=== PATIENT | male | born 1965 | race Two or more races ===

== ENCOUNTER 2024-06-08 16:31 | Inpatient (IN) | payer MEDICAID, MEDICARE, OTHER ==
[~2024-06-08] VITALS: Ht 154.9 cm; Wt 106.4 kg
--- NOTE | 2024-06-08 16:47 | ECG ---
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
--- NOTE | 2024-06-08 17:05 | ED.PDOC ---
HPI Comments Initial Vital Signs: Temp : 98.9F BP: 128/69 HR: 99 RR: 20 SpO2: 92% on RA Past Medical History: CHF, DM, HTN Past Surgical History: Denies Social History: Denies smoking, ETOH, or drug use. Allergies: NKDA HPI: Poor Historian. 59-year-old male with multiple medical problems presents to the emergency department for three day history of midsternal chest pain nonradiating constant with the associated shortness of breath. Patient went to urgent Care was sent here for further evaluation. Patient uses oxygen at home however he has not been using it the last few days because he recently moved. REVIEW OF SYSTEMS: CONSTITUTIONAL: Denies acute: fever, diaphoresis, chills, generalized weakness. HEAD: Denies acute: headache, photophobia Eyes: Denies acute: Double vision, vision loss, eye pain, eye discharge. EARS: Denies acute: tinnitus, hearing loss, ear discharge, ear pain, THROAT: Denies acute: sore throat, swelling, difficulty swallowing , pain with swallowin g, change in voice. NECK: Denies acute: neck pain, neck swelling, stiff neck. HEART: Denies acute : palpitations, LUNGS: Denies acute: wheezing, cough, hemoptysis ABDOMEN: Denies acute: abdominal pain, Nausea, Vomiting, diarrhea, melena , hematemesis, hematochezia SKIN: Denies acute: rash, redness, lesions, itchiness. EXTREMITIES: Denies acute: calf pain, numbness, tingling, weakness, denies pain in extremity. Denies acute: Low back pain. Neuro: Denies acute: focal neurological deficit, motor or sensory focal neurological deficit, tremors, seizure like activity, confusion, dizziness, change in mental status, loss of bowel or bladder function, cauda equina like symptoms. : Denies acute: dysuria, hematuria, flank pain, increase in urinary frequency. PSYCH: Denies acute: hallucination, suicidal ideation, homicidal ideation. PHYSICAL EXAM: General: no acute distress, awake and alert. Head: normocephalic, atraumatic. Neck: supple, trachea is midline, no swelling. Throat: Normal phonation. Eyes:, no erythema, no purulent discharge, no proptosis, no icterus. Heart: regular rate, regular rhythm, no significant murmur appreciated. Lungs: no apparent respiratory distress, Able to speak in full sentences. No wheezing, no rhonchi, no crackles. No stridors Clear to auscultation bilaterally. Abdomen: non tender to palpation, non distended, soft, no guarding, no rebound, + bowel sounds. Obese Neuro: Awake, Alert, oriented to name, self, situation, follows commands GCS=15. Speech is normal. Skin: no petechia, no purpura, no cyanosis, non-pale, not jaundice. Lower extremities: --trace bilateral - Pitting edema no deformity, no focal swelling, no calf TTP. Makes eye contact. moves all four extremities. Face: no apparent facial droop. Ambulating in the ED independently. ED COURSE: Chief Complaint: Chest Pain Time Seen by MD: 17:00 Reviewed Notes: Nurses Notes, Medications, Allergies Allergies: Coded Allergies: NO KNOWN ALLERGIES (Unverified , 06/08/24) Information Source: Patient Mode of Arrival: Ambulatory Was a procedure done? Was a procedure done?: No CP Differential Dx Differential Diagnosis: Other (DDx include ACS, unstable angina, anxiety, PE, pneumothroax, neoplasm, cardiac ischemia, COPD, asthma, CHF, pleural effusion, tobacco abuse, pneumonia, hypoxia, hypercapnia, anemia., infection/sepsis., pulmonary edema. Asthma, Cardiac tamponade, infection.), N/A Differential Diagnosis: Other (Ddx include but not limitied to gastritis, mu sculoskeletal pain, radiculopathy, atypical chest pain, dissection, aneurysm, ACS, unstable angina, hiatal hernia, GERD, anxiety, costochondritis, PE, pneumothroax, neoplasm, cardiac ischemia, drug abuse, anemia.) X-Ray, Labs, Meds, [address] [address] Ph: [phone] DIAGNOSTIC IMAGING Diagnostic Imaging Report : [id number] Signed PATIENT: DAKOTAH SOLISOACCT: [id number] UNIT: [id number] : 1965 LOC: ER ROOM / BED: / AGE / SEX: 59 / M ADM STATUS: REG ER SERVICE 1642 ORDERING PHYSICIAN: ANNETTE FUNES DO PROCEDURE(s): CXRP - CHEST PORTABLE REASON: CHEST PAIN ORDER NUMBER(s): [id number], ACCESSION NUMBER(s): [id number] CHEST RADIOGRAPH Indication: CHEST PAIN Technique: Single frontal view of the chest was obtained COMPARISON: None FINDINGS: Lines and Tubes: None Lungs: Clear Pleura: No effusion. No pneumothorax. Cardiomediastinal contours: Unremarkable Bones: Unremarkable IMPRESSION: 1. No acute disease. ATED BY: LANCE MUSE MD DICTATED DATE/TIME: 06/08/241722 SIGNED BY: LANCE MUSE MD SIGNED DATE/TIME: 06/08/241722 CC: Vital Signs Date Time Temp Pulse Resp B/P (MAP) Pulse Ox O2 Delivery O2 Flow Rate FiO2 06/08/24 20:30 99.5 73 18 117/65 (82) 90 99.5 06/08/24 18:24 121/61 06/08/24 18:13 99.0 95 18 121/61 (81) 94 99.0 06/08/24 18:13 95 06/08/24 17:25 99 06/08/24 16:40 102 06/08/24 16:31 98.4 99 20 128/69 (88) 92 98.4 Lab Test 06/08/24 21:25 06/08/24 19:27 06/08/24 19:22 06/08/24 16:58 Range/Units Troponin I High Sensitivity 18 16 16 </=54 ng/L Lactic Acid Level 1.5 2.7 *H 0.4-2.0 mmol/L White Blood Count 6.1 4.4-10.8 10^3/uL Red Blood Count 5.05 4.5-5.90 10^6/uL Hemoglobin 17.5 13.5-17.5 g/dL Hematocrit 50.7 41.0-53.0 % Mean Corpuscular Volume 100.5 H 80.0-100.0 fL Mean Corpuscular Hemoglobin 34.7 H 28.0-32.0 pg Mean Corpuscular Hemoglobin Concent 34.5 32.0-36.0 g/dL Red Cell Distribution Width 13.9 11.8-14.3 % Platelet Count 122 L 140-450 10^3/uL Mean Platelet Volume 9.2 6.9-10.8 fL Neutrophils (%) (Auto) 63.3 37.0-80.0 % Lymphocytes (%) (Auto) 21.6 10.0-50.0 % Monocytes (%) (Auto) 10.6 0.0-12.0 % Eosinophils (%) (Auto) 3.5 0.0-7.0 % Basophils (%) (Auto) 1.0 0.0-2.0 % Neutrophils # (Auto) 3.9 1.6-8.6 10 ^3/uL Lymphocytes # (Auto) 1.3 0.4-5.4 10 ^3/uL Monocytes # (Auto) 0.6 0-1.3 10 ^3/uL Eosinophils # (Auto) 0.2 0-0.8 10 ^3/uL Basophils # (Auto) 0.1 0-0.2 10 ^3/uL Nucleated Red Blood Cells 0.1 % D-Dimer, Quantitative 1.44 H 0.0-0.49 mg/L FEU Sodium Level 140 136-145 mmol/L Potassium Level 4.0 3.5-5.1 mmol/L Chloride Level 102 98-107 mmol/L Carbon Dioxide Level 32 H 20-31 mmol/L Anion Gap 6 5-15 Blood Urea Nitrogen 21 9-23 mg/dL Creatinine 1.48 H 0.700-1.30 mg/dL Glomerular Filtration Rate Calc 54 >90 mL/min BUN/Creatinine Ratio 14.2 10.0-20.0 Serum Glucose 331 H 74-106 mg/dL Calcium Level 10.0 8.7-10.4 mg/dL Magnesium Level 1.7 1.6-2.6 mg/dL Total Bilirubin 1.3 H 0.2-1.0 mg/dL Aspartate Amino Transferase (AST) 43 H 13-40 U/L Alanine Aminotransferase (ALT) 38 7-40 U/L Alkaline Phosphatase 154 H 46-116 U/L B-Type Natriuretic Peptide 52.07 0-100 pg/mL Total Protein 6.1 5.7-8.2 g/dL Albumin 3.1 L 3.2-4.8 g/dL Current Medications Medications (Trade) Dose Ordered Sig/Deondre Route Start Time Stop Time Status Last Admin Aspirin (Ecotrin Enteric Coated Tablet) 325 mg ONCE ONCE PO 06/08/24 16:45 06/08/24 16:46 DC 06/08/24 18:23 Nitroglycerin (Ntrostat Sublingual) 0.4 mg ONCE ONCE SL 06/08/24 16:45 06/08/24 16:46 DC 06/08/24 18:24 Time of 1ST Reevaluation: 18:00 Reevaluation 1ST: Unchanged Patient Education/Counseling: Diagnosis, Treatment Family Education/Counseling: No Family Present Comments Patient presented with the above HPI.----chest pain/dyspnea--workup was initiated. patient was found with the above mentioned diagnosis. the following medications were ordered: please refer to order lists of meds and tests obtained by myself Dr. Funes. Patient ED course and VS have been stabilized. Patient has been reassessed in the ED and remained in a stable condition. Pertinent incidental findings were discussed with the patient and/or family. Patient/family voices understanding and is agreeable with plan. Patient has been observed in the ED adequate length of time to insure improvement/stability. Escalation of care considered: Consideration of escalation to observation or admission Patient was ADMITTED to the medicine team for further evaluation and treatment of their presentation. I ordered a CT angiogram of the chest however someone else canceled it. All the reports of any imaging studies that were ordered by myself were reviewed by myself. Departure 1 Departure Time of Disposition: 17:11 Impression: Primary Impression: Chest pain Qualified Codes: R07.9 - Chest pain, unspecified Additional Impressions: Dyspnea Qualified Codes: R06.00 - Dyspnea, unspecified Hyperglycemia Disposition: ADMITTED INPATIENT Admit to: Tele Condition: Guarded Discharged With: Self Critical Care Note Critical Care Time?: Yes (35 min-critical care time only) I personally scribed for ANNETTE FUNES DO ([email or web address]) on 06/08/24 at 17:05. Electronically submitted by Tong Colbert ([email or web address]). I personally scribed for ANNETTE FUNES DO ([email or web address]) on 06/08/24 at 17:14. Electronically submitted by Tong Colbert ([email or web address]). ANNETTE FUNES DO Jun 08, 2024 17:05
--- NOTE | 2024-06-08 17:26 | DVH ---
CHEST RADIOGRAPH Indication: CHEST PAIN Technique: Single frontal view of the chest was obtained COMPARISON: None FINDINGS: Lines and Tubes: None Lungs: Clear Pleura: No effusion. No pneumothorax. Cardiomediastinal contours: Unremarkable Bones: Unremarkable IMPRESSION: 1. No acute disease.
--- NOTE | 2024-06-08 17:27 | ECG ---
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
[2024-06-08 17:43] LABS: Basophils # (auto) 0.1 10 ^3/uL (0-0.2); Eosinophils # (auto) 0.2 10 ^3/uL (0-0.8); Eosinophils % (auto) 3.5 % (0.0-7.0); Hematocrit 50.7 % (41.0-53.0); Hemoglobin 17.5 g/dL (13.5-17.5); Lymphocytes # (auto) 1.3 10 ^3/uL (0.4-5.4); Lymphocytes % (auto) 21.6 % (10.0-50.0); Mean Corpuscular Hemoglobin 34.7 pg (28.0-32.0); Mean Corpuscular Hgb Conc. 34.5 g/dL (32.0-36.0); Mean Corpuscular Volume 100.5 fL (80.0-100.0); Monocytes # (auto) 0.6 10 ^3/uL (0-1.3); Monocytes % (auto) 10.6 % (0.0-12.0); Neutrophils # (auto) 3.9 10 ^3/uL (1.6-8.6); Neutrophils % (auto) 63.3 % (37.0-80.0); Nucleated Red Blood Cells % 0.1 %; Platelet Count (auto) 122 10^3/uL (140-450); Red Blood Cells 5.05 10^6/uL (4.5-5.90); Red Cell Distribution Width 13.9 % (11.8-14.3); White Blood Cell 6.1 10^3/uL (4.4-10.8)
[2024-06-08 17:52] LABS: Alanine Aminotransferase 38 U/L (7-40); Anion Gap 6 (5-15); BUN/Creatinine Ratio 14.2 (10.0-20.0); Blood Urea Nitrogen 21 mg/dL (9-23); Chloride 102 mmol/L (98-107); Magnesium 1.7 mg/dL (1.6-2.6); Sodium 140 mmol/L (136-145); Total Protein 6.1 g/dL (5.7-8.2)
[2024-06-08 17:54] LABS: Albumin 3.1 g/dL (3.2-4.8); Alkaline Phosphatase 154 U/L (46-116); Aspartate Aminotransferase 43 U/L (13-40); Bilirubin, Total 1.3 mg/dL (0.2-1.0); Carbon Dioxide 32 mmol/L (20-31); Glucose 331 mg/dL (74-106)
[2024-06-08 17:58] LABS: Lactic Acid w/Reflex 2.7 mmol/L (0.4-2.0)
[2024-06-08] MEDS: ASPirin-EC 325mg tab PO ONE (18:23)
[2024-06-08] MEDS: NITROGLYCERIN 0.4 MG SL TAB SL ONE (18:24)
[2024-06-08 20:30] VITALS: BP 117/65; PULSE 73; RESP 18; TEMP 99.5; O2SAT 90
[2024-06-08] MEDS ORDERED: DOCUSATE SOD 100 MG CAP PO PRN (22:15)
[2024-06-08] MEDS ORDERED: ACETAMINOPHEN 325 MG TAB PO PRN (22:15)
[2024-06-08] MEDS ORDERED: INSULIN LANTUS (GLARGINE) 1 /0.01ml (100units/ml) SC ONE (22:15)
[2024-06-08] MEDS ORDERED: ATORVASTATIN 20 MG TAB PO ONE (22:15)
[2024-06-08] MEDS ORDERED: ONDANSETRON HCL 4 MG/2 ML VIAL IV ONE (22:15)
[2024-06-08] MEDS ORDERED: ONDANSETRON HCL 4 MG/2 ML VIAL IV PRN ×2 (22:15)
[2024-06-08] MEDS ORDERED: NITROGLYCERIN 0.4 MG SL TAB SL PRN (22:15)
[2024-06-08] MEDS ORDERED: LISINOPRIL 5 MG TAB PO ONE (22:15)
[2024-06-08] MEDS ORDERED: DEXTROSE (50%) 50ML SYRG IV PRN (22:15)
[2024-06-08] MEDS ORDERED: HYDROcodone-ACET 5/325MG TAB PO PRN (22:15)
[2024-06-08] MEDS ORDERED: MAGNESIUM SULFATE 1GM/100ML 100 ML IV SCH (22:15)
[2024-06-08] MEDS ORDERED: FUROSEMIDE 20 MG/2 ML VIAL IV ONE (22:15)
[2024-06-08] MEDS ORDERED: ASPirin 81 mg TAB PO ONE (22:15)
[2024-06-08] MEDS ORDERED: METOPROLOL TARTRATE 25 MG TAB PO ONE (22:15)
--- NOTE | 2024-06-08 22:28 | DVHHPRES ---
History of Present Illness Resident Creating Document: WILIAM STANTON RESDIENT History of Present Illness 59-year-old male with history of CHF, diabetes and hypertension presents to the emergency department for three day history of midsternal chest pain nonradiating constant with the associated shortness of breath. Patient went to urgent Care was sent here for further evaluation. Patient uses oxygen at home however he has not been using it the last few days because he recently moved. He also reports productive cough and nausea. Denies fever, abdominal pain, or any bladder and bowel habit changes. PMHx: CHF, diabetes and hypertension PSHx: Not contribute Family history: Not Significant Social history: Ex-smoker, denies any other drug use. Home medication: Insulin, metoprolol, lisinopril, atorvastatin, Lasix Allergic history: No known allergies Review of Systems Review of Systems General: patient denies fever, fatigue, weaknes, sweating, any recent changes in appetite and weight HEENT: No headaches, visiual changes, hearing loss, tinnitus, nasal congestion and discharge, and sore throat. Cardiovascular: Reports chest pain Respiratory: Reports shortness of breaths Gastrointestinal: Denies nausea, vomiting, dysphagia, odynophagia, heartburn, ab dominal pain, flatulence, bloating, diarrhea, constipation, change in stool, or blood in stool. Genitourinary: No dysuria, hematuria, discharge, frequency, urgency, nocturia, incontinence, and urinary retention. Endocrine: No heat or cold intolerance, polydipsia, polyuria, and polyphagia. Neurological: No dizziness, extremity weakness and numbness, tremors, gait disturbance, seizures, and memory impairment. Psychiatric: Denies depression, anxiety,or insomnia. Musculoskeletal: Denies neck pain, stiffness and swelling, back pain, muscle weakness, joint pain, stiffness, swelling, or limited range of motion. Skin: No rashes, itching, skin lesion, changes in hair, nail, skin texture and breast. Hematologic/Lymphatic: Denies easy bruising, bleeding tendencies, or lymph node enlargement. Allergies: Coded Allergies: NO KNOWN ALLERGIES (Unverified , 06/08/24) Medications Current Medications Medications Dose Ordered Sig/Deondre Route Start Time Stop Time Status Last Admin Dose Admin Docusate Sodium 100 mg BIDPRN PRN PO 06/08/24 22:15 UNV Acetaminophen 650 mg Q6HP PRN PO 06/08/24 22:15 UNV Acetaminophen/ Hydrocodone Bitart 1 tab Q4HP PRN PO 06/08/24 22:15 UNV Ondansetron HCl 4 mg Q4HP PRN IV 06/08/24 22:15 UNV Furosemide 20 mg BIDD IV 06/09/24 06:00 UNV Lisinopril 5 mg DAILY PO 06/09/24 10:00 UNV Metoprolol Tartrate 25 mg BID PO 06/09/24 10:00 UNV Insulin Glargine 15 units QAM SC 06/09/24 07:00 UNV Exam Vital Signs Vital Signs Date Time Temp Pulse Resp B/P (MAP) Pulse Ox O2 Delivery O2 Flow Rate FiO2 06/08/24 20:30 99.5 73 18 117/65 (82) 90 99.5 Exam General Appearance: Alert, Oriented X3, Cooperative, No acute distress HEENT: Atraumatic, PERRLA, EOMI, Mucous membrane moist/pink Respiratory: Bilateral crackles Cardiovascular: Regular rate, Normal S1, Normal S2, No murmurs, no chest wall tenderness Abdominal: Normal bowel sounds, Soft, No tenderness, No hepatospenomegaly, No masses Extremities: Bilateral pedal edema Skin: No rashes, No breakdown, No significant lesion Neuro: Normal gait, Normal speech, Strength at 5/5 X4 ext, Normal tone, Sensation intact, Cranial nerves 3-12 NL, Reflexes 2+ Psych/Mental Status: Mental status NL, Mood NL Labs/Xrays Labs Test 06/08/24 21:25 06/08/24 19:27 06/08/24 16:58 Range/Units Troponin I High Sensitivity 18 </=54 ng/L Lactic Acid Level 1.5 0.4-2.0 mmol/L White Blood Count 6.1 4.4-10.8 10^3/uL Red Blood Count 5.05 4.5-5.90 10^6/uL Hemoglobin 17.5 13.5-17.5 g/dL Hematocrit 50.7 41.0-53.0 % Mean Corpuscular Volume 100.5 H 80.0-100.0 fL Mean Corpuscular Hemoglobin 34.7 H 28.0-32.0 pg Mean Corpuscular Hemoglobin Concent 34.5 32.0-36.0 g/dL Red Cell Distribution Width 13.9 11.8-14.3 % Platelet Count 122 L 140-450 10^3/uL Mean Platelet Volume 9.2 6.9-10.8 fL Neutrophils (%) (Auto) 63.3 37.0-80.0 % Lymphocytes (%) (Auto) 21.6 10.0-50.0 % Monocytes (%) (Auto) 10.6 0.0-12.0 % Eosinophils (%) (Auto) 3.5 0.0-7.0 % Basophils (%) (Auto) 1.0 0.0-2.0 % Neutrophils # (Auto) 3.9 1.6-8.6 10 ^3/uL Lymphocytes # (Auto) 1.3 0.4-5.4 10 ^3/uL Monocytes # (Auto) 0.6 0-1.3 10 ^3/uL Eosinophils # (Auto) 0.2 0-0.8 10 ^3/uL Basophils # (Auto) 0.1 0-0.2 10 ^3/uL Nucleated Red Blood Cells 0.1 % D-Dimer, Quantitative 1.44 H 0.0-0.49 mg/L FEU Sodium Level 140 136-145 mmol/L Potassium Level 4.0 3.5-5.1 mmol/L Chloride Level 102 98-107 mmol/L Carbon Dioxide Level 32 H 20-31 mmol/L Anion Gap 6 5-15 Blood Urea Nitrogen 21 9-23 mg/dL Creatinine 1.48 H 0.700-1.30 mg/dL Glomerular Filtration Rate Calc 54 >90 mL/min BUN/Creatinine Ratio 14.2 10.0-20.0 Serum Glucose 331 H 74-106 mg/dL Calcium Level 10.0 8.7-10.4 mg/dL Magnesium Level 1.7 1.6-2.6 mg/dL Total Bilirubin 1.3 H 0.2-1.0 mg/dL Aspartate Amino Transferase (AST) 43 H 13-40 U/L Alanine Aminotransferase (ALT) 38 7-40 U/L Alkaline Phosphatase 154 H 46-116 U/L B-Type Natriuretic Peptide 52.07 0-100 pg/mL Total Protein 6.1 5.7-8.2 g/dL Albumin 3.1 L 3.2-4.8 g/dL Assessment/Plan Assessment/Plan Assessment: Acute on chronic heart failure, systolic Acute on chronic hypoxic respiratory failure, likely due to heart failure Pneumonia, likely due to Gram-positive Gram-negative bacteria/viral Moderate malnutrition Possible JASBIR, creatinine is raised, no baseline available Uncontrolled diabetes type 2 with hyperglycemia Transaminitis Raised D-dimer Hypertension Plan: Check Sputum culture, MRSA nares and COVID 19 empiric antibiotic azithromycin and ceftriaxone IV diuretic Continue home medicine including metoprolol, lisinopril, atorvastatin and Lasix Echocardiogram, lipid profile, Hb A1c Insulin Lantus 15 units, insulin regular according to aggressive SS oxygen through nasal cannula DIET: Cardiac DVT PROPHYLAXIS: Lovenox GI PROPHYLAXIS: Protonix CODE STATUS: Goal of care discussed for more than 18 minutes, full code DISPOSITION: Telemetry Patient's status and plan discussed with patient Case discussed with Dr. Kraft Plan discussed with: Patient, Other (RN) My Orders Orders - WILIAM STANTON RESDIENT Procedure Category Date Status Time Admit ADMIT 06/08/24 Transmitted 22:12 Code Status CODE 06/08/24 Transmitted 22:12 Vital Signs ROSARIO 06/08/24 In Process 22:12 Review Orders With ROSARIO 06/08/24 In Process Adm. 22:12 Docusate Sodium PHA 06/08/24 Logged Capsule (Colace 22:15 Acetaminophen Tablet PHA 06/08/24 Logged (Tylenol Tablet) 22:15 Notify Of Changes [facility] 06/08/24 In Process From Base 22:12 Advance Directive ROSARIO 06/08/24 In Process 22:12 Echo 2d Mode Cardiac US 06/08/24 Logged DOP 22:12 Urinalysis LAB 06/08/24 Transmitted 22:12 Lipid Panel LAB 06/08/24 Transmitted 22:12 Patient Condition ORDERS 06/08/24 Transmitted 22:12 Allergies ROSARIO 06/08/24 In Process 22:12 Hydrocodone-Acet PHA 06/08/24 Logged 5/325mg Tab ([place] 22:15 Ondansetron Hcl PHA 06/08/24 Logged (Zofran) 22:15 Drug Screen LAB 06/08/24 Transmitted 22:12 Hemoglobin A1c LAB 06/08/24 Transmitted 22:12 Lovenox 40mg PHA 06/09/24 Transmitted 10:00 Nitroglycerin PHA 06/08/24 Transmitted Sublingual (Ntrostat 22:15 Oxygen By Nasal RT 06/08/24 Transmitted Cannula 22:12 Stat Ekg For Chest ROSARIO 06/08/24 In Process Pain 22:12 Notify Md Of Changes ROSARIO 06/08/24 In Process From Base 22:12 Thyroid Stimulating LAB 06/08/24 Transmitted Hormone 22:12 Bilat Lower Dvt US 06/08/24 Logged 22:[address] 06/08/24 Logged Contrast 22:12 Comprehensive LAB 06/09/24 Verified Metabolic Panel 04:00 Complete Blood Count LAB 06/09/24 Verified 04:00 Furosemide Injection PHA 06/08/24 Transmitted (Lasix Injection) 22:15 Furosemide Injection PHA 06/09/24 Logged (Lasix Injection) 06:00 Lisinopril Tablet PHA 06/09/24 Transmitted (Zestril Tablet) 10:00 Lisinopril Tablet PHA 06/08/24 Transmitted (Zestril Tablet) 22:15 Metoprolol Tartrate PHA 06/08/24 Transmitted Tablet (Lopressor Ta 22:15 Metoprolol Tartrate PHA 06/09/24 Transmitted Tablet (Lopressor Ta 10:00 Insulin Lantus PHA 06/09/24 Transmitted (Glargine) (Lantus) 07:00 Insulin Lantus PHA 06/08/24 Transmitted (Glargine) (Lantus) 22:15 Aspirin Tablet PHA 06/08/24 Transmitted 22:15 Aspirin Tablet PHA 06/09/24 Transmitted 10:00 Atorvastatin (Lipitor) PHA 06/08/24 Transmitted 22:15 Atorvastatin (Lipitor) PHA 06/09/24 Transmitted 22:00 Ondansetron Hcl PHA 06/08/24 Transmitted (Zofran) 22:15 Ondansetron Hcl PHA 06/08/24 Transmitted (Zofran) 22:15 Glucose Blood PHA 06/09/24 Transmitted (Accu-Chek Comfort 00:00 Agressive Insulin Ss PHA 06/09/24 Transmitted 00:00 Dextrose 50% Syringe PHA 06/08/24 Transmitted 22:15 Magnesium Med PHA 06/08/24 Transmitted 22:15 Date of Service: Jun 08, 2024 Billing Provider: ALFRED KRAFT MD Common Visit Codes: [id number] INP/OBS CARE (HIGH) WILIAM STANTON RESDIENT Jun 08, 2024 22:28 ALFRED KRAFT MD Jun 11, 2024 10:47
[2024-06-08] MEDS ORDERED: AZITHROMYCIN 500MG/ 250ML 250 ML IV ONE ×2 (23:00→23:15)
[2024-06-08] MEDS ORDERED: cefTRIAXone 1GM/50ML D5W 50 ML IV ONE ×2 (23:00→23:15)
[2024-06-08 23:18] LABS: LDL Cholesterol 56 mg/dL (< 100)
[2024-06-08 23:19] LABS: HDL Cholesterol 52 mg/dL (40-59); Triglycerides 211 mg/dL (< 150)
[2024-06-08 23:20] LABS: Cholesterol 140 mg/dL (< 200)
[2024-06-09] MEDS ORDERED: ACCU-CHEK COMFORT CURVE STRIP VI SCH
[2024-06-09] MEDS ORDERED: InsuLIN REG 1unit/0.01ml Soln (100units/ml) SC SCH
--- NOTE | 2024-06-09 04:47 | DVHDSRES ---
Discharge Summary Date of Admission Resident Creating Document: WILIAM STANTON RESDIENT Jun 08, 2024 at 22:12 Date of Discharge: Jun 09, 2024 Admitting Diagnosis Acute on chronic systolic heart failure Labs/Diagnostic Data: Laboratory Results Test 06/08/24 21:25 06/08/24 19:27 06/08/24 16:58 Troponin I High Sensitivity 18 ng/L (</=54) Lactic Acid Level 1.5 mmol/L (0.4-2.0) White Blood Count 6.1 10^3/uL (4.4-10.8) Red Blood Count 5.05 10^6/uL (4.5-5.90) Hemoglobin 17.5 g/dL (13.5-17.5) Hematocrit 50.7 % (41.0-53.0) Mean Corpuscular Volume 100.5 fL (80.0-100.0) Mean Corpuscular Hemoglobin 34.7 pg (28.0-32.0) Mean Corpuscular Hemoglobin Concent 34.5 g/dL (32.0-36.0) Red Cell Distribution Width 13.9 % (11.8-14.3) Platelet Count 122 10^3/uL (140-450) Mean Platelet Volume 9.2 fL (6.9-10.8) Neutrophils (%) (Auto) 63.3 % (37.0-80.0) Lymphocytes (%) (Auto) 21.6 % (10.0-50.0) Monocytes (%) (Auto) 10.6 % (0.0-12.0) Eosinophils (%) (Auto) 3.5 % (0.0-7.0) Basophils (%) (Auto) 1.0 % (0.0-2.0) Neutrophils # (Auto) 3.9 10 ^3/uL (1.6-8.6) Lymphocytes # (Auto) 1.3 10 ^3/uL (0.4-5.4) Monocytes # (Auto) 0.6 10 ^3/uL (0-1.3) Eosinophils # (Auto) 0.2 10 ^3/uL (0-0.8) Basophils # (Auto) 0.1 10 ^3/uL (0-0.2) Nucleated Red Blood Cells 0.1 % D-Dimer, Quantitative 1.44 mg/L FEU (0.0-0.49) Sodium Level 140 mmol/L (136-145) Potassium Level 4.0 mmol/L (3.5-5.1) Chloride Level 102 mmol/L (98-107) Carbon Dioxide Level 32 mmol/L (20-31) Anion Gap 6 (5-15) Blood Urea Nitrogen 21 mg/dL (9-23) Creatinine 1.48 mg/dL (0.700-1.30) Glomerular Filtration Rate Calc 54 mL/min (>90) BUN/Creatinine Ratio 14.2 (10.0-20.0) Serum Glucose 331 mg/dL (74-106) Hemoglobin A1c 9.0 % A1C (<5.7) Calcium Level 10.0 mg/dL (8.7-10.4) Magnesium Level 1.7 mg/dL (1.6-2.6) Total Bilirubin 1.3 mg/dL (0.2-1.0) Aspartate Amino Transferase (AST) 43 U/L (13-40) Alanine Aminotransferase (ALT) 38 U/L (7-40) Alkaline Phosphatase 154 U/L (46-116) B-Type Natriuretic Peptide 52.07 pg/mL (0-100) Total Protein 6.1 g/dL (5.7-8.2) Albumin 3.1 g/dL (3.2-4.8) Triglycerides Level 211 mg/dL (< 150) Cholesterol Level 140 mg/dL (< 200) LDL Cholesterol 56 mg/dL (< 100) HDL Cholesterol 52 mg/dL (40-59) Thyroid Stimulating Hormone (TSH) 0.95 uIU/mL (0.55-4.78) Other Laboratory Tests 06/08/24 16:58 Brief Hx & Hospital Course: 59-year-old male with history of CHF, diabetes and hypertension presents to the emergency department for three day history of midsternal chest pain nonradiating constant with the associated shortness of breath. Patient went to urgent Care was sent here for further evaluation. Patient uses oxygen at home however he has not been using it the last few days because he recently moved. He also reports productive cough and nausea. Denies fever, abdominal pain, or any bladder and bowel habit changes. PMHx: CHF, diabetes and hypertension PSHx: Not contribute Family history: Not Significant Social history: Ex-smoker, denies any other drug use. Home medication: Insulin, metoprolol, lisinopril, atorvastatin, Lasix Allergic history: No known allergies On 06/07/2024, the patient seen and examined at the bedside. Patient was complaining of chest pain and shortness of breaths. Patient was admitted for the possible acute on chronic systolic heart failure and hypoxic respiratory failure secondary to pneumonia. Patient was started on empiric antibiotic of azithromycin and ceftriaxone, IV diuretics and continued home medicine including metoprolol, lisinopril and atorvastatin. Sputum culture, and echocardiogram was ordered. On 06/09/2024, the patient left AMA. Operations or Procedures [place] [address] Ph: [phone] DIAGNOSTIC IMAGING Diagnostic Imaging Report : [id number] Signed PATIENT: DAKOTAH SOLISOACCT: [id number] UNIT: [id number] : 1965 LOC: ER ROOM / BED: / AGE / SEX: 59 / M ADM STATUS: REG ER SERVICE 1642 ORDERING PHYSICIAN: ANNETTE FUNES DO PROCEDURE(s): CXRP - CHEST PORTABLE REASON: CHEST PAIN ORDER NUMBER(s): [id number], ACCESSION NUMBER(s): [id number] CHEST RADIOGRAPH Indication: CHEST PAIN Technique: Single frontal view of the chest was obtained COMPARISON: None FINDINGS: Lines and Tubes: None Lungs: Clear Pleura: No effusion. No pneumothorax. Cardiomediastinal contours: Unremarkable Bones: Unremarkable IMPRESSION: 1. No acute disease. ATED BY: LANCE MUSE MD DICTATED DATE/TIME: 06/08/241722 SIGNED BY: LANCE MUSE MD SIGNED DATE/TIME: 06/08/241722 CC: Condition at Discharge: Undetermined Final Diagnosis/Problems List Acute on chronic heart failure, systolic Acute on chronic hypoxic respiratory failure, likely due to heart failure Pneumonia, likely due to Gram-positive Gram-negative bacteria/viral Moderate malnutrition Possible JASBIR, creatinine is raised, no baseline available Uncontrolled diabetes type 2 with hyperglycemia Transaminitis Raised D-dimer Hypertension Dyslipidemia Discharge Disposition: AMA Discharge Statement: "Patient was advised to return to the ER or call 911 if any headaches, dizziness, shortness of breath, chest pain, abdominal pain, bleeding, fevers, or worsening of medical condition. Patient was counseled about treatment plan, medications, possible side effects, patientverbalized understanding. All questions were answered to the best of my ability. This discharge took greater then 30 minutes in planning, reviewing documentation, counseling the patient, and discussing with other team members." ASSESSMENT ASSESSMENT Assessment Date of Service: Jun 09, 2024 Billing Provider: ALFRED ROWE MD Common Visit Codes: 36525-BFV/OBS DISCH DAY <30MIN WILIAM STANTON RESDIENT Jun 09, 2024 04:47 ALFRED ROWE MD Jun 11, 2024 10:52
[2024-06-09] MEDS ORDERED: FUROSEMIDE 20 MG/2 ML VIAL IV SCH (06:00)
[2024-06-09] MEDS ORDERED: INSULIN LANTUS (GLARGINE) 1 /0.01ml (100units/ml) SC SCH (07:00)
[2024-06-09] MEDS ORDERED: cefTRIAXone 1GM/50ML D5W 50 ML IV SCH ×2 (09:00)
[2024-06-09] MEDS ORDERED: ASPirin 81 mg TAB PO SCH (10:00)
[2024-06-09] MEDS ORDERED: METOPROLOL TARTRATE 25 MG TAB PO SCH (10:00)
[2024-06-09] MEDS ORDERED: AZITHROMYCIN 500MG/ 250ML 250 ML IV SCH ×2 (10:00)
[2024-06-09] MEDS ORDERED: LISINOPRIL 5 MG TAB PO SCH (10:00)
[2024-06-09] MEDS ORDERED: ENOXAPARIN SOD 40 MG/0.4 ML SYRINGE SC SCH (10:00)
[2024-06-09] MEDS ORDERED: ATORVASTATIN 20 MG TAB PO SCH (22:00)
--- NOTE | 2024-06-11 13:14 | ECG ---
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
== END 2024-06-08 23:00 | disposition left against medical advice (07) | DRG 137 ==
LOC: ER 16:31 → OVERFLOW 22:12 → ER 22:20 → OVERFLOW 22:23
DX: J15.69 Pneumonia due to other Gram-negative bacteria (principal); J96.01 Acute respiratory failure with hypoxia; I50.23 Acute on chronic systolic (congestive) heart failure; E44.0 Moderate protein-calorie malnutrition; N17.9 Acute kidney failure, unspecified; I11.0 Hypertensive heart disease with heart failure; J12.9 Viral pneumonia, unspecified; J15.9 Unspecified bacterial pneumonia; Z68.41 Body mass index [BMI] 40.0-44.9, adult; R74.01 Elevation of levels of liver transaminase levels; E11.65 Type 2 diabetes mellitus with hyperglycemia; E78.5 Hyperlipidemia, unspecified; Z53.29 Procedure and treatment not carried out because of patient's decision for other reasons
CPT/HCPCS: 36415; 71045; 80053; 80061; 83036; 83605; 83735; 83880; 84443; 84484; 85025; 85379; 93005; 99291; G0378

== ENCOUNTER 2024-06-27 20:26 | Emergency (ER) | payer MEDICAID ==
[~2024-06-27] VITALS: Ht 154.9 cm; Wt 106.0 kg
--- NOTE | 2024-06-27 20:58 | ED.PDOC ---
HPI Comments HPI: 59 year old male presents to the ED with chief complaint of chest pain and SOB. Patient reports that he started to experience chest pain with associated SOB earlier today. Patient relays that he is O2 dependent at home and it was not helping with his SOB. Patient states he is compliant with all his medication and took ASA prior to arrival. Patient notes he was unable to bring his O2 with him as it is in a large machine at home. Patient noted to be 89% O2 saturation on 6L NC. Patient notes he believes he is experiencing CHF exacerbation. Patient denies any N/V, numbness, weakness, headache, dizziness, or leg edema. Initial Vitals: Temp: 99.8F BP: 133/52 HR: 90 RR: 24 O2 Sat: 89% on 6L of O2 via NC Medical History: COPD, CHF, HTN, DM Surgical History: Denies Social History: Denies smoking, ETOH, or drug use. Medications: Xarelto, metoprolol, lisinopril, Lasix, Trulicity Allergies: NKDA HPI: Poor Historian. Chest pain shortness of breath for one day. Patient was found hypoxic on arrival without his baseline supplemental oxygen that he came to the hospital without. Patient states compliance with all his medications including Xarelto REVIEW OF SYSTEMS: CONSTITUTIONAL: Denies acute: fever, diaphoresis, chills, generalized weakness. HEAD: Denies acute: headache, photophobia Eyes: Denies acute: Double vision, vision loss, eye pain, eye discharge. EARS: Denies acute: tinnitus, hearing loss, ear discharge, ear pain, THROAT: Denies acute: sore throat, swelling, difficulty swallowing , pain with swallowing, change in voice. NECK: Denies acute: neck pain, neck swelling, stiff neck. HEART: Denies acute : palpitations, LUNGS: Denies acute: wheezing, cough, hemoptysis ABDOMEN: Denies acute: abdominal pain, Nausea, Vomiting, diarrhea, melena , hematemesis, hematochezia SKIN: Denies acute: rash, redness, lesions, itchiness. EXTREMITIES: Denies acute: calf pain, numbness, tingling, weakness, denies pain in extremity. Denies acute: Low back pain. Neuro: Denies acute: focal neurological deficit, motor or sensory focal neurological deficit, tremors, seizure like activity, confusion, dizziness, change in mental status, loss of bowel or bladder function, cauda equina like symptoms. : Denies acute: dysuria, hematuria, flank pain, increase in urinary frequency. PSYCH: Denies acute: hallucination, suicidal ideation, homicidal ideation. PHYSICAL EXAM: General: --axnf-fi-[id number]------acute distress, awake and alert. Head: normocephalic, atraumatic. Neck: supple, trachea is midline, no swelling. Throat: Normal phonation. Eyes:, no erythema, no purulent discharge, no proptosis, no icterus. Heart: regular rate, regular rhythm, no significant murmur appreciated. Lungs: Vzos-ik-siigihan apparent respiratory distress, Able to speak in full sentences. No wheezing, no rhonchi, no crackles. No stridors Clear to auscultation bilaterally. Abdomen: non tender to palpation, non distended, soft, no guarding, no rebound, + bowel sounds. Morbidly obese. Neuro: Awake, Alert, oriented to name, self, situation, follows commands GCS=15. Speech is normal. Skin: no petechia, no purpura, no cyanosis, non-pale, not jaundice. Lower extremities: --1/4 bilateral - Pitting edema no deformity, no focal swelling, no calf TTP. Makes eye contact. moves all four extremities. Face: no apparent facial droop. Ambulating in the ED independently. ED COURSE: Chief Complaint: Chest Pain Time Seen by MD: 20:54 Reviewed Notes: Nurses Notes, Medications, Allergies Allergies: Coded Allergies: NO KNOWN ALLERGIES (Unverified , 06/08/24) Information Source: Patient Mode of Arrival: Ambulatory Was a procedure done? Was a procedure done?: No CP Differential Dx Differential Diagnosis: N/A Differential Diagnosis: Other (DDx include ACS, unstable angina, anxiety, PE, pneumothroax, neoplasm, cardiac ischemia, COPD, asthma, CHF, pleural effusion, tobacco abuse, pneumonia, hypoxia, hypercapnia, anemia., infection/sepsis., pulmonary edema. Asthma, Cardiac tamponade, infection.) X-Ray, Labs, Meds, VS Vital Signs Date Time Temp Pulse Resp B/P (MAP) Pulse Ox O2 Delivery O2 Flow Rate FiO2 06/28/24 01:29 98.6 80 20 108/78 (88) 90 98.6 06/28/24 01:27 108/78 06/28/24 00:31 81 06/27/24 22:22 82 06/27/24 21:33 20 94 Nasal Cannula* 4 36 06/27/24 21:25 90 24 89 Nasal Cannula* 6 44 06/27/24 21:11 133/52 06/27/24 21:10 133/52 06/27/24 20:40 99.8 90 24 133/52 (79) 89 99.8 Lab Test 06/28/24 01:01 06/27/24 23:58 06/27/24 21:49 06/27/24 20:53 Range/Units POC Glucose 542 *H 70-106 mg/dl Troponin I High Sensitivity 18 19 18 </=54 ng/L White Blood Count 5.1 4.4-10.8 10^3/uL Red Blood Count 4.63 4.5-5.90 10^6/uL Hemoglobin 16.0 13.5-17.5 g/dL Hematocrit 47.6 41.0-53.0 % Mean Corpuscular Volume 102.8 H 80.0-100.0 fL Mean Corpuscular Hemoglobin 34.5 H 28.0-32.0 pg Mean Corpuscular Hemoglobin Concent 33.5 32.0-36.0 g/dL Red Cell Distribution Width 14.1 11.8-14.3 % Platelet Count 111 L 140-450 10^3/uL Mean Platelet Volume 9.1 6.9-10.8 fL Neutrophils (%) (Auto) 67.1 37.0-80.0 % Lymphocytes (%) (Auto) 19.2 10.0-50.0 % Monocytes (%) (Auto) 9.5 0.0-12.0 % Eosinophils (%) (Auto) 3.2 0.0-7.0 % Basophils (%) (Auto) 1.0 0.0-2.0 % Neutrophils # (Auto) 3.4 1.6-8.6 10 ^3/uL Lymphocytes # (Auto) 1.0 0.4-5.4 10 ^3/uL Monocytes # (Auto) 0.5 0-1.3 10 ^3/uL Eosinophils # (Auto) 0.2 0-0.8 10 ^3/uL Basophils # (Auto) 0.1 0-0.2 10 ^3/uL Nucleated Red Blood Cells 0.1 % Sodium Level 136 136-145 mmol/L Potassium Level 4.3 3.5-5.1 mmol/L Chloride Level 100 98-107 mmol/L Carbon Dioxide Level 29 20-31 mmol/L Anion Gap 7 5-15 Blood Urea Nitrogen 25 H 9-23 mg/dL Creatinine 1.15 0.700-1.30 mg/dL Glomerular Filtration Rate Calc 73 >90 mL/min BUN/Creatinine Ratio 21.7 H 10.0-20.0 Serum Glucose 615 *H 74-106 mg/dL Calcium Level 9.2 8.7-10.4 mg/dL Total Bilirubin 0.8 0.2-1.0 mg/dL Aspartate Amino Transferase (AST) 40 13-40 U/L Alanine Aminotransferase (ALT) 36 7-40 U/L Alkaline Phosphatase 315 H 46-116 U/L B-Type Natriuretic Peptide 171.27 0-100 pg/mL Total Protein 6.3 5.7-8.2 g/dL Albumin 3.0 L 3.2-4.8 g/dL [place] [address] Ph: [phone] DIAGNOSTIC IMAGING Diagnostic Imaging Report : [id number] Signed PATIENT: DAKOTAH SOLIS MACCT: [id number] UNIT: [id number] : 1965 LOC: ER ROOM / BED: / AGE / SEX: 59 / M ADM STATUS: REG ER SERVICE 41 ORDERING PHYSICIAN: ANNETTE FUNES DO PROCEDURE(s): CXRP - CHEST PORTABLE REASON: cp/sob ORDER NUMBER(s): [id number], ACCESSION NUMBER(s): [id number] EXAM: XY CHEST PORTABLE TECHNIQUE: Single frontal chest radiograph CLINICAL HISTORY: cp/sob COMPARISON: XY CHEST PORTABLE on DOS: 06/08/24 Findings/Impression: Frontal chest radiograph demonstrates no acute osseous or superficial soft tissue abnormalities. The trachea is midline. The cardiac silhouette and mediastinum are within normal limits. No pneumothorax, pleural effusions, or consolidations. ATED BY: BONITA NAVA DO DICTATED DATE/TIME: 06/27/242152 SIGNED BY: BONITA NAVA DO SIGNED DATE/TIME: 06/27/242152 CC: Time of 1ST Reevaluation: 21:54 Reevaluation 1ST: Unchanged Patient Education/Counseling: Diagnosis, Treatment Family Education/Counseling: No Family Present Comments Patient presented with the above HPI.--respiratory distress and cardiac----workup was initiated. patient was found with the above mentioned diagnosis. the following medications were ordered: please refer to order lists of meds and tests obtained by myself Dr. Funes. Patient ED course and VS have been stabilized. Patient has been reassessed in the ED and remained in a stable condition. Pertinent incidental findings were discussed with the patient and/or family. Patient/family voices understanding and is agreeable with plan. Patient has been observed in the ED adequate length of time to insure improvement/stability. Escalation of care considered: Consideration of escalation to observation or admission Patient was ADMITTED to the medicine team for further evaluation and treatment of their presentation. I was later made aware that the patient left against medical advice. All the reports of any imaging studies that were ordered by myself were reviewed by myself. Departure 1 Departure Time of Disposition: 21:38 Impression: Primary Impression: Chest pain Additional Impressions: CHF exacerbation Hypoxemia Hyperglycemia due to diabetes mellitus Disposition: ADMITTED INPATIENT Admit to: [facility] Condition: Guarded Discharged With: Self Critical Care Note Critical Care Time?: Yes (45 min-critical care time only) Heart Score Heart Score: Heart Score Response (Comments) Value History Highly Suspicious 2 EKG Normal 0 Age <45 0 Risk Factors >3 or Hx ASHD 2 Troponin Normal limit 0 Total 4 I personally scribed for ANNETTE FUNES DO ([email or web address]) on 06/27/24 at 20:58. Electronically submitted by Tong Colbert ([email or web address]). I personally scribed for ANNETTE FUNES DO ([email or web address]) on 06/28/24 at 15:52. Electronically submitted by Wilman Nunes ([email or web address]). ANNETTE FUNES DO Jun 27, 2024 20:58
[2024-06-27] MEDS: FUROSEMIDE 100 MG/10ML VIAL IV ONE (21:10)
[2024-06-27] MEDS: methylPREDNISolone SOD SUCC 125 MG/2 ML VL IV ONE (21:10)
[2024-06-27] MEDS: NITROGLYCERIN 0.4 MG SL TAB SL ONE (21:11)
[2024-06-27 21:25] VITALS: PULSE 90; RESP 24; O2SAT 89
[2024-06-27] MEDS: IPRATROPIUM BROM 0.5 MG/2.5ML INH SOL NEB ONE (21:33)
[2024-06-27] MEDS: ALBUTEROL SULF 2.5 MG/0.5ML(0.5%) NEB SOLN NEB ONE (21:33)
[2024-06-27 21:34] LABS: Eosinophils # (auto) 0.2 10 ^3/uL (0-0.8); Monocytes # (auto) 0.5 10 ^3/uL (0-1.3); Nucleated Red Blood Cells % 0.1 %; White Blood Cell 5.1 10^3/uL (4.4-10.8)
[2024-06-27 21:37] LABS: Basophils # (auto) 0.1 10 ^3/uL (0-0.2); Eosinophils % (auto) 3.2 % (0.0-7.0); Hematocrit 47.6 % (41.0-53.0); Lymphocytes % (auto) 19.2 % (10.0-50.0); Mean Corpuscular Hemoglobin 34.5 pg (28.0-32.0); Mean Corpuscular Hgb Conc. 33.5 g/dL (32.0-36.0); Mean Corpuscular Volume 102.8 fL (80.0-100.0); Monocytes % (auto) 9.5 % (0.0-12.0); Neutrophils # (auto) 3.4 10 ^3/uL (1.6-8.6); Neutrophils % (auto) 67.1 % (37.0-80.0); Platelet Count (auto) 111 10^3/uL (140-450); Red Blood Cells 4.63 10^6/uL (4.5-5.90); Red Cell Distribution Width 14.1 % (11.8-14.3)
[2024-06-27 21:47] LABS: Alanine Aminotransferase 36 U/L (7-40); Anion Gap 7 (5-15); BUN/Creatinine Ratio 21.7 (10.0-20.0); Bilirubin, Total 0.8 mg/dL (0.2-1.0); Calcium 9.2 mg/dL (8.7-10.4); Carbon Dioxide 29 mmol/L (20-31); Chloride 100 mmol/L (98-107); Potassium 4.3 mmol/L (3.5-5.1); Sodium 136 mmol/L (136-145); Total Protein 6.3 g/dL (5.7-8.2)
--- NOTE | 2024-06-27 21:55 | DVH ---
EXAM: XY CHEST PORTABLE TECHNIQUE: Single frontal chest radiograph CLINICAL HISTORY: cp/sob COMPARISON: XY CHEST PORTABLE on DOS: 06/08/24 Findings/Impression: Frontal chest radiograph demonstrates no acute osseous or superficial soft tissue abnormalities. The trachea is midline. The cardiac silhouette and mediastinum are within normal limits. No pneumothorax, pleural effusions, or consolidations.
[2024-06-27 21:57] LABS: Alkaline Phosphatase 315 U/L (46-116); Aspartate Aminotransferase 40 U/L (13-40); Blood Urea Nitrogen 25 mg/dL (9-23)
[2024-06-27 21:58] LABS: Glucose 615 mg/dL (74-106)
[2024-06-28] MEDS: InsuLIN REG 1unit/0.01ml Soln (100units/ml) IV ONE (01:02)
[2024-06-28 01:29] VITALS: BP 108/78; PULSE 80; RESP 20; TEMP 98.6; O2SAT 90
--- NOTE | 2024-06-28 06:38 | ECG ---
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
--- NOTE | 2024-06-28 06:42 | ECG ---
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
--- NOTE | 2024-06-28 11:57 | ECG ---
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
== END 2024-06-28 06:43 | disposition left against medical advice (07) ==
LOC: ER 20:26
DX: R07.89 Other chest pain (principal); I11.0 Hypertensive heart disease with heart failure; I50.9 Heart failure, unspecified; E11.65 Type 2 diabetes mellitus with hyperglycemia; R06.02 Shortness of breath
CPT/HCPCS: 36415; 71045; 80053; 82947; 83880; 84484; 85025; 93005; 94640; 96374; 96375; 99285; J1815; J1940; J2919; 82962

== ENCOUNTER 2024-08-05 12:06 | Inpatient (IN) | payer MEDICARE, MEDICAID ==
[~2024-08-05] VITALS: Ht 154.9 cm; Wt 121.9 kg
--- NOTE | 2024-08-05 12:26 | ED.PDOC ---
HPI Comments sob and cp for 4 months Chief Complaint: Shortness of Breath Comments pt has chf, admittedly is dietary noncompliant. he drinks cola, eats fast foods, and has salt in his foods. for 4 months, he has had daily chest pain, and orthopnea. he is on O2 3L 24 hours, but is not using it now. he was admittd on 05.22.24, but AMA'd due to the long wait time for a bed Time Seen by MD: 12:16 Allergies: Coded Allergies: NO KNOWN ALLERGIES (Unverified , 06/08/24) Past Medical History PAST MEDICAL HISTORY: CHF, COPD, DM, HTN Past Medical History (Other): chronic respiratory failure Surgical History: Denies all surgeries Family History Family History: Reviewed,noncontributory to illness, No family hx of Cancer, No family hx of DM, No family hx of Heart bhavik, No family hx of HTN, No family hx ofKidney bhavik, No family hx of Liver bhavik, No family hx of Lung bhavik, No family hx of Stroke Social History Smoker: Quit Greater Than 1 Year Alcohol: Denies ETOH Use Drugs: Denies Drug Use Constitutional: denies: chills, diaphoresis, fatigue, fever, malaise, sweats, weakness, others EENTM: denies: blurred vision, double vision, ear bleeding, ear discharge, ear drainage, ear pain, ear ringing, eye pain, eye redness, hearing loss, mouth pain, mouth swelling, nasal discharge, nose bleeding, nose congestion, nose pa in, photophobia, tearing, throat pain, throat swelling, voice changes, others Respiratory: reports: orthopnea, SOB at rest; denies: cough, hemoptysis, shortness of breath, SOB with excertion, stridor, wheezing, others Cardiovascular: reports: chest pain, edema; denies: dizzy spells, diaphoresis, Dyspnea on exertion, irregular heart beat, left arm pain, lightheadedness, palpitations, PND, syncope, others Gastrointestinal: denies: abdomen distended, abdominal pain, blood streaked bowels, constipated, diarrhea, dysphagia, difficulty swallowing, hematemesis, melena, nausea, poor appetite, poor fluid intake, rectal bleeding, rectal pain, vomiting, others Genitourinary: denies: burning, dysuria, flank pain, frequency, hematuria, incontinence, penile discharge, penile sore, pain, testicle pain, testicle swelling, urgency, others Neurological: denies: dizziness, fainting, headache, left sided numbness, left sided weakness, numbness, paresthesia, pre-existing deficit, right sided numbness, right sided weakness, seizure, speech problems, tingling, tremors, weakness, others Musculoskeletal: denies: back pain, gout, joint pain, joint swelling, muscle pain, muscle stiffness, neck pain, others Integumetry: denies: bruises, change in color, change in hair/nails, dryness, laceration, lesions, lumps, rash, wounds, others Allergic/Immunocompromised: denies: Difficulty Healing, Frequent Infections, H aakash, Itching, others Hematologic/Lymphatic: denies: anemia, blood clots, easy bleeding, easy bruising, swollen glands, others Endocrine: denies: excessive hunger, excessive sweating, excessive thirst, excessive urination, flushing, intolerance to cold, intolerance to heat, unexplained weight gain, unexplained weight loss, others Psychiatric: denies: anxiety, bipolar disorder, depression, hopeless, panic disorder, schizophrenia, sleepless, suicidal, others All Other Systems: Reviewed and Negative Physical Exam General Appearance: No Apparent Distress, Normal HEENT: Normal ENT Inspection, Pharynx Normal, TMs Normal Neck: Full Range of Motion, Non-Tender, Normal, Normal Inspection Respiratory: Chest Non-Tender, Lungs Clear, No Accessory Muscle Use, No Respiratory Distress, Normal Breath Sounds Cardiovascular: No JVD, No Murmur, No Gallop, Normal Peripheral Pulses, Regular Rate/Rhythm Breast Exam: Deferred Gastrointestinal: No Organomegaly, Non Tender, No Pulsatile Mass, Normal Bowel Sounds, Soft Genitalia: Deferred Pelvic: Deferred Rectal: Deferred Extremities: No calf tenderness, Normal capillary refill, Normal inspection, Normal range of motion, Non-tender, Swelling (billateral symmetric 3+ edema up upper tib) Musculoskeletal : Apperance: Normal Neurologic: Alert, special education educational assistant II-XII nml as Tested, No Motor Deficits, Normal Affect, Normal Mood, No Sensory Deficits Cerebellar Function: Normal Reflexes: Normal Skin: Dry, Normal Color, Warm Lymphatic: No Adenopathy EKG EKG : Pulse Rate (adult): 85 [place]: Normal Cardiac Rhythm: NSR Block: None Hypertrophy: None ST: Nonsp Was a procedure done? Was a procedure done?: No CP Differential Dx Differential Diagnosis: A-fib, Angina, Anxiety / Panic Attack, Heart Failure, Hypoxia Differential Diagnosis: CHF, Medical NonCompliance Differential Diagnosis: Angina, Myocardial Infarction, Pericarditis, Pneumonia, Pneumothorax, Pulmonary Embolus X-Ray, Labs, Meds, VS Vital Signs Date Time Temp Pulse Resp B/P (MAP) Pulse Ox O2 Delivery O2 Flow Rate FiO2 08/05/24 14:33 Simple Mask* 10 99 08/05/24 14:30 75 21 101/58 (72) 95 08/05/24 13:24 119/58 08/05/24 13:03 Nasal Cannula* 6 44 08/05/24 13:02 85 08/05/24 12:39 85 08/05/24 12:37 99.6 85 22 105/60 (75) 90 99.6 08/05/24 12:30 101/58 08/05/24 12:26 85 08/05/24 12:23 Nasal Cannula 6.0 08/05/24 12:23 99.6 86 22 106/57 (73) 90 99.6 Lab Test 08/05/24 13:44 08/05/24 12:33 Range/Units Troponin I High Sensitivity 27 29 </=54 ng/L White Blood Count 5.6 4.4-10.8 10^3/uL Red Blood Count 4.65 4.5-5.90 10^6/uL Hemoglobin 16.0 13.5-17.5 g/dL Hematocrit 47.1 41.0-53.0 % Mean Corpuscular Volume 101.2 H 80.0-100.0 fL Mean Corpuscular Hemoglobin 34.3 H 28.0-32.0 pg Mean Corpuscular Hemoglobin Concent 33.9 32.0-36.0 g/dL Red Cell Distribution Width 15.1 H 11.8-14.3 % Platelet Count 101 L 140-450 10^3/uL Mean Platelet Volume 9.2 6.9-10.8 fL Neutrophils (%) (Auto) 68.5 37.0-80.0 % Lymphocytes (%) (Auto) 15.4 10.0-50.0 % Monocytes (%) (Auto) 11.6 0.0-12.0 % Eosinophils (%) (Auto) 4.3 0.0-7.0 % Basophils (%) (Auto) 0.2 0.0-2.0 % Neutrophils # (Auto) 3.9 1.6-8.6 10 ^3/uL Lymphocytes # (Auto) 0.9 0.4-5.4 10 ^3/uL Monocytes # (Auto) 0.7 0-1.3 10 ^3/uL Eosinophils # (Auto) 0.2 0-0.8 10 ^3/uL Basophils # (Auto) 0 0-0.2 10 ^3/uL Nucleated Red Blood Cells 0.1 % Sodium Level 138 136-145 mmol/L Potassium Level 4.4 3.5-5.1 mmol/L Chloride Level 102 98-107 mmol/L Carbon Dioxide Level 30 20-31 mmol/L Anion Gap 6 5-15 Blood Urea Nitrogen 18 9-23 mg/dL Creatinine 1.22 0.700-1.30 mg/dL Glomerular Filtration Rate Calc 68 >90 mL/min BUN/Creatinine Ratio 14.8 10.0-20.0 Serum Glucose 433 *H 74-106 mg/dL Calcium Level 8.3 L 8.7-10.4 mg/dL B-Type Natriuretic Peptide 88.12 0-100 pg/mL Current Medications Medications (Trade) Dose Ordered Sig/Deondre Route Start Time Stop Time Status Last Admin Aspirin 325 mg ONCE ONCE PO 08/05/24 12:30 08/05/24 12:52 DC 08/05/24 13:24 Furosemide (Lasix Injection) 40 mg ONCE ONCE IV 08/05/24 12:30 08/05/24 12:52 DC 08/05/24 13:24 Insulin Human Regular (InsuLIN R) 8 units ONCE ONCE IV 08/05/24 13:30 08/05/24 13:31 DC 08/05/24 13:31 Time of 1ST Reevaluation: 15:15 Reevaluation 1ST: Improved Patient Education/Counseling: Diagnosis, Treatment, Prognosis, Need For Follow Up Family Education/Counseling: No Family Present Additional Information PT HAS EVIDENCE OF PULM ART HTN. HE IS ALSO RETAINBING FLUIDS FROM SALT OVERLOAD, SECONDARY TO DIETARY NONCOMPLIANCE. PT ALSO HAS EVIDENCE OF PNEUMONIA. HE IS HYPOXIC, BUT IS NOT COMPLIANT WITH USING HIS O2. HE WILL BE ADMITTED FOR PNEUMONIA, NONCOMPLIANC Departure 1 Departure Time of Disposition: 15:16 Impression: Primary Impression: Pneumonia Qualified Codes: J18.9 - Pneumonia, unspecified organism Additional Impressions: Noncompliance Chronic respiratory failure Qualified Codes: J96.11 - Chronic respiratory failure with hypoxia Disposition: ADMITTED INPATIENT Admit to: Tele Condition: Stable Discharged With: Self Critical Care Note Critical Care Time?: Yes (55 min-critical care time only) Critical care comment: due to concerns for patient's condition deteriorating, the care required my highest level of attention and readiness to intervene. i assessed the patient's condition, ordered the proper tests and treatments, reassessed for response and reviewed the results. i communicated with medical personnel and formulated a plan of care. total critical care time does not include any procedures Stability Stability form required: No Heart Score Heart Score: Heart Score Response (Comments) Value History Moderate Suspicious 1 EKG Repolarization Disturb 1 Age 45-64 1 Risk Factors >3 or Hx ASHD 2 Troponin Normal limit 0 Total 5 ANA ROSA HARTLEY MD August 05, 2024 12:26
[2024-08-05] MEDS: NTG 0.1MG/HR TOPICAL PATCH TD ONE (12:30)
[2024-08-05 12:47] LABS: Basophils # (auto) 0 10 ^3/uL (0-0.2); Eosinophils # (auto) 0.2 10 ^3/uL (0-0.8); Neutrophils # (auto) 3.9 10 ^3/uL (1.6-8.6); Red Cell Distribution Width 15.1 % (11.8-14.3); White Blood Cell 5.6 10^3/uL (4.4-10.8)
[2024-08-05 12:49] LABS: Basophils % (auto) 0.2 % (0.0-2.0); Eosinophils % (auto) 4.3 % (0.0-7.0); Hematocrit 47.1 % (41.0-53.0); Lymphocytes # (auto) 0.9 10 ^3/uL (0.4-5.4); Lymphocytes % (auto) 15.4 % (10.0-50.0); Mean Corpuscular Hemoglobin 34.3 pg (28.0-32.0); Mean Corpuscular Hgb Conc. 33.9 g/dL (32.0-36.0); Mean Corpuscular Volume 101.2 fL (80.0-100.0); Monocytes # (auto) 0.7 10 ^3/uL (0-1.3); Monocytes % (auto) 11.6 % (0.0-12.0); Neutrophils % (auto) 68.5 % (37.0-80.0); Nucleated Red Blood Cells % 0.1 %; Platelet Count (auto) 101 10^3/uL (140-450); Red Blood Cells 4.65 10^6/uL (4.5-5.90)
[2024-08-05 13:00] LABS: Chloride 102 mmol/L (98-107); Potassium 4.4 mmol/L (3.5-5.1); Sodium 138 mmol/L (136-145)
[2024-08-05 13:01] LABS: Anion Gap 6 (5-15); Carbon Dioxide 30 mmol/L (20-31)
[2024-08-05 13:07] LABS: Blood Urea Nitrogen 18 mg/dL (9-23); Calcium 8.3 mg/dL (8.7-10.4)
[2024-08-05 13:08] LABS: Glucose 433 mg/dL (74-106)
[2024-08-05 13:14] LABS: BUN/Creatinine Ratio 14.8 (10.0-20.0)
[2024-08-05] MEDS: FUROSEMIDE 40 MG/4 ML VIAL IV ONE (13:24)
[2024-08-05] MEDS: ASPirin 325 MG TAB PO ONE (13:24)
[2024-08-05] MEDS: InsuLIN REG 1unit/0.01ml Soln (100units/ml) IV ONE (13:31)
--- NOTE | 2024-08-05 13:50 | DVH ---
CHEST RADIOGRAPH Indication: sob Technique: Single frontal view of the chest was obtained Comparison: XY CHEST PORTABLE on DOS: 06/27/24, XY CHEST PORTABLE on DOS: 06/08/24 FINDINGS: Lines and Tubes: None Lungs: Mild prominence of the pulmonary trunk Minimal bilateral lower lung zone opacities. No pneumothorax. Cardiomediastinal contours: Unremarkable Bones: No acute osseous abnormality. IMPRESSION: Bilateral lower lung zone opacities which may represent pneumonia/ atelectasis. Mild prominence of the pulmonary trunk. Correlate for pulmonary arterial hypertension.
[2024-08-05] MEDS: cefTRIAXone 1GM/50ML D5W 50 ML IV ONE (15:42)
[2024-08-05] MEDS ORDERED: MET25T PO (17:29)
[2024-08-05] MEDS ORDERED: RIV20T PO (17:29)
[2024-08-05] MEDS ORDERED: ONDANSETRON HCL 4 MG/2 ML VIAL IV PRN (17:30)
[2024-08-05] MEDS ORDERED: NITROGLYCERIN 0.4 MG SL TAB SL PRN (17:30)
[2024-08-05] MEDS ORDERED: MORPHINE SULFATE INJ 2 MG/ml SYRG IV PRN (17:30)
--- NOTE | 2024-08-05 17:37 | DVHHP2 ---
History of Present Illness Reason for Visit: Shortness of breath History of Present Illness The patient is a 59-year-old male presenting to the emergency room with right and left-sided chest pain that worsens with cough as well as shortness of breath. Patient states that his symptoms has been intermittent for the past two weeks, worsening which prompted him to come to the emergency room. Upon arrival to the emergency room he was found to be hypoxic, currently on a simple mask at 6 L/min with a saturation 96%. Patient also reports having white-colored phlegm, but denies having any fevers, chills, body aches. Significant history of the patient includes diabetes, previous DVT to his right lower extremity, hypertension, congestive heart failure. Cardiovascular: CHF, HTN Heme/Onc: Other (Deep vein thrombosis) Endocrine: Diabetes Past Surgical History: None Family History: None Smoke: No ALCOHOL: none Drugs: None Lives: with Family Review of Systems Constitutional: Yes: Weakness Eyes: No: Pain, Vision change, Conjunctivae inflammation, Eyelid inflammation, Other, Redness ENT: No: Ear pain, Ear discharge, Nose pain, Nose discharge, Nose congestion, Mouth pain, Mouth swelling, Throat pain, Throat swelling, Other Respiratory: Cough, Shortness of breath, Pleuritic Pain, Sputum Cardiovascular: No: Chest Pain, Palpitations, Orthopnea, Paroxysmal Noc. Dyspnea, Edema, Lt Headedness, Other Gastrointestinal: No: Nausea, Vomiting, Abdominal Pain, Diarrhea, Constipation, Melena, Hematochezia, Other Genitourinary: No Dysuria, No Frequency, No Incontinence, No Hematuria, No R etention, No Other Musculoskeletal: No: other, neck pain, shoulder pain, arm pain, back pain, hand pain, leg pain, foot pain Skin: No: Rash, Lesions, Jaundice, Bruising, Other Neurological: No: Weakness, Numbness, Incoordination, Change in speech, Confusion, Seizures, Other Allergies: Coded Allergies: NO KNOWN ALLERGIES (Unverified , 06/08/24) Exam Vital Signs Vital Signs Date Time Temp Pulse Resp B/P (MAP) Pulse Ox O2 Delivery O2 Flow Rate FiO2 08/05/24 16:00 70 08/05/24 14:33 Simple Mask* 10 99 08/05/24 14:30 21 101/58 (72) 95 08/05/24 12:37 99.6 99.6 General Appearance: Alert, Oriented X3, Cooperative, moderate distress, Other (Morbid obesity) HEENT: Atraumatic, PERRLA Respiratory: Other (Decreased breath sounds bilaterally) Cardiovascular: Normal S1, Normal S2 Abdominal: Normal bowel sounds, Soft, No tenderness, No hepatospenomegaly Neuro: Sensation intact, Cranial nerves 3-12 NL Psych/Mental Status: Mental status NL, Mood NL Labs/Xrays Labs Test 08/05/24 15:24 08/05/24 12:33 Range/Units Troponin I High Sensitivity 29 </=54 ng/L White Blood Count 5.6 4.4-10.8 10^3/uL Red Blood Count 4.65 4.5-5.90 10^6/uL Hemoglobin 16.0 13.5-17.5 g/dL Hematocrit 47.1 41.0-53.0 % Mean Corpuscular Volume 101.2 H 80.0-100.0 fL Mean Corpuscular Hemoglobin 34.3 H 28.0-32.0 pg Mean Corpuscular Hemoglobin Concent 33.9 32.0-36.0 g/dL Red Cell Distribution Width 15.1 H 11.8-14.3 % Platelet Count 101 L 140-450 10^3/uL Mean Platelet Volume 9.2 6.9-10.8 fL Neutrophils (%) (Auto) 68.5 37.0-80.0 % Lymphocytes (%) (Auto) 15.4 10.0-50.0 % Monocytes (%) (Auto) 11.6 0.0-12.0 % Eosinophils (%) (Auto) 4.3 0.0-7.0 % Basophils (%) (Auto) 0.2 0.0-2.0 % Neutrophils # (Auto) 3.9 1.6-8.6 10 ^3/uL Lymphocytes # (Auto) 0.9 0.4-5.4 10 ^3/uL Monocytes # (Auto) 0.7 0-1.3 10 ^3/uL Eosinophils # (Auto) 0.2 0-0.8 10 ^3/uL Basophils # (Auto) 0 0-0.2 10 ^3/uL Nucleated Red Blood Cells 0.1 % Sodium Level 138 136-145 mmol/L Potassium Level 4.4 3.5-5.1 mmol/L Chloride Level 102 98-107 mmol/L Carbon Dioxide Level 30 20-31 mmol/L Anion Gap 6 5-15 Blood Urea Nitrogen 18 9-23 mg/dL Creatinine 1.22 0.700-1.30 mg/dL Glomerular Filtration Rate Calc 68 >90 mL/min BUN/Creatinine Ratio 14.8 10.0-20.0 Serum Glucose 433 *H 74-106 mg/dL Calcium Level 8.3 L 8.7-10.4 mg/dL B-Type Natriuretic Peptide 88.12 0-100 pg/mL Assessment/Plan Assessment/Plan Impression: -acute hypoxic respiratory failure -community-acquired pneumonia, probable Gram-positive/Gram-negative etiology -diabetes mellitus -probable acute on chronic diastolic heart failure -morbid obesity -probable obstructive sleep apnea -rule out ACS Plan: -admit to telemetry unit -O2 supplementation keep saturation greater than 92% -bronchodilators -antibiotic therapy: Rocephin, azithromycin -regular insulin sliding scale -echocardiogram -repeat labs, chest x-ray, ABG Total time spent with patient discussing and formulating plan of care: 35 minutes. This medical document was created using an electronic medical record system with [employer] dictation system. Although this document has been carefully reviewed, there may still be some phonetic and typographical errors. These areas are purely typographical due to imperfections of the software programs, and do not reflect any compromise in the patient's medical care. Plan discussed with: Patient, Other (RN) My Orders Orders - PURVI DAVIES CHIPPER OPERATOR Procedure Category Date Status Time Admit ADMIT 08/05/24 Transmitted 17:25 Nitroglycerin PHA 08/05/24 Transmitted Sublingual (Ntrostat 17:30 Morphine Sulfate PHA 08/05/24 Transmitted Injection 17:30 Stat Ekg For Chest ROSARIO 08/05/24 Transmitted Pain 17:25 Notify Md Of Changes ROSARIO 08/05/24 Transmitted From Base 17:25 Cops For ROSARIO 08/05/24 Transmitted 24 Hours 17:25 Emergency Dysrhythmia ROSARIO 08/05/24 Transmitted Protocol 17:25 Rhythm Strips Once ROSARIO 08/05/24 Transmitted Every Shift 17:25 Oxygen By Nasal RT 08/05/24 Transmitted Cannula 17:25 Echo 2d Mode Cardiac US 08/05/24 Transmitted DOP 17:25 Azithromycin 500mg/ PHA 08/06/24 Transmitted 250ml (Zithromax 50 10:00 Complete Blood Count LAB 08/06/24 Verified 05:00 Basic Metabolic Panel LAB 08/06/24 Verified 05:00 Chest Portable XY 08/06/24 Transmitted 05:00 Respiratory Culture PAYAL 08/05/24 Transmitted W/ Gs 17:25 Morphine Sulfate PHA 08/05/24 Transmitted Injection 17:30 Acetaminophen Tab Or PHA 08/05/24 Transmitted Cap (Tylenol Tablet 17:30 Hydrocodone-Acet PHA 08/05/24 Transmitted 5/325mg Tab ([place] 17:30 Ondansetron Hcl PHA 08/05/24 Transmitted (Zofran) 17:30 Albuterol Medneb PHA 08/05/24 Transmitted (Ventolin Medneb) 18:00 Ipratropium Medneb PHA 08/05/24 Transmitted (Atrovent Medneb) 18:00 Sequential ROSARIO 08/05/24 Transmitted Compression Device 17:25 Furosemide Injection PHA 08/06/24 Transmitted (Lasix Injection) 10:00 Hemoglobin A1c LAB 08/05/24 Transmitted 17:25 Consistent DIET 08/05/24 [facility]mitted [facility]Diabetes Dinner Date of Service: August 05, 2024 Billing Provider: PURVI DAVIES NP Common Visit Codes: [id number] INP/OBS CARE (HIGH) PURVI DAVIES NP August 05, 2024 17:37
[2024-08-05 18:07] VITALS: PULSE 118; PULSE 81; RESP 19; O2SAT 98
[2024-08-05] MEDS: ALBUTEROL SULF 2.5 MG/0.5ML(0.5%) NEB SOLN ONE (18:07)
[2024-08-05] MEDS: IPRATROPIUM BROM 0.5 MG/2.5ML INH SOL ONE (18:07)
[2024-08-05 18:14] VITALS: PULSE 72; RESP 19; O2SAT 98
[2024-08-05 19:50] VITALS: BP 126/76; O2SAT 98
[2024-08-05 21:00] VITALS: PULSE 75; RESP 25; O2SAT 97
[2024-08-05 21:48] VITALS: BP 120/64; PULSE 77; RESP 18; RESP 20; TEMP 98.1; O2SAT 92
[2024-08-05 21:57] VITALS: BP 120/64; PULSE 77; RESP 22; TEMP 98.6; O2SAT 92
[2024-08-05] MEDS ORDERED: LISI-275 PO (22:14)
[2024-08-05] MEDS ORDERED: POTA-228 PO (22:14)
[2024-08-05] MEDS ORDERED: TORS20TA19 PO (22:14)
[2024-08-05] MEDS ORDERED: ERTU15TA PO (22:14)
[2024-08-05] MEDS ORDERED: DEXTROSE (50%) 50ML SYRG IV PRN ×2 (22:15→22:30)
[2024-08-05] MEDS: METOPROLOL TARTRATE 25 MG TAB PO SCH (22:39)
[2024-08-05] MEDS: MORPHINE SULFATE INJ 2 MG/ml SYRG IV PRN (22:40)
[2024-08-05] MEDS: InsuLIN REG 1unit/0.01ml Soln (100units/ml) SC SCH (22:45)
[2024-08-06] VITALS (11 sets, daily range): BP systolic 103–118; BP diastolic 58–72; PULSE 68–86; RESP 17–21; TEMP 97.6–98.4; O2SAT 91–100
[2024-08-06] MEDS: ACETAMINOPHEN 500 MG TAB or CAP PO PRN (00:37)
[2024-08-06] MEDS: InsuLIN REG 1unit/0.01ml Soln (100units/ml) SC SCH ×2 (05:56→22:15)
[2024-08-06] MEDS: ACCU-CHEK COMFORT CURVE STRIP VI SCH (06:00)
[2024-08-06] MEDS: IPRATROPIUM BROM 0.5 MG/2.5ML INH SOL NEB SCH (06:00)
[2024-08-06] MEDS: ALBUTEROL SULF 2.5 MG/0.5ML(0.5%) NEB SOLN NEB SCH (06:00)
--- NOTE | 2024-08-06 06:39 | DVH ---
CHEST RADIOGRAPH Indication: pna Technique: Single frontal view of the chest was obtained COMPARISON: XY CHEST PORTABLE on DOS: 08/05/24, XY CHEST PORTABLE on DOS: 06/27/24, XY CHEST PORTABLE on DOS: 06/08/24 FINDINGS: Lines and Tubes: None Lungs: Multifocal airspace disease Pleura: No effusion. No pneumothorax. Cardiomediastinal contours: Cardiomegaly Bones: Unremarkable IMPRESSION: Increased multifocal airspace disease or pulmonary vascular congestion
[2024-08-06 07:36] LABS: Basophils # (auto) 0 10 ^3/uL (0-0.2); Eosinophils # (auto) 0.3 10 ^3/uL (0-0.8); Mean Corpuscular Hgb Conc. 34.1 g/dL (32.0-36.0); Nucleated Red Blood Cells % 0.2 %; White Blood Cell 5.2 10^3/uL (4.4-10.8)
[2024-08-06 07:37] LABS: Basophils % (auto) 0.9 % (0.0-2.0); Eosinophils % (auto) 6.5 % (0.0-7.0); Hematocrit 49.2 % (41.0-53.0); Hemoglobin 16.8 g/dL (13.5-17.5); Lymphocytes # (auto) 1.1 10 ^3/uL (0.4-5.4); Lymphocytes % (auto) 21.2 % (10.0-50.0); Mean Corpuscular Hemoglobin 34.4 pg (28.0-32.0); Mean Corpuscular Volume 100.9 fL (80.0-100.0); Monocytes # (auto) 0.6 10 ^3/uL (0-1.3); Monocytes % (auto) 12.3 % (0.0-12.0); Neutrophils # (auto) 3.1 10 ^3/uL (1.6-8.6); Neutrophils % (auto) 59.1 % (37.0-80.0); Platelet Count (auto) 100 10^3/uL (140-450); Red Blood Cells 4.88 10^6/uL (4.5-5.90)
[2024-08-06] MEDS: AZITHROMYCIN 500MG/ 250ML 250 ML IV SCH (09:53)
[2024-08-06] MEDS: FUROSEMIDE 20 MG/2 ML VIAL IV SCH (09:53)
[2024-08-06] MEDS: RIVAROXABAN 20 MG TAB PO SCH (09:55)
[2024-08-06 11:02] LABS: Chloride 102 mmol/L (98-107); Potassium 4.5 mmol/L (3.5-5.1); Sodium 140 mmol/L (136-145)
[2024-08-06 11:03] LABS: Anion Gap 4 (5-15); Calcium 9.3 mg/dL (8.7-10.4); Carbon Dioxide 34 mmol/L (20-31)
[2024-08-06 11:08] LABS: BUN/Creatinine Ratio 20.2 (10.0-20.0); Blood Urea Nitrogen 20 mg/dL (9-23)
[2024-08-06 11:10] LABS: Glucose 231 mg/dL (74-106)
--- NOTE | 2024-08-06 12:10 | DVHPN2 ---
Subjective Patient continues to report having shortness of breath Reviewed: Care Plan, H&P, Labs, Medications, Previous Orders Changes from previous H/P or p: No Changes General: Per HPI Eyes: No Pain, No Vision change, No Conjunctivae inflammation, No Eyelid inflammation, No Other, No Redness ENT: No Ear pain, No Ear discharge, No Nose pain, No Nose discharge, No Nose congestion, No Mouth pain, No Mouth swelling, No Throat pain, No Throat swelling, No Other Cardiovascular: No Chest Pain, No Palpitations, No Orthopnea, No Paroxysmal Noc. Dyspnea, No Edema, No Lt Headedness, No Other Respiratory: Cough, Shortness of breath, Pleuritic Pain, Sputum Gastrointestinal: No Nausea, No Vomiting, No Abdominal Pain, No Diarrhea, No Constipation, No Melena, No Hematochezia, No Other Genitourinary: No Dysuria, No Frequency, No Incontinence, No Hematuria, No Retention, No Other Musculoskeletal: No other, No neck pain, No shoulder pain, No arm pain, No back pain, No hand pain, No leg pain, No foot pain Skin: No Rash, No Lesions, No Jaundice, No Bruising, No Other Objective Vitals Vital Signs Date Time Temp Pulse Resp B/P (MAP) Pulse Ox O2 Delivery O2 Flow Rate FiO2 08/06/24 09:54 77 118/58 08/06/24 09:00 98.0 21 93 98.0 08/06/24 08:00 Nasal Cannula* 4 36 Intake/Output Intake and Output 08/06/24 07:00 Intake Total 890 ml Balance 890 ml Intake Oral 840 ml IV Total 50 ml # Voids 2 General Appearance: Alert, Oriented X3, Cooperative, mild distress, Other (Morbid obesity) HEENT: Atraumatic Lungs: Clear to auscultation, Normal air movement, Other (Decreased breath sounds at bases) Cardiovascular: Normal S1, Normal S2 Abdomen: Normal bowel sounds, Soft, No tenderness, No hepatospenomegaly Musculoskeletal: Normal sensory function, Normal motor function Skin: Dry, Intact Psych/Mental Status: Mental status NL, Mood NL Medications Current Medications Medications Dose Ordered Sig/Deondre Route Start Time Stop Time Status Last Admin Dose Admin Nitroglycerin 0.4 mg Q5MINP PRN SL 08/05/24 17:30 Morphine Sulfate 2 mg Q30M PRN IV 08/05/24 17:30 Azithromycin 250 ml @ 125 mls/hr DAILY IV 08/06/24 10:00 08/06/24 09:53 125 MLS/HR Morphine Sulfate 1 mg Q4HPRN PRN IV 08/05/24 17:30 08/05/24 22:40 1 MG Acetaminophen 500 mg Q8HP PRN PO 08/05/24 17:30 08/06/24 00:37 500 MG Acetaminophen/ Hydrocodone Bitart 1 tab Q6HPRN PRN PO 08/05/24 17:30 Ondansetron HCl 4 mg Q4HP PRN IV 08/05/24 17:30 Albuterol 2.5 mg Q6HWA NEB 08/05/24 18:00 Ipratropium [place] 0.5 mg Q6HWA NEB 08/05/24 18:00 Furosemide 20 mg DAILY IV 08/06/24 10:00 08/06/24 09:53 20 MG Metoprolol Tartrate 25 mg BID PO 08/05/24 22:00 08/06/24 09:54 25 MG Rivaroxaban 20 mg DAILY PO 08/06/24 10:00 08/06/24 09:55 20 MG Diagnostic Test (Pha) 1 strip ACHS 08/06/24 07:00 08/06/24 11:44 1 STRIP Insulin Human Regular HS SC 08/06/24 22:00 Insulin Human Regular AC SC 08/06/24 07:00 08/06/24 11:43 3 UNITS Dextrose 50 ml UD PRN IV 08/05/24 22:15 Insulin Human Regular AC SC 08/05/24 22:00 08/05/24 22:45 12 UNITS Dextrose 50 ml UD PRN IV 08/05/24 22:30 Laboratory Results Laboratory Tests 08/06/24 07:02 08/06/24 10:37 Chemistry Test 08/05/24 12:33 08/06/24 10:37 Calcium Level 8.3 mg/dL (8.7-10.4) L 9.3 mg/dL (8.7-10.4) Cardiac Markers Test 08/05/24 12:33 B-Type Natriuretic Peptide 88.12 pg/mL (0-100) HgA1c, TSH Test 08/05/24 12:33 Hemoglobin A1c 10.2 % A1C (<5.7) H Labs and/or images reviewed: Labs reviewed by me, Image(s) reviewed by me Assessment/Plan Assessment/Plan Impression: -acute hypoxic respiratory failure -community-acquired pneumonia, probable Gram-positive/Gram-negative etiology -diabetes mellitus -probable acute on chronic diastolic heart failure -morbid obesity -probable obstructive sleep apnea -rule out ACS Plan: Events: Patient assessed sitting in a chair. Patient is still is on O2 supplementation at 3-4 L/min. Reports feeling swollen. Subjective dyspnea. Chest x-ray interpreted as multifocal pneumonia, worsening by Radiology. -CT scan of the chest with IV contrast to rule out PE, differentiate underlying lung pathology -O2 supplementation keep saturation greater than 92% -bronchodilators -antibiotic therapy: Rocephin, azithromycin -regular insulin sliding scale -echocardiogram -repeat labs in a.m. Total time spent with patient discussing and formulating plan of care: 35 minutes. This medical document was created using an electronic medical record system with [employer] dictation system. Although this document has been carefully reviewed, there may still be some phonetic and typographical errors. These areas are purely typographical due to imperfections of the software programs, and do not reflect any compromise in the patient's medical care. Plan discussed with: Patient, Other (RN) My Orders Orders - PURVI DAVIES PATIENT FLOW COORDINATOR Procedure Category Date Status Time Admit ADMIT 08/05/24 Transmitted 17:25 Nitroglycerin PHA 08/05/24 In Process Sublingual (Ntrostat 17:30 Morphine Sulfate PHA 08/05/24 In Process Injection 17:30 Stat Ekg For Chest ROSARIO 08/05/24 In Process Pain 17:25 Notify Of Changes ROSARIO 08/05/24 In Process From Base 17:25 Filler Blender For ROSARIO 08/05/24 In Process 24 Hours 17:25 Emergency Dysrhythmia ROSARIO 08/05/24 In Process Protocol 17:25 Rhythm Strips Once ROSARIO 08/05/24 In Process Every Shift 17:25 Oxygen By Nasal RT 08/05/24 Transmitted Cannula 17:25 Azithromycin 500mg/ PHA 08/06/24 In Process 250ml (Zithromax 50 10:00 Chest Portable XY 08/06/24 Resulted 05:00 Respiratory Culture PAYAL 08/05/24 Logged W/ Gs 17:25 Morphine Sulfate PHA 08/05/24 In Process Injection 17:30 Acetaminophen Tab Or PHA 08/05/24 In Process Cap (Tylenol Tablet 17:30 Hydrocodone-Acet PHA 08/05/24 In Process 5/325mg Tab ([place] 17:30 Ondansetron Hcl PHA 08/05/24 In Process (Zofran) 17:30 Albuterol Medneb PHA 08/05/24 In Process (Ventolin Medneb) 18:00 Ipratropium Medneb PHA 08/05/24 In Process (Atrovent Medneb) 18:00 Sequential ROSARIO 08/05/24 In Process Compression Device 17:25 Furosemide Injection PHA 08/06/24 In Process (Lasix Injection) 10:00 Consistent DIET 08/05/24 Transmitted Carb([facility])Diabetes Dinner Metoprolol Tartrate PHA 08/05/24 In Process Tablet (Lopressor Ta 22:00 Rivaroxaban Tablet PHA 08/06/24 In Process (Xarelto Tablet) 10:00 Echo 2d Mode Cardiac US 08/06/24 Logged DOP 17:[address] 08/06/24 Logged 12:02 Basic Metabolic Panel LAB 08/07/24 Verified 04:00 Complete Blood Count LAB 08/07/24 Verified 04:00 Date of Service: August 06, 2024 Billing Provider: PURVI DAVIES NP Common Visit Codes: [id number] INP/OBS CARE(HIGH) PURVI DAVIES NP August 06, 2024 12:10
[2024-08-06] MEDS: IOHEXOL 350 MG/ML 100ML IJ ONE (12:51)
--- NOTE | 2024-08-06 14:29 | DVH ---
CTA Chest with intravenous contrast INDICATION: Multifocal pna, rule out PE COMPARISON: None TECHNIQUE: Multidetector spiral CTA of the chest was performed of the chest with intravenous contrast . PULMONARY ANGIOGRAPHY PROTOCOL was utilized using a bolus-tracking technique centered on the main p ulmonary artery. Axial, coronal and sagittal multiplanar and MIP reformats were performed. CONTRAST: Type of contrast: Omni 350 Contrast injected: 100 ml Radiation dose : Chest: CTDI volume is 27.88 mGy. Dose-length product is 978.91 mGy*cm The dose indicators for CT are the volume computed Tomography (CT) dose Index (CTDIvol) and the dose Length product (DLP), and are measured in units of mGy and mGy-cm, respectively. These indicators are not patient dose, but values generated from the CT scanner acquisition factors. The report includes radiation exposure data for exposures received during this examination. Findings: Pulmonary artery: No pulmonary embolism Lower neck: Normal thyroid. Lungs: Patchy consolidation in the lung bases left greater than right. Heart/Vascular Structures: Normal heart size. Small pericardial effusion. Lymph Nodes: No adenopathy Pleura: No pleural effusion or significant pneumothorax. Musculoskeletal: No acute osseous abnormality. Soft tissues: Normal. Upper abdomen: Coarse calcifications in the right lobe of the liver. Multiple varices in the left upp er quadrant. IMPRESSION: 1. No pulmonary embolism. 2. Patchy bibasilar pneumonia. Varices in the left upper quadrant. Consider further evaluation with dedicated imaging of the abdomen and pelvis. HS:Y
--- NOTE | 2024-08-06 19:03 | ECG ---
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
[2024-08-07] VITALS (12 sets, daily range): BP systolic 108–128; BP diastolic 59–75; PULSE 64–85; RESP 15–18; TEMP 97.5–98.8; O2SAT 91–100
[2024-08-07] MEDS: HYDROcodone-ACET 5/325MG TAB PO PRN (04:26)
[2024-08-07 07:28] LABS: Basophils # (auto) 0 10 ^3/uL (0-0.2); Basophils % (auto) 0.8 % (0.0-2.0); Eosinophils # (auto) 0.3 10 ^3/uL (0-0.8); Eosinophils % (auto) 6.7 % (0.0-7.0); Hematocrit 48.2 % (41.0-53.0); Hemoglobin 16.5 g/dL (13.5-17.5); Lymphocytes % (auto) 20.5 % (10.0-50.0); Mean Corpuscular Hemoglobin 34.5 pg (28.0-32.0); Mean Corpuscular Hgb Conc. 34.1 g/dL (32.0-36.0); Mean Corpuscular Volume 101.1 fL (80.0-100.0); Monocytes # (auto) 0.7 10 ^3/uL (0-1.3); Monocytes % (auto) 13.2 % (0.0-12.0); Neutrophils % (auto) 58.8 % (37.0-80.0); Nucleated Red Blood Cells % 0.2 %; Platelet Count (auto) 99 10^3/uL (140-450); Red Blood Cells 4.77 10^6/uL (4.5-5.90); Red Cell Distribution Width 15.2 % (11.8-14.3)
[2024-08-07 07:32] LABS: Chloride 101 mmol/L (98-107); Potassium 4.2 mmol/L (3.5-5.1); Sodium 140 mmol/L (136-145)
[2024-08-07 07:33] LABS: Calcium 9.1 mg/dL (8.7-10.4)
[2024-08-07 07:38] LABS: BUN/Creatinine Ratio 20.2 (10.0-20.0); Blood Urea Nitrogen 19 mg/dL (9-23)
[2024-08-07 07:39] LABS: Anion Gap 3 (5-15); Carbon Dioxide 36 mmol/L (20-31); Glucose 146 mg/dL (74-106)
--- NOTE | 2024-08-07 12:51 | DVHSR ---
APPROVED REPORT EXAM: Two-dimensional and M-mode echocardiogram with Doppler and color Doppler. Blood Pressure: 109/63 mmHg INDICATION Chest Pain Rule out ACS RISK FACTORS Obesity: Height: 5'1", Weight: 251 DIMENSIONS LVDd4.8 (3.8-5.7cm)LA (2D)4.4 (1.9-4.0cm)Aortic Root3.2 (2.0-3.7cm) LVDs3.3 (2.5-4.0cm)LA (MM) (1.9-4.0cm)Aortic Cusp Exc2.1 (1.5-2.0cm) EF (%) 60.0 (55-70%)Rt. Atrium5.0 (1.9-4.0cm)Asc. Aorta cm IVSd1.2 (0.7-1.1cm)RV (D)4.7 (1.8-2.4cm) PWd1.4 (0.7-1.1cm) Mitral Valve MitralMitral Stenosis E wave0.99m/sMV Mean GR.mmHg A wave1.14m/sMV Peak GR.mmHg E/A ratio0.92D MVAcm2 DECEL [id number] 1/2 Timems Aortic Valve Aortic ValveAortic Stenosis V11.38m/Shivam Mean GR.8mmHg V21.87m/Shivam Peak GR.14mmHg LVOT Diameter2.1 (1.8-2.4cm)Doppler AVA2.55cm2 Pulmonic Valve V21.32m/s Tricuspid Valve TR Velocity4.58m/s [id number] Conclusion lvef 55% mild LVH RV moderate enlarged severe pulm htn, pasp > 90 mmhg clinical correlate dilated IVC
--- NOTE | 2024-08-07 14:25 | DVHPN2 ---
Subjective Patient continues to report having shortness of breath Reviewed: Care Plan, H&P, Labs, Medications, Previous Orders Changes from previous H/P or p: No Changes General: Per HPI Eyes: No Pain, No Vision change, No Conjunctivae inflammation, No Eyelid inflammation, No Other, No Redness ENT: No Ear pain, No Ear discharge, No Nose pain, No Nose discharge, No Nose congestion, No Mouth pain, No Mouth swelling, No Throat pain, No Throat swelling, No Other Cardiovascular: No Chest Pain, No Palpitations, No Orthopnea, No Paroxysmal Noc. Dyspnea, No Edema, No Lt Headedness, No Other Respiratory: Cough, Shortness of breath, Pleuritic Pain, Sputum Gastrointestinal: No Nausea, No Vomiting, No Abdominal Pain, No Diarrhea, No Constipation, No Melena, No Hematochezia, No Other Genitourinary: No Dysuria, No Frequency, No Incontinence, No Hematuria, No Retention, No Other Musculoskeletal: No other, No neck pain, No shoulder pain, No arm pain, No back pain, No hand pain, No leg pain, No foot pain Skin: No Rash, No Lesions, No Jaundice, No Bruising, No Other Objective Vitals Vital Signs Date Time Temp Pulse Resp B/P (MAP) Pulse Ox O2 Delivery O2 Flow Rate FiO2 08/07/24 12:26 77 108/61 08/07/24 09:00 98.2 16 95 98.2 08/07/24 08:00 Nasal Cannula* 4 36 Intake/Output Intake and Output 08/07/24 06:59 Intake Total 1830 ml Output Total 300 ml Balance 1530 ml Intake Oral 1830 ml Output Urine Total 300 ml # Voids 17 General Appearance: Alert, Oriented X3, Cooperative, mild distress, Other (Morbid obesity) HEENT: Atraumatic Lungs: Clear to auscultation, Normal air movement, Other (Decreased breath sounds at bases) Cardiovascular: Normal S1, Normal S2 Abdomen: Normal bowel sounds, Soft, No tenderness, No hepatospenomegaly Musculoskeletal: Normal sensory function, Normal motor function Skin: Dry, Intact Psych/Mental Status: Mental status NL, Mood NL Medications Current Medications Medications Dose Ordered Sig/Deondre Route Start Time Stop Time Status Last Admin Dose Admin Nitroglycerin 0.4 mg Q5MINP PRN SL 08/05/24 17:30 Morphine Sulfate 2 mg Q30M PRN IV 08/05/24 17:30 Azithromycin 250 ml @ 125 mls/hr DAILY IV 08/06/24 10:00 08/07/24 11:25 125 MLS/HR Morphine Sulfate 1 mg Q4HPRN PRN IV 08/05/24 17:30 08/05/24 22:40 1 MG Acetaminophen 500 mg Q8HP PRN PO 08/05/24 17:30 08/07/24 11:35 500 MG Acetaminophen/ Hydrocodone Bitart 1 tab Q6HPRN PRN PO 08/05/24 17:30 08/07/24 04:26 1 TAB Ondansetron HCl 4 mg Q4HP PRN IV 08/05/24 17:30 Albuterol 2.5 mg Q6HWA NEB 08/05/24 18:00 08/07/24 11:51 2.5 MG Ipratropium [place] 0.5 mg Q6HWA NEB 08/05/24 18:00 08/07/24 11:51 0.5 MG Furosemide 20 mg DAILY IV 08/06/24 10:00 08/07/24 11:26 20 MG Metoprolol Tartrate 25 mg BID PO 08/05/24 22:00 08/07/24 11:26 25 MG Rivaroxaban 20 mg DAILY PO 08/06/24 10:00 08/07/24 11:26 20 MG Diagnostic Test (Pha) 1 strip ACHS 08/06/24 07:00 08/07/24 11:35 1 STRIP Insulin Human Regular HS SC 08/06/24 22:00 08/06/24 22:15 6 UNITS Insulin Human Regular AC SC 08/06/24 07:00 08/07/24 06:13 2 UNITS Dextrose 50 ml UD PRN IV 08/05/24 22:15 Insulin Human Regular AC SC 08/05/24 22:00 08/07/24 11:37 9 UNITS Dextrose 50 ml UD PRN IV 08/05/24 22:30 Laboratory Results Laboratory Tests 08/07/24 06:30 Chemistry Test 08/07/24 06:30 Calcium Level 9.1 mg/dL (8.7-10.4) Labs and/or images reviewed: Labs reviewed by me, Image(s) reviewed by me Assessment/Plan Assessment/Plan Impression: -acute hypoxic respiratory failure -community-acquired pneumonia, probable Gram-positive/Gram-negative etiology -diabetes mellitus -probable acute on chronic diastolic heart failure -morbid obesity -probable obstructive sleep apnea -rule out ACS Plan: Events: CT scan of the chest with IV contrast rules out pulmonary embolism. Patient is noted to have bibasilar infiltrates. Echocardiogram performed, with noted elevated pulmonary artery systolic pressure of 90 mmHg. Patient denies having previous diagnosis of pulmonary hypertension. -pulmonary consultation -start Revatio 20 mg p.o. t.i.d. -O2 supplementation keep saturation greater than 92% -bronchodilators -antibiotic therapy: Rocephin, azithromycin -regular insulin sliding scale -echocardiogram -repeat labs in a.m. Total time spent with patient discussing and formulating plan of care: 35 minutes. This medical document was created using an electronic medical record system with [employer] dictation system. Although this document has been carefully reviewed, there may still be some phonetic and typographical errors. These areas are purely typographical due to imperfections of the software programs, and do not reflect any compromise in the patient's medical care. Plan discussed with: Patient, Other (RN) Date of Service: August 07, 2024 Billing Provider: PURVI DAVIES NP Common Visit Codes: [id number] INP/OBS CARE(HIGH) PURVI DAVIES NP August 07, 2024 14:25
--- NOTE | 2024-08-07 20:48 | DVHINCON2 ---
Date of service: August 07, 2024 Referring Physician Collins Romo NP History of Present Illness Home Meds Reported Medications Potassium Chloride (Potassium Chloride ER) 10 Meq Tab, 1 TAB PO DAILY 08/05/24 Torsemide Injection (Torsemide) 20 Mg Tab, 1 TAB PO BID 08/05/24 Lisinopril (Lisinopril) 5 Mg Tab, 1 TAB PO DAILY 08/05/24 Ertugliflozin l-Pyroglutamic A (Steglatro) 15 Mg Tab, 1 TAB PO DAILY 08/05/24 Metoprolol Tartrate (Lopressor) 25 Mg Tb, 2 PO BID 08/05/24 Rivaroxaban (Xarelto Tablet) 20 Mg Tb, 1 TAB PO DAILY 08/05/24 Past Medical History Patient Family History: Patient reports no known family medical history. H&P Exam Vital Signs Vital Signs Date Time Temp Pulse Resp B/P (MAP) Pulse Ox O2 Delivery O2 Flow Rate FiO2 08/07/24 19:19 73 16 100 08/07/24 19:11 Nasal Cannula 4.0 08/07/24 19:11 N/A 08/07/24 17:00 97.5 114/60 (78) 97.5 Labs/Xrays Labs Test 08/07/24 16:46 08/07/24 06:30 08/05/24 15:24 08/05/24 12:33 Range/Units POC Glucose 231 H 70-106 mg/dl White Blood Count 5.0 4.4-10.8 10^3/uL Red Blood Count 4.77 4.5-5.90 10^6/uL Hemoglobin 16.5 13.5-17.5 g/dL Hematocrit 48.2 41.0-53.0 % Mean Corpuscular Volume 101.1 H 80.0-100.0 fL Mean Corpuscular Hemoglobin 34.5 H 28.0-32.0 pg Mean Corpuscular Hemoglobin Concent 34.1 32.0-36.0 g/dL Red Cell Distribution Width 15.2 H 11.8-14.3 % Platelet Count 99 L 140-450 10^3/uL Mean Platelet Volume 8.7 6.9-10.8 fL Neutrophils (%) (Auto) 58.8 37.0-80.0 % Lymphocytes (%) (Auto) 20.5 10.0-50.0 % Monocytes (%) (Auto) 13.2 H 0.0-12.0 % Eosinophils (%) (Auto) 6.7 0.0-7.0 % Basophils (%) (Auto) 0.8 0.0-2.0 % Neutrophils # (Auto) 3.0 1.6-8.6 10 ^3/uL Lymphocytes # (Auto) 1.0 0.4-5.4 10 ^3/uL Monocytes # (Auto) 0.7 0-1.3 10 ^3/uL Eosinophils # (Auto) 0.3 0-0.8 10 ^3/uL Basophils # (Auto) 0 0-0.2 10 ^3/uL Nucleated Red Blood Cells 0.2 % Sodium Level 140 136-145 mmol/L Potassium Level 4.2 3.5-5.1 mmol/L Chloride Level 101 98-107 mmol/L Carbon Dioxide Level 36 H 20-31 mmol/L Anion Gap 3 L 5-15 Blood Urea Nitrogen 19 9-23 mg/dL Creatinine 0.94 0.700-1.30 mg/dL Glomerular Filtration Rate Calc 93 >90 mL/min BUN/Creatinine Ratio 20.2 H 10.0-20.0 Serum Glucose 146 H 74-106 mg/dL Calcium Level 9.1 8.7-10.4 mg/dL Troponin I High Sensitivity 29 </=54 ng/L Hemoglobin A1c 10.2 H <5.7 % A1C B-Type Natriuretic Peptide 88.12 0-100 pg/mL MARY PHELAN MD August 07, 2024 20:48
[2024-08-07] MEDS: SILDENAFIL CITRATE 20 MG TAB PO SCH (21:43)
[2024-08-08] VITALS (16 sets, daily range): BP systolic 107–135; BP diastolic 54–76; PULSE 69–94; RESP 14–22; TEMP 97.2–98.1; O2SAT 90–96
[2024-08-08 11:39] LABS: Amphetamine Screen, Urine Neg (NEGATIVE); Barbiturate Scree,Urine Neg (NEGATIVE); Benzodiazephine Screen, Urine Neg (NEGATIVE); Cannabinoid Screen, Urine Neg (NEGATIVE); Cocaine Screen, Urine Neg (NEGATIVE); Opiate Scree,Urine Neg (NEGATIVE); Phencyclidine Screen, Urine Neg (NEGATIVE)
--- NOTE | 2024-08-08 15:14 | DVHPN2 ---
Subjective Patient reports improvement with his dyspnea. Reviewed: Care Plan, H&P, Labs, Medications, Previous Orders Changes from previous H/P or p: Changes General: Per HPI Eyes: No Pain, No Vision change, No Conjunctivae inflammation, No Eyelid inflammation, No Other, No Redness ENT: No Ear pain, No Ear discharge, No Nose pain, No Nose discharge, No Nose congestion, No Mouth pain, No Mouth swelling, No Throat pain, No Throat swelling, No Other Cardiovascular: No Chest Pain, No Palpitations, No Orthopnea, No Paroxysmal Noc. Dyspnea, No Edema, No Lt Headedness, No Other Respiratory: Cough, Shortness of breath, Pleuritic Pain, Sputum Gastrointestinal: No Nausea, No Vomiting, No Abdominal Pain, No Diarrhea, No Constipation, No Melena, No Hematochezia, No Other Genitourinary: No Dysuria, No Frequency, No Incontinence, No Hematuria, No Retention, No Other Musculoskeletal: No other, No neck pain, No shoulder pain, No arm pain, No back pain, No hand pain, No leg pain, No foot pain Skin: No Rash, No Lesions, No Jaundice, No Bruising, No Other Objective Vitals Vital Signs Date Time Temp Pulse Resp B/P (MAP) Pulse Ox O2 Delivery O2 Flow Rate FiO2 08/08/24 13:00 98.0 72 20 109/54 (72) 90 98.0 08/08/24 08:00 Nasal Cannula* 4 36 Intake/Output Intake and Output 08/08/24 07:00 Intake Total 2920 ml Output Total 950 ml Balance 1970 ml Intake Oral 2920 ml Output Urine Total 950 ml # Voids 5 General Appearance: Alert, Oriented X3, Cooperative, mild distress, Other (Morbid obesity) HEENT: Atraumatic Lungs: Clear to auscultation, Normal air movement, Other (Decreased breath sounds at bases) Cardiovascular: Normal S1, Normal S2 Abdomen: Normal bowel sounds, Soft, No tenderness, No hepatospenomegaly Musculoskeletal: Normal sensory function, Normal motor function Skin: Dry, Intact Psych/Mental Status: Mental status NL, Mood NL Medications Current Medications Medications Dose Ordered Sig/Deondre Route Start Time Stop Time Status Last Admin Dose Admin Nitroglycerin 0.4 mg Q5MINP PRN SL 08/05/24 17:30 Hold Morphine Sulfate 2 mg Q30M PRN IV 08/05/24 17:30 Azithromycin 250 ml @ 125 mls/hr DAILY IV 08/06/24 10:00 08/08/24 09:09 125 MLS/HR Morphine Sulfate 1 mg Q4HPRN PRN IV 08/05/24 17:30 08/05/24 22:40 1 MG Acetaminophen 500 mg Q8HP PRN PO 08/05/24 17:30 08/07/24 11:35 500 MG Acetaminophen/ Hydrocodone Bitart 1 tab Q6HPRN PRN PO 08/05/24 17:30 08/07/24 21:44 1 TAB Ondansetron HCl 4 mg Q4HP PRN IV 08/05/24 17:30 Albuterol 2.5 mg Q6HWA NEB 08/05/24 18:00 08/08/24 12:45 2.5 MG Ipratropium [place] 0.5 mg Q6HWA NEB 08/05/24 18:00 08/08/24 12:45 0.5 MG Furosemide 20 mg DAILY IV 08/06/24 10:00 08/08/24 09:10 20 MG Metoprolol Tartrate 25 mg BID PO 08/05/24 22:00 08/08/24 09:09 25 MG Rivaroxaban 20 mg DAILY PO 08/06/24 10:00 08/08/24 09:10 20 MG Diagnostic Test (Pha) 1 strip ACHS 08/06/24 07:00 08/08/24 11:17 1 STRIP Insulin Human Regular HS SC 08/06/24 22:00 08/07/24 21:49 8 UNITS Insulin Human Regular AC SC 08/06/24 07:00 08/08/24 11:17 9 UNITS Dextrose 50 ml UD PRN IV 08/05/24 22:15 Insulin Human Regular AC SC 08/05/24 22:00 08/07/24 18:14 6 UNITS Dextrose 50 ml UD PRN IV 08/05/24 22:30 Sildenafil Citrate 20 mg TID@08,14,20 PO 08/07/24 20:00 08/08/24 14:29 20 MG Ceftriaxone Sodium 50 ml @ 100 mls/hr DAILY@1700 IV 08/08/24 17:00 Docusate Sodium 100 mg BID PO 08/08/24 22:00 UNV Insulin Glargine 15 units HS SC 08/08/24 22:00 UNV Laboratory Results Laboratory Tests 08/07/24 06:30 Labs and/or images reviewed: Labs reviewed by me, Image(s) reviewed by me Assessment/Plan Assessment/Plan Impression: -acute hypoxic respiratory failure -community-acquired pneumonia, probable Gram-positive/Gram-negative etiology -diabetes mellitus -probable acute on chronic diastolic heart failure -morbid obesity -probable obstructive sleep apnea -rule out ACS Plan: Events: Patient has subjectively reports that his breathing has somewhat improved. Patient continues to be constipated. Bowel regimen started. Awaiting pulmonology recommendations for newly diagnosed pulmonary hypertension. Patient tolerating Revatio -pulmonary consultation -Revatio 20 mg p.o. t.i.d. -O2 supplementation keep saturation greater than 92% -bronchodilators -antibiotic therapy: Rocephin, azithromycin -regular insulin sliding scale -add Lantus given patient's blood sugars have been uncontrolled. -repeat labs in a.m. Total time spent with patient discussing and formulating plan of care: 35 minutes. This medical document was created using an electronic medical record system with [employer] dictation system. Although this document has been carefully reviewed, there may still be some phonetic and typographical errors. These areas are purely typographical due to imperfections of the software programs, and do not reflect any compromise in the patient's medical care. Plan discussed with: Patient, Other (RN) My Orders Orders - PURVI DAVIES NP Procedure Category Date Status Time Ceftriaxone 1gm/50ml PHA 08/08/24 In Process D5w (Rocephin) 17:00 Lactulose Oral PHA 08/08/24 Logged 14:45 Docusate Sodium PHA 08/08/24 Logged Capsule (Colace 22:00 Insulin Lantus PHA 08/08/24 Logged (Glargine) (Lantus) 22:00 Date of Service: August 08, 2024 Billing Provider: PURVI DAVIES NP Common Visit Codes: [id number] INP/OBS CARE(HIGH) PURVI DAVIES NP August 08, 2024 15:14
[2024-08-08] MEDS: LACTULOSE 20Gm/30ML SOLN PO ONE (17:02)
[2024-08-08] MEDS: cefTRIAXone 1GM/50ML D5W 50 ML IV SCH (17:03)
[2024-08-08] MEDS: INSULIN LANTUS (GLARGINE) 1 /0.01ml (100units/ml) SC SCH (21:44)
[2024-08-08] MEDS: DOCUSATE SOD 100 MG CAP PO SCH (21:48)
[2024-08-09] VITALS (10 sets, daily range): BP systolic 123–149; BP diastolic 63–94; PULSE 69–77; RESP 16–18; TEMP 97.8–98.7; O2SAT 91–97
--- NOTE | 2024-08-09 07:56 | ECG ---
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
[2024-08-09] MEDS ORDERED: SILD20TA PO (14:23)
--- NOTE | 2024-08-09 14:31 | DVHDS2 ---
Discharge Summary Date of Admission August 05, 2024 at 17:25 Date of Discharge: August 09, 2024 Admitting Diagnosis Acute on chronic hypoxic respiratory failure Labs/Diagnostic Data: Laboratory Results Test 08/09/24 11:12 08/08/24 11:00 08/07/24 06:30 08/05/24 15:24 POC Glucose 253 mg/dl (70-106) Urine Opiates Screen Neg (NEGATIVE) Urine Fentanyl Screen Neg (NEGATIVE) Urine Barbiturates Screen Neg (NEGATIVE) Urine Phencyclidine Screen Neg (NEGATIVE) Urine Amphetamines Screen Neg (NEGATIVE) Urine Benzodiazepines Screen Neg (NEGATIVE) Urine Cocaine Screen Neg (NEGATIVE) Urine Cannabinoids Screen Neg (NEGATIVE) White Blood Count 5.0 10^3/uL (4.4-10.8) Red Blood Count 4.77 10^6/uL (4.5-5.90) Hemoglobin 16.5 g/dL (13.5-17.5) Hematocrit 48.2 % (41.0-53.0) Mean Corpuscular Volume 101.1 fL (80.0-100.0) Mean Corpuscular Hemoglobin 34.5 pg (28.0-32.0) Mean Corpuscular Hemoglobin Concent 34.1 g/dL (32.0-36.0) Red Cell Distribution Width 15.2 % (11.8-14.3) Platelet Count 99 10^3/uL (140-450) Mean Platelet Volume 8.7 fL (6.9-10.8) Neutrophils (%) (Auto) 58.8 % (37.0-80.0) Lymphocytes (%) (Auto) 20.5 % (10.0-50.0) Monocytes (%) (Auto) 13.2 % (0.0-12.0) Eosinophils (%) (Auto) 6.7 % (0.0-7.0) Basophils (%) (Auto) 0.8 % (0.0-2.0) Neutrophils # (Auto) 3.0 10 ^3/uL (1.6-8.6) Lymphocytes # (Auto) 1.0 10 ^3/uL (0.4-5.4) Monocytes # (Auto) 0.7 10 ^3/uL (0-1.3) Eosinophils # (Auto) 0.3 10 ^3/uL (0-0.8) Basophils # (Auto) 0 10 ^3/uL (0-0.2) Nucleated Red Blood Cells 0.2 % Sodium Level 140 mmol/L (136-145) Potassium Level 4.2 mmol/L (3.5-5.1) Chloride Level 101 mmol/L (98-107) Carbon Dioxide Level 36 mmol/L (20-31) Anion Gap 3 (5-15) Blood Urea Nitrogen 19 mg/dL (9-23) Creatinine 0.94 mg/dL (0.700-1.30) Glomerular Filtration Rate Calc 93 mL/min (>90) BUN/Creatinine Ratio 20.2 (10.0-20.0) Serum Glucose 146 mg/dL (74-106) Calcium Level 9.1 mg/dL (8.7-10.4) Troponin I High Sensitivity 29 ng/L (</=54) Test 08/05/24 12:33 Hemoglobin A1c 10.2 % A1C (<5.7) B-Type Natriuretic Peptide 88.12 pg/mL (0-100) Other Laboratory Tests 08/07/24 06:30 Brief Hx & Hospital Course: History of Present Illness The patient is a 59-year-old male presenting to the emergency room with right and left-sided chest pain that worsens with cough as well as shortness of breath. Patient states that his symptoms has been intermittent for the past two weeks, worsening which prompted him to come to the emergency room. Upon arrival to the emergency room he was found to be hypoxic, currently on a simple mask at 6 L/min with a saturation 96%. Patient also reports having white-colored phlegm, but denies having any fevers, chills, body aches. Significant history of the patient includes diabetes, previous DVT to his right lower extremity, hypertension, congestive heart failure. Course of hospitalization: Further discussion was made with the patient, regarding his medical history which includes chronic home O2 use for plan undisclosed respiratory diagnosis. Patient was given CT scan which showed left lung base opacity, as well as ruling out pulmonary embolism. Patient also had echocardiogram given patient has persistent about him being fluid overloaded. Patient was found to have normal ejection fraction with significantly elevated PA systolic pressure in the 90s. Pulmonary consultation was obtained. Patient was placed on Revatio 20 mg p.o. t .i.d.. Patient was also placed on bronchodilators and antibiotics. Patient states that his respiratory status has improved. Patient will be discharged home, continued on antibiotic therapy as well as Revatio as previously ordered. He is instructed to follow up with his PCP, for which he states he has an appointment tomorrow. He is instructed to obtain referral for outpatient pulmonology or Cardiology for his pulmonary hypertension. Patient was agreeable with discharge plan. All questions answered. Physical examination General: Alert and Oriented x3. No acute distress. Well-nourished. Eyes: EOMI. Anicteric. HENT: Moist mucous membranes. Lungs: Clear to auscultation bilaterally. No accessory muscle use. Cardiovascular: Regular rate and rhythm. No murmur. No JVD. Abdomen: Soft, non-tender and non-distended. No palpable masses. Extremities: No edema. Non-tender. Skin: No rashes or lesions. Warm. Neurologic: No focal neurological deficits. CN II-XII grossly intact, but not individually tested. Psychiatric: Cooperative. Appropriate mood and affect. Total time spent with patient discussing and formulating plan of care: 35 minutes. This medical document was created using an electronic medical record system with [employer] dictation system. Although this document has been carefully reviewed, there may still be some phonetic and typographical errors. These areas are purely typographical due to imperfections of the software programs, and do not reflect any compromise in the patient's medical care. Consults/Reason for consult Pulmonology: Pulmonary hypertension Condition at Discharge: Guarded Final Diagnosis/Problems List Acute on chronic hypoxic respiratory failure secondary to pneumonia and pulmonary hypertension Secondary diagnosis: -acute hypoxic respiratory failure -community-acquired pneumonia, probable Gram-positive/Gram-negative etiology -diabetes mellitus -probable acute on chronic diastolic heart failure -morbid obesity -probable obstructive sleep apnea -rule out ACS Discharge Disposition: Home Discharge Instruct/Medications Follow Up/Referral: PCP with scheduled appointment tomorrow Obtain referral to pulmonology Medications: Revatio 20 mg p.o. t.i.d. Cefdinir 300 mg p.o. b.i.d. x5 days 36 Discharge Statement: "Patient was advised to return to the ER or call 911 if any headaches, dizziness, shortness of breath, chest pain, abdominal pain, bleeding, fevers, or worsening of medical condition. Patient was counseled about treatment plan, medications, possible side effects, patientverbalized understanding. All questions were answered to the best of my ability. This discharge took greater then 30 minutes in planning, reviewing documentation, counseling the patient, and discussing with other team members." ASSESSMENT ASSESSMENT Assessment Date of Service: August 09, 2024 Billing Provider: PURVI DAVIES NP Common Visit Codes: [id number] DISCH DAY >30min PURVI DAVIES NP August 09, 2024 14:31
[2024-08-09] MEDS ORDERED: CEFD300C2 PO (14:32)
== END 2024-08-09 17:15 | disposition home or self-care (01) | DRG 177 ==
LOC: ER 12:09 → OVERFLOW 17:25 → TELE-WESTW 21:48
PROVIDERS: ADMIT Nurse Practitioner Acute Care; ATTEND Nurse Practitioner Acute Care
DX: J15.69 Pneumonia due to other Gram-negative bacteria (principal); I50.33 Acute on chronic diastolic (congestive) heart failure; J96.21 Acute and chronic respiratory failure with hypoxia; Z68.42 Body mass index [BMI] 45.0-49.9, adult; J15.9 Unspecified bacterial pneumonia; I27.20 Pulmonary hypertension, unspecified; I11.0 Hypertensive heart disease with heart failure; E11.9 Type 2 diabetes mellitus without complications; E66.01 Morbid (severe) obesity due to excess calories; G47.33 Obstructive sleep apnea (adult) (pediatric); Z99.81 Dependence on supplemental oxygen; Z91.119 Patient's noncompliance with dietary regimen due to unspecified reason; Z87.891 Personal history of nicotine dependence; Z86.718 Personal history of other venous thrombosis and embolism; Z79.899 Other long term (current) drug therapy
CPT/HCPCS: 36415; 71045; 71275; 80048; 80307; 82962; 83036; 83880; 84484; 85025; 93005; 93306; 94640; 96365; 96375; 99291; G0378; J1815

== ENCOUNTER 2024-09-14 09:35 | Inpatient (IN) | payer MEDICARE, MEDICAID ==
[~2024-09-14] VITALS: Ht 152.4 cm; Wt 116.6 kg
[~2024-09-14 09:35] MED LIST: CEFD300C2 PO; ERTU15TA PO; LISI-275 PO; MET25T PO; POTA-228 PO; RIV20T PO; SILD20TA PO; TORS20TA19 PO
[2024-09-14 10:15] LABS: Mean Corpuscular Volume 99.4 fL (80.0-100.0)
[2024-09-14 10:17] VITALS: PULSE 74; RESP 26; O2SAT 93
[2024-09-14 10:17] LABS: Hematocrit 51.2 % (41.0-53.0); Hemoglobin 17.6 g/dL (13.5-17.5); Mean Corpuscular Hemoglobin 34.1 pg (28.0-32.0); Nucleated Red Blood Cells % 0.2 %
[2024-09-14 10:20] LABS: Chloride 105 mmol/L (98-107); Potassium 4.1 mmol/L (3.5-5.1); Sodium 142 mmol/L (136-145)
[2024-09-14 10:21] LABS: Anion Gap 6 (5-15); Calcium 9.8 mg/dL (8.7-10.4); Carbon Dioxide 31 mmol/L (20-31)
[2024-09-14 10:26] LABS: BUN/Creatinine Ratio 14.2 (10.0-20.0); Blood Urea Nitrogen 15 mg/dL (9-23)
[2024-09-14 10:27] LABS: Glucose 341 mg/dL (74-106)
--- NOTE | 2024-09-14 10:44 | DVH ---
EXAM: XY CHEST PORTABLE Indication: sob Technique: Single frontal view of the chest was obtained Comparison: XY CHEST PORTABLE on DOS: 08/06/24, XY CHEST PORTABLE on DOS: 08/05/24, XY CHEST PORTABLE o n DOS: 06/27/24, XY CHEST PORTABLE on DOS: 06/08/24 FINDINGS: Lines and Tubes: None Lungs: Mild pulmonary vascular congestion. Pleura: No effusion. No pneumothorax. Cardiomediastinal contours: Mild cardiomegaly. Bones: No acute osseous abnormality. IMPRESSION: Mild cardiomegaly with mild pulmonary vascular congestion.
[2024-09-14] MEDS: FUROSEMIDE 40 MG/4 ML VIAL IV ONE (11:45)
[2024-09-14] MEDS: ALBUTEROL SULF 2.5 MG/0.5ML(0.5%) NEB SOLN NEB ONE (11:50)
[2024-09-14] MEDS: IPRATROPIUM BROM 0.5 MG/2.5ML INH SOL NEB ONE (11:50)
[2024-09-14 12:48] LABS: Urine Protein, UAD 1+ (Negative)
--- NOTE | 2024-09-14 14:37 | ED.PDOC ---
SOB-HPI HPI Comments HPI: Poor Historian. Past Medical History: Past Surgical History: 59y M who presents to the ED for chief complaint of shortness of breath. - pt states he has been having shortness of breath for the past 1x days - pt arrived to the ED, in noted respiratory distress with noted difficulty speaking - pt vitals checked with noted 02 sat of 84% on room air and pt was placed on 4 L via nc - pt states he is also having associated chest pain, rating the pain 9/10, - pt states he has extensive medical history but states he is complaint with his medications - pt states he is on 02 at home - pt on blood thinner Xarelto at this time - pt was discharged in July 2024 with the following discharge summary: The patient is a 59-year-old male presenting to the emergency room with right and left-sided chest pain that worsens with cough as well as shortness of breath. Patient states that his symptoms has been intermittent for the past two weeks, worsening which prompted him to come to the emergency room. Upon arrival to the emergency room he was found to be hypoxic, currently on a simple mask at 6 L/min with a saturation 96%. Patient also reports having white-colored phlegm, but denies having any fevers, chills, body aches. Significant history of the patient includes diabetes, previous DVT to his right lower extremity, hypertension, congestive heart failure. Course of hospitalization: Further discussion was made with the patient, regarding his medical history which includes chronic home O2 use for plan undisclosed respiratory diagnosis. Patient was given CT scan which showed left lung base opacity, as well as ruling out pulmonary embolism. Patient also had echocardiogram given patient has persistent about him being fluid overloaded. Patient was found to have normal ejection fraction with significantly elevated PA systolic pressure in the 90s. Pulmonary consultation was obtained. Patient was placed on Revatio 20 mg p.o. t.i.d.. Patient was also placed on bronchodilators and antibiotics. Patient states that his respiratory status has improved. Patient will be discharged home, continued on antibiotic therapy as well as Revatio as previously ordered. He is instructed to follow up with his PCP, for which he states he has an appointment tomorrow. He is instructed to obtain referral for outpatient pulmonology or Cardiology for his pulmonary hypertension. Patient was agreeable with discharge plan. All questions answered. past medical history: CHF, COPD, DM, HLD, liver cancer Past surgical history: denies allergies: denies medications: unknown social history: denies tobacco use, heavy ETOH use, denies drug use REVIEW OF SYSTEMS: CONSTITUTIONAL: Denies acute: fever, diaphoresis, chills, HEAD: Denies acute: headache, photophobia Eyes: Denies acute: Double vision, vision loss, eye pain, eye discharge. EARS: Denies acute: tinnitus, hearing loss, ear discharge, ear pain, THROAT: Denies acute: sore throat, swelling, difficulty swallowing , pain with swallowing, change in voice. NECK: Denies acute: neck pain, neck swelling, stiff neck. HEART: Denies acute : chest pain, palpitations, LUNGS: Denies acute: wheezing, cough, hemoptysis ABDOMEN: Denies acute: abdominal pain, Nausea, Vomiting, diarrhea, melena , hematemesis, hematochezia SKIN: Denies acute: rash, redness, lesions, itchiness. EXTREMITIES: Denies acute: calf pain, numbness, tingling, weakness, denies pain in extremity. Denies acute: Low back pain. Neuro: Denies acute: focal neurological deficit, motor or sensory focal neurological deficit, tremors, seizure like activity, confusion, dizziness, change in mental status, loss of bowel or bladder function, cauda equina like symptoms. : Denies acute: dysuria, hematuria, flank pain, increase in urinary frequency. PSYCH: Denies acute: hallucination, suicidal ideation, homicidal ideation. PHYSICAL EXAM: General: ----mild----acute distress, awake and alert. Head: normocephalic, atraumatic. Neck: supple, trachea is midline, no swelling. Throat: Normal phonation. Eyes:, no erythema, no purulent discharge, no proptosis, no icterus. Heart: regular rate, regular rhythm, no significant murmur appreciated. Lungs: [id number] apparent respiratory distress, Able to speak in full sentences. No wheezing, no rhonchi, no crackles. No stridors Clear to auscultation bilaterally. Abdomen: non tender to palpation, non distended, soft, no guarding, no rebound, + bowel sounds. Morbidly obese Neuro: Awake, Alert, oriented to name, self, situation, follows commands GCS=15. Speech is normal. Skin: no petechia, no purpura, no cyanosis, non-pale, not jaundice. Lower extremities: --no - Pitting edema no deformity, no focal swelling, no calf TTP. Makes eye contact. moves all four extremities. Face: no apparent facial droop. ED COURSE: DISCLAIMER: This medical document was created using an electronic medical record system with voice recognition software and computerized dictation system. Although this document has been carefully reviewed, there might still be some phonetic and typographical errors. Occasional wrong-word or "sound-alike" substitutions may have occurred due to the inherent limitations of voice recognition software. These areas are purely typographical due to imperfections of the software pr ograms and do not reflect any compromise in the patient's medical care. Please read the chart carefully and recognize, using context, where these substitutions have occurred. Chief Complaint: Shortness of Breath Time Seen by MD: 14:27 Reviewed notes: Medications, Allergies Information Source: Patient Mode of Arrival: Ambulatory Past Medical History PAST MEDICAL HISTORY: CHF, COPD, DM, HTN Surgical History: Denies all surgeries Family History Family History: Reviewed,noncontributory to illness, No family hx of Cancer, No family hx of DM, No family hx of Heart bhavik, No family hx of HTN, No family hx ofKidney bhavik, No family hx of Liver bhavik, No family hx of Lung bhavik, No family hx of Stroke Social History Smoker: Quit Greater Than 1 Year Alcohol: Denies ETOH Use Drugs: Denies Drug Use Was a procedure done? Was a procedure done?: No X-Ray, Labs, Meds, VS Vital Signs Date Time Temp Pulse Resp B/P (MAP) Pulse Ox O2 Delivery O2 Flow Rate FiO2 09/14/24 14:00 98.1 83 16 105/66 (79) 93 98.1 09/14/24 12:00 79 20 113/71 (85) 93 09/14/24 11:45 113/71 09/14/24 10:17 74 26 93 Nasal Cannula* 4 36 09/14/24 10:16 98.3 82 24 92/56 (68) 93 98.3 09/14/24 09:52 76 09/14/24 09:42 98.6 77 22 87/58 (43) 90 98.6 Lab Test 09/14/24 13:07 09/14/24 12:26 09/14/24 11:11 09/14/24 10:24 Range/Units Troponin I High Sensitivity 24 22 </=54 ng/L Urine Color Light-yellow Yellow Urine Clarity Clear Clear Urine pH 6.0 5.0-9.0 Urine Specific [place] 1.025 1.001-1.035 Urine Protein 1+ H Negative Urine Ketones Negative Negative Urine Blood Negative Negative /uL Urine Nitrite Negative Negative Urine Bilirubin Negative Negative Urine Urobilinogen Normal Negative mg/dL Urine Leukocyte Esterase Negative Negative /uL Urine RBC 1 0 - 3 /hpf Urine Microscopic WBC < 1 0-3 /HPF Urine Squamous Epithelial Cells None seen <5 /hpf Urine Bacteria None seen None Seen /hpf Urine Glucose 4+ H Normal mg/dL POC Glucose 280 H 70-106 mg/dl Test 09/14/24 09:59 Range/Units White Blood Count 5.8 4.4-10.8 10^3/uL Red Blood Count 5.16 4.5-5.90 10^6/uL Hemoglobin 17.6 H 13.5-17.5 g/dL Hematocrit 51.2 41.0-53.0 % Mean Corpuscular Volume 99.4 80.0-100.0 fL Mean Corpuscular Hemoglobin 34.1 H 28.0-32.0 pg Mean Corpuscular Hemoglobin Concent 34.3 32.0-36.0 g/dL Red Cell Distribution Width 14.8 H 11.8-14.3 % Platelet Count 134 L 140-450 10^3/uL Mean Platelet Volume 9.0 6.9-10.8 fL Neutrophils (%) (Auto) 69.6 37.0-80.0 % Lymphocytes (%) (Auto) 15.9 10.0-50.0 % Monocytes (%) (Auto) 10.5 0.0-12.0 % Eosinophils (%) (Auto) 3.8 0.0-7.0 % Basophils (%) (Auto) 0.2 0.0-2.0 % Neutrophils # (Auto) 4.1 1.6-8.6 10 ^3/uL Lymphocytes # (Auto) 0.9 0.4-5.4 10 ^3/uL Monocytes # (Auto) 0.6 0-1.3 10 ^3/uL Eosinophils # (Auto) 0.2 0-0.8 10 ^3/uL Basophils # (Auto) 0 0-0.2 10 ^3/uL Nucleated Red Blood Cells 0.2 % Sodium Level 142 136-145 mmol/L Potassium Level 4.1 3.5-5.1 mmol/L Chloride Level 105 98-107 mmol/L Carbon Dioxide Level 31 20-31 mmol/L Anion Gap 6 5-15 Blood Urea Nitrogen 15 9-23 mg/dL Creatinine 1.06 0.700-1.30 mg/dL Glomerular Filtration Rate Calc 81 >90 mL/min BUN/Creatinine Ratio 14.2 10.0-20.0 Serum Glucose 341 H 74-106 mg/dL Hemoglobin A1c Pending Calcium Level 9.8 8.7-10.4 mg/dL Troponin I High Sensitivity 21 </=54 ng/L B-Type Natriuretic Peptide 971.34 0-100 pg/mL Thyroid Stimulating Hormone (TSH) Pending Free Thyroxine (T4) Calculated Pending Current Medications Medications (Trade) Dose Ordered Sig/Deondre Route Start Time Stop Time Status Last Admin Furosemide (Lasix Injection) 40 mg ONCE ONCE IV 09/14/24 11:30 09/14/24 11:31 DC 09/14/24 11:45 Albuterol (Ventolin Medneb) 5 mg ONCE ONCE NEB 09/14/24 11:30 09/14/24 11:31 DC 09/14/24 11:50 Ipratropium [place] (Atrovent Medneb) 0.5 mg ONCE ONCE NEB 09/14/24 11:30 09/14/24 11:31 DC 09/14/24 11:50 [place] [id number] Ph: [phone] DIAGNOSTIC IMAGING Diagnostic Imaging Report : [id number] Signed PATIENT: DAKOTAH SOLIS MACCT: [id number] UNIT: [id number] : 1965 LOC: ER ROOM / BED: / AGE / SEX: 59 / M ADM STATUS: REG ER SERVICE 0230 ORDERING PHYSICIAN: JEANCARLOS VALENCIA MD PROCEDURE(s): CXRP - CHEST PORTABLE REASON: sob ORDER NUMBER(s): [id number], ACCESSION NUMBER(s): [id number] EXAM: XY CHEST PORTABLE Indication: sob Technique: Single frontal view of the chest was obtained Comparison: XY CHEST PORTABLE on DOS: 08/06/24, XY CHEST PORTABLE on DOS: 08/05/24, XY CHEST PORTABLE on DOS: 06/27/24, XY CHEST PORTABLE on DOS: 06/08/24 FINDINGS: Lines and Tubes: None Lungs: Mild pulmonary vascular congestion. Pleura: No effusion. No pneumothorax. Cardiomediastinal contours: Mild cardiomegaly. Bones: No acute osseous abnormality. IMPRESSION: Mild cardiomegaly with mild pulmonary vascular congestion. ATED BY: CARLOS A MARTINEZ MD DICTATED DATE/TIME: 09/14/24 104 SIGNED BY: CARLOS A MARTINEZ MD SIGNED DATE/TIME: 09/14/24 104 CC: Patient Education/Counseling: Diagnosis, Treatment Family Education/Counseling: No Family Present Departure 1 Departure Time of Disposition: 14:40 Impression: Primary Impression: CHF exacerbation Disposition: ADMITTED INPATIENT Admit to: Tele Condition: Guarded Discharged With: Self Critical Care Note Critical Care Time?: No Heart Score Heart Score: Heart Score Response (Comments) Value History Moderate Suspicious 1 Age 45-64 1 Risk Factors >3 or Hx ASHD 2 Total 4 I personally scribed for ANNETTE FUNES DO ([email or web address]) on 09/14/24 at 14:37. Electronically submitted by Wilman Nunes ([facility] [employer] I personally scribed for ANNETTE FUNES DO ([email or web address]) on 09/14/24 at 15:45. Electronically submitted by Wilman Nunes ([employer]). I personally scribed for ANNETTE FUNES DO ([email or web address]) on 09/14/24 at 16:04. Electronically submitted by Wilman Nunes ([employer]). ANNETTE FUNES DO Sep 14, 2024 14:37
[2024-09-14] MEDS ORDERED: ONDANSETRON HCL 4 MG/2 ML VIAL IV PRN (15:45)
[2024-09-14] MEDS ORDERED: DEXTROSE (50%) 50ML SYRG IV PRN ×2 (15:45→19:15)
[2024-09-14] MEDS ORDERED: MORPHINE SULFATE INJ 2 MG/ml SYRG IV PRN (15:45)
[2024-09-14] MEDS ORDERED: METOPROLOL TARTRATE 1MG/1ML-5ML VIAL IV SCH (15:45)
[2024-09-14] MEDS ORDERED: NITROGLYCERIN 0.4 MG SL TAB SL PRN ×2 (15:45)
[2024-09-14] MEDS ORDERED: MORPHINE SULFATE 4 MG/ML SYR/VIAL IV PRN (15:45)
--- NOTE | 2024-09-14 15:54 | DVHHP2 ---
History of Present Illness Reason for Visit: Chest pain with SOB History of Present Illness Daniel Drew is a 59-year-old male with past medical history of hyperlipidemia, diabetes, COPD, CHF, bilateral DVT on Xarelto, and liver cancer diagnosed in 21 years of age per patient's report who presents to the ED with chest pain and shortness of breath x2 days. Patient reports that his chest pain is 8/10 twisting like and intermittent in nature. Patient reports that there are no triggering or alleviating factors. He also reports that he is on 3-4 L of oxygen via nasal cannula at home. Patient reports that he lives with family at home. He also reports that he quit drinking a long time ago. He states that he was also diagnosed with liver cancer at 21 years of age. Patient denies any recent trauma or injury, recent sick contacts, recent travels, recent ingestion of spoiled food, fever, chills, lightheadedness, weakness, dizziness, abdominal pain, nausea, vomiting, diarrhea, or urinary symptoms. Patient also reports that he has a blood clot in his heart. Cardiovascular: CHF, hyperipidemia Pulmonary: COPD Endocrine: Diabetes Past Medical History Bilateral DVTs Past Surgical History: None Family History: None Smoke: No ALCOHOL: none (Quit) Drugs: None Lives: with Family Domestic Violence: Neg Review of Systems Respiratory: Shortness of breath Cardiovascular: Chest Pain Allergies: Coded Allergies: NO KNOWN ALLERGIES (Unverified , 06/08/24) Medications Current Medications Medications Dose Ordered Sig/Deondre Route Start Time Stop Time Status Last Admin Dose Admin Metoprolol Tartrate 5 mg Q5M IV 09/14/24 15:45 UNV Lisinopril 5 mg DAILY PO 09/15/24 10:00 UNV Metoprolol Tartrate 25 mg BID PO 09/14/24 15:45 UNV Rivaroxaban 20 mg DAILY PO 09/15/24 10:00 UNV Torsemide 20 mg BID PO 09/14/24 22:00 UNV Aspirin 81 mg DAILY PO 09/15/24 10:00 UNV Atorvastatin Calcium 40 mg HS PO 09/14/24 22:00 UNV Morphine Sulfate 2 mg Q30MP PRN IV 09/14/24 15:45 UNV Nitroglycerin 0.4 mg Q5MINP PRN SL 09/14/24 15:45 UNV Ondansetron HCl 4 mg Q4HP PRN IV 09/14/24 15:45 UNV Nitroglycerin 0.4 mg Q5MINP PRN SL 09/14/24 15:45 UNV Exam Vital Signs Vital Signs Date Time Temp Pulse Resp B/P (MAP) Pulse Ox O2 Delivery O2 Flow Rate FiO2 09/14/24 14:00 98.1 83 16 105/66 (79) 93 98.1 09/14/24 10:17 Nasal Cannula* 4 36 General Appearance: Alert, Oriented X3, Cooperative, mild distress HEENT: Atraumatic, PERRLA, EOMI, Mucous membr. moist/pink Respiratory: Normal air movement Cardiovascular: Normal S1, Normal S2 Abdominal: Soft Extremities: Normal pulses Skin: No significant lesion Neuro: Normal speech, Normal tone, Sensation intact Psych/Mental Status: Mental status NL, Mood NL Labs/Xrays Labs Test 09/14/24 13:07 09/14/24 12:26 09/14/24 10:24 09/14/24 09:59 Range/Units Troponin I High Sensitivity 24 </=54 ng/L Urine Color Light-yellow Yellow Urine Clarity Clear Clear Urine pH 6.0 5.0-9.0 Urine Specific [place] 1.025 1.001-1.035 Urine Protein 1+ H Negative Urine Ketones Negative Negative Urine Blood Negative Negative /uL Urine Nitrite Negative Negative Urine Bilirubin Negative Negative Urine Urobilinogen Normal Negative mg/dL Urine Leukocyte Esterase Negative Negative /uL Urine RBC 1 0 - 3 /hpf Urine Microscopic WBC < 1 0-3 /HPF Urine Squamous Epithelial Cells None seen <5 /hpf Urine Bacteria None seen None Seen /hpf Urine Glucose 4+ H Normal mg/dL POC Glucose 280 H 70-106 mg/dl White Blood Count 5.8 4.4-10.8 10^3/uL Red Blood Count 5.16 4.5-5.90 10^6/uL Hemoglobin 17.6 H 13.5-17.5 g/dL Hematocrit 51.2 41.0-53.0 % Mean Corpuscular Volume 99.4 80.0-100.0 fL Mean Corpuscular Hemoglobin 34.1 H 28.0-32.0 pg Mean Corpuscular Hemoglobin Concent 34.3 32.0-36.0 g/dL Red Cell Distribution Width 14.8 H 11.8-14.3 % Platelet Count 134 L 140-450 10^3/uL Mean Platelet Volume 9.0 6.9-10.8 fL Neutrophils (%) (Auto) 69.6 37.0-80.0 % Lymphocytes (%) (Auto) 15.9 10.0-50.0 % Monocytes (%) (Auto) 10.5 0.0-12.0 % Eosinophils (%) (Auto) 3.8 0.0-7.0 % Basophils (%) (Auto) 0.2 0.0-2.0 % Neutrophils # (Auto) 4.1 1.6-8.6 10 ^3/uL Lymphocytes # (Auto) 0.9 0.4-5.4 10 ^3/uL Monocytes # (Auto) 0.6 0-1.3 10 ^3/uL Eosinophils # (Auto) 0.2 0-0.8 10 ^3/uL Basophils # (Auto) 0 0-0.2 10 ^3/uL Nucleated Red Blood Cells 0.2 % Sodium Level 142 136-145 mmol/L Potassium Level 4.1 3.5-5.1 mmol/L Chloride Level 105 98-107 mmol/L Carbon Dioxide Level 31 20-31 mmol/L Anion Gap 6 5-15 Blood Urea Nitrogen 15 9-23 mg/dL Creatinine 1.06 0.700-1.30 mg/dL Glomerular Filtration Rate Calc 81 >90 mL/min BUN/Creatinine Ratio 14.2 10.0-20.0 Serum Glucose 341 H 74-106 mg/dL Calcium Level 9.8 8.7-10.4 mg/dL B-Type Natriuretic Peptide 971.34 0-100 pg/mL EXAM: XY CHEST PORTABLE Indication: sob Technique: Single frontal view of the chest was obtained Comparison: XY CHEST PORTABLE on DOS: 08/06/24, XY CHEST PORTABLE on DOS: 08/05/24, XY CHEST PORTABLE on DOS: 06/27/24, XY CHEST PORTABLE on DOS: 06/08/24 FINDINGS: Lines and Tubes: None Lungs: Mild pulmonary vascular congestion. Pleura: No effusion. No pneumothorax. Cardiomediastinal contours: Mild cardiomegaly. Bones: No acute osseous abnormality. IMPRESSION: Mild cardiomegaly with mild pulmonary vascular congestion. Assessment/Plan Assessment/Plan Assessment Acute on chronic CHF versus COPD exacerbation Acute hypoxic respiratory failure Morbid obesity Thrombocytopenia Diabetes type 2 History of hyperlipidemia History of liver cancer Plan Admit to tele UA Duo nebs Diuretics Troponin noted negative x3 Chest x-ray noted BNP EKG noted shows a flutter with rate of 76 Hemoglobin A1c ISS and Accu-Cheks Beta blockers Bilateral lower extremity venous ultrasound ordered Mag level Mag replacement Echo ordered TSH Lipid panel Free T4 Strict I&Os Daily weight Diet Home medications reconciled DVT prophylaxis-Xarelto PUD prophylaxis-H2 blockers Discussed plan of care with patient and nurse Supplemental oxygen Cardiology consult Counseled patient on lifestyle modifications, diet, and exercise Counseled patient on continuance of cessation of alcohol use Plan discussed with: Patient My Orders Orders - GILMA BLACKWELL 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 DIRECTOR Procedure Category Date Status Time Metoprolol Inj PHA 09/14/24 Logged (Lopressor) 15:45 Lisinopril Tablet PHA 09/15/24 Logged (Zestril Tablet) 10:00 Metoprolol Tartrate PHA 09/14/24 Logged Tablet (Lopressor Ta 15:45 Rivaroxaban Tablet PHA 09/15/24 Logged (Xarelto Tablet) 10:00 Torsemide Tab PHA 09/14/24 Logged (Demadex Tab) 22:00 Admit ADMIT 09/14/24 Transmitted 15:41 Code Status CODE 09/14/24 Transmitted 15:41 Vital Signs ROSARIO 09/14/24 In Process 15:41 Color Mixer ROSARIO 09/14/24 In Process 15:41 Cardiac DIET 09/14/24 Transmitted Diet-2gna,Lofat,Lochol Dinner Aspirin Tablet PHA 09/15/24 Transmitted 10:00 Lipitor 40mg Hs PHA 09/14/24 Transmitted Hi-Intensity 22:00 Morphine Sulfate PHA 09/14/24 Transmitted Injection 15:45 Complete Blood Count LAB 09/15/24 Verified 04:00 Basic Metabolic Panel LAB 09/15/24 Verified 04:00 Magnesium LAB 09/15/24 Verified 04:00 Lipid Panel LAB 09/15/24 Verified 04:00 Echo 2d Mode Cardiac US 09/14/24 Transmitted DOP 15:41 Nitroglycerin PHA 09/14/24 Transmitted Sublingual (Ntrostat 15:45 Ondansetron Hcl PHA 09/14/24 Transmitted (Zofran) 15:45 Electrocardigram EKG 09/15/24 Transmitted 04:00 Troponin-I Hs LAB 09/14/24 Transmitted 15:41 Cardiac ROSARIO 09/14/24 In Process Rehabilitation - Outpa Nitroglycerin PHA 09/14/24 Transmitted Sublingual (Ntrostat 15:45 Morphine Sulfate PHA 09/14/24 Transmitted Injection 15:45 Stat Ekg For Chest ROSARIO 09/14/24 In Process Pain 15:41 Notify Of Changes ROSARIO 09/14/24 In Process From Base 15:41 Credit And Collection Manager For ROSARIO 09/14/24 In Process 24 Hours 15:41 Emergency Dysrhythmia ROSARIO 09/14/24 In Process Protocol 15:41 Rhythm Strips Once [facility] [place] 09/14/24 In Process Every Shift 15:41 Oxygen By Nasal RT 09/14/24 Transmitted Cannula 15:41 Thyroid Stimulating LAB 09/14/24 Transmitted Hormone 15:41 Free T4 (Free LAB 09/14/24 Transmitted Thyroxine) 15:41 Hemoglobin A1c LAB 09/14/24 Transmitted 15:41 Glucose Blood PHA 09/14/24 Transmitted (Accu-Chek Comfort 17:00 Mild Sliding Scale PHA 09/14/24 Transmitted 17:00 Dextrose 50% Syringe PHA 09/14/24 Transmitted 15:45 Magnesium Med PHA 09/14/24 Transmitted 15:45 * Cardiology Consult CONS 09/14/24 Verified 15:45 Date of Service: Sep 14, 2024 Billing Provider: GILMA BLACKWELL Common Visit Codes: [id number] INP/OBS CARE (HIGH) GILMA BLACKWELL Sep 14, 2024 15:54
[2024-09-14] MEDS: MAGNESIUM SULFATE 1GM/100ML 100 ML IV ONE (16:49)
[2024-09-14] MEDS: METOPROLOL TARTRATE 25 MG TAB PO SCH (16:58)
[2024-09-14] MEDS: ACCU-CHEK COMFORT CURVE STRIP VI SCH ×2 (17:00→20:27)
--- NOTE | 2024-09-14 17:00 | DVHCONRES ---
Date Seen: Sep 14, 2024 Resident Creating Document: RAMEZ WRIGHT RESIDENT History of Present Illness 59-year-old male with past medical history of CHF, type 2 diabetes on insulin, hypertension, pulmonary hypertension, dyslipidemia, sleep apnea, who comes in due to generalized body aches and weakness along with difficulty breathing. According to the patient, yesterday on 09/13/2024 he started experiencing a generalized pain extending across his chest along with abdominal pain and distention with the associated dizziness. Patient notes he had similar symptoms in July when he was hospitalized at the [facility] for acute on chronic hypoxic respiratory failure. Patient is on home oxygen 3-4 L. At baseline patient uses a cane to ambulate. On review of systems patient is complaining of fatigue, diarrhea, palpitation, shortness of breaths/dyspnea Functional Class III. Echocardiogram from previous hospitalization shows ejection fraction 55%, mild LVH, RVSP 90 mmHg. Serial troponins were 21, 22, 24. Past Medical History CHF, type 2 diabetes on insulin, hypertension, pulmonary hypertension, dyslipidemia, sleep apnea Past Surgical History S/p liver biopsy, cholecystectomy, appendectomy Family History: Patient reports no known family medical history. Social History Smoking: Smoked 1 pack per day for 3 years, quit at the age of 24 Alcohol: Denies Drugs: Denies Allergies: Coded Allergies: NO KNOWN ALLERGIES (Unverified , 06/08/24) Home Meds Active Scripts Cefdinir (Cefdinir) 300 Mg Cap, 1 CAP PO BID for 5 Days, #10 CAP Prov:PURVI DAVIES [employer]IP[employer] MECH[employer]IC 08/09/24 Sildenafil Citrate (Revatio) 20 Mg Tab, 20 MG PO TID for 30 Days, #90 TAB Prov:PURVI DAVIES [employer] 08/09/24 Reported Medications Potassium Chloride (Potassium Chloride ER) 10 Meq Tab, 1 TAB PO DAILY 08/05/24 Torsemide Injection (Torsemide) 20 Mg Tab, 1 TAB PO BID 08/05/24 Lisinopril (Lisinopril) 5 Mg Tab, 1 TAB PO DAILY 08/05/24 Ertugliflozin l-Pyroglutamic A (Steglatro) 15 Mg Tab, 1 TAB PO DAILY 08/05/24 Metoprolol Tartrate (Lopressor) 25 Mg Tb, 2 PO BID 08/05/24 Rivaroxaban (Xarelto Tablet) 20 Mg Tb, 1 TAB PO DAILY 08/05/24 Current Medications Current Medications Medications (Trade) Dose Ordered Sig/Deondre Route PRN Reason Start Time Stop Time Status Last Admin Metoprolol Tartrate (Lopressor) 5 mg Q5M IV 09/14/24 15:45 09/14/24 15:55 DC Lisinopril (Zestril Tablet) 5 mg DAILY PO 09/15/24 10:00 Metoprolol Tartrate (Lopressor Tablet) 25 mg BID PO 09/14/24 15:45 09/14/24 16:58 Rivaroxaban (Xarelto Tablet) 20 mg DAILY PO 09/15/24 10:00 Torsemide (Demadex Tab) 20 mg BID PO 09/14/24 22:00 09/14/24 15:47 DC Aspirin 81 mg DAILY PO 09/15/24 10:00 Atorvastatin Calcium (Lipitor) 40 mg HS PO 09/14/24 22:00 Morphine Sulfate 2 mg Q30MP PRN IV FOR CHEST PAIN 09/14/24 15:45 UNV Nitroglycerin (Ntrostat Sublingual) 0.4 mg Q5MINP PRN SL FOR CHEST PAIN 09/14/24 15:45 UNV Ondansetron HCl (Zofran) 4 mg Q4HP PRN IV NAUSEA / VOMITING 09/14/24 15:45 Nitroglycerin (Ntrostat Sublingual) 0.4 mg Q5MINP PRN SL FOR CHEST PAIN 09/14/24 15:45 Morphine Sulfate 2 mg Q30M PRN IV FOR CHEST PAIN 09/14/24 15:45 Diagnostic Test (Pha) (Accu-Chek Comfort Curve T) 1 strip ACHS 09/14/24 17:00 Insulin Human Regular (InsuLIN R) ACHS SC 09/14/24 17:00 Dextrose 50 ml UD PRN IV Blood Sugar LESS THAN 60 09/14/24 15:45 Furosemide (Lasix Injection) 40 mg DAILY IV 09/15/24 10:00 Review of Systems Patient seen and examined at bedside. Patient is alert and oriented to time, place person and responding to all questions. General: Fatigue Eyes: No Pain, No Vision change, No Conjunctivae inflammation, No Eyelid inflammation, No Other, No Redness ENT: No Ear pain, No Ear discharge, No Nose pain, No Nose discharge, No Nose congestion, No Mouth pain, No Mouth swelling, No Throat pain, No Throat sw elling, No Other Cardiovascular: No Chest Pain, Palpitations, No Orthopnea, No Paroxysmal No Dyspnea, No Edema, No Lt Headedness, No Other Respiratory: No Cough, No Dry, Shortness of breath, No SOB with exertion, No Wheezing, No Hemoptysis, No Pleuritic Pain, No Sputum, No Other Gastrointestinal: No Nausea, No Vomiting, Abdominal Pain, Diarrhea, No Constipation, No Melena, No Hematochezia, No Other Genitourinary: No Dysuria, No Frequency, No Incontinence, No Hematuria, No Retention, No Other Musculoskeletal: No other, No neck pain, No shoulder pain, No arm pain, No back pain, No hand pain, No leg pain, No foot pain Skin: No Rash, No Lesions, No Jaundice, No Bruising, No Other Vital Signs Vital Signs Date Time Temp Pulse Resp B/P (MAP) Pulse Ox O2 Delivery O2 Flow Rate FiO2 09/14/24 16:58 102 113/78 09/14/24 16:00 24 93 09/14/24 14:00 98.1 98.1 09/14/24 10:17 Nasal Cannula* 4 36 Physical Exam General Appearance: Cooperative. Well developed. Well nourished. Moderate distress, cyanotic looking Head Exam: Normal inspection Neck Exam: Normal inspection. Non-tender. Normal alignment Pulmonary/Respiratory: Chest non-tender. Decreased bilateral breath sounds, expiratory wheezes scattered and extensive Cardiovascular/Chest: Regular rate and rhythm. No murmurs. No JVD. Peripheral Pulses: 2+ Radial (R). 2+ Radial (L). 2+ Pedal (R). 2+ Pedal (L) Abdominal Exam: Normal bowel sounds. Soft. normal abdomen, no visible veins, Nontender. No hepatospenomegaly. No masses Lower extremities: 1+ lower extremity edema Neuro/Mental Status: A&O x4. Coherent. Thoughts/Psych: Normal thought pattern. Appropriate mood and affect. Good judgement and insight Skin Exam: Normal inspection. Normal color. Warm. Dry Labs/Diagnostic Data Labs Test 09/14/24 13:07 09/14/24 12:26 09/14/24 10:24 09/14/24 09:59 Range/Units Troponin I High Sensitivity 24 </=54 ng/L Urine Color Light-yellow Yellow Urine Clarity Clear Clear Urine pH 6.0 5.0-9.0 Urine Specific [place] 1.025 1.001-1.035 Urine Protein 1+ H Negative Urine Ketones Negative Negative Urine Blood Negative Negative /uL Urine Nitrite Negative Negative Urine Bilirubin Negative Negative Urine Urobilinogen Normal Negative mg/dL Urine Leukocyte Esterase Negative Negative /uL Urine RBC 1 0 - 3 /hpf Urine Microscopic WBC < 1 0-3 /HPF Urine Squamous Epithelial Cells None seen <5 /hpf Urine Bacteria None seen None Seen /hpf Urine Glucose 4+ H Normal mg/dL POC Glucose 280 H 70-106 mg/dl White Blood Count 5.8 4.4-10.8 10^3/uL Red Blood Count 5.16 4.5-5.90 10^6/uL Hemoglobin 17.6 H 13.5-17.5 g/dL Hematocrit 51.2 41.0-53.0 % Mean Corpuscular Volume 99.4 80.0-100.0 fL Mean Corpuscular Hemoglobin 34.1 H 28.0-32.0 pg Mean Corpuscular Hemoglobin Concent 34.3 32.0-36.0 g/dL Red Cell Distribution Width 14.8 H 11.8-14.3 % Platelet Count 134 L 140-450 10^3/uL Mean Platelet Volume 9.0 6.9-10.8 fL Neutrophils (%) (Auto) 69.6 37.0-80.0 % Lymphocytes (%) (Auto) 15.9 10.0-50.0 % Monocytes (%) (Auto) 10.5 0.0-12.0 % Eosinophils (%) (Auto) 3.8 0.0-7.0 % Basophils (%) (Auto) 0.2 0.0-2.0 % Neutrophils # (Auto) 4.1 1.6-8.6 10 ^3/uL Lymphocytes # (Auto) 0.9 0.4-5.4 10 ^3/uL Monocytes # (Auto) 0.6 0-1.3 10 ^3/uL Eosinophils # (Auto) 0.2 0-0.8 10 ^3/uL Basophils # (Auto) 0 0-0.2 10 ^3/uL Nucleated Red Blood Cells 0.2 % Sodium Level 142 136-145 mmol/L Potassium Level 4.1 3.5-5.1 mmol/L Chloride Level 105 98-107 mmol/L Carbon Dioxide Level 31 20-31 mmol/L Anion Gap 6 5-15 Blood Urea Nitrogen 15 9-23 mg/dL Creatinine 1.06 0.700-1.30 mg/dL Glomerular Filtration Rate Calc 81 >90 mL/min BUN/Creatinine Ratio 14.2 10.0-20.0 Serum Glucose 341 H 74-106 mg/dL Hemoglobin A1c 11.4 H <5.7 % A1C Calcium Level 9.8 8.7-10.4 mg/dL B-Type Natriuretic Peptide 971.34 0-100 pg/mL Thyroid Stimulating Hormone (TSH) 1.39 0.55-4.78 uIU/mL Free Thyroxine (T4) Calculated 0.89 0.89-1.76 ng/dL Assessment Acute on chronic congestive diastolic heart failure, EF 55%. NYHA III New onset atrial flutter Severe pulmonary hypertension RVSP 90 mmHg Type 2 diabetes, uncontrolled and insulin dependent Sleep apnea nonadherent to CPAP Plan: Continue anticoagulation GAMALIEL with cardioversion tomorrow on 09/15/2024 Continue aspirin and statin IV Lasix daily Breathing treatments as needed (levalbuterol) Started Jardiance, resume GDMT for HFpEF as tolerated Rest of the plan as per course of hospitalization Thank you so much for the opportunity to consult on your patient. Cardiology team will follow the patient. In case of any questions or concerns please feel free to reach out. Plan discussed with Dr. Mccarthy Plan discussed with: Patient, Other (RN) Visit Coding Cardiology RES Date of Service: Sep 14, 2024 Billing Provider: JEREMIAH MCCARTHY MD Cardiology Common Codes: [id number] INP/OBS CARE (High) RAMEZ WRIGHT RESIDENT Sep 14, 2024 17:00
--- NOTE | 2024-09-14 17:14 | DVH ---
Technique: Real-time ultrasound imaging, with color Doppler and compression of the bilateral common femoral vein, femoral vein, greater saphenous vein, and popliteal vein. Indication: pain Comparison: None Findings: There is normal compressibility and flow augmentation in all of the imaged deep veins. There are no f illing defects. Impression: No evidence of DVT in the bilateral lower extremities
[2024-09-14] MEDS: InsuLIN REG 1unit/0.01ml Soln (100units/ml) SC SCH ×2 (17:30→20:29)
[2024-09-14] MEDS ORDERED: InsuLIN REG 1unit/0.01ml Soln (100units/ml) SC SCH (19:15)
[2024-09-14] MEDS ORDERED: ACCU-CHEK COMFORT CURVE STRIP VI SCH (19:15)
--- NOTE | 2024-09-14 21:47 | DVHINCON2 ---
Date Seen: Sep 14, 2024 Referring Physician Pa Reason for Consultation New onset Aflutter History of Present Illness This is a 59-year-old male with past medical history of CHF, type 2 diabetes on insulin, hypertension, pulmonary hypertension, dyslipidemia, sleep apnea who presented to the ED with complaints of generalized body aches and weakness along with difficulty breathing. According to the patient, yesterday on 09/13/2024 he started experiencing a generalized pain extending across his chest along with abdominal pain and distention with the associated dizziness. Patient notes he had similar symptoms in July when he was hospitalized here at [facility] for acute on chronic hypoxic respiratory failure. Patient is on home oxygen 3-4 L. At baseline patient uses a cane to ambulate. The patient endorses fatigue, diarrhea, palpitation, shortness of breaths/dyspnea Functional Class III. Echocardiogram from previous hospitalization shows ejection fraction 55%, mild LVH, RVSP 90 mmHg. Serial troponins were 21, 22, 24. Chest x-ray shows mild cardiomegaly with mild pulmonary vascular congestion. BLE Venous Doppler shows no evidence of DVT in the bilateral lower extremities. Patient was admitted to the hospital. I am asked to consult on this patient. Past Medical History CHF, type 2 diabetes on insulin, hypertension, pulmonary hypertension, dyslipidemia, sleep apnea Past Surgical History S/p liver biopsy, cholecystectomy, appendectomy Family History: Patient reports no known family medical history. Allergies: Coded Allergies: NO KNOWN ALLERGIES (Unverified , 06/08/24) Home Meds Active Scripts Cefdinir (Cefdinir) 300 Mg Cap, 1 CAP PO BID for 5 Days, #10 CAP Prov:PURVI DAVIES INTERLOCKING MACHINE OPERATOR 08/09/24 Sildenafil Citrate (Revatio) 20 Mg Tab, 20 MG PO TID for 30 Days, #90 TAB Prov:PURVI DAVIES [employer]LOCKING MACHINE OPERATOR 08/09/24 Reported Medications Potassium Chloride (Potassium Chloride ER) 10 Meq Tab, 1 TAB PO DAILY 08/05/24 Torsemide Injection (Torsemide) 20 Mg Tab, 1 TAB PO BID 08/05/24 Lisinopril (Lisinopril) 5 Mg Tab, 1 TAB PO DAILY 08/05/24 Ertugliflozin l-Pyroglutamic A (Steglatro) 15 Mg Tab, 1 TAB PO DAILY 08/05/24 Metoprolol Tartrate (Lopressor) 25 Mg Tb, 2 PO BID 08/05/24 Rivaroxaban (Xarelto Tablet) 20 Mg Tb, 1 TAB PO DAILY 08/05/24 Current Medications Current Medications Medications (Trade) Dose Ordered Sig/Deondre Route PRN Reason Start Time Stop Time Status Last Admin Metoprolol Tartrate (Lopressor) 5 mg Q5M IV 09/14/24 15:45 09/14/24 15:55 DC Lisinopril (Zestril Tablet) 5 mg DAILY PO 09/15/24 10:00 Metoprolol Tartrate (Lopressor Tablet) 25 mg BID PO 09/14/24 15:45 09/14/24 16:58 Rivaroxaban (Xarelto Tablet) 20 mg DAILY PO 09/15/24 10:00 Torsemide (Demadex Tab) 20 mg BID PO 09/14/24 22:00 09/14/24 15:47 DC Aspirin 81 mg DAILY PO 09/15/24 10:00 Atorvastatin Calcium (Lipitor) 40 mg HS PO 09/14/24 22:00 Morphine Sulfate 2 mg Q30MP PRN IV FOR CHEST PAIN 09/14/24 15:45 UNV Nitroglycerin (Ntrostat Sublingual) 0.4 mg Q5MINP PRN SL FOR CHEST PAIN 09/14/24 15:45 UNV Ondansetron HCl (Zofran) 4 mg Q4HP PRN IV NAUSEA / VOMITING 09/14/24 15:45 Nitroglycerin (Ntrostat Sublingual) 0.4 mg Q5MINP PRN SL FOR CHEST PAIN 09/14/24 15:45 Morphine Sulfate 2 mg Q30M PRN IV FOR CHEST PAIN 09/14/24 15:45 Diagnostic Test (Pha) (Accu-Chek Comfort Curve T) 1 strip ACHS 09/14/24 17:00 09/14/24 17:00 Insulin Human Regular (InsuLIN R) ACHS SC 09/14/24 17:00 09/14/24 17:30 Dextrose 50 ml UD PRN IV Blood Sugar LESS THAN 60 09/14/24 15:45 Furosemide (Lasix Injection) 40 mg DAILY IV 09/15/24 10:00 Review of Systems Patient seen and examined at bedside. Patient is alert and oriented to time, place person and responding to all questions. General: Fatigue Eyes: No Pain, No Vision change, No Conjunctivae inflammation, No Eyelid inflammation, No Other, No Redness ENT: No Ear pain, No Ear discharge, No Nose pain, No Nose discharge, No Nose congestion, No Mouth pain, No Mouth swelling, No Throat pain, No Throat swelling, No Other Cardiovascular: No Chest Pain, Palpitations, No Orthopnea, No Paroxysmal No Dyspnea, No Edema, No Lt Headedness, No Other Respiratory: No Cough, No Dry, Shortness of breath, No SOB with exertion, No Wheezing, No Hemoptysis, No Pleuritic Pain, No Sputum, No Other Gastrointestinal: No Nausea, No Vomiting, Abdominal Pain, Diarrhea, No Constipation, No Melena, No Hematochezia, No Other Genitourinary: No Dysuria, No Frequency, No Incontinence, No Hematuria, No Retention, No Other Musculoskeletal: No other, No neck pain, No shoulder pain, No arm pain, No back pain, No hand pain, No leg pain, No foot pain Skin: No Rash, No Lesions, No Jaundice, No Bruising, No Other Vital Signs Vital Signs Date Time Temp Pulse Resp B/P (MAP) Pulse Ox O2 Delivery O2 Flow Rate FiO2 09/14/24 18:00 78.0 0 16 105/48 (67) 93 78.0 09/14/24 10:17 Nasal Cannula* 4 36 Physical Exam GENERAL: Alert and oriented x 3. Mild distress. EYES: PERRL, EOMI. Anicteric. HENT: Moist mucous membranes. LUNGS: Decreased bilateral breath sounds with wheezing. CARDIOVASCULAR: Regular rate and rhythm. ABDOMEN: Soft, nontender and nondistended. EXTREMITIES: 1+ BLE edema. NEUROLOGIC: No focal neurological deficits. SKIN: Warm, dry. Labs/Diagnostic Data Labs Test 09/14/24 17:21 09/14/24 17:06 09/14/24 12:26 09/14/24 09:59 Range/Units POC Glucose 191 H 70-106 mg/dl Troponin I High Sensitivity 23 </=54 ng/L B-Type Natriuretic Peptide 790.54 0-100 pg/mL Urine Color Light-yellow Yellow Urine Clarity Clear Clear Urine pH 6.0 5.0-9.0 Urine Specific [place] 1.025 1.001-1.035 Urine Protein 1+ H Negative Urine Ketones Negative Negative Urine Blood Negative Negative /uL Urine Nitrite Negative Negative Urine Bilirubin Negative Negative Urine Urobilinogen Normal Negative mg/dL Urine Leukocyte Esterase Negative Negative /uL Urine RBC 1 0 - 3 /hpf Urine Microscopic WBC < 1 0-3 /HPF Urine Squamous Epithelial Cells None seen <5 /hpf Urine Bacteria None seen None Seen /hpf Urine Glucose 4+ H Normal mg/dL White Blood Count 5.8 4.4-10.8 10^3/uL Red Blood Count 5.16 4.5-5.90 10^6/uL Hemoglobin 17.6 H 13.5-17.5 g/dL Hematocrit 51.2 41.0-53.0 % Mean Corpuscular Volume 99.4 80.0-100.0 fL Mean Corpuscular Hemoglobin 34.1 H 28.0-32.0 pg Mean Corpuscular Hemoglobin Concent 34.3 32.0-36.0 g/dL Red Cell Distribution Width 14.8 H 11.8-14.3 % Platelet Count 134 L 140-450 10^3/uL Mean Platelet Volume 9.0 6.9-10.8 fL Neutrophils (%) (Auto) 69.6 37.0-80.0 % Lymphocytes (%) (Auto) 15.9 10.0-50.0 % Monocytes (%) (Auto) 10.5 0.0-12.0 % Eosinophils (%) (Auto) 3.8 0.0-7.0 % Basophils (%) (Auto) 0.2 0.0-2.0 % Neutrophils # (Auto) 4.1 1.6-8.6 10 ^3/uL Lymphocytes # (Auto) 0.9 0.4-5.4 10 ^3/uL Monocytes # (Auto) 0.6 0-1.3 10 ^3/uL Eosinophils # (Auto) 0.2 0-0.8 10 ^3/uL Basophils # (Auto) 0 0-0.2 10 ^3/uL Nucleated Red Blood Cells 0.2 % Sodium Level 142 136-145 mmol/L Potassium Level 4.1 3.5-5.1 mmol/L Chloride Level 105 98-107 mmol/L Carbon Dioxide Level 31 20-31 mmol/L Anion Gap 6 5-15 Blood Urea Nitrogen 15 9-23 mg/dL Creatinine 1.06 0.700-1.30 mg/dL Glomerular Filtration Rate Calc 81 >90 mL/min BUN/Creatinine Ratio 14.2 10.0-20.0 Serum Glucose 341 H 74-106 mg/dL Hemoglobin A1c 11.4 H <5.7 % A1C Calcium Level 9.8 8.7-10.4 mg/dL Thyroid Stimulating Hormone (TSH) 1.39 0.55-4.78 uIU/mL Free Thyroxine (T4) Calculated 0.89 0.89-1.76 ng/dL Assessment Acute on chronic congestive diastolic heart failure, EF 55%. NYHA III. New onset atrial flutter. Severe pulmonary hypertension RVSP 90 mmHg. Type 2 diabetes, uncontrolled and insulin dependent. Sleep apnea nonadherent to CPAP. Plan/Recommendation I agree with your ongoing assessment and care of plan. Patient has been seen by Lamont Avery Resident on my behalf, we have discussed the plan with the patient. Continue anticoagulation. GAMALIEL with cardioversion tomorrow on 09/15/2024. Continue aspirin and statin. IV Lasix daily. Breathing treatments as needed (levalbuterol). Started Jardiance, resume GDMT for HFpEF as tolerated. Rest of the plan as per course of hospitalization. Additional plan as per the hospital course. Plan discussed with: Patient NYHA Physical activity limitations: NA Date of Service: Sep 14, 2024 Billing Provider: JEREMIAH MCCARTHY MD Cardiology Common Codes: [id number] INP/OBS CARE (High) JEREMIAH MCCARTHY MD Sep 14, 2024 19:18
[2024-09-14] MEDS ORDERED: TORSEMIDE 20 MG TAB PO SCH (22:00)
[2024-09-14 22:29] VITALS: PULSE 70; RESP 17; O2SAT 96
[2024-09-14] MEDS: ATORVASTATIN 20 MG TAB PO SCH (22:50)
[2024-09-14] MEDS: ENOXAPARIN SOD 100 MG/1 ML SYRINGE SC SCH (22:52)
[2024-09-15] VITALS (23 sets, daily range): BP systolic 96–136; BP diastolic 56–120; PULSE 75–117; RESP 11–23; TEMP 97.7–98.6; O2SAT 88–95
[2024-09-15 05:40] LABS: Hematocrit 52.9 % (41.0-53.0); Hemoglobin 18.2 g/dL (13.5-17.5); Mean Corpuscular Hemoglobin 34.5 pg (28.0-32.0); Mean Corpuscular Volume 100.2 fL (80.0-100.0); Nucleated Red Blood Cells % 0.0 %
[2024-09-15 05:58] LABS: Anion Gap 7 (5-15); Chloride 105 mmol/L (98-107); Potassium 3.8 mmol/L (3.5-5.1)
[2024-09-15 05:59] LABS: Calcium 9.7 mg/dL (8.7-10.4)
[2024-09-15 06:03] LABS: Carbon Dioxide 35 mmol/L (20-31); Sodium 147 mmol/L (136-145)
[2024-09-15 06:04] LABS: BUN/Creatinine Ratio 16.2 (10.0-20.0); Blood Urea Nitrogen 16 mg/dL (9-23); Triglycerides 100 mg/dL (< 150)
[2024-09-15 06:05] LABS: Magnesium 2.1 mg/dL (1.6-2.6)
[2024-09-15 06:06] LABS: Cholesterol 134 mg/dL (< 200); HDL Cholesterol 50 mg/dL (40-59)
[2024-09-15 06:09] LABS: Glucose 125 mg/dL (74-106)
[2024-09-15 08:19] LABS: INR 1.07 (0.9-1.15); Prothrombin Time 11.3 sec (9.3-11.8)
[2024-09-15] MEDS: FUROSEMIDE 40 MG/4 ML VIAL IV SCH (10:00)
[2024-09-15] MEDS ORDERED: RIVAROXABAN 20 MG TAB PO SCH (10:00)
[2024-09-15] MEDS: LISINOPRIL 5 MG TAB PO SCH (11:17)
--- NOTE | 2024-09-15 14:07 | DVHPN2 ---
Reviewed: Care Plan, H&P, Labs, Medications, Previous Orders, Radiology Changes from previous H/P or p: No Changes Cardiovascular: Chest Pain Respiratory: Shortness of breath Objective Vitals Vital Signs Date Time Temp Pulse Resp B/P (MAP) Pulse Ox O2 Delivery O2 Flow Rate FiO2 09/15/24 13:00 98 20 110/72 (85) 92 09/15/24 12:00 Nasal Cannula* 5 40 09/15/24 12:00 98.4 98.4 Intake/Output Intake and Output 09/15/24 07:00 Intake Total 450 ml Output Total 980 ml Balance -530 ml Intake Oral 450 ml Output Urine Total 980 ml Medications Current Medications Medications Dose Ordered Sig/Deondre Route Start Time Stop Time Status Last Admin Dose Admin Lisinopril 5 mg DAILY PO 09/15/24 10:00 Metoprolol Tartrate 25 mg BID PO 09/14/24 15:45 09/14/24 22:51 25 MG Aspirin 81 mg DAILY PO 09/15/24 10:00 Atorvastatin Calcium 40 mg HS PO 09/14/24 22:00 09/14/24 22:50 40 MG Morphine Sulfate 2 mg Q30MP PRN IV 09/14/24 15:45 UNV Nitroglycerin 0.4 mg Q5MINP PRN SL 09/14/24 15:45 UNV Ondansetron HCl 4 mg Q4HP PRN IV 09/14/24 15:45 Nitroglycerin 0.4 mg Q5MINP PRN SL 09/14/24 15:45 Morphine Sulfate 2 mg Q30M PRN IV 09/14/24 15:45 Furosemide 40 mg DAILY IV 09/15/24 10:00 Empaglifozin 10 mg DAILY PO 09/15/24 10:00 Dextrose 50 ml UD PRN IV 09/14/24 19:15 Diagnostic Test (Pha) 1 strip IQ4HR 09/14/24 20:00 09/15/24 12:05 1 STRIP Insulin Human Regular IQ4HR SC 09/14/24 20:00 09/15/24 04:42 2 UNITS Enoxaparin Sodium 110 mg Q12HR SC 09/14/24 22:00 09/14/24 22:52 110 MG Laboratory Results Laboratory Tests 09/15/24 04:38 Chemistry Test 09/15/24 04:38 Calcium Level 9.7 mg/dL (8.7-10.4) Magnesium Level 2.1 mg/dL (1.6-2.6) Coagulation Test 09/15/24 04:38 Prothrombin Time 11.3 sec (9.3-11.8) Prothrombin Time INR 1.07 (0.9-1.15) Lipid panel Test 09/15/24 04:38 Cholesterol Level 134 mg/dL (< 200) HDL Cholesterol 50 mg/dL (40-59) Triglycerides Level 100 mg/dL (< 150) Cardiac Markers Test 09/14/24 17:06 B-Type Natriuretic Peptide 790.54 pg/mL (0-100) Urinalysis Test 09/14/24 12:26 Urine Color Light-yellow (Yellow) Urine Clarity Clear (Clear) Urine pH 6.0 (5.0-9.0) Urine Specific [place] 1.025 (1.001-1.035) Urine Protein 1+ (Negative) H Urine Ketones Negative (Negative) Urine Blood Negative /uL (Negative) Urine Nitrite Negative (Negative) Urine Bilirubin Negative (Negative) Urine Urobilinogen Normal mg/dL (Negative) Urine Leukocyte Esterase Negative /uL (Negative) Urine RBC 1 /hpf (0 - 3) Urine Microscopic WBC < 1 /HPF (0-3) Urine Squamous Epithelial Cells None seen /hpf (<5) Urine Bacteria None seen /hpf (None Seen) Urine Glucose 4+ mg/dL (Normal) H Labs and/or images reviewed: Labs reviewed by me, Image(s) reviewed by me Assessment/Plan Assessment/Plan Acute hypoxic respiratory failure Acute on chronic congestive diastolic heart failure, EF 55%. NYHA III. New onset atrial flutter: Dr. Edmonds planning for cardioversion. Severe pulmonary hypertension RVSP 90 mmHg. Type 2 diabetes, uncontrolled and insulin dependent. Sleep apnea nonadherent to CPAP. Morbid obesity Time spent 70 minutes Advanced care planning time 20 minutes Patient is full code Plan discussed with: Patient Date of Service: Sep 15, 2024 Billing Provider: DEANDRE DUFFY MD Common Visit Codes: [id number] CARE 30-74 MIN DEANDRE DUFFY MD Sep 15, 2024 14:07
[2024-09-15] MEDS: EMPAGLIFLOZIN 10 MG TAB PO SCH (17:11)
--- NOTE | 2024-09-15 23:42 | DVHPN2 ---
Progress Note - Dictate Date Seen: Sep 15, 2024 Medical Necessity Reason Pt with a Central, PICC or Fol: No Subjective Patient was seen and evaluated in follow up in the ICU. Patient is on 5 LPM NC. Patient is c/o increased SOB. NA 147, CO2 35. vital signs Vital Sign Date Time Temp Pulse Resp B/P (MAP) Pulse Ox O2 Delivery O2 Flow Rate FiO2 09/15/24 18:45 107 14 130/72 (91) 94 09/15/24 18:28 98.2 98.2 09/15/24 17:49 Nasal Cannula* 5 40 Total Intake and Output 09/14/24 09/14/24 09/15/24 15:00 23:00 07:00 Intake Total 450 ml Output Total 980 ml Balance -530 ml medications Current Medications Medications Dose Ordered Sig/Deondre Route Start Time Stop Time Status Last Admin Dose Admin Lisinopril 5 mg DAILY PO 09/15/24 10:00 Metoprolol Tartrate 25 mg BID PO 09/14/24 15:45 09/14/24 22:51 25 MG Aspirin 81 mg DAILY PO 09/15/24 10:00 Atorvastatin Calcium 40 mg HS PO 09/14/24 22:00 09/14/24 22:50 40 MG Morphine Sulfate 2 mg Q30MP PRN IV 09/14/24 15:45 UNV Nitroglycerin 0.4 mg Q5MINP PRN SL 09/14/24 15:45 UNV Ondansetron HCl 4 mg Q4HP PRN IV 09/14/24 15:45 Nitroglycerin 0.4 mg Q5MINP PRN SL 09/14/24 15:45 Morphine Sulfate 2 mg Q30M PRN IV 09/14/24 15:45 Furosemide 40 mg DAILY IV 09/15/24 10:00 Empaglifozin 10 mg DAILY PO 09/15/24 10:00 Dextrose 50 ml UD PRN IV 09/14/24 19:15 Diagnostic Test (Pha) 1 strip IQ4HR 09/14/24 20:00 09/15/24 12:05 1 STRIP Insulin Human Regular IQ4HR SC 09/14/24 20:00 09/15/24 04:42 2 UNITS Enoxaparin Sodium 110 mg Q12HR SC 09/14/24 22:00 09/14/24 22:52 110 MG objective GENERAL: Alert and oriented x 3. Mild distress. EYES: PERRL, EOMI. Anicteric. HENT: Moist mucous membranes. LUNGS: Decreased bilateral breath sounds with wheezing. CARDIOVASCULAR: Regular rate and rhythm. ABDOMEN: Soft, nontender and nondistended. EXTREMITIES: 1+ BLE edema. NEUROLOGIC: No focal neurological deficits. SKIN: Warm, dry. laboratory and microbiology Laboratory Tests 09/15/24 04:38 Test 09/15/24 04:38 Range/Units Serum Glucose 125 #H 74-106 mg/dL Problem List Acute on chronic congestive diastolic heart failure, EF 55%. NYHA III. New onset atrial flutter. Severe pulmonary hypertension RVSP 90 mmHg. Type 2 diabetes, uncontrolled and insulin dependent. Sleep apnea nonadherent to CPAP. Assessment/Plan Continued all current supportive medical care. Aspirin, Lipitor, Metoprolol. DVT prophylactics. Diuretics with Lasix. Lisinopril. Nitro SL. Morphine for pain management. Additional plan as per the hospital course. Critical care time of 45 minutes provided to include time spent evaluation of patient at bedside, when appropriate patient/family education for diagnosis, treatment plan, review of pertinent medical information and discussion of care with specialty providers and PCP. Plan discussed with: Patient JEREMIAH MCCARTHY MD Sep 15, 2024 20:23
[2024-09-16] VITALS (14 sets, daily range): BP systolic 94–126; BP diastolic 60–72; PULSE 59–102; RESP 14–21; TEMP 97.9–98.5; O2SAT 82–95
--- NOTE | 2024-09-16 10:22 | DVHPN2 ---
Reviewed: Care Plan, H&P, Labs, Medications, Previous Orders, Radiology Changes from previous H/P or p: No Changes Cardiovascular: Chest Pain Respiratory: Shortness of breath Objective Vitals Vital Signs Date Time Temp Pulse Resp B/P (MAP) Pulse Ox O2 Delivery O2 Flow Rate FiO2 09/16/24 10:06 105/65 09/16/24 08:00 59 09/16/24 08:00 98.5 18 82 98.5 09/16/24 07:35 Nasal Cannula* 5 40 Intake/Output Intake and Output 09/16/24 07:00 Intake Total 600 ml Output Total 1450 ml Balance -850 ml Intake Oral 600 ml Output Urine Total 1450 ml # Bowel Movements 1 Medications Current Medications Medications Dose Ordered Sig/Deondre Route Start Time Stop Time Status Last Admin Dose Admin Lisinopril 5 mg DAILY PO 09/15/24 10:00 Metoprolol Tartrate 25 mg BID PO 09/14/24 15:45 09/15/24 22:20 25 MG Aspirin 81 mg DAILY PO 09/15/24 10:00 Atorvastatin Calcium 40 mg HS PO 09/14/24 22:00 09/15/24 22:19 40 MG Morphine Sulfate 2 mg Q30MP PRN IV 09/14/24 15:45 UNV Nitroglycerin 0.4 mg Q5MINP PRN SL 09/14/24 15:45 UNV Ondansetron HCl 4 mg Q4HP PRN IV 09/14/24 15:45 Nitroglycerin 0.4 mg Q5MINP PRN SL 09/14/24 15:45 Morphine Sulfate 2 mg Q30M PRN IV 09/14/24 15:45 Furosemide 40 mg DAILY IV 09/15/24 10:00 09/16/24 10:06 40 MG Empaglifozin 10 mg DAILY PO 09/15/24 10:00 Dextrose 50 ml UD PRN IV 09/14/24 19:15 Diagnostic Test (Pha) 1 strip IQ4HR 09/14/24 20:00 09/16/24 07:49 1 STRIP Insulin Human Regular IQ4HR SC 09/14/24 20:00 09/16/24 00:04 9 UNITS Enoxaparin Sodium 110 mg Q12HR SC 09/14/24 22:00 09/15/24 22:23 110 MG Laboratory Results Laboratory Tests 09/15/24 04:38 Urinalysis Test 09/14/24 12:26 Urine Color Light-yellow (Yellow) Urine Clarity Clear (Clear) Urine pH 6.0 (5.0-9.0) Urine Specific [place] 1.025 (1.001-1.035) Urine Protein 1+ (Negative) H Urine Ketones Negative (Negative) Urine Blood Negative /uL (Negative) Urine Nitrite Negative (Negative) Urine Bilirubin Negative (Negative) Urine Urobilinogen Normal mg/dL (Negative) Urine Leukocyte Esterase Negative /uL (Negative) Urine RBC 1 /hpf (0 - 3) Urine Microscopic WBC < 1 /HPF (0-3) Urine Squamous Epithelial Cells None seen /hpf (<5) Urine Bacteria None seen /hpf (None Seen) Urine Glucose 4+ mg/dL (Normal) H Labs and/or images reviewed: Labs reviewed by me, Image(s) reviewed by me Assessment/Plan Assessment/Plan Acute hypoxic respiratory failure Acute on chronic congestive diastolic heart failure, EF 55%. NYHA III. New onset atrial flutter: Dr. Edmonds planning for cardioversion. Severe pulmonary hypertension RVSP 90 mmHg. Type 2 diabetes, uncontrolled and insulin dependent. Sleep apnea nonadherent to CPAP. Morbid obesity Time spent 70 minutes Advanced care planning time 20 minutes Patient is full code Patient is seen in [facility] Plan discussed with: Patient Date of Service: Sep 16, 2024 Billing Provider: DEANDRE DUFFY MD Common Visit Codes: [id number] CARE 30-74 MIN DEANDRE DUFFY MD Sep 16, 2024 10:22
--- NOTE | 2024-09-16 22:57 | DVHPN2 ---
Progress Note - Dictate Date Seen: Sep 16, 2024 Medical Necessity Reason Pt with a Central, PICC or Fol: No Subjective Patient was seen and evaluated in follow up. Patient was downgraded to telemetry. Patient is on 5 LPM NC. 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 BS in the 350's. Telemetry reviewed. vital signs Vital Sign Date Time Temp Pulse Resp B/P (MAP) Pulse Ox O2 Delivery O2 Flow Rate FiO2 09/16/24 16:32 98.2 70 18 103/63 (76) 91 98.2 09/16/24 14:00 Nasal Cannula* 5 40 Total Intake and Output 09/15/24 09/15/24 09/16/24 15:00 23:00 07:00 Intake Total 600 ml Output Total 450 ml 1000 ml Balance -450 ml -400 ml medications Current Medications Medications Dose Ordered Sig/Deondre Route Start Time Stop Time Status Last Admin Dose Admin Lisinopril 5 mg DAILY PO 09/15/24 10:00 Metoprolol Tartrate 25 mg BID PO 09/14/24 15:45 09/16/24 11:09 25 MG Aspirin 81 mg DAILY PO 09/15/24 10:00 09/16/24 11:09 81 MG Atorvastatin Calcium 40 mg HS PO 09/14/24 22:00 09/15/24 22:19 40 MG Morphine Sulfate 2 mg Q30MP PRN IV 09/14/24 15:45 UNV Nitroglycerin 0.4 mg Q5MINP PRN SL 09/14/24 15:45 UNV Ondansetron HCl 4 mg Q4HP PRN IV 09/14/24 15:45 Nitroglycerin 0.4 mg Q5MINP PRN SL 09/14/24 15:45 Morphine Sulfate 2 mg Q30M PRN IV 09/14/24 15:45 Furosemide 40 mg DAILY IV 09/15/24 10:00 09/16/24 10:06 40 MG Empaglifozin 10 mg DAILY PO 09/15/24 10:00 09/16/24 11:09 10 MG Dextrose 50 ml UD PRN IV 09/14/24 19:15 Diagnostic Test (Pha) 1 strip IQ4HR 09/14/24 20:00 09/16/24 16:14 1 STRIP Insulin Human Regular IQ4HR SC 09/14/24 20:00 09/16/24 16:15 15 UNITS Enoxaparin Sodium 110 mg Q12HR SC 09/14/24 22:00 09/16/24 11:10 110 MG objective GENERAL: Alert and oriented x 3. Mild distress. EYES: PERRL, EOMI. Anicteric. HENT: Moist mucous membranes. LUNGS: Decreased bilateral breath sounds with wheezing. CARDIOVASCULAR: Regular rate and rhythm. ABDOMEN: Soft, nontender and nondistended. EXTREMITIES: 1+ BLE edema. NEUROLOGIC: No focal neurological deficits. SKIN: Warm, dry. laboratory and microbiology Laboratory Tests 09/15/24 04:38 Test 09/15/24 04:38 Range/Units Serum Glucose 125 #H 74-106 mg/dL Problem List Acute on chronic congestive diastolic heart failure, EF 55%. NYHA III. New onset atrial flutter. Severe pulmonary hypertension RVSP 90 mmHg. Type 2 diabetes, uncontrolled and insulin dependent. Sleep apnea nonadherent to CPAP. Assessment/Plan Continued all current supportive medical care. Aspirin, Lipitor, Metoprolol. DVT prophylactics. Diuretics with Lasix. Lisinopril. Nitro SL. Morphine for pain management. Additional plan as per the hospital course. Plan discussed with: Patient JEREMIAH MCCARTHY MD Sep 16, 2024 18:05
[2024-09-17] VITALS (8 sets, daily range): BP systolic 97–140; BP diastolic 45–84; PULSE 64–95; RESP 17–20; TEMP 97.4–98.8; O2SAT 66–97
--- NOTE | 2024-09-17 09:36 | DVHPN2 ---
Reviewed: Care Plan, H&P, Labs, Medications, Previous Orders, Radiology Changes from previous H/P or p: No Changes Cardiovascular: Chest Pain Respiratory: Shortness of breath Objective Vitals Vital Signs Date Time Temp Pulse Resp B/P (MAP) Pulse Ox O2 Delivery O2 Flow Rate FiO2 09/17/24 09:10 97.9 74 18 140/84 (102) 97 97.9 09/16/24 20:00 Nasal Cannula* 5 40 Intake/Output Intake and Output 09/17/24 07:00 Intake Total 1050 ml Output Total 900 ml Balance 150 ml Intake Oral 1050 ml Output Urine Total 900 ml # Bowel Movements 3 Medications Current Medications Medications Dose Ordered Sig/Deondre Route Start Time Stop Time Status Last Admin Dose Admin Lisinopril 5 mg DAILY PO 09/15/24 10:00 09/17/24 08:55 5 MG Metoprolol Tartrate 25 mg BID PO 09/14/24 15:45 09/17/24 08:55 25 MG Aspirin 81 mg DAILY PO 09/15/24 10:00 09/17/24 08:55 81 MG Atorvastatin Calcium 40 mg HS PO 09/14/24 22:00 09/16/24 21:28 40 MG Morphine Sulfate 2 mg Q30MP PRN IV 09/14/24 15:45 UNV Nitroglycerin 0.4 mg Q5MINP PRN SL 09/14/24 15:45 UNV Ondansetron HCl 4 mg Q4HP PRN IV 09/14/24 15:45 Nitroglycerin 0.4 mg Q5MINP PRN SL 09/14/24 15:45 Morphine Sulfate 2 mg Q30M PRN IV 09/14/24 15:45 Furosemide 40 mg DAILY IV 09/15/24 10:00 09/17/24 08:55 40 MG Empaglifozin 10 mg DAILY PO 09/15/24 10:00 09/17/24 08:55 10 MG Dextrose 50 ml UD PRN IV 09/14/24 19:15 Diagnostic Test (Pha) 1 strip IQ4HR 09/14/24 20:00 09/17/24 08:00 1 STRIP Insulin Human Regular IQ4HR SC 09/14/24 20:00 09/16/24 21:27 19 UNITS Enoxaparin Sodium 110 mg Q12HR SC 09/14/24 22:00 09/17/24 08:54 110 MG Laboratory Results Laboratory Tests 09/15/24 04:38 Urinalysis Test 09/14/24 12:26 Urine Color Light-yellow (Yellow) Urine Clarity Clear (Clear) Urine pH 6.0 (5.0-9.0) Urine Specific [place] 1.025 (1.001-1.035) Urine Protein 1+ (Negative) H Urine Ketones Negative (Negative) Urine Blood Negative /uL (Negative) Urine Nitrite Negative (Negative) Urine Bilirubin Negative (Negative) Urine Urobilinogen Normal mg/dL (Negative) Urine Leukocyte Esterase Negative /uL (Negative) Urine RBC 1 /hpf (0 - 3) Urine Microscopic WBC < 1 /HPF (0-3) Urine Squamous Epithelial Cells None seen /hpf (<5) Urine Bacteria None seen /hpf (None Seen) Urine Glucose 4+ mg/dL (Normal) H Labs and/or images reviewed: Labs reviewed by me, Image(s) reviewed by me Assessment/Plan Assessment/Plan Acute hypoxic respiratory failure Acute on chronic congestive diastolic heart failure, EF 55%. NYHA III. New onset atrial flutter: Converted to normal sinus rhythm on its own Severe pulmonary hypertension RVSP 90 mmHg. Type 2 diabetes, uncontrolled and insulin dependent. Sleep apnea nonadherent to CPAP. Morbid obesity Time spent 50 minutes Advanced care planning time 20 minutes Patient is full code Patient is seen in med surg Awaiting further plan by Dr. Edmonds Plan discussed with: Patient My Orders Orders - DEANDRE DUFFY MD Procedure Category Date Status Time Transfer Orders XFER 09/16/24 Transmitted 13:15 Date of Service: Sep 17, 2024 Billing Provider: DEANDRE DUFFY MD Common Visit Codes: [id number] INP/OBS CARE(HIGH) DEANDRE DUFFY MD Sep 17, 2024 09:36
--- NOTE | 2024-09-17 14:40 | ECG ---
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
--- NOTE | 2024-09-17 22:09 | DVHPN2 ---
Progress Note - Dictate Date Seen: Sep 17, 2024 Medical Necessity Reason Pt with a Central, PICC or Fol: No Subjective Patient was seen and evaluated in follow up. Patient is on 4 LPM NC. Patient is c/o SOB. Patient denies any chest pain. Telemetry reviewed. vital signs Vital Sign Date Time Temp Pulse Resp B/P (MAP) Pulse Ox O2 Delivery O2 Flow Rate FiO2 09/17/24 20:00 64 09/17/24 20:00 Nasal Cannula* 4 36 09/17/24 16:42 97.7 19 109/66 (80) 96 97.7 Total Intake and Output 09/16/24 09/16/24 09/17/24 15:00 23:00 07:00 Intake Total 750 ml 300 ml Output Total 400 ml 500 ml Balance 350 ml -200 ml medications Current Medications Medications Dose Ordered Sig/Deondre Route Start Time Stop Time Status Last Admin Dose Admin Lisinopril 5 mg DAILY PO 09/15/24 10:00 09/17/24 08:55 5 MG Metoprolol Tartrate 25 mg BID PO 09/14/24 15:45 09/17/24 08:55 25 MG Aspirin 81 mg DAILY PO 09/15/24 10:00 09/17/24 08:55 81 MG Atorvastatin Calcium 40 mg HS PO 09/14/24 22:00 09/16/24 21:28 40 MG Morphine Sulfate 2 mg Q30MP PRN IV 09/14/24 15:45 UNV Nitroglycerin 0.4 mg Q5MINP PRN SL 09/14/24 15:45 UNV Ondansetron HCl 4 mg Q4HP PRN IV 09/14/24 15:45 Nitroglycerin 0.4 mg Q5MINP PRN SL 09/14/24 15:45 Morphine Sulfate 2 mg Q30M PRN IV 09/14/24 15:45 Furosemide 40 mg DAILY IV 09/15/24 10:00 09/17/24 08:55 40 MG Empaglifozin 10 mg DAILY PO 09/15/24 10:00 09/17/24 08:55 10 MG Dextrose 50 ml UD PRN IV 09/14/24 19:15 Diagnostic Test (Pha) 1 strip IQ4HR 09/14/24 20:00 09/17/24 16:07 1 STRIP Insulin Human Regular IQ4HR SC 09/14/24 20:00 09/17/24 16:08 15 UNITS Enoxaparin Sodium 110 mg Q12HR SC 09/17/24 22:00 objective GENERAL: Alert and oriented x 3. Mild distress. EYES: PERRL, EOMI. Anicteric. HENT: Moist mucous membranes. LUNGS: Decreased bilateral breath sounds with wheezing. CARDIOVASCULAR: Regular rate and rhythm. ABDOMEN: Soft, nontender and nondistended. EXTREMITIES: 1+ BLE edema. NEUROLOGIC: No focal neurological deficits. SKIN: Warm, dry. laboratory and microbiology Laboratory Tests 09/15/24 04:38 Test 09/15/24 04:38 Range/Units Serum Glucose 125 #H 74-106 mg/dL Problem List Acute on chronic congestive diastolic heart failure, EF 55%. NYHA III. New onset atrial flutter. Severe pulmonary hypertension RVSP 90 mmHg. Type 2 diabetes, uncontrolled and insulin dependent. Sleep apnea nonadherent to CPAP. Assessment/Plan Continued all current supportive medical care. Aspirin, Lipitor, Metoprolol. DVT prophylactics. Diuretics with Lasix. Lisinopril. Nitro SL. Morphine for pain management. Additional plan as per the hospital course. Dietary Evaluation Review Recommendations by RD: Dietary education by RD Comments: 1) Add cardiac restriction to 60g CCHO diet 2) Encourage optimal PO intake 3) Refer to outpatient RD/CDCES for diabetes education and weight management 4) Follow-up with cardiology and pulmonology 5) Continue to monitor I&O, labs, and skin integrity Expected Outcomes/Goals: 1) appetite and labs to improve 2) f/u in 3-5 days Plan discussed with: Patient JEREMIAH MCCARTHY MD Sep 17, 2024 22:09
[2024-09-17] MEDS: ENOXAPARIN SOD 120 MG/0.8 ML SYRINGE SC SCH (22:58)
[2024-09-18 01:00] VITALS: BP 108/69; PULSE 55; RESP 17; TEMP 97.4; O2SAT 96
[2024-09-18 05:00] VITALS: BP 107/67; PULSE 65; RESP 17; TEMP 96.3; O2SAT 96
[2024-09-18 08:00] VITALS: PULSE 67; PULSE 68; RESP 18
[2024-09-18 09:00] VITALS: BP 115/66; PULSE 67; RESP 18; TEMP 97.7; O2SAT 96
--- NOTE | 2024-09-18 09:13 | DVHPN2 ---
Reviewed: Care Plan, H&P, Labs, Medications, Previous Orders, Radiology Changes from previous H/P or p: No Changes Cardiovascular: Chest Pain Respiratory: Shortness of breath Objective Vitals Vital Signs Date Time Temp Pulse Resp B/P (MAP) Pulse Ox O2 Delivery O2 Flow Rate FiO2 09/18/24 05:00 96.3 65 17 107/67 (80) 96 96.3 09/17/24 20:00 Nasal Cannula* 4 36 Intake/Output Intake and Output 09/18/24 07:00 Intake Total 1100 ml Output Total 660 ml Balance 440 ml Intake Oral 1100 ml Output Urine Total 660 ml # Voids 2 Medications Current Medications Medications Dose Ordered Sig/Deondre Route Start Time Stop Time Status Last Admin Dose Admin Lisinopril 5 mg DAILY PO 09/15/24 10:00 09/17/24 08:55 5 MG Metoprolol Tartrate 25 mg BID PO 09/14/24 15:45 09/17/24 22:57 25 MG Aspirin 81 mg DAILY PO 09/15/24 10:00 09/17/24 08:55 81 MG Atorvastatin Calcium 40 mg HS PO 09/14/24 22:00 09/17/24 22:58 40 MG Morphine Sulfate 2 mg Q30MP PRN IV 09/14/24 15:45 UNV Nitroglycerin 0.4 mg Q5MINP PRN SL 09/14/24 15:45 UNV Ondansetron HCl 4 mg Q4HP PRN IV 09/14/24 15:45 Nitroglycerin 0.4 mg Q5MINP PRN SL 09/14/24 15:45 Morphine Sulfate 2 mg Q30M PRN IV 09/14/24 15:45 Furosemide 40 mg DAILY IV 09/15/24 10:00 09/17/24 08:55 40 MG Empaglifozin 10 mg DAILY PO 09/15/24 10:00 09/17/24 08:55 10 MG Dextrose 50 ml UD PRN IV 09/14/24 19:15 Diagnostic Test (Pha) 1 strip IQ4HR 09/14/24 20:00 09/18/24 08:43 1 STRIP Insulin Human Regular IQ4HR SC 09/14/24 20:00 09/18/24 08:45 2 UNITS Enoxaparin Sodium 110 mg Q12HR SC 09/17/24 22:00 09/17/24 22:58 110 MG Laboratory Results Laboratory Tests 09/15/24 04:38 Urinalysis Test 09/14/24 12:26 Urine Color Light-yellow (Yellow) Urine Clarity Clear (Clear) Urine pH 6.0 (5.0-9.0) Urine Specific [place] 1.025 (1.001-1.035) Urine Protein 1+ (Negative) H Urine Ketones Negative (Negative) Urine Blood Negative /uL (Negative) Urine Nitrite Negative (Negative) Urine Bilirubin Negative (Negative) Urine Urobilinogen Normal mg/dL (Negative) Urine Leukocyte Esterase Negative /uL (Negative) Urine RBC 1 /hpf (0 - 3) Urine Microscopic WBC < 1 /HPF (0-3) Urine Squamous Epithelial Cells None seen /hpf (<5) Urine Bacteria None seen /hpf (None Seen) Urine Glucose 4+ mg/dL (Normal) H Labs and/or images reviewed: Labs reviewed by me, Image(s) reviewed by me Assessment/Plan Assessment/Plan Acute hypoxic respiratory failure Use of home oxygen 5 L per mt Acute on chronic congestive diastolic heart failure, EF 55%. NYHA III. New onset atrial flutter: Converted to normal sinus rhythm on its own, Dr. Edmonds advised no need for any GAMALIEL or cardioversion Severe pulmonary hypertension RVSP 90 mmHg. Type 2 diabetes, uncontrolled and insulin dependent. Sleep apnea nonadherent to CPAP. Morbid obesity Home medications reviewed they include metoprolol Xarelto Revatio and torsomide Plan discussed with: Patient Date of Service: Sep 18, 2024 Billing Provider: DEANDRE DUFFY MD Common Visit Codes: [id number] INP/OBS CARE(HIGH) DEANDRE DUFFY MD Sep 18, 2024 09:13
--- NOTE | 2024-09-18 09:18 | DVHDS2 ---
Discharge Summary Date of Admission Sep 14, 2024 at 15:41 Date of Discharge: Sep 18, 2024 Admitting Diagnosis Generalized weakness and shortness of breath Wounds: None Labs/Diagnostic Data: Laboratory Results Test 09/18/24 05:07 09/15/24 04:38 09/14/24 17:06 09/14/24 12:26 POC Glucose 105 mg/dl (70-106) White Blood Count 6.6 10^3/uL (4.4-10.8) Red Blood Count 5.28 10^6/uL (4.5-5.90) Hemoglobin 18.2 g/dL (13.5-17.5) Hematocrit 52.9 % (41.0-53.0) Mean Corpuscular Volume 100.2 fL (80.0-100.0) Mean Corpuscular Hemoglobin 34.5 pg (28.0-32.0) Mean Corpuscular Hemoglobin Concent 34.4 g/dL (32.0-36.0) Red Cell Distribution Width 14.9 % (11.8-14.3) Platelet Count 135 10^3/uL (140-450) Mean Platelet Volume 9.4 fL (6.9-10.8) Neutrophils (%) (Auto) 64.7 % (37.0-80.0) Lymphocytes (%) (Auto) 17.7 % (10.0-50.0) Monocytes (%) (Auto) 11.8 % (0.0-12.0) Eosinophils (%) (Auto) 4.9 % (0.0-7.0) Basophils (%) (Auto) 0.9 % (0.0-2.0) Neutrophils # (Auto) 4.2 10 ^3/uL (1.6-8.6) Lymphocytes # (Auto) 1.2 10 ^3/uL (0.4-5.4) Monocytes # (Auto) 0.8 10 ^3/uL (0-1.3) Eosinophils # (Auto) 0.3 10 ^3/uL (0-0.8) Basophils # (Auto) 0.1 10 ^3/uL (0-0.2) Nucleated Red Blood Cells 0.0 % Prothrombin Time 11.3 sec (9.3-11.8) Prothrombin Time INR 1.07 (0.9-1.15) Sodium Level 147 mmol/L (136-145) Potassium Level 3.8 mmol/L (3.5-5.1) Chloride Level 105 mmol/L (98-107) Carbon Dioxide Level 35 mmol/L (20-31) Anion Gap 7 (5-15) Blood Urea Nitrogen 16 mg/dL (9-23) Creatinine 0.99 mg/dL (0.700-1.30) Glomerular Filtration Rate Calc 88 mL/min (>90) BUN/Creatinine Ratio 16.2 (10.0-20.0) Serum Glucose 125 mg/dL (74-106) Calcium Level 9.7 mg/dL (8.7-10.4) Magnesium Level 2.1 mg/dL (1.6-2.6) Triglycerides Level 100 mg/dL (< 150) Cholesterol Level 134 mg/dL (< 200) LDL Cholesterol 66 mg/dL (< 100) HDL Cholesterol 50 mg/dL (40-59) Troponin I High Sensitivity 23 ng/L (</=54) B-Type Natriuretic Peptide 790.54 pg/mL (0-100) Urine Color Light-yellow (Yellow) Urine Clarity Clear (Clear) Urine pH 6.0 (5.0-9.0) Urine Specific [place] 1.025 (1.001-1.035) Urine Protein 1+ (Negative) Urine Ketones Negative (Negative) Urine Blood Negative /uL (Negative) Urine Nitrite Negative (Negative) Urine Bilirubin Negative (Negative) Urine Urobilinogen Normal mg/dL (Negative) Urine Leukocyte Esterase Negative /uL (Negative) Urine RBC 1 /hpf (0 - 3) Urine Microscopic WBC < 1 /HPF (0-3) Urine Squamous Epithelial Cells None seen /hpf (<5) Urine Bacteria None seen /hpf (None Seen) Urine Glucose 4+ mg/dL (Normal) Test 09/14/24 09:59 Hemoglobin A1c 11.4 % A1C (<5.7) Thyroid Stimulating Hormone (TSH) 1.39 uIU/mL (0.55-4.78) Free Thyroxine (T4) Calculated 0.89 ng/dL (0.89-1.76) Other Laboratory Tests 09/15/24 04:38 Brief Hx & Hospital Course: 59-year-old male with multiple medical problems including type 2 diabetes sleep apnea noncompliant with the CPAP pulmonary hypertension congestive heart failure use of home oxygen 5 L/min came in for shortness of breaths. Found to be on atrial flutter. Cardiology Dr. Edmonds plan for jg and cardioversion. The patient was not [place] for a day during which time he converted to normal sinus rhythm. Dr. Edmonds advised no need for cardioversion. Home medications reviewed and continued in the hospital . at the time of discharge his vital signs are stable afebrile on 5 L of oxygen which is his usual requirement at home. Discharged home. His home medications include metoprolol Xarelto Revatio and torsemide. He will resume all his medications follow up with the Dr. Edmonds Consults/Reason for consult Cardiology Dr. Edmonds Operations or Procedures None Condition at Discharge: Fair Final Diagnosis/Problems List Acute hypoxic respiratory failure Use of home oxygen 5 L per mt Acute on chronic congestive diastolic heart failure, EF 55%. NYHA III. New onset atrial flutter: Converted to normal sinus rhythm on its own, Dr. Edmonds advised no need for any JG or cardioversion Severe pulmonary hypertension RVSP 90 mmHg. Type 2 diabetes, uncontrolled and insulin dependent. Sleep apnea nonadherent to CPAP. Morbid obesity Home medications reviewed they include metoprolol Xarelto Revatio and torsomide Discharge Disposition: Home Discharge Instruct/Medications Diet: Cardiac 2g Na,low cholest Activity: Light activity Follow Up/Referral: Follow up with the primary Dr and Cardiology Dr. Edmonds Resume all previous home medications Medications: None Reviewed all previous home meds Scheduled Cefdinir (Cefdinir), 1 CAP PO BID Ertugliflozin l-Pyroglutamic A (Steglatro), 1 TAB PO DAILY, (Reported) Lisinopril (Lisinopril), 1 TAB PO DAILY, (Reported) Metoprolol Tartrate (Lopressor), 2 PO BID, (Reported) Potassium Chloride (Potassium Chloride ER), 1 TAB PO DAILY, (Reported) Rivaroxaban (Xarelto Tablet), 1 TAB PO DAILY, (Reported) Sildenafil Citrate (Revatio), 20 MG PO TID Torsemide Injection (Torsemide), 1 TAB PO BID, (Reported) 35 (Time taken for discharge summary 35 minutes) Discharge Statement: "Patient was advised to return to the ER or call 911 if any headaches, dizziness, shortness of breath, chest pain, abdominal pain, bleeding, fevers, or worsening of medical condition. Patient was counseled about treatment plan, medications, possible side effects, patientverbalized understanding. All questions were answered to the best of my ability. This discharge took greater then 30 minutes in planning, reviewing documentation, counseling the patient, and discussing with other team members." ASSESSMENT ASSESSMENT Hospital Course Stable Assessment Acute hypoxic respiratory failure Use of home oxygen 5 L per mt Acute on chronic congestive diastolic heart failure, EF 55%. NYHA III. New onset atrial flutter: Converted to normal sinus rhythm on its own, Dr. Edmonds advised no need for any JG or cardioversion Severe pulmonary hypertension RVSP 90 mmHg. Type 2 diabetes, uncontrolled and insulin dependent. Sleep apnea nonadherent to CPAP. Morbid obesity Home medications reviewed they include metoprolol Xarelto Revatio and torsomide Date of Service: Sep 18, 2024 Billing Provider: DEANDRE DUFFY MD Common Visit Codes: [id number] DISCH DAY >30min DEANDRE DUFFY MD Sep 18, 2024 09:18
[2024-09-18 11:30] VITALS: BP 122/75; PULSE 63; RESP 18; TEMP 97.7; O2SAT 96
--- NOTE | 2024-09-18 23:57 | DVHPN2 ---
Progress Note - Dictate Date Seen: Sep 18, 2024 Medical Necessity Reason Pt with a Central, PICC or Fol: No Subjective Patient was seen and evaluated in follow up. Patient has no new complaints at this time. Patient denies any cardiac symptoms. Patient is cardiac stable for discharge. Telemetry reviewed. vital signs Vital Sign Date Time Temp Pulse Resp B/P (MAP) Pulse Ox O2 Delivery O2 Flow Rate FiO2 09/18/24 11:30 97.7 63 18 96 09/18/24 11:28 122/75 09/18/24 08:00 Nasal Cannula* 5 40 Total Intake and Output 09/17/24 09/17/24 09/18/24 15:00 23:00 07:00 Intake Total 500 ml 600 ml Output Total 660 ml Balance -160 ml 600 ml medications Current Medications Medications Dose Ordered Sig/Deondre Route Start Time Stop Time Status Last Admin Dose Admin Morphine Sulfate 2 mg Q30MP PRN IV 09/14/24 15:45 UNV Nitroglycerin 0.4 mg Q5MINP PRN SL 09/14/24 15:45 UNV objective GENERAL: Alert and oriented x 3. Mild distress. EYES: PERRL, EOMI. Anicteric. HENT: Moist mucous membranes. LUNGS: Decreased bilateral breath sounds with wheezing. CARDIOVASCULAR: Regular rate and rhythm. ABDOMEN: Soft, nontender and nondistended. EXTREMITIES: 1+ BLE edema. NEUROLOGIC: No focal neurological deficits. SKIN: Warm, dry. laboratory and microbiology Laboratory Tests 09/15/24 04:38 Test 09/15/24 04:38 Range/Units Serum Glucose 125 #H 74-106 mg/dL Problem List Acute on chronic congestive diastolic heart failure, EF 55%. NYHA III. New onset atrial flutter. Severe pulmonary hypertension RVSP 90 mmHg. Type 2 diabetes, uncontrolled and insulin dependent. Sleep apnea nonadherent to CPAP. Assessment/Plan Continued all current supportive medical care. Aspirin, Lipitor, Metoprolol. DVT prophylactics. Diuretics with Lasix. Lisinopril. Nitro SL. Morphine for pain management. Additional plan as per the hospital course. Dietary Evaluation Review Recommendations by RD: Dietary education by RD Comments: 1) Add cardiac restriction to 60g CCHO diet 2) Encourage optimal PO intake 3) Refer to outpatient RD/CDCES for diabetes education and weight management 4) Follow-up with cardiology and pulmonology 5) Continue to monitor I&O, labs, and skin integrity Expected Outcomes/Goals: 1) appetite and labs to improve 2) f/u in 3-5 days Plan discussed with: Patient JEREMIAH MCCARTHY MD Sep 18, 2024 23:57
== END 2024-09-18 13:18 | disposition home or self-care (01) | DRG 291 ==
LOC: ER 09:35 → OVERFLOW 15:41 → DOU IN ICU 09-15 18:29 → TELE-CENTR 09-16 15:27
PROVIDERS: ADMIT Family Medicine; ATTEND Family Medicine
DX: I11.0 Hypertensive heart disease with heart failure (principal); I50.33 Acute on chronic diastolic (congestive) heart failure; J96.21 Acute and chronic respiratory failure with hypoxia; I48.92 Unspecified atrial flutter; Z68.42 Body mass index [BMI] 45.0-49.9, adult; I27.20 Pulmonary hypertension, unspecified; G47.30 Sleep apnea, unspecified; E66.01 Morbid (severe) obesity due to excess calories; J44.9 Chronic obstructive pulmonary disease, unspecified; D69.6 Thrombocytopenia, unspecified; E11.9 Type 2 diabetes mellitus without complications; E78.5 Hyperlipidemia, unspecified; Z79.4 Long term (current) use of insulin; Z85.05 Personal history of malignant neoplasm of liver; Z86.718 Personal history of other venous thrombosis and embolism; Z90.49 Acquired absence of other specified parts of digestive tract; Z79.01 Long term (current) use of anticoagulants; Z79.899 Other long term (current) drug therapy; Z99.81 Dependence on supplemental oxygen; Z91.199 Patient's noncompliance with other medical treatment and regimen due to unspecified reason; Z87.891 Personal history of nicotine dependence
CPT/HCPCS: 36415; 71045; 80048; 80061; 81001; 82962; 83036; 83735; 83880; 84439; 84443; 84484; 85025; 85610; 86850; 86900; 86901; 93005; 93970; 94640; 96365; G0378; J1815

== ENCOUNTER 2024-10-18 11:38 | Inpatient (IN) | payer MEDICARE, MEDICAID ==
[2024-10-18] VITALS (7 sets, daily range): BP systolic 106; BP diastolic 68; PULSE 111–126; RESP 21–25; TEMP 98.6; O2SAT 82–93
[~2024-10-18] VITALS: Ht 154.9 cm; Wt 129.7 kg
--- NOTE | 2024-10-18 12:05 | ED.PDOC ---
SOB-HPI HPI Comments This is a 59 year old male presenting to the ED with chief complaint of SOB. Patient reports that he has been experiencing SOB today after running out of his home O2. Patient relays that he has associated chest pain. Patient states he is normally on 3L of O2 at home and has history of COPD and CHF. Patient's O2 saturation in triage on room air was noted to be 75%. Patient denies any dizziness, headache, cough, congestion, ear pain, fever, or chills. Chief Complaint: Shortness of Breath Time Seen by MD: 12:02 Reviewed notes: Nurses Notes, Medications, Allergies Information Source: Patient Mode of Arrival: Ambulatory Severity: Moderate Timing: Hours Duration: Since onset Context: At Rest PE Risk Factors: None History of: COPD, CHF Prehospital treatment: Oxygen Modifying Factors: Nothing Past Medical History PAST MEDICAL HISTORY: CHF, COPD, DM, HTN Surgical History: Denies all surgeries Family History Family History: Reviewed,noncontributory to illness, No family hx of Cancer, No family hx of DM, No family hx of Heart bhavik, No family hx of HTN, No family hx ofKidney bhavik, No family hx of Liver bhavik, No family hx of Lung bhavik, No family hx of Stroke Social History Smoker: Quit Greater Than 1 Year Alcohol: Denies ETOH Use Drugs: Denies Drug Use Lives In: Home Constitutional: denies: chills, diaphoresis, fatigue, fever, malaise, sweats, weakness, others EENTM: denies: blurred vision, double vision, ear bleeding, ear discharge, ear drainage, ear pain, ear ringing, eye pain, eye redness, hearing loss, mouth pain, mouth swelling, nasal discharge, nose bleeding, nose congestion, nose pa in, photophobia, tearing, throat pain, throat swelling, voice changes, others Respiratory: reports: shortness of breath; denies: cough, hemoptysis, orthopnea, SOB at rest, SOB with excertion, stridor, wheezing, others Cardiovascular: reports: chest pain; denies: dizzy spells, diaphoresis, Dyspnea on exertion, edema, irregular heart beat, left arm pain, lightheadedness, palpitations, PND, syncope, others Gastrointestinal: denies: abdomen distended, abdominal pain, blood streaked bowels, constipated, diarrhea, dysphagia, difficulty swallowing, hematemesis, melena, nausea, poor appetite, poor fluid intake, rectal bleeding, rectal pain, vomiting, others Genitourinary: denies: burning, dysuria, flank pain, frequency, hematuria, incontinence, penile discharge, penile sore, pain, testicle pain, testicle swelling, urgency, others Neurological: denies: dizziness, fainting, headache, left sided numbness, left sided weakness, numbness, paresthesia, pre-existing deficit, right sided numbness, right sided weakness, seizure, speech problems, tingling, tremors, weakness, others Musculoskeletal: denies: back pain, gout, joint pain, joint swelling, muscle pain, muscle stiffness, neck pain, others Integumetry: denies: bruises, change in color, change in hair/nails, dryness, laceration, lesions, lumps, rash, wounds, others Allergic/Immunocompromised: denies: Difficulty Healing, Frequent Infections, Hives, Itching, others Hematologic/Lymphatic: denies: anemia, blood clots, easy bleeding, easy bruising, swollen glands, others Endocrine: denies: excessive hunger, excessive sweating, excessive thirst, excessive urination, flushing, intolerance to cold, intolerance to heat, unexplained weight gain, unexplained weight loss, others Psychiatric: denies: anxiety, bipolar disorder, depression, hopeless, panic disorder, schizophrenia, sleepless, suicidal, others All Other Systems: Reviewed and Negative Physical Exam General Appearance: Moderate Distress, Normal HEENT: Normal ENT Inspection, Pharynx Normal, TMs Normal Neck: Full Range of Motion, Non-Tender, Normal, Normal Inspection Respiratory: Chest Non-Tender, Lungs Clear, No Accessory Muscle Use, No Respiratory Distress, Normal Breath Sounds Cardiovascular: No Edema, No JVD, No Murmur, No Gallop, Normal Peripheral Pulses, Regular Rate/Rhythm Breast Exam: Deferred Gastrointestinal: No Organomegaly, Non Tender, No Pulsatile Mass, Normal Bowel Sounds, Soft Genitalia: Deferred Pelvic: Deferred Rectal: Deferred Extremities: No calf tenderness, Normal capillary refill, Normal inspection, Normal range of motion, Non-tender, No pedal edema Musculoskeletal : Apperance: Normal Neurologic: Alert, learning engineer II-XII nml as Tested, No Motor Deficits, Normal Affect, Normal Mood, No Sensory Deficits Cerebellar Function: NOT DONE Reflexes: NOT DONE Skin: Dry, Normal Color, Warm Peripheral Pulses: 3+ Radial (R), 3+ Radial (L) Lymphatic: No Adenopathy Was a procedure done? Was a procedure done?: No Differential Dx Differential Diagnosis: Anxiety, Asthma, Bronchitis, CHF, COPD, Pneumonia, Pulmonary Embolism, Respiratory Distress X-Ray, Labs, Meds, VS Vital Signs Date Time Temp Pulse Resp B/P (MAP) Pulse Ox O2 Delivery O2 Flow Rate FiO2 10/18/24 15:51 98.6 126 22 90 45 98.6 10/18/24 15:36 126 90 Facial BiPAP Mask 45 10/18/24 14:00 98.6 15 161/88 (112) 93 98.6 10/18/24 13:20 126 174/144 Facial BiPAP Mask 35 10/18/24 12:24 22 93 Simple Mask* 6 50 10/18/24 12:12 98.6 112 21 137/79 (98) 88 98.6 10/18/24 12:12 114 21 88 Nasal Cannula* 3 N/A Simple Mask* 10/18/24 12:07 137/79 10/18/24 11:40 98.7 99 18 122/66 88 98.7 Lab Test 10/18/24 14:57 10/18/24 13:26 10/18/24 13:00 10/18/24 12:38 Range/Units Blood Gas Specimen Type Arterial Arterial Blood Gas Sample Site Right radial Right radial Blood Gas Patient Temperature 37.0 37.0 Arterial Blood Date Drawn [id number] Arterial Blood pH 7.310 L 7.334 L 7.350-7.450 Arterial Blood Partial Pressure CO2 71.3 *H 69.8 *H 35.0-48.0 mmHg Arterial Blood Partial Pressure O2 59.4 L 75.0 L 83.0-108.0 mmHg Arterial Blood HCO3 35.1 H 36.3 H 21.0-28.0 mmol/L Arterial Blood Oxygen Saturation 87.6 L 93.7 L 94.0-98.0 % Arterial Blood Base Excess 5.3 H 7.1 H -2.0-3.0 mmol/L Arterial Blood Oxyhemoglobin 85.7 L 91.2 L 94.0-98.0 % Arterial Blood Carboxyhemoglobin 1.6 H 2.1 H 0.5-1.5 % Arterial Blood Methemoglobin 0.6 0.6 0.0-1.5 % Reginaldo Test Yes Yes Blood Gas Total Hemoglobin 18.50 *H 17.30 13.5-17.5 g/dL Blood Gas Modality Mask - bipap Mask - simple FiO2 % 35.0 40.0 Blood Gas EPAP 8 Blood Gas IPAP 12 Blood Gas Critical Value Read Back yes yes Blood Gas Notified Whom dr.p.tummala gutierres Blood Gas Notified Time [id number] Blood Gas Notified By salesperson meats derrick salesperson meats derrick Lactic Acid Level 1.7 0.4-2.0 mmol/L Blood Gas Liter Flow 6.00 White Blood Count 5.4 4.4-10.8 10^3/uL Red Blood Count 4.69 4.5-5.90 10^6/uL Hemoglobin 16.3 13.5-17.5 g/dL Hematocrit 47.6 41.0-53.0 % Mean Corpuscular Volume 101.3 H 80.0-100.0 fL Mean Corpuscular Hemoglobin 34.7 H 28.0-32.0 pg Mean Corpuscular Hemoglobin Concent 34.3 32.0-36.0 g/dL Red Cell Distribution Width 14.5 H 11.8-14.3 % Platelet Count 127 L 140-450 10^3/uL Mean Platelet Volume 9.1 6.9-10.8 fL Neutrophils (%) (Auto) 69.6 37.0-80.0 % Lymphocytes (%) (Auto) 14.1 10.0-50.0 % Monocytes (%) (Auto) 13.7 H 0.0-12.0 % Eosinophils (%) (Auto) 2.3 0.0-7.0 % Basophils (%) (Auto) 0.3 0.0-2.0 % Neutrophils # (Auto) 3.7 1.6-8.6 10 ^3/uL Lymphocytes # (Auto) 0.8 0.4-5.4 10 ^3/uL Monocytes # (Auto) 0.7 0-1.3 10 ^3/uL Eosinophils # (Auto) 0.1 0-0.8 10 ^3/uL Basophils # (Auto) 0 0-0.2 10 ^3/uL Nucleated Red Blood Cells 0.0 % Sodium Level 140 136-145 mmol/L Potassium Level 3.7 3.5-5.1 mmol/L Chloride Level 97 L 98-107 mmol/L Carbon Dioxide Level 37 H 20-31 mmol/L Anion Gap 6 5-15 Blood Urea Nitrogen 15 9-23 mg/dL Creatinine 1.06 0.700-1.30 mg/dL Glomerular Filtration Rate Calc 81 >90 mL/min BUN/Creatinine Ratio 14.2 10.0-20.0 Serum Glucose 449 *H 74-106 mg/dL Calcium Level 9.6 8.7-10.4 mg/dL Troponin I High Sensitivity 38 </=54 ng/L B-Type Natriuretic Peptide 75.95 0-100 pg/mL Test 10/18/24 12:11 Range/Units Urine Color Light-yellow Yellow Urine Clarity Clear Clear Urine pH 5.5 5.0-9.0 Urine Specific [place] 1.016 1.001-1.035 Urine Protein 2+ H Negative Urine Ketones Negative Negative Urine Blood Trace H Negative /uL Urine Nitrite Negative Negative Urine Bilirubin Negative Negative Urine Urobilinogen Normal Negative mg/dL Urine Leukocyte Esterase Negative Negative /uL Urine RBC <1 0 - 3 /hpf Urine Microscopic WBC < 1 0-3 /HPF Urine Squamous Epithelial Cells None seen <5 /hpf Urine Bacteria None seen None Seen /hpf Urine Glucose 4+ H Normal mg/dL Current Medications Medications (Trade) Dose Ordered Sig/Deondre Route Start Time Stop Time Status Last Admin Methylprednisolone Sodium Succinate (Solu Medrol) 125 mg ONCE ONCE IV 10/18/24 12:15 10/18/24 12:16 DC 10/18/24 12:07 Albuterol (Ventolin Medneb) 5 mg ONCE ONCE NEB 10/18/24 12:15 10/18/24 12:16 DC 10/18/24 12:24 Ipratropium [place] (Atrovent Medneb) 0.5 mg ONCE ONCE NEB 10/18/24 12:15 10/18/24 12:16 DC 10/18/24 12:24 Furosemide (Lasix Injection) 20 mg ONCE ONCE IV 10/18/24 12:15 10/18/24 12:16 DC 10/18/24 12:07 Ceftriaxone Sodium 50 ml @ 100 mls/hr ONCE ONCE IV 10/18/24 13:15 10/18/24 14:06 DC 10/18/24 13:20 Azithromycin 250 ml @ 125 mls/hr ONCE ONCE IV 10/18/24 13:15 10/18/24 15:14 DC 10/18/24 13:54 Patient alert. Complaining of shortness a breath. History of COPD CHF. Had to place on oxygen. He is currently on oxygen. Rhythm from initial normal sinus changed to atrial fibrillation flutter. Started amiodarone. Blood gas does show respiratory acidosis with compensation. Placed on BiPAP. WBC within normal limits. Time of 1ST Reevaluation: 13:02 Reevaluation 1ST: Unchanged Patient Education/Counseling: Diagnosis, Treatment Family Education/Counseling: No Family Present SEPSIS Sepsis Screen Date sepsis recognized/suspect: Oct 18, 2024 Time Sepsis recognized/suspect: 1139 Recent Procedure: No On Antibiotic Therapy: No Respiratory Rate >20: No Heart Rate >90: Yes Temp<36 C (96.8 F) or >38.3 C: No SBP <90 or MAP <65 mmHG: No New Acute Mental Status Change: No Is the patient on CPAP, BIPAP,: No Physician Orders Chest Portable (10/18/24 12:01) Electrocardigram (10/18/24 12:14) Abg W/ Co-Ox (10/18/24 12:52) Blood Culture (10/18/24 13:05) BIPAP (10/18/24 13:19) Abg W/ Co-Ox (10/18/24 15:00) BIPAP (10/18/24 15:03) Abg W/ Co-Ox (10/18/24 16:00) Admit (10/18/24 15:26) Allergies (10/18/24 15:26) Code Status (10/18/24 15:26) Ondansetron Hcl (Zofran) (10/18/24 15:30) Docusate Sodium Capsule (Colace Capsule) (10/18/24 15:30) Enoxaparin Sodium (Lovenox) (10/19/24 10:00) Complete Blood Count (10/19/24 04:00) Comprehensive Metabolic Panel (10/19/24 04:00) Npo (Nothing By Mouth) Diet (10/18/24 Dinner) Condition: Stable (10/18/24 15:26) BRP (10/18/24 15:) Morphine Sulfate Injection (10/18/24 15:30) Sequential Compression Device (10/18/24 ) Metal Fabricator (10/18/24:) Daily Weight (10/18/24:) Vs Q1hr And Prn (10/18/24:) Record Ekg (10/18/24:) Oxygen Per Standardized Proced (10/18/24:) Order Labs If Not Done In Past (10/18/24 15:) Emergency Dysrhythmia Protocol (10/18/24:) Nitroglycerin Sublingual (Ntrostat Subli (10/18/24 15:30) Stat Ekg For Chest Pain (10/18/24:) Notify Md Of Changes From Base (10/18/24:) Board Operator For 24 Hours (10/18/24:) Emergency Dysrhythmia Protocol (10/18/24:) Rhythm Strips Once Every Shift (10/18/24:) Oxygen By Nasal Cannula (10/18/24:) Albuterol Medneb (Ventolin Medneb) (10/18/24 15:30) Ipratropium Medneb (Atrovent Medneb) (10/18/24 15:30) Cont Med Neb Intial Tx (10/18/24:) Methylprednisolone Sod Succ (Solu Medrol (10/18/24 22:00) Lisinopril Tablet (Zestril Tablet) (10/19/24 10:00) Metoprolol Tartrate Tablet (Lopressor Ta (10/18/24 22:00) Rivaroxaban Tablet (Xarelto Tablet) (10/19/24 10:00) Sildenafil Citrate (Revatio) (10/18/24 22:00) Furosemide Injection (Lasix Injection) (10/18/24 18:00) Amiodarone 150 Mg Bolus (10/18/24 16:00) Amiodarone Drip 1 Mg/Min X 6hr (10/18/24 16:15) Vital Signs Date Time Temp Pulse Resp B/P (MAP) Pulse Ox O2 Delivery O2 Flow Rate FiO2 10/18/24 15:51 98.6 126 22 90 45 98.6 10/18/24 15:36 126 90 Facial BiPAP Mask 45 10/18/24 14:00 98.6 15 161/88 (112) 93 98.6 10/18/24 13:20 126 174/144 Facial BiPAP Mask 35 10/18/24 12:24 22 93 Simple Mask* 6 50 10/18/24 12:12 98.6 112 21 137/79 (98) 88 98.6 10/18/24 12:12 114 21 88 Nasal Cannula* 3 N/A Simple Mask* 10/18/24 12:07 137/79 10/18/24 11:40 98.7 99 18 122/66 88 98.7 Laboratory Tests Test 10/18/24 12:38 10/18/24 13:26 White Blood Count 5.4 10^3/uL (4.4-10.8) Lactic Acid Level 1.7 mmol/L (0.4-2.0) Medications Medications Dose Ordered Sig/Deondre Route Start Time Stop Time Status Last Admin Dose Admin Albuterol 5 mg ONCE ONCE NEB 10/18/24 12:15 10/18/24 12:16 DC 10/18/24 12:24 Azithromycin 250 ml @ 125 mls/hr ONCE ONCE IV 10/18/24 13:15 10/18/24 15:14 DC 10/18/24 13:54 Ceftriaxone Sodium 50 ml @ 100 mls/hr ONCE ONCE IV 10/18/24 13:15 10/18/24 14:06 DC 10/18/24 13:20 Furosemide 20 mg ONCE ONCE IV 10/18/24 12:15 10/18/24 12:16 DC 10/18/24 12:07 Ipratropium [place] 0.5 mg ONCE ONCE NEB 10/18/24 12:15 10/18/24 12:16 DC 10/18/24 12:24 Methylprednisolone Sodium Succinate 125 mg ONCE ONCE IV 10/18/24 12:15 10/18/24 12:16 DC 10/18/24 12:07 Departure 1 Departure Time of Disposition: 12:26 Impression: Primary Impression: Acute respiratory failure Qualified Codes: J96.01 - Acute respiratory failure with hypoxia Additional Impressions: COPD exacerbation Atrial fibrillation Qualified Codes: I48.0 - Paroxysmal atrial fibrillation Disposition: ADMITTED INPATIENT Admit to: Med Surg Condition: Guarded Critical Care Note Critical Care Time?: No Stability Stability form required: No Heart Score Heart Score: Heart Score Response (Comments) Value History N/A 0 EKG N/A 0 Age N/A 0 Risk Factors N/A 0 Troponin N/A 0 Total 0 I personally scribed for RUEBN DOS SANTOS MD ([email or web address]) on 10/18/24 at 12:05. Electronically submitted by Tong Colbert ([email or web address]). RUBEN DOS SANTOS MD Oct 18, 2024 12:05
[2024-10-18] MEDS: FUROSEMIDE 20 MG/2 ML VIAL IV ONE (12:07)
[2024-10-18] MEDS: methylPREDNISolone SOD SUCC 125 MG/2 ML VL IV ONE (12:07)
[2024-10-18] MEDS: IPRATROPIUM BROM 0.5 MG/2.5ML INH SOL NEB ONE ×2 (12:24→15:30)
[2024-10-18] MEDS: ALBUTEROL SULF 2.5 MG/0.5ML(0.5%) NEB SOLN NEB ONE ×2 (12:24→15:30)
--- NOTE | 2024-10-18 12:28 | DVH ---
CHEST RADIOGRAPH Indication: sob Technique: Single frontal view of the chest was obtained COMPARISON: XY CHEST PORTABLE on DOS: 09/14/24, CT CT ANGIO CHEST CONTRAST on DOS: 08/06/24, XY CHEST P ORTABLE on DOS: 08/06/24, XY CHEST PORTABLE on DOS: 08/05/24, XY CHEST PORTABLE on DOS: 06/27/24 FINDINGS: Lines and Tubes: None Lungs: Increased interstitial prominence Pleura: No effusion. No pneumothorax. Cardiomediastinal contours: Unremarkable Bones: Unremarkable IMPRESSION: Increased interstital prominence. This may represent pulmonary vascular congestion or viral pneumonia . Clinical correlation advised.
[2024-10-18 13:05] LABS: Base Excess 7.1 mmol/L (-2.0-3.0)
[2024-10-18 13:11] LABS: Hemoglobin 16.3 g/dL (13.5-17.5); Nucleated Red Blood Cells % 0.0 %
[2024-10-18 13:14] LABS: Hematocrit 47.6 % (41.0-53.0); Mean Corpuscular Hemoglobin 34.7 pg (28.0-32.0); Mean Corpuscular Volume 101.3 fL (80.0-100.0)
[2024-10-18] MEDS: cefTRIAXone 1GM/50ML D5W 50 ML IV ONE (13:20)
[2024-10-18 13:22] LABS: Potassium 3.7 mmol/L (3.5-5.1); Sodium 140 mmol/L (136-145)
[2024-10-18 13:23] LABS: Anion Gap 6 (5-15); Calcium 9.6 mg/dL (8.7-10.4)
[2024-10-18 13:24] LABS: Carbon Dioxide 37 mmol/L (20-31); Chloride 97 mmol/L (98-107)
[2024-10-18 13:28] LABS: BUN/Creatinine Ratio 14.2 (10.0-20.0); Blood Urea Nitrogen 15 mg/dL (9-23)
[2024-10-18 13:35] LABS: Glucose 449 mg/dL (74-106)
[2024-10-18] MEDS: AZITHROMYCIN 500MG/ 250ML 250 ML IV ONE (13:54)
[2024-10-18 15:09] LABS: Base Excess 5.3 mmol/L (-2.0-3.0)
[2024-10-18] MEDS ORDERED: ONDANSETRON HCL 4 MG/2 ML VIAL IV PRN (15:30)
[2024-10-18] MEDS ORDERED: MORPHINE SULFATE INJ 2 MG/ml SYRG IV PRN (15:30)
[2024-10-18] MEDS ORDERED: methylPREDNISolone SOD SUCC 40 MG/ML VL IM ONE (15:30)
[2024-10-18] MEDS ORDERED: NITROGLYCERIN 0.4 MG SL TAB SL PRN (15:30)
[2024-10-18] MEDS ORDERED: DOCUSATE SOD 100 MG CAP PO PRN (15:30)
[2024-10-18 15:48] LABS: Urine Protein, UAD 2+ (Negative)
--- NOTE | 2024-10-18 16:09 | DVHHP2 ---
History of Present Illness Reason for Visit: sob History of Present Illness 59-year-old male with past medical history significant for acute on chronic diastolic heart failure with EF 55% and NYHA class IIIIV, atrial flutter, severe pulmonary hypertension (RVSP 90 mmHg), type 2 diabetes mellitus, and obstructive sleep apnea presents after being found altered and confused upon arrival to the ED. According to nursing staff, the patient drove himself in but became increasingly disoriented. He reports that his home oxygen supply had run out approximately 1.5 days ago. He normally uses 3 L/min nasal cannula at home and was also awaiting delivery of a CPAP machine for [facility] after his last discharge, which never arrived. He reports worsening shortness of breath over the past few days. On arrival, oxygen saturation was 75% on room air, improving with supplemental oxygen. He was noted to be in mild respiratory distress. ED workup revealed hypercapnia (CO? 35) and hypoxia consistent with acute on chronic respiratory failure. CBC was unremarkable except for hemoglobin 18.2 ; BMP was notable for sodium 147 glucose 357 (improved to 124 after treatment), magnesium 2.7 LFTs and INR were unremarkable; urinalysis showed glucosuria without ketones or infection. Lipid panel was unremarkable. He was admitted to the ([facility]) for further management. Past Medical History See HPI above Past Surgical History See HPI above Family History Reviewed, non-contributory to the management of this case. Past Social History The patient lives at home, denies smoking, alcohol or illicit drugs abuse. Review of Systems Constitutional: No: Fever, Chills, Sweats, Weakness, Malaise, Other Eyes: No: Pain, Vision change, Conjunctivae inflammation, Eyelid inflammation, Other, Redness ENT: No: Ear pain, Ear discharge, Nose pain, Nose discharge, Nose congestion, Mouth pain, Mouth swelling, Throat pain, Throat swelling, Other Respiratory: Shortness of breath, SOB with excertion; No: Cough, Dry, Wheezing, Hemoptysis, Pleuritic Pain, Sputum, Wheezing, Other Cardiovascular: No: Chest Pain, Palpitations, Orthopnea, Paroxysmal Noc. Dyspnea, Edema, Lt Headedness, Other Gastrointestinal: No: Nausea, Vomiting, Abdominal Pain, Diarrhea, Constipation, Melena, Hematochezia, Other Genitourinary: No Dysuria, No Frequency, No Incontinence, No Hematuria, No Retention, No Other Musculoskeletal: No: other, neck pain, shoulder pain, arm pain, back pain, hand pain, leg pain, foot pain Skin: No: Rash, Lesions, Jaundice, Bruising, Other Neurological: No: Weakness, Numbness, Incoordination, Change in speech, Confusion, Seizures, Other Allergies: Coded Allergies: NO KNOWN ALLERGIES (Unverified , 06/08/24) Exam Vital Signs Vital Signs Date Time Temp Pulse Resp B/P (MAP) Pulse Ox O2 Delivery O2 Flow Rate FiO2 10/18/24 15:36 126 90 Facial BiPAP Mask 45 10/18/24 14:00 98.6 15 161/88 (112) 98.6 10/18/24 12:24 6 General Appearance: Alert, Oriented X3, Cooperative, mild distress HEENT: Atraumatic, PERRLA, EOMI, Mucous membr. moist/pink Respiratory: Other (Diminished lung sounds throughout) Cardiovascular: Regular rate, Normal S1, Normal S2, No murmurs Abdominal: Normal bowel sounds, Soft, No tenderness, No hepatospenomegaly, No masses Extremities: No clubbing, No cyanosis, No edema, Normal pulses, No tenderness/swelling Skin: No rashes, No breakdown, No significant lesion Neuro: Normal gait, Normal speech, Strength at 5/5 X4 ext, Normal tone, Sensation intact, Cranial nerves 3-12 NL Psych/Mental Status: Mental status NL, Mood NL Labs/Xrays I reviewed labs, imaging CT scan abdomen pelvis, EKG and all diagnostic studies on this patient from ED records and the medical chart Labs Test 10/18/24 14:57 10/18/24 13:26 10/18/24 13:00 10/18/24 12:38 Range/Units Blood Gas Specimen Type Arterial Blood Gas Sample Site Right radial Blood Gas Patient Temperature 37.0 Arterial Blood Date Drawn [id number] Arterial Blood pH 7.310 L 7.350-7.450 Arterial Blood Partial Pressure CO2 71.3 *H 35.0-48.0 mmHg Arterial Blood Partial Pressure O2 59.4 L 83.0-108.0 mmHg Arterial Blood HCO3 35.1 H 21.0-28.0 mmol/L Arterial Blood Oxygen Saturation 87.6 L 94.0-98.0 % Arterial Blood Base Excess 5.3 H -2.0-3.0 mmol/L Arterial Blood Oxyhemoglobin 85.7 L 94.0-98.0 % Arterial Blood Carboxyhemoglobin 1.6 H 0.5-1.5 % Arterial Blood Methemoglobin 0.6 0.0-1.5 % Reginaldo Test Yes Blood Gas Total Hemoglobin 18.50 *H 13.5-17.5 g/dL Blood Gas Modality Mask - bipap FiO2 % 35.0 Blood Gas EPAP 8 Blood Gas IPAP 12 Blood Gas Critical Value Read Back yes Blood Gas Notified Whom Blood Gas Notified Time [id number] Blood Gas Notified By alicia meza Lactic Acid Level 1.7 0.4-2.0 mmol/L Blood Gas Liter Flow 6.00 White Blood Count 5.4 4.4-10.8 10^3/uL Red Blood Count 4.69 4.5-5.90 10^6/uL Hemoglobin 16.3 13.5-17.5 g/dL Hematocrit 47.6 41.0-53.0 % Mean Corpuscular Volume 101.3 H 80.0-100.0 fL Mean Corpuscular Hemoglobin 34.7 H 28.0-32.0 pg Mean Corpuscular Hemoglobin Concent 34.3 32.0-36.0 g/dL Red Cell Distribution Width 14.5 H 11.8-14.3 % Platelet Count 127 L 140-450 10^3/uL Mean Platelet Volume 9.1 6.9-10.8 fL Neutrophils (%) (Auto) 69.6 37.0-80.0 % Lymphocytes (%) (Auto) 14.1 10.0-50.0 % Monocytes (%) (Auto) 13.7 H 0.0-12.0 % Eosinophils (%) (Auto) 2.3 0.0-7.0 % Basophils (%) (Auto) 0.3 0.0-2.0 % Neutrophils # (Auto) 3.7 1.6-8.6 10 ^3/uL Lymphocytes # (Auto) 0.8 0.4-5.4 10 ^3/uL Monocytes # (Auto) 0.7 0-1.3 10 ^3/uL Eosinophils # (Auto) 0.1 0-0.8 10 ^3/uL Basophils # (Auto) 0 0-0.2 10 ^3/uL Nucleated Red Blood Cells 0.0 % Sodium Level 140 136-145 mmol/L Potassium Level 3.7 3.5-5.1 mmol/L Chloride Level 97 L 98-107 mmol/L Carbon Dioxide Level 37 H 20-31 mmol/L Anion Gap 6 5-15 Blood Urea Nitrogen 15 9-23 mg/dL Creatinine 1.06 0.700-1.30 mg/dL Glomerular Filtration Rate Calc 81 >90 mL/min BUN/Creatinine Ratio 14.2 10.0-20.0 Serum Glucose 449 *H 74-106 mg/dL Calcium Level 9.6 8.7-10.4 mg/dL Troponin I High Sensitivity 38 </=54 ng/L B-Type Natriuretic Peptide 75.95 0-100 pg/mL SEPSIS Sepsis Screen Date sepsis recognized/suspect: Oct 18, 2024 Time Sepsis recognized/suspect: 1211 Recent Procedure: No On Antibiotic Therapy: No Respiratory Rate >20: No Heart Rate >90: Yes Temp<36 C (96.8 F) or >38.3 C: No SBP <90 or MAP <65 mmHG: No New Acute Mental Status Change: No Is the patient on CPAP, BIPAP,: No Physician Orders Chest Portable (10/18/24 12:01) Urinalysis (10/18/24 12:01) Electrocardigram (10/18/24 12:14) Abg W/ Co-Ox (10/18/24 12:52) Blood Culture (10/18/24 13:05) BIPAP (10/18/24 13:19) Abg W/ Co-Ox (10/18/24 15:00) BIPAP (10/18/24 15:03) Abg W/ Co-Ox (10/18/24 16:00) Admit (10/18/24 15:26) Allergies (10/18/24 15:26) Code Status (10/18/24 15:26) Ondansetron Hcl (Zofran) (10/18/24 15:30) Docusate Sodium Capsule (Colace Capsule) (10/18/24 15:30) Enoxaparin Sodium (Lovenox) (10/19/24 10:00) Complete Blood Count (10/19/24 04:00) Comprehensive Metabolic Panel (10/19/24 04:00) Npo (Nothing By Mouth) Diet (10/18/24 Dinner) Condition: Stable (10/18/24:) BRP (10/18/24:) Morphine Sulfate Injection (10/18/24:) Sequential Compression Device (10/18/24 ) Manager Transition (10/18/24:) Daily Weight (10/18/24:) Vs Q1hr And Prn (10/18/24:) Record Ekg (10/18/24:) Oxygen Per Standardized Proced (10/18/24) Order Labs If Not Done In Past (10/18/24:) Emergency Dysrhythmia Protocol (10/18/24:) Nitroglycerin Sublingual (Ntrostat Subli (10/18/24:) Stat Ekg For Chest Pain (10/18/24:) Notify Md Of Changes From Base (10/18/24:) Apprentice Instrument Technician For 24 Hours (10/18/24:) Emergency Dysrhythmia Protocol (10/18/24:) Rhythm Strips Once Every Shift (10/18/24:) Oxygen By Nasal Cannula (10/18/24:) Albuterol Medneb (Ventolin Medneb) (10/18/24 15:30) Albuterol Medneb (Ventolin Medneb) (10/18/24 15:30) Ipratropium Medneb (Atrovent Medneb) (10/18/24 15:30) Ipratropium Medneb (Atrovent Medneb) (10/18/24 15:30) Cont Med Neb Intial Tx (10/18/24 15:26) Methylprednisolone Sod Succ (Solu Medrol (10/18/24 22:00) Methylprednisolone Sod Succ (Solu Medrol (10/18/24 15:30) Lisinopril Tablet (Zestril Tablet) (10/19/24 10:00) Metoprolol Tartrate Tablet (Lopressor Ta (10/18/24 22:00) Rivaroxaban Tablet (Xarelto Tablet) (10/19/24 10:00) Sildenafil Citrate (Revatio) (10/18/24 22:00) Furosemide Injection (Lasix Injection) (10/18/24 18:00) Vital Signs Date Time Temp Pulse Resp B/P (MAP) Pulse Ox O2 Delivery O2 Flow Rate FiO2 10/18/24 15:36 126 90 Facial BiPAP Mask 45 10/18/24 14:00 98.6 15 161/88 (112) 93 98.6 10/18/24 13:20 126 174/144 Facial BiPAP Mask 35 10/18/24 12:24 22 93 Simple Mask* 6 50 10/18/24 12:12 98.6 112 21 137/79 (98) 88 98.6 10/18/24 12:12 114 21 88 Nasal Cannula* 3 N/A Simple Mask* 10/18/24 12:07 137/79 10/18/24 11:40 98.7 99 18 122/66 88 98.7 Laboratory Tests Test 10/18/24 12:38 10/18/24 13:26 White Blood Count 5.4 10^3/uL (4.4-10.8) Lactic Acid Level 1.7 mmol/L (0.4-2.0) Medications Medications Dose Ordered Sig/Deondre Route Start Time Stop Time Status Last Admin Dose Admin Albuterol 5 mg ONCE ONCE NEB 10/18/24 12:15 10/18/24 12:16 DC 10/18/24 12:24 5 MG Azithromycin 250 ml @ 125 mls/hr ONCE ONCE IV 10/18/24 13:15 10/18/24 15:14 DC 10/18/24 13:54 125 MLS/HR Ceftriaxone Sodium 50 ml @ 100 mls/hr ONCE ONCE IV 10/18/24 13:15 10/18/24 14:06 DC 10/18/24 13:20 100 MLS/HR Furosemide 20 mg ONCE ONCE IV 10/18/24 12:15 10/18/24 12:16 DC 10/18/24 12:07 20 MG Ipratropium [place] 0.5 mg ONCE ONCE NEB 10/18/24 12:15 10/18/24 12:16 DC 10/18/24 12:24 0.5 MG Methylprednisolone Sodium Succinate 125 mg ONCE ONCE IV 10/18/24 12:15 10/18/24 12:16 DC 10/18/24 12:07 125 MG Assessment/Plan Assessment/Plan Acute on Chronic Hypercapnic and Hypoxic Respiratory Failure likely d/t o2 ran out cxr shows Increased interstitial prominence. This may represent pulmonary vascular congestion or viral pneumonia. Admit to [facility] for close monitoring goal is to wean back to baseline Supplemental oxygen to maintain SpO? > 92% Initiate BiPAP for hypercapnia failure rises and worsening mental status worsens Monitor ABG and repeat now Avoid excessive oxygen to prevent worsening hypercapnia can consider Pulmonology consult for optimization of chronic oxygen therapy and expedited CPAP delivery ordered albuterol/atrovent prn sob ordered solumedrol atc ordered ceftriaxone and doxy for now ordered cards consult fu results acute on Chronic Diastolic Heart Failure with Preserved EF 55% found on cxr Continue volume status monitoring Daily weights, strict I/O Avoid excessive fluids; diurese if evidence of volume overload ordered lasix bid for now strict i/o's reviewed echo completed 07/2024 ef 55% acute Hypernatremia Likely secondary to dehydration from poor fluid intake and diuresis Gentle correction with hypotonic fluids as needed; monitor Na every 68 hrs cont diuresis acute aflutter/afib with rvr hold metoprolol start amiodarone bolus and drip monitor in [place]roll cards consult fu results chronic problems Severe Pulmonary Hypertension (RVSP 90 mmHg) Atrial Flutter Hyperglycemia in Type 2 Diabetes Mellitus ISS Polycythemia secondary to chronic hypoxia Optimize oxygen therapy to prevent further erythrocytosis Obstructive Sleep Apnea Expedite CPAP machine delivery prior to discharge Chronic diastolic heart failure with preserved EF Severe pulmonary hypertension Obstructive sleep apnea FEN / PPx Fluids: Avoid excess; Electrolytes: Monitor daily; replete as needed Nutrition: npo for now DVT Prophylaxis: xarelto GI Prophylaxis: Pantoprazole 40 mg iV daily for stress ulcer prevention Disposition Admit to [facility] for close respiratory and hemodynamic monitoring, oxygen therapy optimization, and workup/management of underlying cardiopulmonary conditions. Discharge when oxygenation stable on home regimen and CPAP secured. Plan discussed with: Patient, Other (ed records and nursing ) My Orders Orders - IBIS MARTINEZ DNP Procedure Category Date Status Time Admit ADMIT 10/18/24 Verified 15:26 Allergies ROSARIO 10/18/24 Verified 15:26 Code Status CODE 10/18/24 Verified 15:26 Ondansetron Hcl PHA 10/18/24 Verified (Zofran) 15:30 Docusate Sodium PHA 10/18/24 Verified Capsule (Colace 15:30 Enoxaparin Sodium PHA 10/19/24 Verified (Lovenox) 10:00 Complete Blood Count LAB 10/19/24 Verified 04:00 Comprehensive LAB 10/19/24 Verified Metabolic Panel 04:00 Npo (Nothing By DIET 10/18/24 Verified Mouth) Diet Dinner Condition: Stable [facility] 10/18/24 Verified 15:26 BRP [facility] 10/18/24 Verified 15:26 Morphine Sulfate [facility] 10/18/24 Verified Injection 15:30 Sequential [facility] 10/18/24 Verified Compression Device Manager Transition [facility] 10/18/24 Verified 15:26 Daily Weight [facility] 10/18/24 Verified 15:26 Vs Q1hr And Prn [facility] 10/18/24 Verified 15:26 Record Ekg [facility] 10/18/24 Verified 15:26 Oxygen Per [facility] 10/18/24 Verified Standardized Proced 15:26 Order Labs If Not [facility] 10/18/24 Verified Done In Past 15:26 Emergency Dysrhythmia [facility] 10/18/24 Verified Protocol 15:26 Nitroglycerin [facility] 10/18/24 Verified Sublingual (Ntrostat 15:30 Stat Ekg For Chest [facility] 10/18/24 Verified Pain 15:26 Notify Md Of Changes [facility] 10/18/24 Verified From Base 15:26 Apprentice Instrument Technician For [facility] 10/18/24 Verified 24 Hours 15:26 Emergency Dysrhythmia [facility] 10/18/24 Verified Protocol 15:26 Rhythm Strips Once [facility] 10/18/24 Verified Every Shift 15:26 Oxygen By Nasal RT 10/18/24 Verified Cannula 15:26 Albuterol Medneb [facility] 10/18/24 Verified (Ventolin Medneb) 15:30 Albuterol Medneb [facility] 10/18/24 Verified (Ventolin Medneb) 15:30 Ipratropium Medneb [facility] 10/18/24 Verified (Atrovent Medneb) 15:30 Ipratropium Medneb [facility] 10/18/24 Verified (Atrovent Medneb) 15:30 Cont Med Neb Intial Tx RT 10/18/24 Verified 15:26 Methylprednisolone PHA 10/18/24 Verified Sod Succ (Solu Medrol 22:00 Methylprednisolone PHA 10/18/24 Verified Sod Succ (Solu Medrol 15:30 Lisinopril Tablet [facility] 10/19/24 Verified (Zestril Tablet) 10:00 Metoprolol Tartrate [facility] 10/18/24 Verified Tablet (Lopressor Ta 22:00 Rivaroxaban Tablet [facility] 10/19/24 Verified (Xarelto Tablet) 10:00 Sildenafil Citrate [facility] 10/18/24 Verified (Revatio) 22:00 Furosemide Injection [facility] 10/18/24 Verified (Lasix Injection) 18:00 Date of Service: Oct 18, 2024 Billing Provider: IBIS MARTINEZ DNP Common Visit Codes: [id number] INP/OBS CARE (HIGH), [id number] CARE 30- 74 MIN (Total critical care time: Approximately 45 minutes This critical care time included obtaining a history; examining the patient; pulse oximetry; ordering and review of studies; arranging urgent treatment with development of a management plan; evaluation of patient's response to treatment; frequent reasses sment; and, discussions with other providers.) IBIS MARTINEZ DNP Oct 18, 2024 16:09
[2024-10-18 16:26] LABS: Base Excess 4.6 mmol/L (-2.0-3.0)
[2024-10-18] MEDS: AMIODARONE BOLUS KIT 100 ML IV ONE (16:31)
[2024-10-18] MEDS: AMIODARONE 360mg/200mL PREMIX 200 ML IV ONE (17:02)
[2024-10-18] MEDS: PANTOPRAZOLE 40 MG/10 ML VIAL INJ IV ONE (17:05)
[2024-10-18] MEDS: FUROSEMIDE 20 MG/2 ML VIAL IV SCH (18:30)
--- NOTE | 2024-10-18 19:00 | ECG ---
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
[2024-10-18 19:08] LABS: Base Excess 2.2 mmol/L (-2.0-3.0)
[2024-10-18] MEDS: ALBUTEROL SULF 2.5 MG/0.5ML(0.5%) NEB SOLN NEB PRN (20:32)
[2024-10-18] MEDS: IPRATROPIUM BROM 0.5 MG/2.5ML INH SOL NEB PRN (20:33)
[2024-10-18] MEDS ORDERED: METOPROLOL TARTRATE 25 MG TAB PO SCH (22:00)
[2024-10-18] MEDS: methylPREDNISolone SOD SUCC 40 MG/ML VL IV SCH (23:00)
[2024-10-18] MEDS: SILDENAFIL CITRATE 20 MG TAB PO SCH (23:00)
[2024-10-18] MEDS: AMIODARONE 360mg/200mL PREMIX 200 ML IV SCH (23:10)
[2024-10-18 23:20] LABS: Base Excess 4.6 mmol/L (-2.0-3.0)
[2024-10-19] VITALS (38 sets, daily range): BP systolic 92–151; BP diastolic 38–76; PULSE 60–116; RESP 11–28; TEMP 97.2–98.4; O2SAT 87–98
[2024-10-19 05:46] LABS: Hemoglobin 17.4 g/dL (13.5-17.5)
[2024-10-19 05:48] LABS: Hematocrit 51.3 % (41.0-53.0); Mean Corpuscular Hemoglobin 34.7 pg (28.0-32.0); Mean Corpuscular Volume 102.1 fL (80.0-100.0); Nucleated Red Blood Cells % 0.2 %
[2024-10-19 06:01] LABS: Alanine Aminotransferase 25 U/L (7-40); Anion Gap 8 (5-15); BUN/Creatinine Ratio 13.0 (10.0-20.0); Blood Urea Nitrogen 22 mg/dL (9-23); Calcium 9.4 mg/dL (8.7-10.4); Potassium 4.8 mmol/L (3.5-5.1); Sodium 136 mmol/L (136-145)
[2024-10-19 06:03] LABS: Bilirubin, Total 0.8 mg/dL (0.2-1.0)
[2024-10-19 06:15] LABS: Albumin 2.8 g/dL (3.2-4.8); Alkaline Phosphatase 124 U/L (46-116); Carbon Dioxide 32 mmol/L (20-31); Chloride 96 mmol/L (98-107); Total Protein 5.7 g/dL (5.7-8.2)
[2024-10-19 06:17] LABS: Glucose 534 mg/dL (74-106)
[2024-10-19 06:28] LABS: Base Excess 3.9 mmol/L (-2.0-3.0)
--- NOTE | 2024-10-19 09:10 | DVHINCON2 ---
Date Seen: Oct 19, 2024 Referring Physician CLEMENCIA Nguyen Reason for Consultation EKG change History of Present Illness This is a 59-year-old male patient who presents to emergency room with chief complaint of shortness of breath and intermittent palpitations. The patient does report running out of home oxygen for which he is on continuously. He reports running out one day prior to emergency room arrival. Initial twelve lead electrocardiogram done upon admission reveals normal sinus rhythm. Cardiology was consulted because the patient was noted to have a rhythm change on the environmental monitoring specialist. A repeat twelve lead electrocardiogram revealed atrial flutter with 2:1 conduction. The emergency room provider initiated amiodarone bolus followed by amiodarone IV per protocol. At the time of assessment, the patient is back in a normal sinus rhythm on environmental monitoring specialist. Significant past medical history includes congestive heart failure, atrial flutter (on Xarelto), hypertension, dyslipidemia, severe pulmonary hypertension, COPD with continuous home O2 use, obstructive sleep apnea, type 2 diabetes mellitus, previous tobacco use, and morbid obesity. The patient states he has not established a toddler teacher in the outpatient setting. Past Medical History Past medical history reviewed. No other significant than mentioned above. Past Surgical History Appendectomy Cholecystectomy Family History: Patient reports no known family medical history. Family History Family history reviewed. Social History Patient has a three pack-year history, quit smoking over 30 years ago Denies any illicit drug use Denies any alcohol use Allergies: Coded Allergies: NO KNOWN ALLERGIES (Unverified , 06/08/24) Home Meds Active Scripts Cefdinir (Cefdinir) 300 Mg Cap, 1 CAP PO BID for 5 Days, #10 CAP Prov:PURVI DAVIES FLOOR STEWARD/STEWARDESS 08/09/24 Sildenafil Citrate (Revatio) 20 Mg Tab, 20 MG PO TID for 30 Days, #90 TAB Prov:PURVI DAVIES FLOOR STEWARD/STEWARDESS 08/09/24 Reported Medications Potassium Chloride (Potassium Chloride ER) 10 Meq Tab, 1 TAB PO DAILY 08/05/24 Torsemide Injection (Torsemide) 20 Mg Tab, 1 TAB PO BID 08/05/24 Lisinopril (Lisinopril) 5 Mg Tab, 1 TAB PO DAILY 08/05/24 Ertugliflozin l-Pyroglutamic A (Steglatro) 15 Mg Tab, 1 TAB PO DAILY 08/05/24 Metoprolol Tartrate (Lopressor) 25 Mg Tb, 2 PO BID 08/05/24 Rivaroxaban (Xarelto Tablet) 20 Mg Tb, 1 TAB PO DAILY 08/05/24 Home Meds Home medications reviewed. Current Medications Current Medications Medications (Trade) Dose Ordered Sig/Deondre Route PRN Reason Start Time Stop Time Status Last Admin Ondansetron HCl (Zofran) 4 mg Q4HP PRN IV NAUSEA / VOMITING 10/18/24 15:30 Docusate Sodium (Colace Capsule) 100 mg BIDPRN PRN PO FOR CONSTIPATION 10/18/24 15:30 Enoxaparin Sodium (Lovenox) 40 mg DAILY SC 10/19/24 10:00 10/18/24 16:02 DC Morphine Sulfate 2 mg Q4HPRN PRN IV SEVERE PAIN (7-10 PAIN SCALE) 10/18/24 15:30 Nitroglycerin (Ntrostat Sublingual) 0.4 mg Q5MINP PRN SL FOR CHEST PAIN 10/18/24 15:30 Hold Albuterol (Ventolin Medneb) 2.5 mg Q4HPRN PRN NEB SHORTNESS OF BREATH 10/18/24 15:30 10/18/24 20:32 Ipratropium [place] (Atrovent Medneb) 0.5 mg Q4HPRN PRN NEB SHORTNESS OF BREATH 10/18/24 15:30 10/18/24 20:33 Methylprednisolone Sodium Succinate (Solu Medrol) 40 mg Q8HR IV 10/18/24 22:00 10/19/24 06:06 Lisinopril (Zestril Tablet) 5 mg DAILY PO 10/19/24 10:00 Metoprolol Tartrate (Lopressor Tablet) 25 mg BID PO 10/18/24 22:00 10/18/24 16:04 DC Rivaroxaban (Xarelto Tablet) 20 mg DAILY PO 10/19/24 10:00 Sildenafil Citrate (Revatio) 20 mg TID PO 10/18/24 22:00 10/19/24 06:07 Furosemide (Lasix Injection) 20 mg BIDD IV 10/18/24 18:00 10/19/24 06:07 Pantoprazole Sodium (Protonix) 40 mg DAILY IV 10/19/24 10:00 Review of Systems Constitutional: No symptom reported Ears, Nose, & Throat: No symptom reported Eyes: No symptom reported Neurological: No symptoms reported Pulmonary/Respiratory: Shortness of breath Cardiovascular: Palpitations Gastrointestinal: No symptom reported Genitourinary: No symptom reported Musculoskeletal: No symptom reported Skin: No symptom reported Psychiatric: No symptom reported Endocrine: No symptom reported Hematologic/Lymphatic: No symptom reported Vital Signs Vital Signs Date Time Temp Pulse Resp B/P (MAP) Pulse Ox O2 Delivery O2 Flow Rate FiO2 10/19/24 09:00 74 25 113/58 (76) 94 10/19/24 08:00 98.1 98.1 10/19/24 06:36 Nasal Cannula 3.0 10/19/24 06:36 32 Physical Exam General Appearance: Cooperative. Morbidly obese Pulmonary/Respiratory: Diminished bilateral lower lobe bases Cardiovascular/Chest: Regular rate and rhythm. Peripheral Pulses: 2+ Radial (R). 2+ Radial (L). 2+ Pedal (R). 2+ Pedal (L) Abdominal Exam: Normal bowel sounds. Ankle Exam: Negative ankle edema Lower extremities: Negative lower extremity edema Neuro/Mental Status: A/OX4, coherent. Thoughts/Psych: Normal thought pattern. Appropriate mood and affect. Good judgment and insight. Appearance: No acute distress. Skin Exam: Normal inspection. Normal color. Warm and dry. Labs/Diagnostic Data Labs Test 10/19/24 06:20 10/19/24 05:22 10/18/24 19:03 10/18/24 13:26 Range/Units Blood Gas Specimen Type Arterial Blood Gas Sample Site Right radial Blood Gas Patient Temperature 37.0 Arterial Blood Date Drawn [id number] Arterial Blood pH 7.364 7.350-7.450 Arterial Blood Partial Pressure CO2 56.0 H 35.0-48.0 mmHg Arterial Blood Partial Pressure O2 53.4 *L 83.0-108.0 mmHg Arterial Blood HCO3 31.2 H 21.0-28.0 mmol/L Arterial Blood Oxygen Saturation 85.0 L 94.0-98.0 % Arterial Blood Base Excess 3.9 H -2.0-3.0 mmol/L Arterial Blood Oxyhemoglobin 83.5 L 94.0-98.0 % Arterial Blood Carboxyhemoglobin 1.4 0.5-1.5 % Arterial Blood Methemoglobin 0.4 0.0-1.5 % Reginaldo Test Yes Blood Gas Total Hemoglobin 17.60 H 13.5-17.5 g/dL Blood Gas Set Respiration Rate 14.0 Blood Gas Modality Mask - bipap FiO2 % 30.0 Blood Gas EPAP 8 Blood Gas IPAP 18 Blood Gas Critical Value Read Back yes Blood Gas Notified Whom offset press assistant rishabh Blood Gas Notified Time [id number] Blood Gas Notified By veterinary technician derrick White Blood Count 6.1 4.4-10.8 10^3/uL Red Blood Count 5.02 4.5-5.90 10^6/uL Hemoglobin 17.4 13.5-17.5 g/dL Hematocrit 51.3 41.0-53.0 % Mean Corpuscular Volume 102.1 H 80.0-100.0 fL Mean Corpuscular Hemoglobin 34.7 H 28.0-32.0 pg Mean Corpuscular Hemoglobin Concent 34.0 32.0-36.0 g/dL Red Cell Distribution Width 14.6 H 11.8-14.3 % Platelet Count 115 L 140-450 10^3/uL Mean Platelet Volume 9.5 6.9-10.8 fL Neutrophils (%) (Auto) 89.4 H 37.0-80.0 % Lymphocytes (%) (Auto) 6.1 L 10.0-50.0 % Monocytes (%) (Auto) 4.4 0.0-12.0 % Eosinophils (%) (Auto) 0.0 0.0-7.0 % Basophils (%) (Auto) 0.1 0.0-2.0 % Neutrophils # (Auto) 5.4 1.6-8.6 10 ^3/uL Lymphocytes # (Auto) 0.4 0.4-5.4 10 ^3/uL Monocytes # (Auto) 0.3 0-1.3 10 ^3/uL Eosinophils # (Auto) 0 0-0.8 10 ^3/uL Basophils # (Auto) 0 0-0.2 10 ^3/uL Nucleated Red Blood Cells 0.2 % Sodium Level 136 136-145 mmol/L Potassium Level 4.8 3.5-5.1 mmol/L Chloride Level 96 L 98-107 mmol/L Carbon Dioxide Level 32 H 20-31 mmol/L Anion Gap 8 5-15 Blood Urea Nitrogen 22 9-23 mg/dL Creatinine 1.69 H 0.700-1.30 mg/dL Glomerular Filtration Rate Calc 46 >90 mL/min BUN/Creatinine Ratio 13.0 10.0-20.0 Serum Glucose 534 *H 74-106 mg/dL Calcium Level 9.4 8.7-10.4 mg/dL Total Bilirubin 0.8 0.2-1.0 mg/dL Aspartate Amino Transferase (AST) 40 13-40 U/L Alanine Aminotransferase (ALT) 25 7-40 U/L Alkaline Phosphatase 124 H 46-116 U/L Total Protein 5.7 5.7-8.2 g/dL Albumin 2.8 L 3.2-4.8 g/dL Blood Gas Liter Flow 6.00 Lactic Acid Level 1.7 0.4-2.0 mmol/L Test 10/18/24 12:38 10/18/24 12:11 Range/Units Troponin I High Sensitivity 38 </=54 ng/L B-Type Natriuretic Peptide 75.95 0-100 pg/mL Urine Color Light-yellow Yellow Urine Clarity Clear Clear Urine pH 5.5 5.0-9.0 Urine Specific [place] 1.016 1.001-1.035 Urine Protein 2+ H Negative Urine Ketones Negative Negative Urine Blood Trace H Negative /uL Urine Nitrite Negative Negative Urine Bilirubin Negative Negative Urine Urobilinogen Normal Negative mg/dL Urine Leukocyte Esterase Negative Negative /uL Urine RBC <1 0 - 3 /hpf Urine Microscopic WBC < 1 0-3 /HPF Urine Squamous Epithelial Cells None seen <5 /hpf Urine Bacteria None seen None Seen /hpf Urine Glucose 4+ H Normal mg/dL Assessment Atrial flutter (on Xarelto), now normal sinus rhythm Chronic HFpEF, NYHA class III Hypertension Dyslipidemia Severe pulmonary hypertension COPD with continuous home O2 use Obstructive sleep apnea with CPAP noncompliance Type 2 diabetes mellitus Obesity class III (morbidly obese) Plan/Recommendation We will continue with the following plan/recommendations (Dr. Johansen): * A transthoracic echocardiogram from 08/07/2024 reveals EF of 55%, RVSP greater than 90 mmHg * Continue guideline directed medical therapy for CHF as tolerated * [id number] VASc score: 3 points, HAS-BLED score: 1 point * Continue NOAC therapy, Xarelto * Continue beta-bernadette for rate control * Transitioned IV amiodarone to oral amiodarone * Monitor and replete electrolytes as needed, keep potassium greater than four and magnesium greater than two. * Telemetry monitoring * Consider pulmonary consultation for history of severe pulmonary hypertension The patient is back in a normal sinus rhythm. Continue with recommendations as per above. There is no further inpatient cardiac workup indicated at this time. The patient has been scheduled to follow up with Cardiology in the outpatient setting on 11/09/[address] Johansen. Thank you for allowing us to care for this patient. Please call with any questions or concerns. Critical care time spent: 44 minutes This medical document was created using an electronic medical record system with voice recognition software and computerized dictation system. Although this document has been carefully reviewed, there might still be some phonetic and typographical errors. Occasional wrong-word or ``sound-alike substitutions may have occurred due to the inherent limitations of voice recognition software. These areas are purely typographical due to imperfections of the software programs and do not reflect any compromise in the patient's medical care. Please read the chart carefully and recognize, using context, where these substitutions have occurred. Plan discussed with: Patient NYHA Physical activity limitations: Class3(Marked) ordinary (activity causes symtoms) Date of Service: Oct 19, 2024 Billing Provider: MEERA SINGH Cardiology Common Codes: [id number] INP/OBS CARE (High) Cardiology Consultation Codes: [id number] CONSULT <45MIN MEERA SINGH Oct 19, 2024 09:10
[2024-10-19] MEDS ORDERED: ENOXAPARIN SOD 40 MG/0.4 ML SYRINGE SC SCH (10:00)
[2024-10-19] MEDS: LISINOPRIL 5 MG TAB PO SCH (10:00)
[2024-10-19] MEDS: RIVAROXABAN 20 MG TAB PO SCH (11:13)
[2024-10-19] MEDS: AMIODARONE HCL 200 MG TAB PO SCH (11:14)
[2024-10-19] MEDS: PANTOPRAZOLE 40 MG/10 ML VIAL INJ IV SCH (11:14)
[2024-10-19] MEDS ORDERED: DEXTROSE (50%) 50ML SYRG IV PRN (12:30)
--- NOTE | 2024-10-19 17:16 | DVHPN2 ---
Subjective I am assuming the care of the patient from today on beds. Patient currently in normal sinus rhythm after IV amiodarone drip Changes from previous H/P or p: No Changes Eyes: No Pain, No Vision change, No Conjunctivae inflammation, No Eyelid inflammation, No Other, No Redness ENT: No Ear pain, No Ear discharge, No Nose pain, No Nose discharge, No Nose congestion, No Mouth pain, No Mouth swelling, No Throat pain, No Throat swelling, No Other Cardiovascular: No Chest Pain, No Palpitations, No Orthopnea, No Paroxysmal Noc. Dyspnea, No Edema, No Lt Headedness, No Other Respiratory: No Cough, No Dry; Shortness of breath, SOB with excertion; No Wheezing, No Hemoptysis, No Pleuritic Pain, No Sputum, No Other Gastrointestinal: No Nausea, No Vomiting, No Abdominal Pain, No Diarrhea, No Constipation, No Melena, No Hematochezia, No Other Genitourinary: No Dysuria, No Frequency, No Incontinence, No Hematuria, No Retention, No Other Musculoskeletal: No other, No neck pain, No shoulder pain, No arm pain, No back pain, No hand pain, No leg pain, No foot pain Skin: No Rash, No Lesions, No Jaundice, No Bruising, No Other Objective Vitals Vital Signs Date Time Temp Pulse Resp B/P (MAP) Pulse Ox O2 Delivery O2 Flow Rate FiO2 10/19/24 12:30 97.6 66 13 97 97.6 10/19/24 12:00 Nasal Cannula* 3 32 Intake/Output Intake and Output 10/19/24 07:00 Intake Total 683.30 ml Output Total 500 ml Balance 183.30 ml Intake IV Total 683.30 ml Output Urine Total 500 ml Exam HEENT pupils are reactive Neck is supple CVS S1-S2 regular rate and rhythm Respiratory managed by Jos basis GI positive bowel sounds Extremity no edema MANAGER QA no motor deficit Medications Current Medications Medications Dose Ordered Sig/Deondre Route Start Time Stop Time Status Last Admin Dose Admin Ondansetron HCl 4 mg Q4HP PRN IV 10/18/24 15:30 Docusate Sodium 100 mg BIDPRN PRN PO 10/18/24 15:30 Morphine Sulfate 2 mg Q4HPRN PRN IV 10/18/24 15:30 Nitroglycerin 0.4 mg Q5MINP PRN SL 10/18/24 15:30 Hold Albuterol 2.5 mg Q4HPRN PRN NEB 10/18/24 15:30 10/18/24 20:32 2.5 MG Ipratropium [place] 0.5 mg Q4HPRN PRN NEB 10/18/24 15:30 10/18/24 20:33 0.5 MG Methylprednisolone Sodium Succinate 40 mg Q8HR IV 10/18/24 22:00 10/19/24 15:25 40 MG Lisinopril 5 mg DAILY PO 10/19/24 10:00 Rivaroxaban 20 mg DAILY PO 10/19/24 10:00 10/19/24 11:13 20 MG Sildenafil Citrate 20 mg TID PO 10/18/24 22:00 10/19/24 15:25 20 MG Furosemide 20 mg BIDD IV 10/18/24 18:00 10/19/24 06:07 20 MG Pantoprazole Sodium 40 mg DAILY IV 10/19/24 10:00 10/19/24 11:14 40 MG Amiodarone HCl 200 mg Q12HR PO 10/19/24 10:00 10/19/24 11:14 200 MG Metoprolol Succinate 25 mg DAILY PO 10/20/24 10:00 Empaglifozin 10 mg DAILY PO 10/20/24 10:00 Diagnostic Test (Pha) 1 strip ACHS 10/19/24 17:00 Insulin Human Regular ACHS SC 10/19/24 17:00 Dextrose 50 ml UD PRN IV 10/19/24 12:30 Laboratory Results Laboratory Tests 10/19/24 05:22 Chemistry Test 10/19/24 05:22 Albumin 2.8 g/dL (3.2-4.8) L Calcium Level 9.4 mg/dL (8.7-10.4) Magnesium Level 1.7 mg/dL (1.6-2.6) Total Protein 5.7 g/dL (5.7-8.2) LFT Test 10/19/24 05:22 Alanine Aminotransferase (ALT) 25 U/L (7-40) Alkaline Phosphatase 124 U/L (46-116) H Aspartate Amino Transferase (AST) 40 U/L (13-40) Total Bilirubin 0.8 mg/dL (0.2-1.0) HgA1c, TSH Test 10/19/24 05:22 Hemoglobin A1c 12.3 % A1C (<5.7) H Urinalysis Test 10/18/24 12:11 Urine Color Light-yellow (Yellow) Urine Clarity Clear (Clear) Urine pH 5.5 (5.0-9.0) Urine Specific [place] 1.016 (1.001-1.035) Urine Protein 2+ (Negative) H Urine Ketones Negative (Negative) Urine Blood Trace /uL (Negative) H Urine Nitrite Negative (Negative) Urine Bilirubin Negative (Negative) Urine Urobilinogen Normal mg/dL (Negative) Urine Leukocyte Esterase Negative /uL (Negative) Urine RBC <1 /hpf (0 - 3) Urine Microscopic WBC < 1 /HPF (0-3) Urine Squamous Epithelial Cells None seen /hpf (<5) Urine Bacteria None seen /hpf (None Seen) Urine Glucose 4+ mg/dL (Normal) H Blood Gas Results Test 10/18/24 19:03 10/18/24 23:12 10/19/24 06:20 Arterial Blood pH 7.250 (7.350-7.450) 7.336 (7.350-7.450) 7.364 (7.350-7.450) FiO2 % 35.0 30.0 30.0 Microbiology Microbiology Date/Time Source Procedure Growth Status 10/19/24 03:30 Nose MRSA Screen - Final Complete 10/18/24 13:26 Blood Blood Culture - Preliminary NO GROWTH AFTER 24 HOURS OF INCUBATION. Resulted Assessment/Plan Assessment/Plan 59-year-old male with a known history of congestive heart failure, atrial flutter on Xarelto, hypertension, dyslipidemia, severe pulmonary hypertension, COPD, chronic home O2 use, Michael hypoventilation syndrome/sleep apnea, diabetes mellitus type 2, morbid obesity classIII patient presents to the hospital bed shortness 1. Atrial flutter, status post IV amiodarone currently on normal sinus rhythm 2. Chronic congestive heart failure with a diastolic dysfunction currently compensated 3. Hypertension 4. Severe pulmonary hypertension 5. Acute on chronic hypoxic and hypercapnic respiratory failure discontinued noncompliance as patient ran out of oxygen 6. COPD previous history of tobacco use disorder, currently not in exacerbation 7. Obesity hypoventilation syndrome 8. Sleep apnea 9. Morbid obesity classIII -continue beta bernadette, anticoagulation, follow up Cardiology recommendations . Plan discussed with: Patient My Orders Orders - JAMSHID BUI MD Procedure Category Date Status Time Glucose Blood PHA 10/19/24 In Process (Accu-Chek Comfort 17:00 Insulin R (Human) PHA 10/19/24 In Process (Insulin R) 17:00 Dextrose 50% Syringe PHA 10/19/24 In Process 12:30 Consistent DIET 10/19/24 [facility]mitted [facility]Diabetes Lunch Date of Service: Oct 19, 2024 Billing Provider: JAMSHID BUI MD Common Visit Codes: [id number] INP/OBS CARE(MOD) JAMSHID BUI MD Oct 19, 2024 17:16
[2024-10-19] MEDS: ACCU-CHEK COMFORT CURVE STRIP VI SCH (17:45)
[2024-10-19 19:05] LABS: Alanine Aminotransferase 24 U/L (7-40); Anion Gap 7 (5-15); BUN/Creatinine Ratio 14.5 (10.0-20.0); Carbon Dioxide 31 mmol/L (20-31); Potassium 4.7 mmol/L (3.5-5.1)
[2024-10-19 19:06] LABS: Bilirubin, Total 1.0 mg/dL (0.2-1.0)
[2024-10-19 19:13] LABS: Albumin 2.8 g/dL (3.2-4.8); Alkaline Phosphatase 123 U/L (46-116); Blood Urea Nitrogen 33 mg/dL (9-23); Calcium 8.1 mg/dL (8.7-10.4); Chloride 91 mmol/L (98-107); Sodium 129 mmol/L (136-145); Total Protein 5.3 g/dL (5.7-8.2)
[2024-10-19 19:16] LABS: Glucose 754 mg/dL (74-106)
[2024-10-19] MEDS: InsuLIN REG 1unit/0.01ml Soln (100units/ml) SC SCH (19:39)
[2024-10-20] VITALS (27 sets, daily range): BP systolic 92–139; BP diastolic 41–76; PULSE 60–75; RESP 11–23; TEMP 97.3–98.7; O2SAT 84–99
[2024-10-20] MEDS ORDERED: DEXTROSE (50%) 50ML SYRG IV PRN (08:45)
[2024-10-20 09:40] LABS: Hemoglobin 16.6 g/dL (13.5-17.5); Mean Corpuscular Volume 102.6 fL (80.0-100.0); Nucleated Red Blood Cells % 0.0 %
[2024-10-20 09:47] LABS: Hematocrit 48.7 % (41.0-53.0); Mean Corpuscular Hemoglobin 35.0 pg (28.0-32.0)
[2024-10-20 10:00] LABS: Alanine Aminotransferase 29 U/L (7-40); Anion Gap 9 (5-15); BUN/Creatinine Ratio 15.7 (10.0-20.0); Bilirubin, Total 1.0 mg/dL (0.2-1.0); Magnesium 2.0 mg/dL (1.6-2.6); Potassium 4.9 mmol/L (3.5-5.1); Total Protein 6.0 g/dL (5.7-8.2)
[2024-10-20] MEDS: METOPROLOL SUCCINATE XL 50 MG TAB PO SCH (10:00)
[2024-10-20] MEDS: EMPAGLIFLOZIN 10 MG TAB PO SCH (10:02)
[2024-10-20 10:05] LABS: Alkaline Phosphatase 142 U/L (46-116); Blood Urea Nitrogen 40 mg/dL (9-23); Calcium 8.6 mg/dL (8.7-10.4); Carbon Dioxide 31 mmol/L (20-31); Chloride 91 mmol/L (98-107); Sodium 131 mmol/L (136-145)
[2024-10-20 10:06] LABS: Albumin 3.2 g/dL (3.2-4.8)
[2024-10-20 10:10] LABS: Glucose 586 mg/dL (74-106)
[2024-10-20] MEDS: ACCU-CHEK COMFORT CURVE STRIP VI SCH (11:30)
[2024-10-20] MEDS: InsuLIN REG 1unit/0.01ml Soln (100units/ml) SC SCH ×2 (13:56→21:30)
[2024-10-20 16:40] LABS: Chloride 104 mmol/L (98-107); Potassium 4.0 mmol/L (3.5-5.1); Sodium 139 mmol/L (136-145)
[2024-10-20 16:41] LABS: Anion Gap 5 (5-15); Carbon Dioxide 30 mmol/L (20-31)
[2024-10-20 16:46] LABS: BUN/Creatinine Ratio 14.1 (10.0-20.0); Blood Urea Nitrogen 12 mg/dL (9-23)
[2024-10-20 16:47] LABS: Calcium 8.3 mg/dL (8.7-10.4); Glucose 129 mg/dL (74-106)
--- NOTE | 2024-10-20 17:12 | DVHDS2 ---
Discharge Summary Date of Admission Oct 18, 2024 at 15:26 Date of Discharge: Oct 20, 2024 Labs/Diagnostic Data: Laboratory Results Test 10/20/24 16:05 10/20/24 11:37 10/20/24 08:51 10/19/24 06:20 Sodium Level 139 mmol/L (136-145) Potassium Level 4.0 mmol/L (3.5-5.1) Chloride Level 104 mmol/L (98-107) Carbon Dioxide Level 30 mmol/L (20-31) Anion Gap 5 (5-15) Blood Urea Nitrogen 12 mg/dL (9-23) Creatinine 0.85 mg/dL (0.700-1.30) Glomerular Filtration Rate Calc 100 mL/min (>90) BUN/Creatinine Ratio 14.1 (10.0-20.0) Serum Glucose 129 mg/dL (74-106) Calcium Level 8.3 mg/dL (8.7-10.4) POC Glucose > 600 mg/dl (70-106) White Blood Count 9.5 10^3/uL (4.4-10.8) Red Blood Count 4.75 10^6/uL (4.5-5.90) Hemoglobin 16.6 g/dL (13.5-17.5) Hematocrit 48.7 % (41.0-53.0) Mean Corpuscular Volume 102.6 fL (80.0-100.0) Mean Corpuscular Hemoglobin 35.0 pg (28.0-32.0) Mean Corpuscular Hemoglobin Concent 34.1 g/dL (32.0-36.0) Red Cell Distribution Width 14.6 % (11.8-14.3) Platelet Count 122 10^3/uL (140-450) Mean Platelet Volume 9.5 fL (6.9-10.8) Neutrophils (%) (Auto) 94.6 % (37.0-80.0) Lymphocytes (%) (Auto) 1.8 % (10.0-50.0) Monocytes (%) (Auto) 3.5 % (0.0-12.0) Eosinophils (%) (Auto) 0.0 % (0.0-7.0) Basophils (%) (Auto) 0.1 % (0.0-2.0) Neutrophils # (Auto) 9.0 10 ^3/uL (1.6-8.6) Lymphocytes # (Auto) 0.2 10 ^3/uL (0.4-5.4) Monocytes # (Auto) 0.3 10 ^3/uL (0-1.3) Eosinophils # (Auto) 0 10 ^3/uL (0-0.8) Basophils # (Auto) 0 10 ^3/uL (0-0.2) Nucleated Red Blood Cells 0.0 % Magnesium Level 2.0 mg/dL (1.6-2.6) Total Bilirubin 1.0 mg/dL (0.2-1.0) Aspartate Amino Transferase (AST) 45 U/L (13-40) Alanine Aminotransferase (ALT) 29 U/L (7-40) Alkaline Phosphatase 142 U/L (46-116) Total Protein 6.0 g/dL (5.7-8.2) Albumin 3.2 g/dL (3.2-4.8) Blood Gas Specimen Type Arterial Blood Gas Sample Site Right radial Blood Gas Patient Temperature 37.0 Arterial Blood Date Drawn [id number] Arterial Blood pH 7.364 (7.350-7.450) Arterial Blood Partial Pressure CO2 56.0 mmHg (35.0-48.0) Arterial Blood Partial Pressure O2 53.4 mmHg (83.0-108.0) Arterial Blood HCO3 31.2 mmol/L (21.0-28.0) Arterial Blood Oxygen Saturation 85.0 % (94.0-98.0) Arterial Blood Base Excess 3.9 mmol/L (-2.0-3.0) Arterial Blood Oxyhemoglobin 83.5 % (94.0-98.0) Arterial Blood Carboxyhemoglobin 1.4 % (0.5-1.5) Arterial Blood Methemoglobin 0.4 % (0.0-1.5) Reginaldo Test Yes Blood Gas Total Hemoglobin 17.60 g/dL (13.5-17.5) Blood Gas Set Respiration Rate 14.0 Blood Gas Modality Mask - bipap FiO2 % 30.0 Blood Gas EPAP 8 Blood Gas IPAP 18 Blood Gas Critical Value Read Back yes Blood Gas Notified Whom shiva keating Blood Gas Notified Time [id number] Blood Gas Notified By alicia Holland 10/19/24 05:22 10/18/24 19:03 10/18/24 13:26 10/18/24 12:38 Hemoglobin A1c 12.3 % A1C (<5.7) Blood Gas Liter Flow 6.00 Lactic Acid Level 1.7 mmol/L (0.4-2.0) Troponin I High Sensitivity 38 ng/L (</=54) B-Type Natriuretic Peptide 75.95 pg/mL (0-100) Test 10/18/24 12:11 Urine Color Light-yellow (Yellow) Urine Clarity Clear (Clear) Urine pH 5.5 (5.0-9.0) Urine Specific [place] 1.016 (1.001-1.035) Urine Protein 2+ (Negative) Urine Ketones Negative (Negative) Urine Blood Trace /uL (Negative) Urine Nitrite Negative (Negative) Urine Bilirubin Negative (Negative) Urine Urobilinogen Normal mg/dL (Negative) Urine Leukocyte Esterase Negative /uL (Negative) Urine RBC <1 /hpf (0 - 3) Urine Microscopic WBC < 1 /HPF (0-3) Urine Squamous Epithelial Cells None seen /hpf (<5) Urine Bacteria None seen /hpf (None Seen) Urine Glucose 4+ mg/dL (Normal) Other Laboratory Tests 10/20/24 16:05 10/20/24 08:51 Brief Hx & Hospital Course: 59-year-old male with a known history of congestive heart failure, atrial flutter on Xarelto, hypertension, dyslipidemia, severe pulmonary hypertension, COPD, chronic home O2 use, Michael hypoventilation syndrome/sleep apnea, diabetes mellitus type 2, morbid obesity classIII patient presents to the hospital bed shortness of breath found to have antiplatelet started on IV amiodarone. Patient converted to normal sinus rhythm. Patient also has severe pulmonary hypertension and COPD as med. Currently patient is normal Cormier's rhythm cardiology cleared the patient to be discharged. Patient is being discharged in a stable condition. Blood sugars were uncontrolled but currently he is not in DKA. Condition at Discharge: Stable Final Diagnosis/Problems List 59-year-old male with a known history of congestive heart failure, atrial flutter on Xarelto, hypertension, dyslipidemia, severe pulmonary hypertension, COPD, chronic home O2 use, Michael hypoventilation syndrome/sleep apnea, diabetes mellitus type 2, morbid obesity classIII patient presents to the hospital bed shortness 1. Atrial flutter, status post IV amiodarone currently on normal sinus rhythm 2. Chronic congestive heart failure with a diastolic dysfunction currently compensated 3. Hypertension 4. Severe pulmonary hypertension 5. Acute on chronic hypoxic and hypercapnic respiratory failure discontinued noncompliance as patient ran out of oxygen 6. COPD previous history of tobacco use disorder, currently not in exacerbation 7. Obesity hypoventilation syndrome 8. Sleep apnea 9. Morbid obesity classIII -continue beta bernadette, anticoagulation, follow up Cardiology recommendations Discharge Disposition: Home SNF Discharge Will this Physician continue t: No Discharge Instruct/Medications Diet: Cardiac 2g Na,low cholest Activity: No Restrictions, As Tolerated Follow Up/Referral: With the PCP in one week Follow up with the Cardiology in 1-2 weeks. Medications: Resume home medications. Scheduled Cefdinir (Cefdinir), 1 CAP PO BID Ertugliflozin l-Pyroglutamic A (Steglatro), 1 TAB PO DAILY, (Reported) Lisinopril (Lisinopril), 1 TAB PO DAILY, (Reported) Metoprolol Tartrate (Lopressor), 2 PO BID, (Reported) Potassium Chloride (Potassium Chloride ER), 1 TAB PO DAILY, (Reported) Rivaroxaban (Xarelto Tablet), 1 TAB PO DAILY, (Reported) Sildenafil Citrate (Revatio), 20 MG PO TID Torsemide Injection (Torsemide), 1 TAB PO BID, (Reported) Discharge Statement: "Patient was advised to return to the ER or call 911 if any headaches, dizziness, shortness of breath, chest pain, abdominal pain, bleeding, fevers, or worsening of medical condition. Patient was counseled about treatment plan, medications, possible side effects, patientverbalized understanding. All questions were answered to the best of my ability. This discharge took greater then 30 minutes in planning, reviewing documentation, counseling the patient, and discussing with other team members." ASSESSMENT ASSESSMENT Assessment 59-year-old male with a known history of congestive heart failure, atrial flutter on Xarelto, hypertension, dyslipidemia, severe pulmonary hypertension, COPD, chronic home O2 use, Michael hypoventilation syndrome/sleep apnea, diabetes mellitus type 2, morbid obesity classIII patient presents to the hospital bed shortness 1. Atrial flutter, status post IV amiodarone currently on normal sinus rhythm 2. Chronic congestive heart failure with a diastolic dysfunction currently compensated 3. Hypertension 4. Severe pulmonary hypertension 5. Acute on chronic hypoxic and hypercapnic respiratory failure discontinued noncompliance as patient ran out of oxygen 6. COPD previous history of tobacco use disorder, currently not in exacerbation 7. Obesity hypoventilation syndrome 8. Sleep apnea 9. Morbid obesity classIII -continue beta bernadette, anticoagulation, follow up Cardiology recommendations Date of Service: Oct 20, 2024 Billing Provider: JAMSHID BUI MD Common Visit Codes: 40747-TFO/OBS DISCH DAY >30min JAMSHID BUI MD Oct 20, 2024 17:12
[2024-10-20] MEDS ORDERED: AMIO200T13 PO (18:27)
[2024-10-20] MEDS: INSULIN LANTUS (GLARGINE) 1 /0.01ml (100units/ml) SC ONE (22:41)
== END 2024-10-20 22:57 | disposition home or self-care (01) | DRG 189 ==
LOC: ER 11:38 → OVERFLOW 15:26 → EAST 10-19 03:01
PROVIDERS: ADMIT Internal Medicine; ATTEND Internal Medicine
PROC: 5A09357 Assistance with Respiratory Ventilation, Less than 24 Consecutive Hours, Continuous Positive Airway Pressure (ICD-10-PCS; principal; 2024-10-18)
PROC: 5A09357 Assistance with Respiratory Ventilation, Less than 24 Consecutive Hours, Continuous Positive Airway Pressure (ICD-10-PCS; 2024-10-19)
PROC: 5A09357 Assistance with Respiratory Ventilation, Less than 24 Consecutive Hours, Continuous Positive Airway Pressure (ICD-10-PCS; 2024-10-20)
DX: J96.21 Acute and chronic respiratory failure with hypoxia (principal); G93.41 Metabolic encephalopathy; E87.0 Hyperosmolality and hypernatremia; I48.92 Unspecified atrial flutter; J44.1 Chronic obstructive pulmonary disease with (acute) exacerbation; E66.2 Morbid (severe) obesity with alveolar hypoventilation; Z68.42 Body mass index [BMI] 45.0-49.9, adult; I50.32 Chronic diastolic (congestive) heart failure; J96.22 Acute and chronic respiratory failure with hypercapnia; I27.20 Pulmonary hypertension, unspecified; I48.91 Unspecified atrial fibrillation; E11.65 Type 2 diabetes mellitus with hyperglycemia; D75.1 Secondary polycythemia; I11.0 Hypertensive heart disease with heart failure; E78.5 Hyperlipidemia, unspecified; Z87.891 Personal history of nicotine dependence; Z79.01 Long term (current) use of anticoagulants; Z79.4 Long term (current) use of insulin; Z99.81 Dependence on supplemental oxygen; Z91.199 Patient's noncompliance with other medical treatment and regimen due to unspecified reason; Z90.49 Acquired absence of other specified parts of digestive tract; Z79.899 Other long term (current) drug therapy
CPT/HCPCS: 36415; 36600; 71045; 80048; 80053; 81001; 82805; 82947; 82962; 83036; 83605; 83735; 83880; 84484; 85025; 87040; 87081; 93005; 94640; 94660; 96374; 96375; G0378; J1815; J2470

== ENCOUNTER 2024-12-29 15:53 | Inpatient (IN) | payer MEDICARE, MEDICAID ==
[~2024-12-29] VITALS: Ht 154.9 cm; Wt 117.5 kg
[~2024-12-29 15:53] MED LIST changes: +AMIO200T13 PO; -CEFD300C2 PO; +FAMO-12 PO
[2024-12-29 16:36] VITALS: PULSE 76; RESP 26; O2SAT 93
[2024-12-29] MEDS: IPRATROPIUM BROM 0.5 MG/2.5ML INH SOL NEB ONE (16:56)
[2024-12-29] MEDS: ALBUTEROL SULF 2.5 MG/0.5ML(0.5%) NEB SOLN NEB ONE (16:56)
--- NOTE | 2024-12-29 17:17 | ECG ---
[facility] Date: 2024-12-29 Test Time: 16:30:55 Pat Name: DAKOTAH SOLIS Department: [facility] ED Patient ID: [id number] Room: [address] [place] [address] Gender: M Service Aide: CAITLIN : 1965 Requested By: PIYUSH STEPHENS Order Number: [id number] Reading MD: Agusto Johansen Measurements Intervals [place] Rate: 79 P: -16 IN: 146 QRS: 77 QRSD: 99 T: 33 QT: 397 QTc: 456 Interpretive Statements Sinus rhythm RSR' in V1 or V2, right VCD or RVH Electronically Signed On 12-29-2024 20:43:28 PDT by Agusto Johansen Please click the below link to view image of tracing.
[2024-12-29 17:30] LABS: Nucleated Red Blood Cells % 0.1 %
[2024-12-29 17:31] LABS: Urine Protein, UAD 1+ (Negative)
[2024-12-29 17:32] LABS: Hematocrit 37.1 % (41.0-53.0); Hemoglobin 12.3 g/dL (13.5-17.5); Mean Corpuscular Hemoglobin 34.4 pg (28.0-32.0); Mean Corpuscular Volume 104.0 fL (80.0-100.0)
--- NOTE | 2024-12-29 17:41 | DVH ---
EXAM: XY CHEST PORTABLE CLINICAL HISTORY: Cough/shortness of breath TECHNIQUE: Single AP view of the chest WID: COMPARISON: XR CHEST 1 VIEW on DOS: 12/11/24 FINDINGS: Lines and tubes: None Chest: Cardiomegaly and prominence of the central pulmonary vasculature. No definite pneumothorax or definite pleural effusion. Mild bibasilar mixed opacities. The osseous structures are grossly intact. IMPRESSION: 1. Cardiomegaly and pulmonary vascular congestion. 2. Mild bibasilar mixed opacities which may be accentuated due to overlying soft tissue, atelectasis, or pneumonia.
[2024-12-29 17:49] LABS: Chloride 101 mmol/L (98-107); Potassium 4.6 mmol/L (3.5-5.1); Sodium 139 mmol/L (136-145)
[2024-12-29 17:50] LABS: Anion Gap 6 (5-15)
[2024-12-29] MEDS: InsuLIN REG 1unit/0.01ml Soln (100units/ml) IV ONE (17:50)
[2024-12-29 17:51] LABS: Calcium 8.7 mg/dL (8.7-10.4)
[2024-12-29] MEDS: SODIUM CHLORIDE 0.9% 1,000 ML IV ONE (17:52)
[2024-12-29 17:56] LABS: BUN/Creatinine Ratio 16.4 (10.0-20.0); Blood Urea Nitrogen 22 mg/dL (9-23)
[2024-12-29 18:08] LABS: Carbon Dioxide 32 mmol/L (20-31)
[2024-12-29 18:11] LABS: Glucose 664 mg/dL (74-106)
--- NOTE | 2024-12-29 18:26 | ED.PDOC ---
SOB-HPI HPI Comments This patient is a 59-year-old severely morbidly obese male who arrives the ED today via EMS due to complaints of shortness a breath and cough for the past several days. Patient gives a recent relevant history of moving from [place] a proximally two months ago. Patient states that he had tested positive for TB in received an unknown course of antibiotics in [place]. Patient states it subsequent to arriving in [place], he was seen at [place] [facility] and treated again for TB related concerns again. Patient can not confirm nor deny continue TB events nor kidney confirm chest x-ray resolution of TB. EMS states the patient was satting at 88% on room air at arrival. Patient is a 4 L of O2 and satting at 93%. Additionally complaints of elevated blood sugar were noted as the patient is a poorly controlled diabetic. Patient has a mild fever, was tachycardic and tachypneic at arrival. No accessory muscle use has a patient was on O2. 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 treatment: Public Address Servicer Modifying Factors: Nothing Associated Signs and Symptoms: Fever, Cough Quality: Heavy, Tightness If cough with SOB: Non-Productive Past Medical History PAST MEDICAL HISTORY: CHF, COPD, DM, HTN Surgical History: Denies all surgeries Family History Family History: Reviewed,noncontributory to illness, No family hx of Cancer, No family hx of DM, No family hx of Heart bhavik, No family hx of HTN, No family hx ofKidney bhavik, No family hx of Liver bhavik, No family hx of Lung bhavik, No family hx of Stroke Social History Smoker: Quit Greater Than 1 Year Alcohol: Denies ETOH Use Drugs: Denies Drug Use Lives In: Home Constitutional: reports: fever, weakness; denies: chills, diaphoresis, fatigue, malaise, sweats, others EENTM: denies: blurred vision, double vision, ear bleeding, ear discharge, ear drainage, ear pain, ear ringing, eye pain, eye redness, hearing loss, mouth pain , mouth swelling, nasal discharge, nose bleeding, nose congestion, nose pain, photophobia, tearing, throat pain, throat swelling, voice changes, others Respiratory: reports: SOB at rest; denies: cough, hemoptysis, orthopnea, shortness of breath, SOB with excertion, stridor, wheezing, others Cardiovascular: reports: chest pain; denies: dizzy spells, diaphoresis, Dyspnea on exertion, edema, irregular heart beat, left arm pain, lightheadedness, palpitations, PND, syncope, others Gastrointestinal: denies: abdomen distended, abdominal pain, blood streaked bowels, constipated, diarrhea, dysphagia, difficulty swallowing, hematemesis, melena, nausea, poor appetite, poor fluid intake, rectal bleeding, rectal pain, vomiting, others Genitourinary: denies: burning, dysuria, flank pain, frequency, hematuria, incontinence, penile discharge, penile sore, pain, testicle pain, testicle swelling, urgency, others Neurological: denies: dizziness, fainting, headache, left sided numbness, left sided weakness, numbness, paresthesia, pre-existing deficit, right sided numbness, right sided weakness, seizure, speech problems, tingling, tremors, weakness, others Musculoskeletal: denies: back pain, gout, joint pain, joint swelling, muscle pain, muscle stiffness, neck pain, others Integumetry: denies: bruises, change in color, change in hair/nails, dryness, laceration, lesions, lumps, rash, wounds, others Allergic/Immunocompromised: denies: Difficulty Healing, Frequent Infections, Hives, Itching, others Hematologic/Lymphatic: denies: anemia, blood clots, easy bleeding, easy bruising, swollen glands, others Endocrine: denies: excessive hunger, excessive sweating, excessive thirst, excessive urination, flushing, intolerance to cold, intolerance to heat, unexplained weight gain, unexplained weight loss, others Psychiatric: denies: anxiety, bipolar disorder, depression, hopeless, panic disorder, schizophrenia, sleepless, suicidal, others Physical Exam General Appearance: Moderate Distress (Patient appears to be in poor overall health.), Obese HEENT: Normal ENT Inspection, Pharynx Normal, TMs Normal Neck: Full Range of Motion, Non-Tender, Normal, Normal Inspection Respiratory: Other (Patchy rhonchi with multiple areas of patchy wheezing noted globally throughout auscultation bilateral lung durán. Patient displays some work with the breathing. No definitive accessory muscle use.) Cardiovascular: No Edema, No JVD, No Murmur, No Gallop, Normal Peripheral Pulses, Regular Rate/Rhythm Breast Exam: Deferred Gastrointestinal: No Organomegaly, Non Tender, No Pulsatile Mass, Normal Bowel Sounds, Soft Genitalia: Deferred Pelvic: Deferred Rectal: Deferred Extremities: Non-tender Neurologic: Alert Cerebellar Function: NOT DONE Reflexes: NOT DONE Skin: Dry, Normal Color, Warm Lymphatic: No Adenopathy Was a procedure done? Was a procedure done?: No Differential Dx Differential Diagnosis: Anxiety, Asthma, Bronchitis, CHF, COPD, Pneumonia, URI X-Ray, Labs, Meds, VS Vital Signs Date Time Temp Pulse Resp B/P (MAP) Pulse Ox O2 Delivery O2 Flow Rate FiO2 12/29/24 16:58 18 92 Nasal Cannula* 4 36 12/29/24 16:34 79 12/29/24 15:57 100.7 82 24 145/69 91 100.7 Lab Test 12/29/24 17:15 12/29/24 16:22 Range/Units White Blood Count 4.2 L 4.4-10.8 10^3/uL Red Blood Count 3.57 L 4.5-5.90 10^6/uL Hemoglobin 12.3 L 13.5-17.5 g/dL Hematocrit 37.1 L 41.0-53.0 % Mean Corpuscular Volume 104.0 H 80.0-100.0 fL Mean Corpuscular Hemoglobin 34.4 H 28.0-32.0 pg Mean Corpuscular Hemoglobin Concent 33.1 32.0-36.0 g/dL Red Cell Distribution Width 15.6 H 11.8-14.3 % Platelet Count 111 L 140-450 10^3/uL Mean Platelet Volume 9.4 6.9-10.8 fL Neutrophils (%) (Auto) 73.8 37.0-80.0 % Lymphocytes (%) (Auto) 12.3 10.0-50.0 % Monocytes (%) (Auto) 11.4 0.0-12.0 % Eosinophils (%) (Auto) 1.9 0.0-7.0 % Basophils (%) (Auto) 0.6 0.0-2.0 % Neutrophils # (Auto) 3.1 1.6-8.6 10 ^3/uL Lymphocytes # (Auto) 0.5 0.4-5.4 10 ^3/uL Monocytes # (Auto) 0.5 0-1.3 10 ^3/uL Eosinophils # (Auto) 0.1 0-0.8 10 ^3/uL Basophils # (Auto) 0 0-0.2 10 ^3/uL Nucleated Red Blood Cells 0.1 % D-Dimer, Quantitative 0.79 H 0.0-0.49 mg/L FEU Sodium Level 139 136-145 mmol/L Potassium Level 4.6 3.5-5.1 mmol/L Chloride Level 101 98-107 mmol/L Carbon Dioxide Level 32 H 20-31 mmol/L Anion Gap 6 5-15 Blood Urea Nitrogen 22 9-23 mg/dL Creatinine 1.34 H 0.700-1.30 mg/dL Glomerular Filtration Rate Calc 61 >90 mL/min BUN/Creatinine Ratio 16.4 10.0-20.0 Serum Glucose 664 *H 74-106 mg/dL Calcium Level 8.7 8.7-10.4 mg/dL Troponin I High Sensitivity 12 </=54 ng/L B-Type Natriuretic Peptide 247.37 0-100 pg/mL Urine Color Light-yellow Yellow Urine Clarity Clear Clear Urine pH 6.0 5.0-9.0 Urine Specific [place] 1.026 1.001-1.035 Urine Protein 1+ H Negative Urine Ketones Negative Negative Urine Blood Negative Negative /uL Urine Nitrite Negative Negative Urine Bilirubin Negative Negative Urine Urobilinogen Normal Negative mg/dL Urine Leukocyte Esterase Negative Negative /uL Urine RBC 1 0 - 3 /hpf Urine Microscopic WBC < 1 0-3 /HPF Urine Squamous Epithelial Cells None seen <5 /hpf Urine Bacteria None seen None Seen /hpf Urine Glucose 4+ H Normal mg/dL Current Medications Medications (Trade) Dose Ordered Sig/Deondre Route Start Time Stop Time Status Last Admin Albuterol (Ventolin Medneb) 5 mg ONCE ONCE NEB 12/29/24 17:00 12/29/24 17:01 DC 12/29/24 16:56 Ipratropium [place] (Atrovent Medneb) 0.5 mg ONCE ONCE NEB 12/29/24 17:00 12/29/24 17:01 DC 12/29/24 16:56 Dexamethasone Sodium Phosphate (Decadron Injection) 10 mg ONCE ONCE IV 12/29/24 17:00 12/29/24 17:01 DC 12/29/24 17:37 Sodium Chloride 1,000 ml @ 200 mls/hr Q5H ONCE IV 12/29/24 17:00 12/29/24 21:59 12/29/24 17:52 Insulin Human Regular (InsuLIN R) 15 units ONCE ONCE IV 12/29/24 17:45 12/29/24 17:46 DC 12/29/24 17:50 X-Ray, Labs, Meds, VS Comment All studies performed the ED were evaluated by me personally. Serum studies revealed a mild anemia, thrombocytopenia, significant hyperglycemic state as well as elevated BNP indicative of a CHF exacerbation and mildly elevated D- dimer. EKG revealed a sinus rhythm with a rate of 79. RSR in multiple leads as well as a VA interval of 146 and a QT interval of 397. Chest x-ray reveals some consolidation in lower lobes indicative of an ammonia. Patient will be placed for an admission for acute respiratory distress secondary to pneumonia diagnosis. Multiple test pending at time of this note. Time of 1ST Reevaluation: 18:24 Reevaluation 1ST: Improved Consultation: PCP Patient Education/Counseling: Diagnosis, Treatment Family Education/Counseling: Diagnosis, Treatment SEPSIS Sepsis Screen Date sepsis recognized/suspect: Dec 29, 2024 Time Sepsis recognized/suspect: 1557 Recent Procedure: No On Antibiotic Therapy: No Respiratory Rate >20: Yes Heart Rate >90: No Temp<36 C (96.8 F) or >38.3 C: Yes SBP <90 or MAP <65 mmHG: No New Acute Mental Status Change: No Is the patient on CPAP, BIPAP,: No Physician Orders Chest Portable (12/29/24 16:46) Heplock Iv (12/29/24 16:46) Continuous Ekg Monitoring 08,12,16,20,00,04 (12/29/24 16:46) Sodium Chloride 0.9% (12/29/24 17:00) Accucheck (12/29/24 16:46) Azithromycin 500mg/ 250ml (Zithromax 50 (12/29/24 18:15) Vital Signs Date Time Temp Pulse Resp B/P (MAP) Pulse Ox O2 Delivery O2 Flow Rate FiO2 12/29/24 16:58 18 92 Nasal Cannula* 4 36 12/29/24 16:34 79 12/29/24 15:57 100.7 82 24 145/69 91 100.7 Laboratory Tests Test 12/29/24 17:15 White Blood Count 4.2 10^3/uL (4.4-10.8) L Medications Medications Dose Ordered Sig/Deondre Route Start Time Stop Time Status Last Admin Dose Admin Albuterol 5 mg ONCE ONCE NEB 12/29/24 17:00 12/29/24 17:01 DC 12/29/24 16:56 Dexamethasone Sodium Phosphate 10 mg ONCE ONCE IV 12/29/24 17:00 12/29/24 17:01 DC 12/29/24 17:37 Insulin Human Regular 15 units ONCE ONCE IV 12/29/24 17:45 12/29/24 17:46 DC 12/29/24 17:50 Ipratropium [place] 0.5 mg ONCE ONCE NEB 12/29/24 17:00 12/29/24 17:01 DC 12/29/24 16:56 Sodium Chloride 1,000 ml @ 200 mls/hr Q5H ONCE IV 12/29/24 17:00 12/29/24 21:59 12/29/24 17:52 Departure 1 Departure Time of Disposition: 18:25 Impression: Primary Impression: Acute respiratory distress Additional Impressions: Pneumonia Hyperglycemia due to diabetes mellitus Acute exacerbation of CHF (congestive heart failure) Anemia Thrombocytopenia Elevated d-dimer Disposition: ADMITTED INPATIENT Condition: Fair Discharged With: Self Critical Care Note Critical Care Time?: No Stability Stability form required: No Heart Score Heart Score: Heart Score Response (Comments) Value History Slightly Suspicious 0 EKG Normal 0 Age 45-64 1 Risk Factors 1 or 2 risk factors 1 Troponin Normal limit 0 Total 2 PIYUSH STEPHENS PAC Dec 29, 2024 18:26
[2024-12-29 18:38] LABS: Base Excess 2.7 mmol/L (-2.0-3.0)
[2024-12-29] MEDS: ACETAMINOPHEN 500 MG TAB or CAP PO ONE (19:12)
[2024-12-29] MEDS: AZITHROMYCIN 500MG/ 250ML 250 ML IV ONE (19:12)
[2024-12-29] MEDS ORDERED: ONDANSETRON HCL 4 MG/2 ML VIAL IV PRN (20:30)
[2024-12-29] MEDS ORDERED: ACETAMINOPHEN 325 MG TAB PO PRN (20:30)
[2024-12-29] MEDS ORDERED: MORPHINE SULFATE INJ 2 MG/ml SYRG IV PRN ×2 (20:30)
[2024-12-29] MEDS ORDERED: NITROGLYCERIN 0.4 MG SL TAB SL PRN (20:30)
[2024-12-29] MEDS ORDERED: DEXTROSE (50%) 50ML SYRG IV PRN (20:45)
--- NOTE | 2024-12-29 21:04 | DVHHPRES ---
History of Present Illness Resident Creating Document: REID ESTEBAN RESIDENT History of Present Illness 59-year-old severely morbidly obese male who arrives the ED today via EMS due to complaints of shortness a breath and cough for the past several days. Patient gives a recent relevant history of moving from [place] a proximally two months ago. Patient states that he had tested positive for TB in received an unknown course of antibiotics in [place]. Patient states it subsequent to arriving in [place], he was seen at [facility] and treated again for TB related concerns again. Patient can not confirm nor deny continue TB events nor kidney confirm chest x-ray resolution of TB. EMS states the patient was satting at 88% on room air at arrival. Patient is a 4 L of O2 and satting at 93%. Additionally complaints of elevated blood sugar were noted as the patient is a poorly controlled diabetic. Patient has a mild fever, was tachycardic and tachypneic at arrival. The patient has a known history of COPD and heart failure, requiring home oxygen therapy at 4 liters continuously, sometimes reduced to 3 liters. He reports chronic lung problems with fluid buildup and has been advised to limit his water intake to no more than 50 ounces per day due to his heart condition. He has a history of tuberculosis but denies current TB treatment. His diabetes was noted to be poorly controlled with a blood sugar level of over 600 at presentation. Past Medical History - COPD (chronic obstructive pulmonary disease) - Heart failure with leg edema and lung congestion - Diabetes mellitus with history of blood sugar elevation to 600s - History of tuberculosis - Previous episode of syncope in restroom with concern for stroke - Requires home oxygen therapy at 4 liters continuously Past Social History - Substance Use: Former smoker, quit at age 22 after smoking 1-2 cigarettes per day; denies current smoking Review of Systems Review of Systems CONSTITUTIONAL: Denies weight loss, fever and chills. HEENT: Denies changes in vision and hearing. RESPIRATORY: Complains of shortness of breath CV: Denies palpitations and chest pain. GI: Denies abdominal pain, nausea, vomiting and diarrhea. : Denies dysuria and urinary frequency. MSK: Denies myalgia and joint pain. SKIN: Denies rash and pruritus. NEUROLOGICAL: Denies headache Allergies: Coded Allergies: NO KNOWN ALLERGIES (Unverified , 06/08/24) Medications Current Medications Medications Dose Ordered Sig/Deondre Route Start Time Stop Time Status Last Admin Dose Admin Sodium Chloride 10 ml Q8HR IV 12/29/24 22:00 Ondansetron HCl 4 mg Q4HP PRN IV 12/29/24 20:30 Acetaminophen 650 mg Q6HP PRN PO 12/29/24 20:30 Morphine Sulfate 2 mg Q4HPRN PRN IV 12/29/24 20:30 Enoxaparin Sodium 40 mg DAILY SC 12/30/24 09:00 Nitroglycerin 0.4 mg Q5MINP PRN SL 12/29/24 20:30 Morphine Sulfate 2 mg Q30M PRN IV 12/29/24 20:30 Amiodarone HCl 200 mg Q12HR PO 12/29/24 22:00 Lisinopril 5 mg DAILY PO 12/30/24 10:00 Metoprolol Tartrate 25 mg BID PO 12/29/24 22:00 Ceftriaxone Sodium 50 ml @ 100 mls/hr DAILY IV 12/30/24 10:00 Diagnostic Test (Pha) 1 strip ACHS 12/29/24 22:00 Insulin Human Regular AC SC 12/30/24 07:00 Insulin Human Regular HS SC 12/29/24 22:00 Dextrose 50 ml UD PRN IV 12/29/24 20:45 Azithromycin 250 ml @ 125 mls/hr DAILY IV 12/30/24 10:00 Exam Vital Signs Vital Signs Date Time Temp Pulse Resp B/P (MAP) Pulse Ox O2 Delivery O2 Flow Rate FiO2 12/29/24 19:30 98.1 76 16 138/59 (85) 90 98.1 12/29/24 16:58 Nasal Cannula* 4 36 Exam GENERAL: Not in acute distress. HEENT: EOMI, Moist mucous membranes. No scleral icterus. No cervical lymphadenopathy. LUNGS: Decreased breath sound on auscultation CARDIOVASCULAR: Regular rate and rhythm. No murmur. No JVD. ABDOMEN: Soft, nontender and nondistended. No palpable masses. EXTREMITIES: No edema. Nontender. SKIN: No rashes or lesions. Warm. NEUROLOGIC: Alert and oriented X3 Labs/Xrays Labs Test 12/29/24 18:32 12/29/24 17:15 12/29/24 16:22 Range/Units Blood Gas Specimen Type Arterial Blood Gas Sample Site Right radial Blood Gas Patient Temperature 37.0 Arterial Blood Date Drawn [id number] Arterial Blood pH 7.354 7.350-7.450 Arterial Blood Partial Pressure CO2 53.9 H 35.0-48.0 mmHg Arterial Blood Partial Pressure O2 70.2 L 83.0-108.0 mmHg Arterial Blood HCO3 29.4 H 21.0-28.0 mmol/L Arterial Blood Oxygen Saturation 92.0 L 94.0-98.0 % Arterial Blood Base Excess 2.7 -2.0-3.0 mmol/L Arterial Blood Oxyhemoglobin 90.6 L 94.0-98.0 % Arterial Blood Carboxyhemoglobin 1.1 0.5-1.5 % Arterial Blood Methemoglobin 0.4 0.0-1.5 % Reginaldo Test Yes Blood Gas Total Hemoglobin 13.40 L 13.5-17.5 g/dL Blood Gas Liter Flow 4.00 Blood Gas Modality Nasal cannula FiO2 % 36.0 White Blood Count 4.2 L 4.4-10.8 10^3/uL Red Blood Count 3.57 L 4.5-5.90 10^6/uL Hemoglobin 12.3 L 13.5-17.5 g/dL Hematocrit 37.1 L 41.0-53.0 % Mean Corpuscular Volume 104.0 H 80.0-100.0 fL Mean Corpuscular Hemoglobin 34.4 H 28.0-32.0 pg Mean Corpuscular Hemoglobin Concent 33.1 32.0-36.0 g/dL Red Cell Distribution Width 15.6 H 11.8-14.3 % Platelet Count 111 L 140-450 10^3/uL Mean Platelet Volume 9.4 6.9-10.8 fL Neutrophils (%) (Auto) 73.8 37.0-80.0 % Lymphocytes (%) (Auto) 12.3 10.0-50.0 % Monocytes (%) (Auto) 11.4 0.0-12.0 % Eosinophils (%) (Auto) 1.9 0.0-7.0 % Basophils (%) (Auto) 0.6 0.0-2.0 % Neutrophils # (Auto) 3.1 1.6-8.6 10 ^3/uL Lymphocytes # (Auto) 0.5 0.4-5.4 10 ^3/uL Monocytes # (Auto) 0.5 0-1.3 10 ^3/uL Eosinophils # (Auto) 0.1 0-0.8 10 ^3/uL Basophils # (Auto) 0 0-0.2 10 ^3/uL Nucleated Red Blood Cells 0.1 % D-Dimer, Quantitative 0.79 H 0.0-0.49 mg/L FEU Sodium Level 139 136-145 mmol/L Potassium Level 4.6 3.5-5.1 mmol/L Chloride Level 101 98-107 mmol/L Carbon Dioxide Level 32 H 20-31 mmol/L Anion Gap 6 5-15 Blood Urea Nitrogen 22 9-23 mg/dL Creatinine 1.34 H 0.700-1.30 mg/dL Glomerular Filtration Rate Calc 61 >90 mL/min BUN/Creatinine Ratio 16.4 10.0-20.0 Serum Glucose 664 *H 74-106 mg/dL Calcium Level 8.7 8.7-10.4 mg/dL Troponin I High Sensitivity 12 </=54 ng/L B-Type Natriuretic Peptide 247.37 0-100 pg/mL Beta-Hydroxybutyric Acid 0.162 < 0.4 mmol/L Urine Color Light-yellow Yellow Urine Clarity Clear Clear Urine pH 6.0 5.0-9.0 Urine Specific [place] 1.026 1.001-1.035 Urine Protein 1+ H Negative Urine Ketones Negative Negative Urine Blood Negative Negative /uL Urine Nitrite Negative Negative Urine Bilirubin Negative Negative Urine Urobilinogen Normal Negative mg/dL Urine Leukocyte Esterase Negative Negative /uL Urine RBC 1 0 - 3 /hpf Urine Microscopic WBC < 1 0-3 /HPF Urine Squamous Epithelial Cells None seen <5 /hpf Urine Bacteria None seen None Seen /hpf Urine Glucose 4+ H Normal mg/dL SEPSIS Sepsis Screen Date sepsis recognized/suspect: Dec 29, 2024 Time Sepsis recognized/suspect: 1557 Recent Procedure: No On Antibiotic Therapy: No Respiratory Rate >20: Yes Heart Rate >90: No Temp<36 C (96.8 F) or >38.3 C: Yes SBP <90 or MAP <65 mmHG: No New Acute Mental Status Change: No Is the patient on CPAP, BIPAP,: No Physician Orders Chest Portable (12/29/24 16:46) Heplock Iv (12/29/24 16:46) Electrocardigram (12/29/24 16:46) Continuous Ekg Monitoring 08,12,16,20,00,04 (12/29/24 16:46) Sodium Chloride 0.9% (12/29/24 17:00) Accucheck (12/29/24 16:46) Abg W/ Co-Ox (12/29/24 18:21) Admit (12/29/24 20:16) Code Status (12/29/24 20:16) Sodium Chloride Lock (Saline Lock Ns) (12/29/24 22:00) Oxygen Per Hour (12/29/24 20:16) Ondansetron Hcl (Zofran) (12/29/24 20:30) Complete Blood Count (12/30/24 04:00) Comprehensive Metabolic Panel (12/30/24 04:00) Cardiac Diet-2gna,Lofat,Lochol (12/30/24 Breakfast) Acetaminophen Tablet (Tylenol Tablet) (12/29/24 20:30) Morphine Sulfate Injection (12/29/24 20:30) Enoxaparin Sodium (Lovenox) (12/30/24 09:00) Nitroglycerin Sublingual (Ntrostat Subli (12/29/24 20:30) Morphine Sulfate Injection (12/29/24 20:30) Oxygen By Nasal Cannula (12/29/24 20:16) Stat Ekg For Chest Pain (12/29/24 20:16) Notify Of Changes From Base (12/29/24 20:16) Knowledge Architect For 24 Hours (12/29/24 20:16) Emergency Dysrhythmia Protocol (12/29/24 20:16) Rhythm Strips Once Every Shift (12/29/24 20:16) Amiodarone Tablet (Cordarone Tablet) (12/29/24 22:00) Lisinopril Tablet (Zestril Tablet) (12/30/24 10:00) Metoprolol Tartrate Tablet (Lopressor Ta (12/29/24 22:00) Ceftriaxone 1gm/50ml (Rocephin) (12/30/24 10:00) Glucose Blood (Accu-Chek Comfort Curve T (12/29/24 22:00) Insulin R (Human) (Insulin R) (12/30/24 07:00) Insulin R (Human) (Insulin R) (12/29/24 22:00) Dextrose 50% Syringe (12/29/24 20:45) Azithromycin 500mg/ 250ml (Zithromax 50 (12/30/24 10:00) Vital Signs Date Time Temp Pulse Resp B/P (MAP) Pulse Ox O2 Delivery O2 Flow Rate FiO2 12/29/24 19:30 98.1 76 16 138/59 (85) 90 98.1 12/29/24 19:12 100.7 12/29/24 16:58 18 92 Nasal Cannula* 4 36 12/29/24 16:36 100.7 76 26 148/73 (98) 93 100.7 12/29/24 16:36 76 26 93 Nasal Cannula* 4 36 12/29/24 16:34 79 12/29/24 15:57 100.7 82 24 145/69 91 100.7 Laboratory Tests Test 12/29/24 17:15 White Blood Count 4.2 10^3/uL (4.4-10.8) L Medications Medications Dose Ordered Sig/Deondre Route Start Time Stop Time Status Last Admin Dose Admin Acetaminophen 1,000 mg ONCE ONCE PO 12/29/24 18:30 12/29/24 18:31 DC 12/29/24 19:12 1,000 MG Albuterol 5 mg ONCE ONCE NEB 12/29/24 17:00 12/29/24 17:01 DC 12/29/24 16:56 5 MG Azithromycin 250 ml @ 125 mls/hr ONCE ONCE IV 12/29/24 18:15 12/29/24 20:14 DC 12/29/24 19:12 125 MLS/HR Dexamethasone Sodium Phosphate 10 mg ONCE ONCE IV 12/29/24 17:00 12/29/24 17:01 DC 12/29/24 17:37 10 MG Insulin Human Regular 15 units ONCE ONCE IV 12/29/24 17:45 12/29/24 17:46 DC 12/29/24 17:50 15 UNITS Ipratropium [place] 0.5 mg ONCE ONCE NEB 12/29/24 17:00 12/29/24 17:01 DC 12/29/24 16:56 0.5 MG Sodium Chloride 1,000 ml @ 200 mls/hr Q5H ONCE IV 12/29/24 17:00 12/29/24 21:59 12/29/24 17:52 200 MLS/HR Assessment/Plan Assessment/Plan # acute hypoxic respiratory failure due to pneumonia # Gram-positive/Gram-negative bacterial pneumonia # community-acquired pneumonia - Chest x-ray shows : Mild bibasilar mixed opacities which may be accentuated due to overlying soft tissue, atelectasis, or pneumonia - continue IV ceftriaxone and IV azithromycin # Type 2 diabetes with Hyperglycemia - initial blood glucose was 660 - continue sliding scale insulin # COPD exacerbation -antibiotic azithromycin - Continue oxygen therapy - Breathing treatments # AFib - continue Xarelto -continue amiodarone -continue metoprolol # acute congestive heart failure, HFpEF - BNP was 247 - continue GDM T as tolerated - last echo on 07/27/2024 shows: EF 55% mild LVH Goals of care discussed with patient for 31 minutes: FULL CODE STATUS Plan discussed with Dr. Kraft Plan discussed with: Patient My Orders Orders - REID ESTEBAN RESIDENT Procedure Category Date Status Time Admit ADMIT 12/29/24 Transmitted 20:16 Code Status CODE 12/29/24 Transmitted 20:16 Sodium Chloride Lock PHA 12/29/24 In Process (Saline Lock Ns) 22:00 Oxygen Per Hour RT 12/29/24 Transmitted 20:16 Ondansetron Hcl PHA 12/29/24 In Process (Zofran) 20:30 Complete Blood Count LAB 12/30/24 Verified 04:00 Comprehensive LAB 12/30/24 Verified Metabolic Panel 04:00 Cardiac DIET 12/30/24 Transmitted Diet-2gna,Lofat,Lochol Breakfast Acetaminophen Tablet PHA 12/29/24 In Process (Tylenol Tablet) 20:30 Morphine Sulfate PHA 12/29/24 In Process Injection 20:30 Enoxaparin Sodium PHA 12/30/24 In Process (Lovenox) 09:00 Nitroglycerin PHA 12/29/24 In Process Sublingual (Ntrostat 20:30 Morphine Sulfate PHA 12/29/24 In Process Injection 20:30 Oxygen By Nasal RT 12/29/24 Transmitted Cannula 20:16 Stat Ekg For Chest ROSARIO 12/29/24 In Process Pain 20:16 Notify Of Changes [facility] 12/29/24 In Process From Base 20:16 Knowledge Architect For ROSARIO 12/29/24 In Process 24 Hours 20:16 Emergency Dysrhythmia [facility] 12/29/24 In Process Protocol 20:16 Rhythm Strips Once [facility] 12/29/24 In Process Every Shift 20:16 Amiodarone Tablet PHA 12/29/24 In Process (Cordarone Tablet) 22:00 Lisinopril Tablet PHA 12/30/24 In Process (Zestril Tablet) 10:00 Metoprolol Tartrate PHA 12/29/24 In Process Tablet (Lopressor Ta 22:00 Ceftriaxone 1gm/50ml PHA 12/30/24 In Process (Rocephin) 10:00 Glucose Blood PHA 12/29/24 In Process (Accu-Chek Comfort 22:00 Insulin R (Human) PHA 12/30/24 In Process (Insulin R) 07:00 Insulin R (Human) PHA 12/29/24 In Process (Insulin R) 22:00 Dextrose 50% Syringe PHA 12/29/24 In Process 20:45 Azithromycin 500mg/ PHA 12/30/24 In Process 250ml (Zithromax 50 10:00 Date of Service: Dec 29, 2024 Billing Provider: ALFRED KRAFT MD Common Visit Codes: [id number] INP/OBS CARE (HIGH) Secondary Visit Codes: [id number] CARE PLAN 30 MINUTES REID ESTEBAN RESIDENT Dec 29, 2024 21:04
[2024-12-29] MEDS: InsuLIN REG 1unit/0.01ml Soln (100units/ml) SC SCH (22:05)
[2024-12-29] MEDS: AMIODARONE HCL 200 MG TAB PO SCH (22:07)
[2024-12-29] MEDS: ACCU-CHEK COMFORT CURVE STRIP VI SCH (22:07)
[2024-12-29] MEDS: METOPROLOL TARTRATE 25 MG TAB PO SCH (22:07)
[2024-12-29] MEDS: SODIUM CHLOR 0.9% PF (SALINE LOCK) 10ML VIAL/SYR IV SCH (22:15)
[2024-12-29] MEDS ORDERED: ALBUTEROL SULF 2.5 MG/0.5ML(0.5%) NEB SOLN NEB PRN (23:45)
[2024-12-29] MEDS ORDERED: IPRATROPIUM BROM 0.5 MG/2.5ML INH SOL NEB PRN (23:45)
[2024-12-29 23:51] VITALS: BP 138/59; PULSE 67; RESP 20; TEMP 98.1; O2SAT 92
[2024-12-29 23:58] VITALS: BP 129/77; PULSE 62; RESP 20; TEMP 97.1; O2SAT 99
[2024-12-30] VITALS (13 sets, daily range): BP systolic 99–129; BP diastolic 57–92; PULSE 55–81; RESP 16–20; TEMP 96.1–98.4; O2SAT 94–100
[2024-12-30 06:33] LABS: Hemoglobin 12.5 g/dL (13.5-17.5)
[2024-12-30 06:36] LABS: Hematocrit 36.1 % (41.0-53.0); Mean Corpuscular Hemoglobin 34.7 pg (28.0-32.0); Mean Corpuscular Volume 100.1 fL (80.0-100.0); Nucleated Red Blood Cells % 0.2 %
[2024-12-30] MEDS: InsuLIN REG 1unit/0.01ml Soln (100units/ml) SC SCH ×2 (06:48→19:58)
[2024-12-30 06:51] LABS: Anion Gap 10 (5-15); BUN/Creatinine Ratio 26.1 (10.0-20.0); Carbon Dioxide 30 mmol/L (20-31); Chloride 103 mmol/L (98-107); Potassium 4.3 mmol/L (3.5-5.1); Sodium 143 mmol/L (136-145); Total Protein 5.8 g/dL (5.7-8.2)
[2024-12-30 06:52] LABS: Alanine Aminotransferase 47 U/L (7-40); Albumin 3.0 g/dL (3.2-4.8); Alkaline Phosphatase 251 U/L (46-116); Bilirubin, Total 1.2 mg/dL (0.2-1.0); Blood Urea Nitrogen 24 mg/dL (9-23); Calcium 8.6 mg/dL (8.7-10.4); Glucose 223 mg/dL (74-106)
[2024-12-30] MEDS ORDERED: ENOXAPARIN SOD 40 MG/0.4 ML SYRINGE SC SCH (09:00)
[2024-12-30] MEDS: LISINOPRIL 5 MG TAB PO SCH (09:36)
[2024-12-30] MEDS: RIVAROXABAN 20 MG TAB PO SCH (09:36)
[2024-12-30] MEDS: FUROSEMIDE 40 MG/4 ML VIAL IV ONE (12:00)
[2024-12-30] MEDS: AZITHROMYCIN 500MG/ 250ML 250 ML IV SCH (12:16)
[2024-12-30] MEDS: ALBUTEROL SULF 2.5 MG/0.5ML(0.5%) NEB SOLN NEB SCH (12:45)
[2024-12-30] MEDS: IPRATROPIUM BROM 0.5 MG/2.5ML INH SOL NEB SCH (12:45)
--- NOTE | 2024-12-30 15:27 | DVHPNRES ---
Progress Note Date Seen: Dec 30, 2024 Resident Creating Document: [email or web address] RESIDENT Medical Necessity Reason Pt with a Central, PICC or Fol: No Subjective Review of Systems Patient is a 59-year-old with a past medical history of type 2 diabetes mellitus insulin-dependent, congestive heart failure with preserved ejection fraction, COPD on 4 L home oxygen, severe pulmonary hypertension, ? Previous TB, atrial flutter treated was brought to the hospital by EMS after having worsening shortness of breath while he was driving back to his house yesterday. Patient reported that he was using oxygen at his baseline of 4 L/min but in the last few days complaint of increased shortness of breath, cough associated with white thick sputum but denied any fever, chills, recent sick contacts. Patient denies immobilization in the last 2-3 weeks, no history of previous PE or DVT. Patient lives with his sister and after talking to her, she reports with the patient is noncompliant with the diet as medications and has been hospitalized multiple times with the last few months with a similar complaint of shortness of breath and worsening congestion. Patient reportedly was treated for tuberculosis while he was in [place] last year. Past medical history as per [facility] Past surgical history: None reported Social history: Patient lives with the his sister and currently denies smoking, alcohol, drug use Home medications: Metoprolol tartrate 50 b.i.d., lisinopril 5 mg daily, Xarelto 20 mg daily, stegaltro 50 mg daily, torsemide 40 mg daily Review of systems Patient seen and examined at the bedside, currently on 4 L oxygen which is his baseline Reports feeling short of breath when he gets out of bed. Denies headache, blurred vision, any weakness Reports mild cough with a whitish expectoration Objective vital signs Vital Sign Date Time Temp Pulse Resp B/P (MAP) Pulse Ox O2 Delivery O2 Flow Rate FiO2 12/30/24 12:51 56 16 99 12/30/24 12:46 98.3 99/57 (71) 98.3 12/30/24 12:45 Nasal Cannula 4.0 12/30/24 12:45 36 Total Intake and Output 12/29/24 12/29/24 12/30/24 15:00 23:00 07:00 Intake Total 240 ml Output Total 625 ml Balance -625 ml 240 ml medications Current Medications Medications Dose Ordered Sig/Deondre Route Start Time Stop Time Status Last Admin Dose Admin Sodium Chloride 10 ml Q8HR IV 12/29/24 22:00 12/30/24 12:17 10 ML Ondansetron HCl 4 mg Q4HP PRN IV 12/29/24 20:30 Acetaminophen 650 mg Q6HP PRN PO 12/29/24 20:30 Morphine Sulfate 2 mg Q4HPRN PRN IV 12/29/24 20:30 Nitroglycerin 0.4 mg Q5MINP PRN SL 12/29/24 20:30 Morphine Sulfate 2 mg Q30M PRN IV 12/29/24 20:30 Lisinopril 5 mg DAILY PO 12/30/24 10:00 12/30/24 09:36 5 MG Metoprolol Tartrate 25 mg BID PO 12/29/24 22:00 12/30/24 09:35 25 MG Ceftriaxone Sodium 50 ml @ 100 mls/hr DAILY IV 12/30/24 10:00 12/30/24 09:36 100 MLS/HR Diagnostic Test (Pha) 1 strip ACHS 12/29/24 22:00 12/30/24 12:16 1 STRIP Insulin Human Regular AC SC 12/30/24 07:00 12/30/24 12:16 16 UNITS Dextrose 50 ml UD PRN IV 12/29/24 20:45 Azithromycin 250 ml @ 125 mls/hr DAILY IV 12/30/24 10:00 12/30/24 12:16 125 MLS/HR Albuterol 2.5 mg Q6HR NEB 12/30/24 12:00 12/30/24 12:45 2.5 MG Ipratropium [place] 0.5 mg Q6HR NEB 12/30/24 12:00 12/30/24 12:45 0.5 MG Furosemide 40 mg BIDD IV 12/30/24 18:00 Enoxaparin Sodium 120 mg Q12HR SC 12/30/24 22:00 Empaglifozin 10 mg DAILY PO 12/30/24 12:00 Insulin Glargine 30 units HS SC 12/30/24 22:00 Amiodarone HCl 200 mg DAILY PO 12/31/24 10:00 Examination Gen - no pallor, no icterus, no cyanosis, no clubbing, no LAD, 3+ bilateral leg edema . Skin - Patients skin is warm and dry. HEENT - normocephalic, atraumatic, moist mucous membranes. Neck - full ROM, no LAD, JVD seen Pulmonary - B/L equal breath sounds with a minimal basilar rales, no wheezing, no stridor. cardiovascular - regular S1,S2 heard, no added sounds, no murmurs heard. GI - soft, obese abdomen. no hepatospleenomegaly. Bowel sounds normoactive Neurological - Patient is A/O X 3 . Bilateral upper extremity strength 5/5, bilateral lower extremity strength 5/5, no facial droop, normal speech, no tremor, no sensory deficiets. laboratory and microbiology Laboratory Tests 12/30/24 05:44 Test 12/30/24 05:44 Range/Units Serum Glucose 223 #H 74-106 mg/dL Microbiology Date/Time Source Procedure Growth Status 12/30/24 00:40 Nose MRSA Screen - Final Complete Problem List/Assessment/Plan Problem List/Assessment/Plan Acute on chronic hypoxic respiratory failure likely due to pulmonary congestion Bilateral pulmonary edema Severe pulmonary hypertension Possible pneumonia likely due to Gram +/- bacteria - ABG showed mixed respiratory acidosis with metabolic alkalosis - chest x-ray shows bilateral pulmonary congestion - Lasix 40 mg IV b.i.d. - IV antibiotics - duo nebs q.6 hours Acute exacerbation of heart failure with preserved ejection fraction History of atrial flutter Cardiomegaly right ventricular hypertrophy - echo from July 2024 shows lvef 55%, mild LVH, RV moderate enlarged, severe pulm htn, pasp > 90 mmhg, dilated IVC - IV diuresis, on Jardiance and lisinopril - on oxygen via nasal cannula - rate controlled with metoprolol 25 b.i.d., amiodarone 200 daily - therapeutic dose Lovenox Uncontrolled Insulin-dependent type 2 diabetes mellitus with a hyperglycemia - recent HbA1c > 11% - on insulin Lantus and aggressive sliding scale PUD prophylaxis: Protonix DVT prophylaxis: on Lovenox Goals of care discussed with the patient and his sister Maribell for over 26 minutes. Full code Time spent: 41 minutes Plan discussed with Dr. Gandhi Plan discussed with: Patient, Other (Sister, HERNAN Copeland) My Orders My Orders Orders - OVI JUAREZ RESIDENT Procedure Category Date Status Time Albuterol Medneb PHA 12/30/24 In Process (Ventolin Medneb) 12:00 Ipratropium Medneb PHA 12/30/24 In Process (Atrovent Medneb) 12:00 Furosemide Injection PHA 12/30/24 In Process (Lasix Injection) 18:00 Empagliflozin PHA 12/30/24 In Process (Jardiance) 12:00 Insulin Lantus PHA 12/30/24 In Process (Glargine) (Lantus) 22:00 Amiodarone Tablet PHA 12/31/24 In Process (Cordarone Tablet) 10:00 Enoxaparin Sodium PHA 12/30/24 In Process (Lovenox) 22:00 Date of Service: Dec 30, 2024 Billing Provider: ORLANDO GANDHI MD Common Visit Codes: [id number] INP/OBS CARE(HIGH) OVI JUAREZ RESIDENT Dec 30, 2024 15:27 ORLANDO GANDHI MD Dec 31, 2024 22:41
[2024-12-30] MEDS: EMPAGLIFLOZIN 10 MG TAB PO SCH (17:39)
[2024-12-30] MEDS: FUROSEMIDE 40 MG/4 ML VIAL IV SCH (17:40)
[2024-12-30] MEDS ORDERED: DEXTROSE (50%) 50ML SYRG IV PRN (17:45)
[2024-12-30] MEDS: ACCU-CHEK COMFORT CURVE STRIP VI SCH (19:57)
[2024-12-30] MEDS: ENOXAPARIN SOD 120 MG/0.8 ML SYRINGE SC SCH (21:49)
[2024-12-30] MEDS: INSULIN LANTUS (GLARGINE) 1 /0.01ml (100units/ml) SC SCH (21:58)
[2024-12-31] VITALS (14 sets, daily range): BP systolic 116–146; BP diastolic 66–87; PULSE 54–70; RESP 14–22; TEMP 97.2–98.2; O2SAT 91–100
[2024-12-31] MEDS ORDERED: DEXTROSE (50%) 50ML SYRG IV PRN (07:00)
[2024-12-31 07:35] LABS: Hematocrit 36.0 % (41.0-53.0); Hemoglobin 12.6 g/dL (13.5-17.5); Mean Corpuscular Hemoglobin 34.8 pg (28.0-32.0); Mean Corpuscular Volume 99.6 fL (80.0-100.0); Nucleated Red Blood Cells % 0.2 %
[2024-12-31 07:52] LABS: Anion Gap 8 (5-15); BUN/Creatinine Ratio 22.6 (10.0-20.0); Calcium 8.9 mg/dL (8.7-10.4); Chloride 100 mmol/L (98-107); Glucose 78 mg/dL (74-106); Magnesium 1.7 mg/dL (1.6-2.6); Potassium 3.7 mmol/L (3.5-5.1); Sodium 144 mmol/L (136-145); Total Protein 5.8 g/dL (5.7-8.2)
[2024-12-31 07:53] LABS: Bilirubin, Total 1.0 mg/dL (0.2-1.0)
[2024-12-31 07:55] LABS: Alanine Aminotransferase 46 U/L (7-40); Albumin 3.0 g/dL (3.2-4.8); Alkaline Phosphatase 228 U/L (46-116); Blood Urea Nitrogen 24 mg/dL (9-23); Carbon Dioxide 36 mmol/L (20-31)
[2024-12-31] MEDS ORDERED: MORPHINE SULFATE INJ 2 MG/ml SYRG IV PRN (08:45)
[2024-12-31 09:56] LABS: COVID19 ANTIGEN SOFIA FIA NEGATIVE (NEGATIVE)
[2024-12-31] MEDS ORDERED: AMIODARONE HCL 200 MG TAB PO SCH (10:00)
[2024-12-31] MEDS: InsuLIN REG 1unit/0.01ml Soln (100units/ml) SC SCH (12:00)
[2024-12-31] MEDS ORDERED: METO-158 PO (13:10)
[2024-12-31] MEDS: ACCU-CHEK COMFORT CURVE STRIP VI SCH (14:01)
--- NOTE | 2024-12-31 19:02 | DVHPNRES ---
Progress Note Date Seen: Dec 31, 2024 Resident Creating Document: JOSE HAGAN RESIDENT Medical Necessity Reason Pt with a Central, PICC or Fol: No Subjective Review of Systems Patient is a 59-year-old with a past medical history of type 2 diabetes mellitus insulin-dependent, congestive heart failure with preserved ejection fraction, COPD on 4 L home oxygen, severe pulmonary hypertension, ? Previous TB, atrial flutter treated was brought to the hospital by EMS after having worsening shortness of breath while he was driving back to his house yesterday. Patient reported that he was using oxygen at his baseline of 4 L/min but in the last few days complaint of increased shortness of breath, cough associated with white thick sputum but denied any fever, chills, recent sick contacts. Patient denies immobilization in the last 2-3 weeks, no history of previous PE or DVT. Patient lives with his sister and after talking to her, she reports with the patient is noncompliant with the diet as medications and has been hospitalized multiple times with the last few months with a similar complaint of shortness of breath and worsening congestion. Patient reportedly was treated for tuberculosis while he was in [place] last year. Past medical history as per HPI Past surgical history: None reported Social history: Patient lives with the his sister and currently denies smoking, alcohol, drug use Home medications: Metoprolol tartrate 50 b.i.d., lisinopril 5 mg daily, Xarelto 20 mg daily, stegaltro 50 mg daily, torsemide 40 mg daily Review of systems Patient seen and examined at the bedside, currently on 4 L oxygen which is his baseline Reports feeling short of breath when he gets out of bed. Denies headache, blurred vision, any weakness Reports mild cough with a whitish expectoration The patient was seen and examined at bedside. Overnight events were reviewed. The patient reports feeling shortness of breaths, was sitting in a chair. No new complaints reported. Objective vital signs Vital Sign Date Time Temp Pulse Resp B/P (MAP) Pulse Ox O2 Delivery O2 Flow Rate FiO2 12/31/24 18:09 146/87 12/31/24 17:25 97.6 68 22 97 97.6 12/31/24 11:04 Nasal Cannula 3.0 12/31/24 11:04 32 Total Intake and Output 12/30/24 12/30/24 12/31/24 15:00 23:00 07:00 Intake Total 300 ml 1280 ml 400 ml Output Total 50 ml Balance 300 ml 1230 ml 400 ml medications Current Medications Medications Dose Ordered Sig/Deondre Route Start Time Stop Time Status Last Admin Dose Admin Sodium Chloride 10 ml Q8HR IV 12/29/24 22:00 12/31/24 14:01 10 ML Ondansetron HCl 4 mg Q4HP PRN IV 12/29/24 20:30 Acetaminophen 650 mg Q6HP PRN PO 12/29/24 20:30 Nitroglycerin 0.4 mg Q5MINP PRN SL 12/29/24 20:30 Morphine Sulfate 2 mg Q30M PRN IV 12/29/24 20:30 Lisinopril 5 mg DAILY PO 12/30/24 10:00 12/31/24 08:51 5 MG Metoprolol Tartrate 25 mg BID PO 12/29/24 22:00 12/31/24 08:51 25 MG Ceftriaxone Sodium 50 ml @ 100 mls/hr DAILY IV 12/30/24 10:00 12/31/24 08:51 100 MLS/HR Azithromycin 250 ml @ 125 mls/hr DAILY IV 12/30/24 10:00 12/31/24 08:51 125 MLS/HR Albuterol 2.5 mg Q6HR NEB 12/30/24 12:00 12/31/24 11:04 2.5 MG Ipratropium Belle 0.5 mg Q6HR NEB 12/30/24 12:00 12/31/24 11:04 0.5 MG Furosemide 40 mg BIDD IV 12/30/24 18:00 12/31/24 18:09 40 MG Enoxaparin Sodium 120 mg Q12HR SC 12/30/24 22:00 12/31/24 08:50 120 MG Empaglifozin 10 mg DAILY PO 12/30/24 12:00 12/31/24 08:51 10 MG Diagnostic Test (Pha) 1 strip Q6HR 12/31/24 12:00 12/31/24 17:27 1 STRIP Insulin Human Regular Q6HR SC 12/31/24 12:00 12/31/24 17:28 8 UNITS Dextrose 50 ml UD PRN IV 12/31/24 07:00 Insulin Glargine 22 units HS SC 12/31/24 22:00 Morphine Sulfate 2 mg Q6HPRN PRN IV 12/31/24 08:45 Examination Examination Gen - no pallor, no icterus, no cyanosis, no clubbing, no LAD, Skin - multiple skin tags over the neck , Patients skin is warm and dry. HEENT - normocephalic, atraumatic, moist mucous membranes. Neck - full ROM, no LAD, JVD seen Pulmonary - B/L equal breath sounds with a minimal basilar rales, no wheezing, no stridor. cardiovascular - regular S1,S2 heard, no added sounds, no murmurs heard. Extremities: 1+bilateral leg edema . GI - soft, obese abdomen. no hepatospleenomegaly. Bowel sounds normoactive Neurological - Patient is A/O X 3 . Bilateral upper extremity strength 5/5, bilateral lower extremity strength 5/5, no facial droop, normal speech, no tremor, no sensory deficiets. laboratory and microbiology Laboratory Tests 12/31/24 06:38 Test 12/31/24 06:38 Range/Units Serum Glucose 78 # 74-106 mg/dL Microbiology Date/Time Source Procedure Growth Status 12/30/24 00:40 Nose MRSA Screen - Final Complete Labs and/or images reviewed: Labs reviewed by me, Image(s) reviewed by me Problem List/Assessment/Plan Problem List/Assessment/Plan Acute on chronic hypoxic respiratory failure likely due to pulmonary congestion Bilateral pulmonary edema Severe pulmonary hypertension Possible pneumonia likely due to Gram +/- bacteria - ABG showed mixed respiratory acidosis with metabolic alkalosis - chest x-ray shows bilateral pulmonary congestion - Lasix 40 mg IV b.i.d. - IV antibiotics - duo nebs q.6 hours -pulmonology consultation done -CPAP/BiPAP at night. Acute exacerbation of heart failure with preserved ejection fraction History of atrial flutter Cardiomegaly right ventricular hypertrophy - echo from July 2024 shows lvef 55%, mild LVH, RV moderate enlarged, severe pulm htn, pasp > 90 mmhg, dilated IVC - IV diuresis, on Jardiance and lisinopril - on oxygen via nasal cannula - rate controlled with metoprolol 25 b.i.d., amiodarone 200 daily - therapeutic dose Lovenox Uncontrolled Insulin-dependent type 2 diabetes mellitus with a hyperglycemia - recent HbA1c > 11% - on insulin Lantus and aggressive sliding scale PUD prophylaxis: Protonix DVT prophylaxis: on Lovenox Goals of care discussed with the patient Full code Time spent: 30 minutes Plan discussed with Dr. Gandhi Plan discussed with: Patient, Other (RN) My Orders My Orders Orders - JOSE HAGAN Procedure Category Date Status Time *Consult Dr.Gomez ROSAS 12/31/24 Transmitted 12:10 Date of Service: Dec 31, 2024 Billing Provider: ORLANDO GANDHI MD Common Visit Codes: [id number] INP/OBS CARE(HIGH) JOSE HAGAN Dec 31, 2024 19:02 ORLANDO GANDHI MD Jan 01, 2025 09:56
[2024-12-31] MEDS: INSULIN LANTUS (GLARGINE) 1 /0.01ml (100units/ml) SC SCH (21:37)
[2025-01-01] VITALS (13 sets, daily range): BP systolic 102–133; BP diastolic 58–84; PULSE 59–80; RESP 17–20; TEMP 36.4; O2SAT 92–100
[2025-01-01 05:21] LABS: Hemoglobin 13.0 g/dL (13.5-17.5)
[2025-01-01 05:23] LABS: Chloride 99 mmol/L (98-107); Hematocrit 37.4 % (41.0-53.0); Mean Corpuscular Hemoglobin 35.0 pg (28.0-32.0); Mean Corpuscular Volume 100.5 fL (80.0-100.0); Nucleated Red Blood Cells % 0.2 %; Potassium 4.1 mmol/L (3.5-5.1); Sodium 145 mmol/L (136-145)
[2025-01-01 05:24] LABS: Calcium 9.0 mg/dL (8.7-10.4)
[2025-01-01 05:29] LABS: BUN/Creatinine Ratio 19.5 (10.0-20.0); Blood Urea Nitrogen 23 mg/dL (9-23)
[2025-01-01 05:51] LABS: Anion Gap 5.99999 (5-15); Glucose 120 mg/dL (74-106)
[2025-01-01 05:53] LABS: Carbon Dioxide > 40 mmol/L (20-31)
[2025-01-01 07:32] LABS: Base Excess 10.0 mmol/L (-2.0-3.0)
--- NOTE | 2025-01-01 09:54 | DVH ---
EXAM: XY CHEST XRAY 1 VIEW Indication: SOB Technique: Single frontal view of the chest was obtained Comparison: XY CHEST PORTABLE on DOS: 12/29/24, XR CHEST 1 VIEW on DOS: 12/11/24, XY CHEST PORTABLE on DOS: 10/18/24, XY CHEST PORTABLE on DOS: 09/14/24, CT CT ANGIO CHEST CONTRAST on DOS: 08/06/24 FINDINGS: Lines and Tubes: None Lungs: No focal consolidation. Pulmonary vascular congestion. Pleura: No effusion. No pneumothorax. Cardiomediastinal contours: Cardiomegaly. Bones: No acute osseous abnormality. IMPRESSION: Cardiomegaly with pulmonary vascular congestion
[2025-01-01] MEDS ORDERED: CEFP200T15 PO (11:19)
[2025-01-01] MEDS ORDERED: FURO40TA4 PO (11:19)
[2025-01-01] MEDS ORDERED: AZIT-43 PO (11:19)
[2025-01-01] MEDS ORDERED: POTA-36 PO (11:19)
[2025-01-01] MEDS: acetaZOLAMIDE 250 MG TAB PO ONE (11:29)
[2025-01-01] MEDS ORDERED: DEXT1SYP9 PO (11:35)
--- NOTE | 2025-01-01 18:53 | DVHDSRES ---
Discharge Summary Date of Admission Resident Creating Document: JOSE HAGNA Dec 29, 2024 at 20:16 Date of Discharge: Jan 01, 2025 Labs/Diagnostic Data: Laboratory Results Test 01/01/25 11:44 01/01/25 07:20 01/01/25 04:54 12/31/24 08:57 POC Glucose 206 mg/dl (70-106) Blood Gas Specimen Type Arterial Blood Gas Sample Site Right radial Blood Gas Patient Temperature 37.0 Arterial Blood Date Drawn [id number] Arterial Blood pH 7.466 (7.350-7.450) Arterial Blood Partial Pressure CO2 50.3 mmHg (35.0-48.0) Arterial Blood Partial Pressure O2 58.5 mmHg (83.0-108.0) Arterial Blood HCO3 35.5 mmol/L (21.0-28.0) Arterial Blood Oxygen Saturation 89.5 % (94.0-98.0) Arterial Blood Base Excess 10.0 mmol/L (-2.0-3.0) Arterial Blood Oxyhemoglobin 88.1 % (94.0-98.0) Arterial Blood Carboxyhemoglobin 1.3 % (0.5-1.5) Arterial Blood Methemoglobin 0.3 % (0.0-1.5) Reginaldo Test Yes Blood Gas Total Hemoglobin 14.80 g/dL (13.5-17.5) Blood Gas Liter Flow 4.00 Blood Gas Modality Nasal cannula FiO2 % 36.0 White Blood Count 4.4 10^3/uL (4.4-10.8) Red Blood Count 3.73 10^6/uL (4.5-5.90) Hemoglobin 13.0 g/dL (13.5-17.5) Hematocrit 37.4 % (41.0-53.0) Mean Corpuscular Volume 100.5 fL (80.0-100.0) Mean Corpuscular Hemoglobin 35.0 pg (28.0-32.0) Mean Corpuscular Hemoglobin Concent 34.8 g/dL (32.0-36.0) Red Cell Distribution Width 15.5 % (11.8-14.3) Platelet Count 135 10^3/uL (140-450) Mean Platelet Volume 8.4 fL (6.9-10.8) Neutrophils (%) (Auto) 58.6 % (37.0-80.0) Lymphocytes (%) (Auto) 20.5 % (10.0-50.0) Monocytes (%) (Auto) 15.6 % (0.0-12.0) Eosinophils (%) (Auto) 3.1 % (0.0-7.0) Basophils (%) (Auto) 2.2 % (0.0-2.0) Neutrophils # (Auto) 2.6 10 ^3/uL (1.6-8.6) Lymphocytes # (Auto) 0.9 10 ^3/uL (0.4-5.4) Monocytes # (Auto) 0.7 10 ^3/uL (0-1.3) Eosinophils # (Auto) 0.1 10 ^3/uL (0-0.8) Basophils # (Auto) 0.1 10 ^3/uL (0-0.2) Nucleated Red Blood Cells 0.2 % Sodium Level 145 mmol/L (136-145) Potassium Level 4.1 mmol/L (3.5-5.1) Chloride Level 99 mmol/L (98-107) Carbon Dioxide Level > 40 mmol/L (20-31) Anion Gap 5.49784 (5-15) Blood Urea Nitrogen 23 mg/dL (9-23) Creatinine 1.18 mg/dL (0.700-1.30) Glomerular Filtration Rate Calc 71 mL/min (>90) BUN/Creatinine Ratio 19.5 (10.0-20.0) Serum Glucose 120 mg/dL (74-106) Calcium Level 9.0 mg/dL (8.7-10.4) Influenza Type A Antigen Negative (Negative) Influenza Type B Antigen Negative (Negative) SARS-CoV-2 Antigen (Rapid) Negative (NEGATIVE) Test 12/31/24 06:38 12/29/24 17:15 12/29/24 16:22 Magnesium Level 1.7 mg/dL (1.6-2.6) Total Bilirubin 1.0 mg/dL (0.2-1.0) Aspartate Amino Transferase (AST) 55 U/L (13-40) Alanine Aminotransferase (ALT) 46 U/L (7-40) Alkaline Phosphatase 228 U/L (46-116) Total Protein 5.8 g/dL (5.7-8.2) Albumin 3.0 g/dL (3.2-4.8) Vitamin B12 Level 1185 pg/mL (211-911) D-Dimer, Quantitative 0.79 mg/L FEU (0.0-0.49) Troponin I High Sensitivity 12 ng/L (</=54) B-Type Natriuretic Peptide 247.37 pg/mL (0-100) Beta-Hydroxybutyric Acid 0.162 mmol/L (< 0.4) Urine Color Light-yellow (Yellow) Urine Clarity Clear (Clear) Urine pH 6.0 (5.0-9.0) Urine Specific [place] 1.026 (1.001-1.035) Urine Protein 1+ (Negative) Urine Ketones Negative (Negative) Urine Blood Negative /uL (Negative) Urine Nitrite Negative (Negative) Urine Bilirubin Negative (Negative) Urine Urobilinogen Normal mg/dL (Negative) Urine Leukocyte Esterase Negative /uL (Negative) Urine RBC 1 /hpf (0 - 3) Urine Microscopic WBC < 1 /HPF (0-3) Urine Squamous Epithelial Cells None seen /hpf (<5) Urine Bacteria None seen /hpf (None Seen) Urine Glucose 4+ mg/dL (Normal) Other Laboratory Tests 01/01/25 04:54 Brief Hx & Hospital Course: Patient is a 59-year-old with a past medical history of type 2 diabetes mellitus insulin-dependent, congestive heart failure with preserved ejection fraction, COPD on 4 L home oxygen, severe pulmonary hypertension, ? Previous TB, atrial flutter treated was brought to the hospital by EMS after having worsening shortness of breath while he was driving back to his house yesterday. Patient reported that he was using oxygen at his baseline of 4 L/min but in the last few days complaint of increased shortness of breath, cough associated with white thick sputum but denied any fever, chills, recent sick contacts. Patient denies immobilization in the last 2-3 weeks, no history of previous PE or DVT. Patient lives with his sister and after talking to her, she reports with the patient is noncompliant with the diet as medications and has been hospitalized multiple times with the last few months with a similar complaint of shortness of breath and worsening congestion. Patient reportedly was treated for tuberculosis while he was in [place] last year. Past medical history as per HPI Past surgical history: None reported Social history: Patient lives with the his sister and currently denies smoking, alcohol, drug use Home medications: Metoprolol tartrate 50 b.i.d., lisinopril 5 mg daily, Xarelto 20 mg daily, stegaltro 50 mg daily, torsemide 40 mg daily During hospitalization, the patient was found to have bilateral pulmonary edema, severe pulmonary hypertension and possible pneumonia. BG revealed mixed respiratory acidosis with metabolic alkalosis. Chest x-ray showed bilateral pulmonary congestion. Management included IV Lasix, IV antibiotics, nebulized bronchodilators. The patient was managed with nocturnal BiPAP. Echo from July 2024 showed preserved LV ejection fraction 55%, mild LVH, moderate RV enlargement, severe pulmonary hypertension PAS be more than 90 mm Hg, and dilated IVC. Heart failure was managed with IV diuresis Jardiance, lisinopril. Control was achieved with metoprolol and amiodarone. Patient was given therapeutic dose Lovenox for atrial flutter. Pt is lying on bed General Appearance: Alert, Oriented X3, Cooperative, Mild distress HEENT: Atraumatic, Mucous membranes moist/pink Respiratory: Clear to auscultation, Normal air movement, No added sounds Cardiovascular: Regular rate, Normal S1, Normal S2, No murmurs Abdominal/ : Active bowel sounds, Soft, no distention, no tenderness Extremities: No edema, Normal pulses, No tenderness/swelling Skin: No Significant rash, except past surgical scars Neuro: Normal speech, sensorimotor deficits none Psych/Mental Status: Mental status NL, Mood NL Nurse was there as demurrage worker during examination Case discussed with Dr. Cowan Operations or Procedures PATIENT: DAKOTAH SOLIS ACCT: [id number] UNIT: [id number] : 1965 [facility] AGE / SEX: 59 / M ADM STATUS: ADM IN SERVICE 9 ORDERING PHYSICIAN: OVI JUAREZ RESIDENT PROCEDURE(s): CXR1 - CHEST XRAY 1 VIEW REASON: SOB ORDER NUMBER(s): [id number], ACCESSION NUMBER(s): [id number] EXAM: XY CHEST XRAY 1 VIEW Indication: SOB Technique: Single frontal view of the chest was obtained Comparison: XY CHEST PORTABLE on DOS: 12/29/24, XR CHEST 1 VIEW on DOS: 12/11/24, XY CHEST PORTABLE on DOS: 10/18/24, XY CHEST PORTABLE on DOS: 09/14/24, CT CT ANGIO CHEST CONTRAST on DOS: 08/06/24 FINDINGS: Lines and Tubes: None Lungs: No focal consolidation. Pulmonary vascular congestion. Pleura: No effusion. No pneumothorax. Cardiomediastinal contours: Cardiomegaly. Bones: No acute osseous abnormality. IMPRESSION: Cardiomegaly with pulmonary vascular congestion Condition at Discharge: Stable Final Diagnosis/Problems List Acute on chronic hypoxic respiratory failure likely due to pulmonary congestion Bilateral pulmonary edema Severe pulmonary hypertension Possible pneumonia likely due to Gram +/- bacteria Acute exacerbation of heart failure with preserved ejection fraction History of atrial flutter Cardiomegaly right ventricular hypertrophy Uncontrolled Insulin-dependent type 2 diabetes mellitus with a hyperglycemia Discharge Disposition: Home Discharge Instruct/Medications Diet: Consistent carbohydrate Activity: No Restrictions, As Tolerated Follow Up/Referral: follow up with PCP, [place] [facility] in 1 week Scheduled Amiodarone HCl (Amiodarone HCl), 200 MG PO Q12HR Azithromycin (Azithromycin), 250 MG PO DAILY Cefpodoxime Proxetil (Cefpodoxime Proxetil), 1 TAB PO BID Ertugliflozin l-Pyroglutamic A (Steglatro), 1 TAB PO DAILY, (Reported) Famotidine (Famotidine), 1 TAB PO BID, (Reported) Furosemide (Furosemide), 1 TAB PO DAILY Lisinopril (Lisinopril), 1 TAB PO DAILY, (Reported) Metoprolol Tartrate (Metoprolol Tartrate), 1 TAB PO DAILY, (Reported) Potassium Chloride (Potassium Chloride ER), 1 TAB PO BID, (Reported) Potassium Chloride (Potassium Chloride Cr), 1 TAB PO DAILY Rivaroxaban (Xarelto Tablet), 1 TAB PO DAILY, (Reported) Sildenafil Citrate (Revatio), 20 MG PO TID Torsemide Injection (Torsemide), 1 TAB PO DAILY, (Reported) Scheduled PRN Dextromethorphan-Guaifenesin (Robitussin-Dm), 10 ML PO Q4HP PRN Discontinued Medications Metoprolol Tartrate (Lopressor), 2 PO BID, (Reported) Discontinued Reason: Prescription changed Discharge Statement: "Patient was advised to return to the ER or call 911 if any headaches, dizziness, shortness of breath, chest pain, abdominal pain, bleeding, fevers, or worsening of medical condition. Patient was counseled about treatment plan, medications, possible side effects, patientverbalized understanding. All questions were answered to the best of my ability. This discharge took greater then 30 minutes in planning, reviewing documentation, counseling the patient, and discussing with other team members." ASSESSMENT ASSESSMENT Assessment Acute hypoxic resp failure due to HFpEF Pulmonary hypertension Date of Service: Jan 01, 2025 Billing Provider: ORLANDO COWAN MD Common Visit Codes: [id number] DISCH DAY >30min DANYA,JOSE RESIDENT Jan 01, 2025 18:53 ORLANDO COWAN MD Jan 03, 2025 10:26
--- NOTE | 2025-01-01 20:49 | DVHINCON2 ---
Date of service: Jan 01, [address] Benton [facility] Reason for Consultation Acute hypoxic/chronic hypercarbic respiratory failure, COPD exacerbation, pneumonia. History of Present Illness A 59-year-old morbidly obese man with PMHx of COPD, requiring home oxygen at 4 liters continuous (sometimes reduced to 3 liters), heart failure, and poorly controlled diabetes mellitus who presented to the ED via EMS on 12/29/24 due to c/o shortness of breath and cough for the past several days. Patient recently moved from [place] approximately 2 months ago. Reports being tested positive for TB and received an unknown course of antibiotics in [place]. He was subsequently seen at [facility] and treated for TB related concerns again. Patient denies current treatment for TB, though cannot confirm chest x-ray resolution of TB. He reports chronic lung problems with fluid buildup and has been advised to limit his water intake to no more than 50 ounces per day due to his heart condition. Per EMS, he was satting at 88% on room air at arrival. Patient was placed on 4 L of O2 and satting at 93%. Additionally, elevated blood sugar over 600 was noted upon presentation. Patient had a mild fever, was tachycardic and tachypneic at arrival. Patient was admitted for further care. Pulmonary consultation is requested for evaluation and management of acute hypoxic/chronic hypercarbic respiratory failure, COPD exacerbation, and pneumonia. Review of Systems: 14-point review of systems negative unless otherwise noted above. Past Medical History: COPD (chronic obstructive pulmonary disease) - Requires home oxygen therapy at 4 liters continuously Heart failure with leg edema and lung congestion Poorly controlled diabetes mellitus (blood sugar elevation to 600s) History of tuberculosis Previous episode of syncope in restroom with concern for stroke Past Surgical History: None. Medications: Reviewed. Allergies: No known drug allergies. Family History: Positive for heart disease. Social History: Former smoker, quit at age 22 after smoking 1-2 cigarettes per day; denies current smoking No alcohol or illicit drug use. Family History: Cardiovascular disease G8 MOTHER Allergies: Coded Allergies: NO KNOWN ALLERGIES (Unverified , 06/08/24) Home Meds Active Scripts Dextromethorphan-Guaifenesin (Robitussin-Dm) 10 Ml Sr, 10 ML PO Q4HP PRN for 15 Days, #1 SYP Prov:MELISA ROLLE RESIDENT 01/01/25 Potassium Chloride (POTASSIUM CHLORIDE CR) 10 Meq Tb, 1 TAB PO DAILY, #30 TAB 5 Refills Prov:MELISA ROLLE [facility] 01/01/25 Furosemide (Furosemide) 40 Mg Tab, 1 TAB PO DAILY, #30 TAB 5 Refills Prov:MELISA ROLLE [facility] 01/01/25 Azithromycin (Azithromycin) 250 Mg Tab, 250 MG PO DAILY MDD 500 for 5 Days, #6 TAB 0 Refills 2 TABLETS ORALLY ON DAY ONE, THEN 1 TABLET ORALLY DAILY FOR 4 DAYS Prov:MELISA ROLLE [facility] 01/01/25 Cefpodoxime Proxetil (Cefpodoxime Proxetil) 200 Mg Tab, 1 TAB PO BID for 4 Days, #8 TAB Prov:MELISA ROLLE [facility] 01/01/25 Amiodarone HCl (Amiodarone HCl) 200 Mg Tab, 200 MG PO Q12HR, #60 TAB Prov:JAMSHID BUI MD 10/20/24 Sildenafil Citrate (Revatio) 20 Mg Tab, 20 MG PO TID for 30 Days, #90 TAB Prov:PURVI DAVIES NP 08/09/24 Reported Medications Metoprolol Tartrate (Metoprolol Tartrate) 50 Mg Tab, 1 TAB PO DAILY for 90 Days, #180 12/31/24 Famotidine (Famotidine) 20 Mg Tab, 1 TAB PO BID for 90 Days, #120 12/31/24 Torsemide Injection (Torsemide) 20 Mg Tab, 1 TAB PO DAILY for 30 Days, #30 12/31/24 Potassium Chloride (Potassium Chloride ER) 10 Meq Tab, 1 TAB PO BID for 30 Days, #60 12/31/24 Lisinopril (Lisinopril) 5 Mg Tab, 1 TAB PO DAILY 08/05/24 Ertugliflozin l-Pyroglutamic A (Steglatro) 15 Mg Tab, 1 TAB PO DAILY 08/05/24 Rivaroxaban (Xarelto Tablet) 20 Mg Tb, 1 TAB PO DAILY 08/05/24 Discontinued Reported Medications Metoprolol Tartrate (Lopressor) 25 Mg Tb, 2 PO BID 08/05/24 Current Medications Current Medications Medications (Trade) Dose Ordered Sig/Deondre Route PRN Reason Start Time Stop Time Status Last Admin Insulin Glargine (Lantus) 22 units HS SC 12/31/24 22:00 01/01/25 16:12 DC 12/31/24 21:37 Vital Signs Vital Signs Date Time Temp Pulse Resp B/P (MAP) Pulse Ox O2 Delivery O2 Flow Rate FiO2 01/01/25 14: 93 Nasal Cannula* 4 36 01/01/25 13:35 97.5 63 18 109/72 (84) 97.5 Physical Exam Gen.: Patient lying in bed in no apparent distress. On supplemental oxygen. Head: Normocephalic, atraumatic. Eyes: EOMI/PERRLA. Ears: Normal hearing. Normal anatomy. Neck/trachea: Trachea midline, supple. Nose: Normal external anatomy. Mouth: Moist mucous membranes. Chest: Decreased air entry bilaterally. No wheezing or rhonchi. Cardiovascular: Positive S1, positive S2. Regular rate and rhythm. Abdomen: Positive bowel sounds in all 4 quadrants. Soft, non-tender, non- distended. : Deferred. Rectal: Deferred. Skin: Warm, dry. Intact. Extremities: 2+ radial pulses bilaterally. No lower extremity edema. Neuro: Awake, alert, oriented x3. No gross motor or sensory deficits. Cranial nerves II through XII intact. Gait not assessed. Labs/Diagnostic Data Labs Test 01/01/25 11:44 01/01/25 07:20 01/01/25 04:54 12/31/24 08:57 Range/Units POC Glucose 206 H 70-106 mg/dl Blood Gas Specimen Type Arterial Blood Gas Sample Site Right radial Blood Gas Patient Temperature 37.0 Arterial Blood Date Drawn [id number] Arterial Blood pH 7.466 H 7.350-7.450 Arterial Blood Partial Pressure CO2 50.3 H 35.0-48.0 mmHg Arterial Blood Partial Pressure O2 58.5 L 83.0-108.0 mmHg Arterial Blood HCO3 35.5 H 21.0-28.0 mmol/L Arterial Blood Oxygen Saturation 89.5 L 94.0-98.0 % Arterial Blood Base Excess 10.0 H -2.0-3.0 mmol/L Arterial Blood Oxyhemoglobin 88.1 L 94.0-98.0 % Arterial Blood Carboxyhemoglobin 1.3 0.5-1.5 % Arterial Blood Methemoglobin 0.3 0.0-1.5 % Reginaldo Test Yes Blood Gas Total Hemoglobin 14.80 13.5-17.5 g/dL Blood Gas Liter Flow 4.00 Blood Gas Modality Nasal cannula FiO2 % 36.0 White Blood Count 4.4 4.4-10.8 10^3/uL Red Blood Count 3.73 L 4.5-5.90 10^6/uL Hemoglobin 13.0 L 13.5-17.5 g/dL Hematocrit 37.4 L 41.0-53.0 % Mean Corpuscular Volume 100.5 H 80.0-100.0 fL Mean Corpuscular Hemoglobin 35.0 H 28.0-32.0 pg Mean Corpuscular Hemoglobin Concent 34.8 32.0-36.0 g/dL Red Cell Distribution Width 15.5 H 11.8-14.3 % Platelet Count 135 L 140-450 10^3/uL Mean Platelet Volume 8.4 6.9-10.8 fL Neutrophils (%) (Auto) 58.6 37.0-80.0 % Lymphocytes (%) (Auto) 20.5 10.0-50.0 % Monocytes (%) (Auto) 15.6 H 0.0-12.0 % Eosinophils (%) (Auto) 3.1 0.0-7.0 % Basophils (%) (Auto) 2.2 H 0.0-2.0 % Neutrophils # (Auto) 2.6 1.6-8.6 10 ^3/uL Lymphocytes # (Auto) 0.9 0.4-5.4 10 ^3/uL Monocytes # (Auto) 0.7 0-1.3 10 ^3/uL Eosinophils # (Auto) 0.1 0-0.8 10 ^3/uL Basophils # (Auto) 0.1 0-0.2 10 ^3/uL Nucleated Red Blood Cells 0.2 % Sodium Level 145 136-145 mmol/L Potassium Level 4.1 3.5-5.1 mmol/L Chloride Level 99 98-107 mmol/L Carbon Dioxide Level > 40 *H 20-31 mmol/L Anion Gap 5.35941 5-15 Blood Urea Nitrogen 23 9-23 mg/dL Creatinine 1.18 0.700-1.30 mg/dL Glomerular Filtration Rate Calc 71 >90 mL/min BUN/Creatinine Ratio 19.5 10.0-20.0 Serum Glucose 120 H 74-106 mg/dL Calcium Level 9.0 8.7-10.4 mg/dL Influenza Type A Antigen Negative Negative Influenza Type B Antigen Negative Negative SARS-CoV-2 Antigen (Rapid) Negative NEGATIVE Test 12/31/24 06:38 12/29/24 17:15 12/29/24 16:22 Range/Units Magnesium Level 1.7 1.6-2.6 mg/dL Total Bilirubin 1.0 0.2-1.0 mg/dL Aspartate Amino Transferase (AST) 55 H 13-40 U/L Alanine Aminotransferase (ALT) 46 H 7-40 U/L Alkaline Phosphatase 228 H 46-116 U/L Total Protein 5.8 5.7-8.2 g/dL Albumin 3.0 L 3.2-4.8 g/dL Vitamin B12 Level 1185 H 211-911 pg/mL D-Dimer, Quantitative 0.79 H 0.0-0.49 mg/L FEU Troponin I High Sensitivity 12 </=54 ng/L B-Type Natriuretic Peptide 247.37 0-100 pg/mL Beta-Hydroxybutyric Acid 0.162 < 0.4 mmol/L Urine Color Light-yellow Yellow Urine Clarity Clear Clear Urine pH 6.0 5.0-9.0 Urine Specific Many 1.026 1.001-1.035 Urine Protein 1+ H Negative Urine Ketones Negative Negative Urine Blood Negative Negative /uL Urine Nitrite Negative Negative Urine Bilirubin Negative Negative Urine Urobilinogen Normal Negative mg/dL Urine Leukocyte Esterase Negative Negative /uL Urine RBC 1 0 - 3 /hpf Urine Microscopic WBC < 1 0-3 /HPF Urine Squamous Epithelial Cells None seen <5 /hpf Urine Bacteria None seen None Seen /hpf Urine Glucose 4+ H Normal mg/dL Microbiology Date/Time Source Procedure Growth Status 12/31/24 18:31 Sputum Expectorated Sputum Gram Stain - Final Resulted 12/31/24 18:31 Sputum Expectorated Sputum Respiratory Culture - Preliminary Resulted 12/30/24 00:40 Nose MRSA Screen - Final Complete Assessment Impression: Acute hypoxic respiratory failure Chronic hypercarbic respiratory failure, PaCO2 50.3 mmHg Dependence on supplemental oxygen Acute exacerbation of COPD Pulmonary hypertension, RVSP of 90 mmHg Pneumonia, likely GNR vs. GPCs Atrial fibrillation Acute congestive heart failure (HFpEF) Morbid obesity, BMI 48.9 Hx of nicotine dependence Plan: Supplemental oxygen Titrate to keep O2 sats between 88-94%. Chest x-ray reviewed, notable for pulmonary vascular congestion. Echo in 07/2024 showed RVSP of 90 mmHg Cardiology recommendations appreciated. Continue antibiotics Continue bronchodilators. Incentive spirometry Follow up Cardiology recommendations Diurese with Lasix BID. Fluid restriction. Monitor renal function. Monitor electrolytes. Supplement as necessary. Monitor ins and outs. Accu-Cheks, ISS. Recommend diet and lifestyle modifications for weight reduction Obesity complicates all care Recommend outpatient evaluation for obstructive sleep apnea. DVT prophylaxis - Lovenox SC. Prognosis: Poor given patient's multiple co-morbidities. Rest of plan per hospitalist and other consultants. Thank you, Dr. Benton, for allowing me to participate in this patient's care. Further recommendations will depend on the patient's clinical course. Please do not hesitate to contact me if you have any questions or concerns. This medical document was created using an electronic medical record system with [employer] dictation system. Although these documentations are being carefully reviewed, there may still be some phonetic and typographical changes. The errors are purely typographical, due to imperfection on the software program, and do not reflect any compromise in the patient's medical care. Plan discussed with: Patient, Other (RN/MD) Visit Coding Pulmonary Billing Provider: DOLORES KELSEY MD Date of Service if different f: Jan 01, 2025 Common Visit Codes: [id number] INP/OBS CARE (HIGH) DOLORES KELSEY MD Jan 01, 2025 20:48
== END 2025-01-01 15:50 | disposition home or self-care (01) | DRG 177 ==
LOC: EDBD 15:53 → ER 15:54 → OVERFLOW 20:16 → TELE-EAST 23:55
PROVIDERS: ADMIT Internal Medicine; ATTEND Internal Medicine
PROC: 5A09357 Assistance with Respiratory Ventilation, Less than 24 Consecutive Hours, Continuous Positive Airway Pressure (ICD-10-PCS; principal; 2024-12-31)
DX: J15.69 Pneumonia due to other Gram-negative bacteria (principal); I50.33 Acute on chronic diastolic (congestive) heart failure; J96.21 Acute and chronic respiratory failure with hypoxia; J96.22 Acute and chronic respiratory failure with hypercapnia; J44.1 Chronic obstructive pulmonary disease with (acute) exacerbation; J44.0 Chronic obstructive pulmonary disease with (acute) lower respiratory infection; Z68.42 Body mass index [BMI] 45.0-49.9, adult; E87.4 Mixed disorder of acid-base balance; I48.92 Unspecified atrial flutter; J15.9 Unspecified bacterial pneumonia; Z20.822 Contact with and (suspected) exposure to COVID-19; I11.0 Hypertensive heart disease with heart failure; I48.91 Unspecified atrial fibrillation; E11.65 Type 2 diabetes mellitus with hyperglycemia; D69.6 Thrombocytopenia, unspecified; E66.01 Morbid (severe) obesity due to excess calories; I27.20 Pulmonary hypertension, unspecified; D64.9 Anemia, unspecified; Z83.3 Family history of diabetes mellitus; Z82.49 Family history of ischemic heart disease and other diseases of the circulatory system; Z86.11 Personal history of tuberculosis; Z87.891 Personal history of nicotine dependence; Z99.81 Dependence on supplemental oxygen; Z79.899 Other long term (current) drug therapy
CPT/HCPCS: 36415; 36600; 71045; 80048; 80053; 81001; 82010; 82607; 82805; 82962; 83735; 83880; 84484; 85025; 85379; 87070; 87081; 87205; 87426; 87804; 93005; 94640; 94660; G0378; J1100; J1815

== ENCOUNTER 2025-02-22 07:18 | Emergency (ER) | payer MEDICARE, MEDICAID ==
[~2025-02-22] VITALS: Ht 154.9 cm; Wt 110.6 kg
[~2025-02-22 07:18] MED LIST changes: +AZIT-43 PO; +CEFP200T15 PO; +DEXT1SYP9 PO; +FURO40TA4 PO; -MET25T PO; +METO-158 PO; +POTA-36 PO
--- NOTE | 2025-02-22 07:37 | ED.PDOC ---
HPI (NEURO) HPI Comments 60-year-old male presents here with cough since around Thanksgiving time which was proximally 1 week ago. Patient states that the cough has been significant turned yellow but recently became clear again. Does report a fever overnight. But did not measure it. He states when he coughs his entire abdomen hurts. No sick contacts. Patient does use oxygen at home 4 L nasal cannula around the clock and he states it is for his heart. Positive rhinorrhea positive sore throat. Fever since overnight only. Patient states he was feeling dizzy this morning and fell down but did not hit his head. It is elbow only. Not on 90 blood thinners. Patient states normally his blood sugars run in the 200s. However patient states he has not taken his daily medication yet. Chief Complaint: Dizziness Time Seen by MD: 07:37 Mode of Arrival: Ambulatory Past Medical History PAST MEDICAL HISTORY: CHF, COPD, DM, HTN Surgical History: Denies all surgeries Family History Family History: Reviewed,noncontributory to illness, No family hx of Cancer, No family hx of DM, No family hx of Heart bhavik, No family hx of HTN, No family hx ofKidney bhavik, No family hx of Liver bhavik, No family hx of Lung bhavik, No family hx of Stroke Social History Smoker: Quit Greater Than 1 Year Alcohol: Denies ETOH Use Drugs: Denies Drug Use Lives In: Home All Other Systems: Reviewed and Negative Physical Exam Exam Comments hard of hearing General Appearance: Other (pt on oxygen, 24/7, 4 L baseline) HEENT: Normal ENT Inspection, Pharynx Normal, TMs Normal Neck: Full Range of Motion, Non-Tender, Normal, Normal Inspection Respiratory: Chest Non-Tender, Lungs Clear, No Accessory Muscle Use, No Respiratory Distress, Normal Breath Sounds Cardiovascular: No Edema, Normal Peripheral Pulses, Regular Rate/Rhythm Breast Exam: Deferred Gastrointestinal: No Organomegaly, Non Tender, Soft Genitalia: Deferred Pelvic: Deferred Rectal: Deferred Extremities: No calf tenderness, Normal capillary refill, Normal inspection, Normal range of motion, Non-tender, No pedal edema Musculoskeletal : Apperance: Normal Neurologic: Alert, health policy nurse II-XII nml as Tested, No Motor Deficits, Normal Affect, Normal Mood, No Sensory Deficits Cerebellar Function: Normal Reflexes: Normal Skin: Dry, Normal Color, Warm Lymphatic: No Adenopathy EKG EKG : Comments Sinus rhythm rate of [address] changes Was a procedure done? Was a procedure done?: No Differential Diagnosis (SZ) Seizure: N/A CVA: CVA General Weakness: Dehydration, Electrolyte imbalance, Hypotension, TIA, Other (syncope) Headache: Other (pneumonia), N/A X-Ray, Labs, Meds, VS Vital Signs Date Time Temp Pulse Resp B/P (MAP) Pulse Ox O2 Delivery O2 Flow Rate FiO2 02/22/25 07:55 98.5 74 18 125/70 (88) 96 98.5 02/22/25 07:55 74 18 96 Room Air 02/22/25 07:32 74 02/22/25 07:19 97.8 80 18 114/92 97.8 Lab Test 02/22/25 09:02 02/22/25 07:28 Range/Units White Blood Count 5.4 4.4-10.8 10^3/uL Red Blood Count 4.09 L 4.5-5.90 10^6/uL Hemoglobin 13.9 13.5-17.5 g/dL Hematocrit 40.3 L 41.0-53.0 % Mean Corpuscular Volume 98.6 80.0-100.0 fL Mean Corpuscular Hemoglobin 34.1 H 28.0-32.0 pg Mean Corpuscular Hemoglobin Concent 34.6 32.0-36.0 g/dL Red Cell Distribution Width 13.9 11.8-14.3 % Platelet Count 115 L 140-450 10^3/uL Mean Platelet Volume 8.2 6.9-10.8 fL Neutrophils (%) (Auto) 78.3 37.0-80.0 % Lymphocytes (%) (Auto) 9.9 L 10.0-50.0 % Monocytes (%) (Auto) 8.4 0.0-12.0 % Eosinophils (%) (Auto) 2.6 0.0-7.0 % Basophils (%) (Auto) 0.8 0.0-2.0 % Neutrophils # (Auto) 4.3 1.6-8.6 10 ^3/uL Lymphocytes # (Auto) 0.5 0.4-5.4 10 ^3/uL Monocytes # (Auto) 0.5 0-1.3 10 ^3/uL Eosinophils # (Auto) 0.1 0-0.8 10 ^3/uL Basophils # (Auto) 0 0-0.2 10 ^3/uL Nucleated Red Blood Cells 0.0 % Sodium Level 141 136-145 mmol/L Potassium Level 3.7 3.5-5.1 mmol/L Chloride Level 101 98-107 mmol/L Carbon Dioxide Level 34 H 20-31 mmol/L Anion Gap 6 5-15 Blood Urea Nitrogen 19 9-23 mg/dL Creatinine 1.11 0.700-1.30 mg/dL Glomerular Filtration Rate Calc 76 >90 mL/min BUN/Creatinine Ratio 17.1 10.0-20.0 Serum Glucose 335 H 74-106 mg/dL Calcium Level 9.1 8.7-10.4 mg/dL POC Glucose 330 H 70-106 mg/dl Time of 1ST Reevaluation: 08:27 Reevaluation 1ST: Unchanged Patient Education/Counseling: Diagnosis, Treatment Family Education/Counseling: No Family Present Departure 1 Departure Time of Disposition: 11:50 Impression: Primary Impression: Pneumonia Qualified Codes: J18.9 - Pneumonia, unspecified organism Additional Impression: Hyperglycemia due to diabetes mellitus Disposition: HOME / SELF CARE / HOMELESS Condition: Fair Additional Instructions: Follow up with the primary care physician in 2-3 days. Return to the ER if symptoms worsen or persist. e-Prescriptions Benzonatate (Benzonatate) 100 Mg Cap 1 CAP PO TID, #30 CAP Prov: JUANPABLO BOUDREAUX MD 02/22/25 Azithromycin (Zithromax) 250 Mg Tab 250 MG PO DAILY for 5 Days, #6 TAB Take 2 tablets on day 1 followed by 1 tablet on day 2 through 5 Prov: JUANPABLO BOUDREAUX MD 02/22/25 Discharged With: Self Critical Care Note Critical Care Time?: No Stability Stability form required: No Heart Score Heart Score: Heart Score Response (Comments) Value History N/A 0 EKG N/A 0 Age N/A 0 Risk Factors N/A 0 Troponin N/A 0 Total 0 JUANPABLO BOUDREAUX MD Feb 22, 2025 07:37
--- NOTE | 2025-02-22 09:03 | ECG ---
[facility] Test Date: 2025-02-22 Test Time: 07:32:39 Pat Name: DAKOTAH SOLIS Department: Room: Gender: M [employer]: [id number] : [id number] Requested By: JUANPABLO BOUDREAUX Order Number: [id number] Reading MD: Agusto Johansen Measurements Intervals [place] Rate: 74 P: 37 [place]: 151 QRS: 86 QRSD: 103 T: 57 QT: 406 QTc: 451 Interpretive Statements Sinus rhythm Consider right ventricular hypertrophy Electronically Signed On 02-28-2025 18:55:58 PST by Agusto Johansen Please click the below link to view image of tracing.
[2025-02-22 09:22] LABS: Hematocrit 40.3 % (41.0-53.0); Hemoglobin 13.9 g/dL (13.5-17.5); Mean Corpuscular Hemoglobin 34.1 pg (28.0-32.0); Mean Corpuscular Volume 98.6 fL (80.0-100.0); Nucleated Red Blood Cells % 0.0 %
[2025-02-22 09:24] LABS: Chloride 101 mmol/L (98-107); Potassium 3.7 mmol/L (3.5-5.1); Sodium 141 mmol/L (136-145)
[2025-02-22 09:25] LABS: Anion Gap 6 (5-15); Calcium 9.1 mg/dL (8.7-10.4)
[2025-02-22 09:26] LABS: Carbon Dioxide 34 mmol/L (20-31)
[2025-02-22 09:30] LABS: BUN/Creatinine Ratio 17.1 (10.0-20.0); Blood Urea Nitrogen 19 mg/dL (9-23)
[2025-02-22 09:31] LABS: Glucose 335 mg/dL (74-106)
--- NOTE | 2025-02-22 09:48 | DVH ---
CHEST RADIOGRAPH Indication: Rule out pneumonia Technique: Frontal and lateral view of the chest was obtained Comparison: XY CHEST XRAY 1 VIEW on DOS: 01/01/25, XY CHEST PORTABLE on DOS: 12/29/24, XR CHEST 1 VIEW on DOS: 12/11/24, XY CHEST PORTABLE on DOS: 10/18/24, XY CHEST PORTABLE on DOS: 09/14/24 FINDINGS: Lines and Tubes: None Lungs: Increased interstitial prominence. This may represent pulmonary vascular congestion and/or viral pneumonia. Pleura: No effusion.No pneumothorax. Cardiomediastinal contours: Cardiomegaly. Bones: Unremarkable IMPRESSION: Increased interstitial prominence. This may represent pulmonary vascular congestion and/or viral pneumonia.
[2025-02-22 11:35] VITALS: BP 96/56; PULSE 57; RESP 18; TEMP 97.7; O2SAT 95
[2025-02-22] MEDS ORDERED: AZIT-74 PO (11:54)
[2025-02-22] MEDS ORDERED: BENZ100C97 PO (11:58)
== END 2025-02-22 12:15 | disposition home or self-care (01) ==
LOC: ER 07:18
DX: J18.9 Pneumonia, unspecified organism (principal); E11.65 Type 2 diabetes mellitus with hyperglycemia; I11.0 Hypertensive heart disease with heart failure; I50.9 Heart failure, unspecified; J44.9 Chronic obstructive pulmonary disease, unspecified; Z87.891 Personal history of nicotine dependence
CPT/HCPCS: 36415; 71046; 80048; 82947; 82962; 85025; 93005

== ENCOUNTER 2025-03-02 11:26 | Inpatient (IN) | payer MEDICARE, MEDICAID ==
[2025-03-02] VITALS (9 sets, daily range): BP systolic 114–153; BP diastolic 50–75; PULSE 71–84; RESP 16–20; TEMP 97.5–98.8; O2SAT 90–98
[~2025-03-02] VITALS: Ht 165.1 cm; Wt 116.0 kg
[~2025-03-02 11:26] MED LIST changes: +AZIT-74 PO; +BENZ100C97 PO
--- NOTE | 2025-03-02 11:34 | ED.PDOC ---
SOB-HPI HPI Comments HPI: 60-year-old male brought in by ambulance from home for respiratory distress. Patient is supposed to be on supplemental oxygen but he was not wearing it when they picked him up from the home. His pulse ox at room air was in the 70s. They gave him two breathing treatments and place him on supplemental oxygen his sats have improved. Patient is currently on antibiotics for treatment of pneumonia. He states compliance with his medications however his family per EMS states that he does not take care of himself. Patient has been to the hospital here multiple times for similar presentations. Patient is on Xarelto. Patient states compliance with his Lasix. Initial Vitals BP: 135/65 HR:71 RR: 20 O2: 94% RA Temp: 98.8F Past Medical History: DM, sleep apnea, CHF, COPD on 4 liters of oxygen [place], + for TB and treated x 1 year ago in [place]. Past Surgical History: Denies Social History: denies Allergies: NKDA HPI: Poor Historian. REVIEW OF SYSTEMS: CONSTITUTIONAL: Denies acute: fever, diaphoresis, chills, HEAD: Denies acute: headache, photophobia Eyes: Denies acute: Double vision, vision loss, eye pain, eye discharge. EARS: Denies acute: tinnitus, hearing loss, ear discharge, ear pain, THROAT: Denies acute: sore throat, swelling, difficulty swallowing , pain with swallowing, change in voice. NECK: Denies acute: neck pain, neck swelling, stiff neck. HEART: Denies acute : chest pain, palpitations, LUNGS: Denies acute: wheezing, cough, hemoptysis ABDOMEN: Denies acute: abdominal pain, Nausea, Vomiting, diarrhea, melena , hematemesis, hematochezia SKIN: Denies acute: rash, redness, lesions, itchiness. EXTREMITIES: Denies acute: calf pain, numbness, tingling, weakness, denies pain in extremity. Denies acute: Low back pain. Neuro: Denies acute: focal neurological deficit, motor or sensory focal neurological deficit, tremors, seizure like activity, confusion, dizziness, change in mental status, loss of bowel or bladder function, cauda equina like symptoms. : Denies acute: dysuria, hematuria, flank pain, increase in urinary frequency. PSYCH: Denies acute: hallucination, suicidal ideation, homicidal ideation. PHYSICAL EXAM: General: ----moderate----acute distress, awake and alert. Head: normocephalic, atraumatic. No raccoon's eyes, no holley sign. Neck: supple, trachea is midline, no swelling. Throat: Normal phonation. Eyes:, no erythema, no purulent discharge, no proptosis, no icterus. Heart: regular rate, regular rhythm, no significant murmur appreciated. Lungs: Moderate respiratory distress, Mild wheezing, no rhonchi, mild crackles. No stridors Abdomen: non tender to palpation, non distended, soft, no guarding, no rebound, + bowel sounds. Neuro: Awake, Alert, oriented to name, self, situation, follows commands GCS=15. Speech is normal. Skin: no petechia, no purpura, no cyanosis, non-pale, not jaundice. Lower extremities: --2/4 bilateral - Pitting edema no deformity, no focal swelling, no calf TTP. Makes eye contact. moves all four extremities. Face: no apparent facial droop. ED COURSE: DISCLAIMER: This medical document was created using an electronic medical record system with voice recognition software and computerized dictation system. Although this document has been carefully reviewed, there might still be some phonetic and typographical errors. Occasional wrong-word or "sound-alike" substitutions may have occurred due to the inherent limitations of voice recognition software. These areas are purely typographical due to imperfections of the software pro grams and do not reflect any compromise in the patient's medical care. Please read the chart carefully and recognize, using context, where these substitutions have occurred. Chief Complaint: Shortness of Breath Time Seen by MD: 11:34 Reviewed notes: Allergies Information Source: Patient, Emergency Med Personnel EKG EKG : Pulse Rate (adult): 70 Cardiac Rhythm: NSR Was a procedure done? Was a procedure done?: No Differential Dx Differential Diagnosis: Bronchitis, CHF, COPD, Respiratory Distress, URI, Other (DDx include ACS, unstable angina, anxiety, PE, pneumothroax, neoplasm, cardiac ischemia, COPD, asthma, CHF, pleural effusion, tobacco abuse, pneumonia, hypoxia, hypercapnia, anemia., infection/sepsis., pulmonary edema. Asthma, Cardiac tamponade, infection.) X-Ray, Labs, Meds, VS Vital Signs Date Time Temp Pulse Resp B/P (MAP) Pulse Ox O2 Delivery O2 Flow Rate FiO2 03/02/25 15:00 71 24 135/65 (88) 93 03/02/25 13:01 111/66 03/02/25 13:00 71 12 152/74 (100) 97 03/02/25 12:41 18 95 Nasal Cannula* 4 36 03/02/25 12:00 74 03/02/25 11:52 47 16 122/56 (78) 93 03/02/25 11:52 74 16 93 Nasal Cannula* 4 36 03/02/25 11:48 98.8 66 16 143/64 98 98.8 03/02/25 11:44 70 03/02/25 11:34 70 Lab Test 03/02/25 14:34 03/02/25 14:28 03/02/25 13:39 03/02/25 12:35 Range/Units POC Glucose 387 H 70-106 mg/dl Magnesium Level 1.4 L 1.6-2.6 mg/dL Troponin I High Sensitivity 20 21 </=54 ng/L Lactic Acid Level 2.5 *H 0.4-2.0 mmol/L Test 03/02/25 11:45 03/02/25 11:31 Range/Units White Blood Count 4.4 4.4-10.8 10^3/uL Red Blood Count 3.79 L 4.5-5.90 10^6/uL Hemoglobin 12.8 L 13.5-17.5 g/dL Hematocrit 38.5 L 41.0-53.0 % Mean Corpuscular Volume 101.6 H 80.0-100.0 fL Mean Corpuscular Hemoglobin 33.9 H 28.0-32.0 pg Mean Corpuscular Hemoglobin Concent 33.4 32.0-36.0 g/dL Red Cell Distribution Width 15.1 H 11.8-14.3 % Platelet Count 131 L 140-450 10^3/uL Mean Platelet Volume 8.8 6.9-10.8 fL Neutrophils (%) (Auto) 73.2 37.0-80.0 % Lymphocytes (%) (Auto) 11.9 10.0-50.0 % Monocytes (%) (Auto) 11.2 0.0-12.0 % Eosinophils (%) (Auto) 2.7 0.0-7.0 % Basophils (%) (Auto) 1.0 0.0-2.0 % Neutrophils # (Auto) 3.2 1.6-8.6 10 ^3/uL Lymphocytes # (Auto) 0.5 0.4-5.4 10 ^3/uL Monocytes # (Auto) 0.5 0-1.3 10 ^3/uL Eosinophils # (Auto) 0.1 0-0.8 10 ^3/uL Basophils # (Auto) 0 0-0.2 10 ^3/uL Nucleated Red Blood Cells 0.2 % Sodium Level 142 136-145 mmol/L Potassium Level 4.0 3.5-5.1 mmol/L Chloride Level 98 98-107 mmol/L Carbon Dioxide Level 38 H 20-31 mmol/L Anion Gap 6 5-15 Blood Urea Nitrogen 14 9-23 mg/dL Creatinine 1.11 0.700-1.30 mg/dL Glomerular Filtration Rate Calc 76 >90 mL/min BUN/Creatinine Ratio 12.6 10.0-20.0 Serum Glucose 509 *H 74-106 mg/dL Lactic Acid Level 2.2 *H 0.4-2.0 mmol/L Calcium Level 9.2 8.7-10.4 mg/dL Magnesium Level 1.5 L 1.6-2.6 mg/dL Total Bilirubin 0.9 0.2-1.0 mg/dL Aspartate Amino Transferase (AST) 66 H 13-40 U/L Alanine Aminotransferase (ALT) 33 7-40 U/L Alkaline Phosphatase 334 H 46-116 U/L Troponin I High Sensitivity 21 </=54 ng/L B-Type Natriuretic Peptide 309.92 0-100 pg/mL Total Protein 6.3 5.7-8.2 g/dL Albumin 3.0 L 3.2-4.8 g/dL Urine Color Light-yellow Yellow Urine Clarity Clear Clear Urine pH 5.5 5.0-9.0 Urine Specific Irwin 1.012 1.001-1.035 Urine Protein 1+ H Negative Urine Ketones Negative Negative Urine Blood Trace H Negative /uL Urine Nitrite Negative Negative Urine Bilirubin Negative Negative Urine Urobilinogen Normal Negative mg/dL Urine Leukocyte Esterase Negative Negative /uL Urine RBC 1 0 - 3 /hpf Urine Microscopic WBC < 1 0-3 /HPF Urine Squamous Epithelial Cells Few <5 /hpf Urine Bacteria Few H None Seen /hpf Urine Hyaline Casts Few 0 - 2 /lpf Urine Yeast (Budding) Occasional None Seen /hpf Urine Glucose 4+ H Normal mg/dL [facility] [id number] [facility] [address] Ph: [phone] DIAGNOSTIC IMAGING Diagnostic Imaging Report : [id number] Signed PATIENT: DAKOTAH SOLIS ACCT: [id number] UNIT: [id number] : 1965 LOC: ER ROOM / BED: / AGE / SEX: 60 / M ADM STATUS: REG ER SERVICE [id number] ORDERING PHYSICIAN: ANNETTE FUNES DO PROCEDURE(s): CXRP - CHEST PORTABLE REASON: sob ORDER NUMBER(s): [id number], ACCESSION NUMBER(s): [id number] CLINICAL INFORMATION: Shortness of breath. TECHNIQUE: Single AP portable chest radiograph was obtained. COMPARISON: XY CHEST TWO VIEWS ROUTINE on DOS: 02/22/25, XY CHEST XRAY 1 VIEW on DOS: 01/01/25, XY CHEST PORTABLE on DOS: 12/29/24 FINDINGS: Lungs: Bilateral interstitial opacities, most prominent in the perihilar region, increased compared to the prior exam. Cardiac: Unchanged cardiomegaly. Pulmonary vasculature: Prominence of the pulmonary vasculature. Mediastinum/jeffy: Unremarkable. Bones: No acute osseous abnormality identified. Other: No other significant findings. IMPRESSION: Findings described above would be consistent with pulmonary vascular congestion and possible interstitial pulmonary edema in the appropriate clinical setting. Correlate with clinical findings. ATED BY: LANCE SEYMOUR DO DICTATED DATE/TIME: 03/02/251246 SIGNED BY: LANCE SEYMOUR DO SIGNED DATE/TIME: 03/02/251246 CC: Time of 1ST Reevaluation: 11:33 Reevaluation 1ST: Unchanged Patient Education/Counseling: Diagnosis, Treatment Family Education/Counseling: No Family Present Comments MDM: patient presented with the above HPI.---respiratory distress---workup was initiated. patient was found with the above mentioned diagnosis. the following medications were ordered: please refer to order lists of meds and tests obtained by myself Dr. Funes. Patient ED course and VS have been stabilized. Patient has been reassessed in the ED and remained in a stable condition. Pertinent incidental findings were discussed with the patient and/or family. Patient/family voices understanding and is agreeable with plan. Patient has been observed in the ED adequate length of time to insure improvement/stability. Escalation of care considered: Consideration of escalation to observation or admission Patient was ADMITTED to the medicine team for further evaluation and treatment of their presentation. All the reports of any imaging studies that were ordered by myself were reviewed by myself. Departure 1 Departure Time of Disposition: 12:11 Impression: Primary Impression: Acute exacerbation of CHF (congestive heart failure) Additional Impressions: COPD exacerbation Acute respiratory distress Hypomagnesemia Hyperglycemia due to diabetes mellitus Thrombocytopenia Disposition: ADMITTED INPATIENT Admit to: Tele Condition: Guarded Discharged With: Self Critical Care Note Critical Care Time?: Yes (1 hr-critical care time only) Critical care comment: Due to a high probability of clinically significant, life threatening deterioration, the patient required my highest level of preparedness to intervene emergently and I personally spent this critical care time directly and personally managing the patient. This critical care time included obtaining a history; examining the patient; pulse oximetry; ordering and review of studies; arranging urgent treatment with development of a management plan; evaluation of patient's response to treatment; frequent reassessment; and, discussions with other providers. This critical care time was performed to assess and manage the high probability of imminent, life-threatening deterioration that could result in multi-organ failure. It was exclusive of separately billable procedures and treating other patients and teaching time. Please see my other sections and the rest of the note for further information on patient assessment and treatment. Heart Score Heart Score: Heart Score Response (Comments) Value History Moderate Suspicious 1 EKG Normal 0 Age 45-64 1 Risk Factors >3 or Hx ASHD 2 Troponin Normal limit 0 Total 4 I personally scribed for ANNETTE FUNES DO ([email or web address]) on 03/02/25 at 11:34. Electronically submitted by Kate Manzanares ([facility]). I personally scribed for ANNETTE FUNES DO ([email or web address]) on 03/02/25 at 11:44. Electronically submitted by Kate Manzanares ([facility]). I personally scribed for ANNETTE FUNES DO ([facility]) on 03/02/25 at 13:40. Electronically submitted by Kate Manzanares ([facility]). I personally scribed for ANNETTE FUNES DO ([facility]) on 03/02/25 at 18:36. Electronically submitted by Kate Manzanares ([facility]). ANNETTE FUNES DO Mar 02, 2025 11:34
[2025-03-02 12:02] LABS: Hematocrit 38.5 % (41.0-53.0); Hemoglobin 12.8 g/dL (13.5-17.5); Mean Corpuscular Hemoglobin 33.9 pg (28.0-32.0); Mean Corpuscular Volume 101.6 fL (80.0-100.0); Nucleated Red Blood Cells % 0.2 %
[2025-03-02 12:17] LABS: Alanine Aminotransferase 33 U/L (7-40); Anion Gap 6 (5-15); BUN/Creatinine Ratio 12.6 (10.0-20.0); Blood Urea Nitrogen 14 mg/dL (9-23); Calcium 9.2 mg/dL (8.7-10.4); Potassium 4.0 mmol/L (3.5-5.1); Sodium 142 mmol/L (136-145); Total Protein 6.3 g/dL (5.7-8.2)
[2025-03-02 12:18] LABS: Bilirubin, Total 0.9 mg/dL (0.2-1.0)
[2025-03-02 12:19] LABS: Albumin 3.0 g/dL (3.2-4.8); Alkaline Phosphatase 334 U/L (46-116); Carbon Dioxide 38 mmol/L (20-31); Chloride 98 mmol/L (98-107); Magnesium 1.5 mg/dL (1.6-2.6)
[2025-03-02 12:21] LABS: Glucose 509 mg/dL (74-106)
[2025-03-02 12:23] LABS: Lactic Acid w/Reflex 2.2 mmol/L (0.4-2.0)
[2025-03-02] MEDS: IPRATROPIUM BROM 0.5 MG/2.5ML INH SOL NEB ONE (12:38)
[2025-03-02] MEDS: ALBUTEROL SULF 2.5 MG/0.5ML(0.5%) NEB SOLN NEB ONE (12:38)
[2025-03-02] MEDS ORDERED: InsuLIN REG 1unit/0.01ml Soln (100units/ml) IV ONE (12:45)
[2025-03-02 12:47] LABS: Urine Budding Yeast OCCASIONAL /hpf (None Seen); Urine Protein, UAD 1+ (Negative)
--- NOTE | 2025-03-02 12:50 | DVH ---
CLINICAL INFORMATION: Shortness of breath. TECHNIQUE: Single AP portable chest radiograph was obtained. COMPARISON: XY CHEST TWO VIEWS ROUTINE on DOS: 02/22/25, XY CHEST XRAY 1 VIEW on DOS: 01/01/25, XY CHEST PORTABLE on DOS: 12/29/24 FINDINGS: Lungs: Bilateral interstitial opacities, most prominent in the perihilar region, increased compared to the prior exam. Cardiac: Unchanged cardiomegaly. Pulmonary vasculature: Prominence of the pulmonary vasculature. Mediastinum/jeffy: Unremarkable. Bones: No acute osseous abnormality identified. Other: No other significant findings. IMPRESSION: Findings described above would be consistent with pulmonary vascular congestion and possible interstitial pulmonary edema in the appropriate clinical setting. Correlate with clinical findings.
[2025-03-02] MEDS: methylPREDNISolone SOD SUCC 125 MG/2 ML VL IV ONE (12:58)
[2025-03-02] MEDS: FUROSEMIDE 100 MG/10ML VIAL IV ONE (13:01)
[2025-03-02] MEDS: PIPERACILLIN-TAZOB 3.375GM 100 ML IV ONE (14:45)
[2025-03-02] MEDS: MAGNESIUM SULFATE 1GM/100ML 100 ML IV ONE (14:45)
[2025-03-02] MEDS: InsuLIN REG 1unit/0.01ml Soln (100units/ml) SC ONE (14:51)
[2025-03-02] MEDS ORDERED: NITROGLYCERIN 0.4 MG SL TAB SL PRN (15:15)
[2025-03-02] MEDS ORDERED: VANCOMYCIN PER PHARMACY 0 MG IV SCH (15:15)
--- NOTE | 2025-03-02 15:27 | DVHHP2 ---
History of Present Illness Reason for Visit: sob History of Present Illness 66-year-old male with past medical history significant for diabetes mellitus, COPD on 4 L home oxygen, obstructive sleep apnea, and heart failure, with no prior surgical history, presents with acute respiratory distress. The patient was found to be 70% on room air on arrival. He received two breathing treatments, which improved his oxygenation, but he continued to feel that he c ould not breathe. He reports wearing his oxygen as prescribed but notes that his shortness of breath has progressively worsened, particularly last night. The patient reports a history of pneumonia for which he was treated with two different antibiotics, and he states he is currently taking antibiotics. He also reports chest pain that has been present for three days, with worsening symptoms yesterday. He has a cough but denies fever. In the ED, he received magnesium, insulin, albuterol, Atrovent, and Lasix. Review of records shows his last echocardiogram on August 06, 2024 with EF 55%. Laboratory evaluation revealed hemoglobin 12.8 / hematocrit 38.5, platelets 131, glucose 509 without DKA, CO2 23.8, lactic acid 2.2, magnesium 1.5, troponin negative x2, albumin 3.0, alkaline phosphatase 334, AST 66, and BNP 309.92. Chest X-ray demonstrated pulmonary vascular congestion. Urinalysis showed few bacteria. The patient reports being on xarelto. Given hypoxic respiratory failure, heart failure exacerbation, COPD exacerbation, severe hyperglycemia, and electrolyte abnormalities, the patient will be admitted for inpatient management and cardiopulmonary monitoring. Past Medical History See HPI above Past Surgical History See HPI above Family History Reviewed, non-contributory to the management of this case. Past Social History The patient lives at home, denies smoking, alcohol or illicit drugs abuse. Review of Systems Constitutional: No: Fever, Chills, Sweats, Weakness, Malaise, Other Eyes: No: Pain, Vision change, Conjunctivae inflammation, Eyelid inflammation, Other, Redness ENT: No: Ear pain, Ear discharge, Nose pain, Nose discharge, Nose congestion, Mouth pain, Mouth swelling, Throat pain, Throat swelling, Other Respiratory: Cough, Shortness of breath, SOB with excertion; No: Dry, Wheezing, Hemoptysis, Pleuritic Pain, Sputum, Wheezing, Other Cardiovascular: Chest Pain; No: Palpitations, Orthopnea, Paroxysmal Noc. Dyspnea, Edema, Lt Headedness, Other Gastrointestinal: No: Nausea, Vomiting, Abdominal Pain, Diarrhea, Constipation, Melena, Hematochezia, Other Genitourinary: No Dysuria, No Frequency, No Incontinence, No Hematuria, No Retention, No Other Musculoskeletal: No: other, neck pain, shoulder pain, arm pain, back pain, hand pain, leg pain, foot pain Skin: No: Rash, Lesions, Jaundice, Bruising, Other Neurological: No: Weakness, Numbness, Incoordination, Change in speech, Confusion, Seizures, Other Allergies: Coded Allergies: NO KNOWN ALLERGIES (Unverified , 06/08/24) Exam Vital Signs Vital Signs Date Time Temp Pulse Resp B/P (MAP) Pulse Ox O2 Delivery O2 Flow Rate FiO2 03/02/25 15:00 71 24 135/65 (88) 93 03/02/25 12:41 Nasal Cannula* 4 36 03/02/25 11:48 98.8 98.8 General Appearance: Alert, Oriented X3, Cooperative, mild distress HEENT: Atraumatic, PERRLA, EOMI, Mucous membr. moist/pink Respiratory: Other (Diminished lung sounds throughout) Cardiovascular: Regular rate, Normal S1, Normal S2, No murmurs Abdominal: Normal bowel sounds, Soft, No tenderness, No hepatospenomegaly, No masses Extremities: No clubbing, No cyanosis, No edema, Normal pulses, No tenderness/swelling Skin: No rashes, No breakdown, No significant lesion Neuro: Other (Neuro nonfocal) Psych/Mental Status: Mental status NL, Mood NL Labs/Xrays Chest x-ray shows pulmonary vascular congestion I reviewed labs, imaging CT scan abdomen pelvis, EKG and all diagnostic studies on this patient from ED records and the medical chart Labs Test 03/02/25 14:34 03/02/25 14:28 03/02/25 13:39 03/02/25 11:45 Range/Units POC Glucose 387 H 70-106 mg/dl Troponin I High Sensitivity 20 </=54 ng/L Lactic Acid Level 2.5 *H 0.4-2.0 mmol/L White Blood Count 4.4 4.4-10.8 10^3/uL Red Blood Count 3.79 L 4.5-5.90 10^6/uL Hemoglobin 12.8 L 13.5-17.5 g/dL Hematocrit 38.5 L 41.0-53.0 % Mean Corpuscular Volume 101.6 H 80.0-100.0 fL Mean Corpuscular Hemoglobin 33.9 H 28.0-32.0 pg Mean Corpuscular Hemoglobin Concent 33.4 32.0-36.0 g/dL Red Cell Distribution Width 15.1 H 11.8-14.3 % Platelet Count 131 L 140-450 10^3/uL Mean Platelet Volume 8.8 6.9-10.8 fL Neutrophils (%) (Auto) 73.2 37.0-80.0 % Lymphocytes (%) (Auto) 11.9 10.0-50.0 % Monocytes (%) (Auto) 11.2 0.0-12.0 % Eosinophils (%) (Auto) 2.7 0.0-7.0 % Basophils (%) (Auto) 1.0 0.0-2.0 % Neutrophils # (Auto) 3.2 1.6-8.6 10 ^3/uL Lymphocytes # (Auto) 0.5 0.4-5.4 10 ^3/uL Monocytes # (Auto) 0.5 0-1.3 10 ^3/uL Eosinophils # (Auto) 0.1 0-0.8 10 ^3/uL Basophils # (Auto) 0 0-0.2 10 ^3/uL Nucleated Red Blood Cells 0.2 % Sodium Level 142 136-145 mmol/L Potassium Level 4.0 3.5-5.1 mmol/L Chloride Level 98 98-107 mmol/L Carbon Dioxide Level 38 H 20-31 mmol/L Anion Gap 6 5-15 Blood Urea Nitrogen 14 9-23 mg/dL Creatinine 1.11 0.700-1.30 mg/dL Glomerular Filtration Rate Calc 76 >90 mL/min BUN/Creatinine Ratio 12.6 10.0-20.0 Serum Glucose 509 *H 74-106 mg/dL Calcium Level 9.2 8.7-10.4 mg/dL Magnesium Level 1.5 L 1.6-2.6 mg/dL Total Bilirubin 0.9 0.2-1.0 mg/dL Aspartate Amino Transferase (AST) 66 H 13-40 U/L Alanine Aminotransferase (ALT) 33 7-40 U/L Alkaline Phosphatase 334 H 46-116 U/L B-Type Natriuretic Peptide 309.92 0-100 pg/mL Total Protein 6.3 5.7-8.2 g/dL Albumin 3.0 L 3.2-4.8 g/dL Test 03/02/25 11:31 Range/Units Urine Color Light-yellow Yellow Urine Clarity Clear Clear Urine pH 5.5 5.0-9.0 Urine Specific [place] 1.012 1.001-1.035 Urine Protein 1+ H Negative Urine Ketones Negative Negative Urine Blood Trace H Negative /uL Urine Nitrite Negative Negative Urine Bilirubin Negative Negative Urine Urobilinogen Normal Negative mg/dL Urine Leukocyte Esterase Negative Negative /uL Urine RBC 1 0 - 3 /hpf Urine Microscopic WBC < 1 0-3 /HPF Urine Squamous Epithelial Cells Few <5 /hpf Urine Bacteria Few H None Seen /hpf Urine Hyaline Casts Few 0 - 2 /lpf Urine Yeast (Budding) Occasional None Seen /hpf Urine Glucose 4+ H Normal mg/dL SEPSIS Sepsis Screen Date sepsis recognized/suspect: Mar 02, 2025 Time Sepsis recognized/suspect: 1153 Recent Procedure: No On Antibiotic Therapy: No Respiratory Rate >20: No Heart Rate >90: No Temp<36 C (96.8 F) or >38.3 C: No SBP <90 or MAP <65 mmHG: No New Acute Mental Status Change: No Is the patient on CPAP, BIPAP,: No Physician Orders Street Cleaner (03/02/25 ) Chest Portable (03/02/25 11:46) Electrocardigram (03/02/25 11:31) Cardiac Diet-2gna,Lofat,Lochol (03/02/25 Dinner) Amiodarone Tablet (Cordarone Tablet) (03/02/25 22:00) Guaifenesin-Dextromet Liquid (Robitussin (03/02/25 15:15) Lisinopril Tablet (Zestril Tablet) (03/03/25 10:00) Metoprolol Tartrate Tablet (Lopressor Ta (03/03/25 10:00) Rivaroxaban Tablet (Xarelto Tablet) (03/03/25 10:00) Sildenafil Citrate (Revatio) (03/02/25 22:00) Pantoprazole (Protonix) (03/02/25 15:15) Pantoprazole (Protonix) (03/03/25 10:00) Furosemide Injection (Lasix Injection) (03/02/25 18:00) Beta-Hydroxybutyrate (03/02/25 15:15) Vancomycin (03/02/25 15:15) Zosyn Extended Infusion (03/02/25 18:00) Lactic Acid W/ Reflex Order (03/02/25 15:15) Abdomen Limited (03/02/25 15:15) Admit (03/02/25 15:15) Advance Directive (03/02/25 15:15) Vital Signs .PER UNIT PROTOCOL (03/02/25 15:15) Maintain Fluid Restrictions QSHIFT (03/02/25 15:15) Obtain Daily Weight 22 (03/02/25 15:15) Comprehensive Metabolic Panel (03/03/25 04:00) Complete Blood Count (03/03/25 04:00) Echo 2d Mode Cardiac Dop (03/02/25 15:15) Copy Of Previous Echo Report T (03/02/25 15:15) Oxygen By Nasal Cannula (03/02/25 15:15) Early Ambulation (03/02/25 15:15) Sequential Compression Device (03/02/25 15:15) Troponin-I Hs (03/02/25 15:15) Cardiac Rehabilitation - Outpa (03/02/25 ) Subjective Activity Tolerance BID (03/02/25 15:15) Strict I & O QSHIFT (03/02/25 15:15) Teach: Heart Failure (03/02/25 15:15) Magnesium (03/02/25 15:15) * Cardiology Consult (03/02/25 15:15) Cardiac Rehabilitation: (03/02/25 15:15) Nitroglycerin Sublingual (Ntrostat Subli (03/02/25 15:15) Stat Ekg For Chest Pain (03/02/25 15:15) Notify Md Of Changes From Base (03/02/25 15:15) Geothermal Installer For 24 Hours (03/02/25 15:15) Emergency Dysrhythmia Protocol (03/02/25 15:15) Rhythm Strips Once Every Shift (03/02/25 15:15) Oxygen By Nasal Cannula (03/02/25 15:15) Troponin-I Hs (03/02/25 16:15) Troponin-I Hs (03/02/25 18:15) Abg W/ Co-Ox (03/02/25 15:15) Bipap/Cpap For Sleep Apnea (03/02/25 15:15) Albuterol Medneb (Ventolin Medneb) (03/02/25 18:00) Ipratropium Medneb (Atrovent Medneb) (03/02/25 18:00) Methylprednisolone Sod Succ (Solu Medrol (03/02/25 22:00) Vital Signs Date Time Temp Pulse Resp B/P (MAP) Pulse Ox O2 Delivery O2 Flow Rate FiO2 03/02/25 15:00 71 24 135/65 (88) 93 03/02/25 13:01 111/66 03/02/25 13:00 71 12 152/74 (100) 97 03/02/25 12:41 18 95 Nasal Cannula* 4 36 03/02/25 12:00 74 03/02/25 11:48 98.8 66 16 143/64 98 98.8 03/02/25 11:44 70 03/02/25 11:34 70 Laboratory Tests Test 03/02/25 11:45 03/02/25 13:39 Lactic Acid Level 2.2 mmol/L (0.4-2.0) *H 2.5 mmol/L (0.4-2.0) *H White Blood Count 4.4 10^3/uL (4.4-10.8) Medications Medications Dose Ordered Sig/Deondre Route Start Time Stop Time Status Last Admin Dose Admin Albuterol 2.5 mg ONCE ONCE NEB 03/02/25 11:45 03/02/25 11:46 DC 03/02/25 12:38 2.5 MG Furosemide 60 mg ONCE ONCE IV 03/02/25 11:45 03/02/25 11:46 DC 03/02/25 13:01 60 MG Insulin Human Regular 10 units ONCE ONCE SC 03/02/25 14:45 03/02/25 14:46 DC 03/02/25 14:51 10 UNITS Ipratropium [place] 1 mg ONCE ONCE NEB 03/02/25 11:45 03/02/25 11:46 DC 03/02/25 12:38 1 MG Magnesium Sulfate/ Dextrose 100 ml @ 100 mls/hr ONCE ONCE IV 03/02/25 12:45 03/02/25 13:44 DC 03/02/25 14:45 100 MLS/HR Methylprednisolone Sodium Succinate 125 mg ONCE ONCE IV 03/02/25 11:45 03/02/25 11:46 DC 03/02/25 12:58 125 MG Piperacillin Sod/ Tazobactam Sod 100 ml @ 100 mls/hr ONCE ONCE IV 03/02/25 12:45 03/02/25 13:44 DC 03/02/25 14:45 100 MLS/HR Assessment/Plan Assessment/Plan 66-year-old male admitted for acute hypoxic respiratory failure due to acute on chronic heart failure exacerbation and COPD exacerbation, with associated severe hyperglycemia, electrolyte abnormalities, and concern for pneumonia, requiring inpatient treatment and telemetry monitoring. Acute hypoxic respiratory failure likely from hf vs pna vs copd exacerbation O2 saturation 70% on room air Supplemental oxygen to maintain SpO2 >92% Continuous pulse oximetry ordered albuterol/atrovent atc ordered solumedrol atc ordered lasix bid ppx antibiotics cont for now Acute on chronic heart failure exacerbation BNP 309.92 CXR with pulmonary vascular congestion IV Lasix Strict I/Os and daily weights Order echocardiogram Cardiology consult Acute COPD exacerbation Wheezing and dyspnea Scheduled bronchodilator treatments (albuterol/Atrovent) Systemic steroids Monitor respiratory status acute Possible pneumonia History of recent antibiotic use Cough without fever Start prophylactic antibiotics for now Monitor cultures and clinical response acute Severe hyperglycemia without DKA Glucose 509 Insulin therapy Accu-checks ISS Monitor for DKA acute Hypomagnesemia Magnesium 1.5 Replete magnesium Monitor levels acute Lactic acidosis Likely secondary to hypoxia and HF exacerbation Lactate 2.2 Trend lactate cont antibiotics Transaminitis AST 66, Alk Phos 334 Hold atorvastatin temporarily Trend liver enzymes Obstructive sleep apnea Continue nocturnal respiratory support as needed chronic problems Heart failure COPD on home oxygen Type 2 diabetes mellitus Obstructive sleep apnea Chronic anticoagulation (Eliquis) FEN / PPx Fluids: Avoid excess IV fluids Electrolytes: Replete magnesium, monitor BMP Nutrition: Diabetic cardiac diet DVT Prophylaxis: xarelto GI Prophylaxis: Protonix Disposition Admit to telemetry for management of acute hypoxic respiratory failure, heart failure exacerbation, COPD exacerbation, severe hyperglycemia, and electrolyte abnormalities. Continue diuresis, bronchodilator therapy, insulin management, and cardiology evaluation. Plan discussed with: Patient My Orders Orders - IBIS MARTINEZ DNP Procedure Category Date Status Time Cardiac DIET 03/02/25 Transmitted Diet-2gna,Lofat,Lochol Dinner Amiodarone Tablet PHA 03/02/25 Transmitted (Cordarone Tablet) 22:00 Guaifenesin-Dextromet PHA 03/02/25 Transmitted Liquid (Robitussin 15:15 Lisinopril Tablet PHA 03/03/25 Transmitted (Zestril Tablet) 10:00 Metoprolol Tartrate PHA 03/03/25 Transmitted Tablet (Lopressor Ta 10:00 Rivaroxaban Tablet PHA 03/03/25 Transmitted (Xarelto Tablet) 10:00 Sildenafil Citrate [facility] 03/02/25 Transmitted (Revatio) 22:00 Pantoprazole PHA 03/02/25 Transmitted (Protonix) 15:15 Pantoprazole PHA 03/03/25 Transmitted (Protonix) 10:00 Furosemide Injection [facility] 03/02/25 Transmitted (Lasix Injection) 18:00 Beta-Hydroxybutyrate LAB 03/02/25 Transmitted 15:15 Vancomycin PHA 03/02/25 Transmitted 15:15 Zosyn Extended PHA 03/02/25 Transmitted Infusion 18:00 Lactic Acid W/ Reflex LAB 03/02/25 Transmitted Order 15:15 Abdomen Limited US 03/02/25 Transmitted 15:15 Admit ADMIT 03/02/25 Transmitted 15:15 Advance Directive [facility] 03/02/25 Transmitted 15:15 Vital Signs [facility] 03/02/25 Transmitted 15:15 Maintain Fluid [facility] 03/02/25 Transmitted Restrictions 15:15 Obtain Daily Weight [facility] 03/02/25 Transmitted 15:15 Comprehensive LAB 03/03/25 Verified Metabolic Panel 04:00 Complete Blood Count LAB 03/03/25 Verified 04:00 Echo 2d Mode Cardiac US 03/02/25 Transmitted DOP 15:15 Copy Of Previous Echo [facility] 03/02/25 Transmitted Report T 15:15 Oxygen By Nasal RT 03/02/25 Transmitted Cannula 15:15 Early Ambulation [facility] 03/02/25 Transmitted 15:15 Sequential [facility] 03/02/25 Transmitted Compression Device 15:15 Troponin-I Hs LAB 03/02/25 Transmitted 15:15 Cardiac [facility] 03/02/25 Transmitted Rehabilitation - Outpa Subjective Activity [facility] 03/02/25 Transmitted Tolerance 15:15 Strict I & O [facility] 03/02/25 Transmitted 15:15 Teach: Heart Failure [facility] 03/02/25 Transmitted 15:15 Magnesium LAB 03/02/25 Transmitted 15:15 * Cardiology Consult CONS 03/02/25 Transmitted 15:15 Cardiac ORDERS 03/02/25 Transmitted Rehabilitation: 15:15 Nitroglycerin PHA 03/02/25 Transmitted Sublingual (Ntrostat 15:15 Stat Ekg For Chest [facility] 03/02/25 Transmitted Pain 15:15 Notify Md Of Changes [facility] 03/02/25 Transmitted From Base 15:15 Geothermal Installer For [facility] 03/02/25 Transmitted 24 Hours 15:15 Emergency Dysrhythmia [facility] 03/02/25 Transmitted Protocol 15:15 Rhythm Strips Once [facility] 03/02/25 Transmitted Every Shift 15:15 Oxygen By Nasal RT 03/02/25 Transmitted Cannula 15:15 Troponin-I Hs LAB 03/02/25 Transmitted 16:15 Troponin-I Hs LAB 03/02/25 Transmitted 18:15 Abg W/ Co-Ox RT 03/02/25 Verified 15:15 Bipap/Cpap For Sleep RT 03/02/25 Verified Apnea 15:15 Albuterol Medneb [facility] 03/02/25 Transmitted (Ventolin Medneb) 18:00 Ipratropium Medneb [facility] 03/02/25 Transmitted (Atrovent Medneb) 18:00 Methylprednisolone [facility] 03/02/25 Transmitted Sod Succ (Solu Medrol 22:00 Date of Service: Mar 02, 2025 Billing Provider: IBIS MARTINEZ DNP Common Visit Codes: [id number] INP/OBS CARE (HIGH) IBIS MARTINEZ DNP Mar 02, 2025 15:27
[2025-03-02 16:16] LABS: Lactic Acid w/Reflex 2.3 mmol/L (0.4-2.0)
[2025-03-02] MEDS: VANCOMYCIN 1.75GM/350ML 350 ML IV ONE (17:20)
--- NOTE | 2025-03-02 17:40 | DVH ---
ULTRASOUND ABDOMEN, LIMITED RIGHT UPPER QUADRANT: REASON FOR EXAM: transaminitis TECHNIQUE: Real-time sector scans in the transverse and longitudinal planes were obtained through the right upper quadrant of the abdomen. FINDINGS: The liver is echogenic and demonstrates coarse echotexture. The liver is enlarged at 18.0 cm in length. There is hepatofugal flow in the portal vein. There is no intrahepatic biliary ductal dilatation. The common bile duct is not visualized. The gallbladder is surgically absent. The pancreas is obscured by bowel gas. The right kidney measures 11.3 cm. No hydronephrosis or nephrolithiasis is identified. There is no evidence of right renal mass or cyst. The visualized portions of the abdominal aorta demonstrate no evidence of aneurysmal dilatation. The visualized inferior vena cava is unremarkable. There is no free fluid identified in the right upper quadrant. IMPRESSION: Enlarged, echogenic liver. This may be secondary to steatosis or another diffuse hepatic process. Favor cirrhosis given the hepatofugal flow in the portal vein. Correlate clinically and with liver function tests.
[2025-03-02] MEDS: IPRATROPIUM BROM 0.5 MG/2.5ML INH SOL NEB SCH (17:51)
[2025-03-02] MEDS: ALBUTEROL SULF 2.5 MG/0.5ML(0.5%) NEB SOLN NEB SCH (17:51)
[2025-03-02] MEDS: PIPERACILLIN-TAZOB 3.375GM 100 ML IV SCH (17:53)
[2025-03-02] MEDS: FUROSEMIDE 40 MG/4 ML VIAL IV SCH (18:30)
[2025-03-02] MEDS ORDERED: DEXTROSE (50%) 50ML SYRG IV PRN (18:45)
[2025-03-02] MEDS ORDERED: InsuLIN REG 1unit/0.01ml Soln (100units/ml) SC SCH (18:49)
[2025-03-02] MEDS: ACCU-CHEK COMFORT CURVE STRIP VI SCH ×2 (19:29→20:00)
[2025-03-02] MEDS: InsuLIN REG 1unit/0.01ml Soln (100units/ml) SC SCH (20:36)
[2025-03-02] MEDS: AMIODARONE HCL 200 MG TAB PO SCH (21:31)
[2025-03-02] MEDS: SILDENAFIL CITRATE 20 MG TAB PO SCH (21:31)
[2025-03-02] MEDS: methylPREDNISolone SOD SUCC 40 MG/ML VL IV SCH (21:32)
--- NOTE | 2025-03-02 22:59 | DVHINCON2 ---
Date of service: Mar 02, 2025 Referring Physician Patrick Reason for Consultation CHF exacerbation History of Present Illness This is a 66-year-old male with a past medical history of diabetes mellitus, COPD on 4 L home oxygen, obstructive sleep apnea, and heart failure who presents to the ED with complaints of acute respiratory distress. The patient was found to be 70% on room air on arrival. He received two breathing treatments, which improved his oxygenation, but he continued to feel that he could not breathe. He reports wearing his oxygen as prescribed but notes that his shortness of breath has progressively worsened, particularly last night. The patient reports a histo ry of pneumonia for which he was treated with two different antibiotics, and he states he is currently taking antibiotics. He also reports chest pain that has been present for three days, with worsening symptoms yesterday. He has a cough but denies fever. Review of records shows his last echocardiogram on August 06, 2024 with EF 55%. HGB 12.8 HCT 38.5, PLT 131, GLUC 509, CO2 23.8, LA 2.2, MG 1.5, troponin negative x2, albumin 3.0, alkaline phosphatase 334, AST 66, BNP 309,92. Chest x-ray shows pulmonary vascular congestion. Urinalysis showed few bacteria. Patient was admitted to the hospital. I am asked to consult on this patient. Family History: Cardiovascular disease G8 MOTHER Allergies: Coded Allergies: NO KNOWN ALLERGIES (Unverified , 06/08/24) Home Meds Active Scripts Benzonatate (Benzonatate) 100 Mg Cap, 1 CAP PO TID, #30 CAP Prov:JUANPABLO BOUDREAUX MD 02/22/25 Azithromycin (Zithromax) 250 Mg Tab, 250 MG PO DAILY for 5 Days, #6 TAB Take 2 tablets on day 1 followed by 1 tablet on day 2 through 5 Prov:JUANPABLO BOUDREAUX MD 02/22/25 Dextromethorphan-Guaifenesin (Robitussin-Dm) 10 Ml Sr, 10 ML PO Q4HP PRN for 15 Days, #1 SYP Prov:MELISA ROLLE RESIDENT 01/01/25 Potassium Chloride (POTASSIUM CHLORIDE CR) 10 Meq Tb, 1 TAB PO DAILY, #30 TAB 5 Refills Prov:MELISA ROLLE RESIDENT 01/01/25 Furosemide (Furosemide) 40 Mg Tab, 1 TAB PO DAILY, #30 TAB 5 Refills Prov:MELISA ROLLE RESIDENT 01/01/25 Azithromycin (Azithromycin) 250 Mg Tab, 250 MG PO DAILY MDD 500 for 5 Days, #6 TAB 0 Refills 2 TABLETS ORALLY ON DAY ONE, THEN 1 TABLET ORALLY DAILY FOR 4 DAYS Prov:MELISA ROLLE RESIDENT 01/01/25 Cefpodoxime Proxetil (Cefpodoxime Proxetil) 200 Mg Tab, 1 TAB PO BID for 4 Days, #8 TAB Prov:MELISA ROLLE RESIDENT 01/01/25 Amiodarone HCl (Amiodarone HCl) 200 Mg Tab, 200 MG PO Q12HR, #60 TAB Prov:JAMSHID BUI MD 10/20/24 Sildenafil Citrate (Revatio) 20 Mg Tab, 20 MG PO TID for 30 Days, #90 TAB Prov:PURVI DAVIES NP 08/09/24 Reported Medications Metoprolol Tartrate (Metoprolol Tartrate) 50 Mg Tab, 1 TAB PO DAILY for 90 Days, #180 12/31/24 Famotidine (Famotidine) 20 Mg Tab, 1 TAB PO BID for 90 Days, #120 12/31/24 Torsemide Injection (Torsemide) 20 Mg Tab, 1 TAB PO DAILY for 30 Days, #30 12/31/24 Potassium Chloride (Potassium Chloride ER) 10 Meq Tab, 1 TAB PO BID for 30 Days, #60 12/31/24 Lisinopril (Lisinopril) 5 Mg Tab, 1 TAB PO DAILY 08/05/24 Ertugliflozin l-Pyroglutamic A (Steglatro) 15 Mg Tab, 1 TAB PO DAILY 08/05/24 Rivaroxaban (Xarelto Tablet) 20 Mg Tb, 1 TAB PO DAILY 08/05/24 Current Medications Current Medications Medications (Trade) Dose Ordered Sig/Deondre Route PRN Reason Start Time Stop Time Status Last Admin Amiodarone HCl (Cordarone Tablet) 200 mg Q12HR PO 03/02/25 22:00 Guaifenesin/ Dextromethorphan (Robitussin-Dm Liquid) 10 ml Q4HP PRN PO FOR COUGH 03/02/25 15:15 Lisinopril (Zestril Tablet) 5 mg DAILY PO 03/03/25 10:00 Metoprolol Tartrate (Lopressor Tablet) 50 mg DAILY PO 03/03/25 10:00 Rivaroxaban (Xarelto Tablet) 20 mg DAILY PO 03/03/25 10:00 Sildenafil Citrate (Revatio) 20 mg TID PO 03/02/25 22:00 Pantoprazole Sodium (Protonix) 40 mg DAILY IV 03/03/25 10:00 Furosemide (Lasix Injection) 40 mg BIDD IV 03/02/25 18:00 03/02/25 18:30 Vancomycin HCl 0 ml @ 0 mls/hr PER PHARMACY IV 03/02/25 15:15 Piperacillin Sod/ Tazobactam Sod 100 ml @ 25 mls/hr Q8H IV 03/02/25 17:00 03/02/25 17:53 Nitroglycerin (Ntrostat Sublingual) 0.4 mg Q5MINP PRN SL FOR CHEST PAIN 03/02/25 15:15 Hold Albuterol (Ventolin Medneb) 2.5 mg Q4HR [facility] 03/02/25 18:00 03/02/25 21:18 Ipratropium [place] (Atrovent Medneb) 0.5 mg Q4HR [facility] 03/02/25 18:00 03/02/25 21:18 Methylprednisolone Sodium Succinate (Solu Medrol) 40 mg Q8HR IV 03/02/25 22:00 Diagnostic Test (Pha) (Accu-Chek Comfort Curve T) 1 strip Q6HR 03/02/25 18:49 03/02/25 19:58 DC 03/02/25 19:29 Insulin Human Regular (InsuLIN R) Q6HR [place] 03/02/25 18:49 03/02/25 19:58 DC Dextrose 50 ml UD PRN IV Blood Sugar LESS THAN 60 03/02/25 18:45 Diagnostic Test (Pha) (Accu-Chek Comfort Curve T) 1 strip IQ4HR 03/02/25 20:00 03/02/25 20:00 Insulin Human Regular (InsuLIN R) IQ4HR [place] 03/02/25 20:00 03/02/25 20:36 Review of Systems CONSTITUTIONAL: Denies acute: fever, diaphoresis, chills, HEAD: Denies acute: headache, photophobia Eyes: Denies acute: Double vision, vision loss, eye pain, eye discharge. EARS: Denies acute: tinnitus, hearing loss, ear discharge, ear pain, THROAT: Denies acute: sore throat, swelling, difficulty swallowing , pain with swallowing, change in voice. NECK: Denies acute: neck pain, neck swelling, stiff neck. HEART: Denies acute : chest pain, palpitations, LUNGS: Denies acute: wheezing, cough, hemoptysis ABDOMEN: Denies acute: abdominal pain, Nausea, Vomiting, diarrhea, melena , hematemesis, hematochezia SKIN: Denies acute: rash, redness, lesions, itchiness. EXTREMITIES: Denies acute: calf pain, numbness, tingling, weakness, denies pain in extremity. Denies acute: Low back pain. Neuro: Denies acute: focal neurological deficit, motor or sensory focal neurological deficit, tremors, seizure like activity, confusion, dizziness, change in mental status, loss of bowel or bladder function, cauda equina like symptoms. : Denies acute: dysuria, hematuria, flank pain, increase in urinary frequency. PSYCH: Denies acute: hallucination, suicidal ideation, homicidal ideation. Vital Signs Vital Signs Date Time Temp Pulse Resp B/P (MAP) Pulse Ox O2 Delivery O2 Flow Rate FiO2 03/02/25 21:18 95 Nasal Cannula 4.0 03/02/25 21:18 36 03/02/25 21:18 78 18 03/02/25 18:30 153/75 03/02/25 17:24 97.5 97.5 Physical Exam GENERAL: Alert and oriented x 3. No acute distress. EYES: PERRL, EOMI. Anicteric. HENT: Moist mucous membranes. LUNGS: Clear to auscultation bilaterally. CARDIOVASCULAR: Regular rate and rhythm. ABDOMEN: Soft, nontender and nondistended. EXTREMITIES: No edema. NEUROLOGIC: No focal neurological deficits. SKIN: Warm, dry. Labs/Diagnostic Data Labs Test 03/02/25 20:12 03/02/25 18:43 03/02/25 15:40 03/02/25 14:28 Range/Units POC Glucose 518 *H 70-106 mg/dl Troponin I High Sensitivity 23 </=54 ng/L Lactic Acid Level 2.3 *H 0.4-2.0 mmol/L Beta-Hydroxybutyric Acid 0.079 < 0.4 mmol/L Magnesium Level 1.4 L 1.6-2.6 mg/dL Test 03/02/25 11:45 03/02/25 11:31 Range/Units White Blood Count 4.4 4.4-10.8 10^3/uL Red Blood Count 3.79 L 4.5-5.90 10^6/uL Hemoglobin 12.8 L 13.5-17.5 g/dL Hematocrit 38.5 L 41.0-53.0 % Mean Corpuscular Volume 101.6 H 80.0-100.0 fL Mean Corpuscular Hemoglobin 33.9 H 28.0-32.0 pg Mean Corpuscular Hemoglobin Concent 33.4 32.0-36.0 g/dL Red Cell Distribution Width 15.1 H 11.8-14.3 % Platelet Count 131 L 140-450 10^3/uL Mean Platelet Volume 8.8 6.9-10.8 fL Neutrophils (%) (Auto) 73.2 37.0-80.0 % Lymphocytes (%) (Auto) 11.9 10.0-50.0 % Monocytes (%) (Auto) 11.2 0.0-12.0 % Eosinophils (%) (Auto) 2.7 0.0-7.0 % Basophils (%) (Auto) 1.0 0.0-2.0 % Neutrophils # (Auto) 3.2 1.6-8.6 10 ^3/uL Lymphocytes # (Auto) 0.5 0.4-5.4 10 ^3/uL Monocytes # (Auto) 0.5 0-1.3 10 ^3/uL Eosinophils # (Auto) 0.1 0-0.8 10 ^3/uL Basophils # (Auto) 0 0-0.2 10 ^3/uL Nucleated Red Blood Cells 0.2 % Sodium Level 142 136-145 mmol/L Potassium Level 4.0 3.5-5.1 mmol/L Chloride Level 98 98-107 mmol/L Carbon Dioxide Level 38 H 20-31 mmol/L Anion Gap 6 5-15 Blood Urea Nitrogen 14 9-23 mg/dL Creatinine 1.11 0.700-1.30 mg/dL Glomerular Filtration Rate Calc 76 >90 mL/min BUN/Creatinine Ratio 12.6 10.0-20.0 Serum Glucose 509 *H 74-106 mg/dL Calcium Level 9.2 8.7-10.4 mg/dL Total Bilirubin 0.9 0.2-1.0 mg/dL Aspartate Amino Transferase (AST) 66 H 13-40 U/L Alanine Aminotransferase (ALT) 33 7-40 U/L Alkaline Phosphatase 334 H 46-116 U/L B-Type Natriuretic Peptide 309.92 0-100 pg/mL Total Protein 6.3 5.7-8.2 g/dL Albumin 3.0 L 3.2-4.8 g/dL Urine Color Light-yellow Yellow Urine Clarity Clear Clear Urine pH 5.5 5.0-9.0 Urine Specific [place] 1.012 1.001-1.035 Urine Protein 1+ H Negative Urine Ketones Negative Negative Urine Blood Trace H Negative /uL Urine Nitrite Negative Negative Urine Bilirubin Negative Negative Urine Urobilinogen Normal Negative mg/dL Urine Leukocyte Esterase Negative Negative /uL Urine RBC 1 0 - 3 /hpf Urine Microscopic WBC < 1 0-3 /HPF Urine Squamous Epithelial Cells Few <5 /hpf Urine Bacteria Few H None Seen /hpf Urine Hyaline Casts Few 0 - 2 /lpf Urine Yeast (Budding) Occasional None Seen /hpf Urine Glucose 4+ H Normal mg/dL Assessment Acute hypoxic respiratory failure. Acute on chronic heart failure exacerbation. COPD exacerbation. Acute severe hyperglycemia without DKA. Hypomagnesemia. Lactic acidosis. Transaminitis. Obstructive sleep apnea. Heart failure. COPD on home oxygen. Type 2 diabetes mellitus. Obstructive sleep apnea. Chronic anticoagulation (Eliquis). Plan/Recommendation I agree with your ongoing assessment and care of plan. Echocardiogram. Amiodarone. Diuretics with Lasix. Lisinopril. Metoprolol. GI prophylactics. IV antibiotics as ordered. Xarelto. Additional plan as per the hospital course. A total of 45 minutes was spent reviewing the patient record, examining the patient, making a diagnostic and therapeutic plan, discussing this plan with medical personnel, following up on diagnostic studies and following the patient for clinical stability excluding any and all procedures. At least 50% of this time was spent in direct, [id number] contact. Plan discussed with: Patient MCCARTHY,JEREMIAH Moy MD Mar 02, 2025 21:41
[2025-03-03] VITALS (16 sets, daily range): BP systolic 110–127; BP diastolic 46–72; PULSE 58–78; RESP 16–20; TEMP 97.8–98.4; O2SAT 90–98
[2025-03-03] MEDS ORDERED: INSULIN LANTUS (GLARGINE) 1 /0.01ml (100units/ml) SC SCH (00:45)
[2025-03-03] MEDS: INSULIN LANTUS (GLARGINE) 1 /0.01ml (100units/ml) SC SCH ×2 (01:15→09:26)
--- NOTE | 2025-03-03 01:15 | DVHSR ---
APPROVED REPORT EXAM: Two-dimensional and M-mode echocardiogram with Doppler and color Doppler. Blood Pressure: 135/65 mmHg INDICATION eval for cardiac function RISK FACTORS Obesity: Height: 5'5, Weight: 250 DIMENSIONS LVDd 5.2 (3.8-5.7cm) LA (2D) 4.7 (1.9-4.0cm) Aortic Root 3.2 (2.0-3.7cm) LVDs 3.3 (2.5-4.0cm) LA (MM) (1.9-4.0cm) Aortic Cusp Exc 2.3 (1.5-2.0cm) EF (%) 55.0 (55-70%) Rt. Atrium 5.4 (1.9-4.0cm) Asc. Aorta 3.2 cm IVSd 1.0 (0.7-1.1cm) RV (D) 5.5 (1.8-2.4cm) PWd 1.3 (0.7-1.1cm) Mitral Valve Mitral Mitral Stenosis E wave 1.14m/s MV Mean GR. mmHg A wave 1.05m/s MV Peak GR. 123mmHg E/A ratio 1.1 2D MVA cm2 DECEL Time 239ms PRESS 1/2 Time ms Aortic Valve Aortic Valve Aortic Stenosis V1 1.27m/s AO Mean GR. 10mmHg V2 2.20m/s AO Peak GR. 19mmHg LVOT Diameter 2.2 (1.8-2.4cm) Doppler MARISOL 2.19cm2 Pulmonic Valve V2 1.41m/s Tricuspid Valve TR Velocity 4.15m/s RVSP 90mmHg Conclusion MILD LVH AND MILD LV DIASTOLIC DYSFUNCTION LV EF IS 60% AND IS NORMAL MODERATELY DILATED RV AND RA DYSKINESIS OF IVS RVSP IS 90 MM OF HG AND IS CRITICALLY HIGH CRITICAL PULMONARY HYPERTENSION NO EFFUSION NORMAL VALVES NO EFFUSION
[2025-03-03] MEDS: guaiFENesin-DM 100/10mg/5ml SYR PO PRN (01:52)
[2025-03-03 08:55] LABS: Hematocrit 36.8 % (41.0-53.0); Hemoglobin 12.7 g/dL (13.5-17.5); Mean Corpuscular Hemoglobin 33.6 pg (28.0-32.0); Mean Corpuscular Volume 97.6 fL (80.0-100.0); Nucleated Red Blood Cells % 0.0 %
[2025-03-03 09:05] LABS: Alanine Aminotransferase 35 U/L (7-40); Anion Gap 11 (5-15); BUN/Creatinine Ratio 13.6 (10.0-20.0); Bilirubin, Total 1.0 mg/dL (0.2-1.0); Blood Urea Nitrogen 17 mg/dL (9-23); Calcium 9.2 mg/dL (8.7-10.4); Sodium 143 mmol/L (136-145); Total Protein 6.3 g/dL (5.7-8.2)
[2025-03-03 09:12] LABS: Albumin 3.0 g/dL (3.2-4.8); Alkaline Phosphatase 257 U/L (46-116); Carbon Dioxide 38 mmol/L (20-31); Chloride 94 mmol/L (98-107); Glucose 226 mg/dL (74-106); Potassium 3.5 mmol/L (3.5-5.1)
[2025-03-03] MEDS: RIVAROXABAN 20 MG TAB PO SCH (09:17)
[2025-03-03] MEDS: LISINOPRIL 5 MG TAB PO SCH (09:18)
[2025-03-03] MEDS: METOPROLOL TARTRATE 50 MG TAB PO SCH (09:20)
[2025-03-03] MEDS: PANTOPRAZOLE 40 MG/10 ML VIAL INJ IV SCH (09:20)
--- NOTE | 2025-03-03 10:10 | ECG ---
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
[2025-03-03] MEDS: VANCOMYCIN 1GM/250ML KIT 250 ML IV SCH (11:17)
--- NOTE | 2025-03-03 12:36 | DVHPN2 ---
Reviewed: Care Plan, H&P, Labs, Medications, Previous Orders, Radiology Changes from previous H/P or p: No Changes Eyes: No Pain, No Vision change, No Conjunctivae inflammation, No Eyelid inflammation, No Other, No Redness ENT: No Ear pain, No Ear discharge, No Nose pain, No Nose discharge, No Nose congestion, No Mouth pain, No Mouth swelling, No Throat pain, No Throat swelling, No Other Cardiovascular: Chest Pain; No Palpitations, No Orthopnea, No Paroxysmal Noc. Dyspnea, No Edema, No Lt Headedness, No Other Respiratory: Cough; No Dry; Shortness of breath, SOB with excertion; No Wheezing, No Hemoptysis, No Pleuritic Pain, No Sputum, No Other Gastrointestinal: No Nausea, No Vomiting, No Abdominal Pain, No Diarrhea, No Constipation, No Melena, No Hematochezia, No Other Genitourinary: No Dysuria, No Frequency, No Incontinence, No Hematuria, No Retention, No Other Musculoskeletal: No other, No neck pain, No shoulder pain, No arm pain, No back pain, No hand pain, No leg pain, No foot pain Skin: No Rash, No Lesions, No Jaundice, No Bruising, No Other Objective Vitals Vital Signs Date Time Temp Pulse Resp B/P (MAP) Pulse Ox O2 Delivery O2 Flow Rate FiO2 03/03/25 10:19 58 16 96 03/03/25 10:13 Nasal Cannula* 4 36 03/03/25 09:20 110/46 03/03/25 08:59 98.4 98.4 Intake/Output Intake and Output 03/03/25 07:00 Intake Total 925 ml Balance 925 ml Intake Oral 825 ml IV Total 100 ml # Voids 6 # Bowel Movements 2 Medications Current Medications Medications Dose Ordered Sig/Deondre Route Start Time Stop Time Status Last Admin Dose Admin Amiodarone HCl 200 mg Q12HR PO 03/02/25 22:00 03/03/25 09:20 200 MG Guaifenesin/ Dextromethorphan 10 ml Q4HP PRN PO 03/02/25 15:15 03/03/25 12:04 10 ML Lisinopril 5 mg DAILY PO 03/03/25 10:00 03/03/25 09:18 5 MG Metoprolol Tartrate 50 mg DAILY PO 03/03/25 10:00 03/03/25 09:20 50 MG Rivaroxaban 20 mg DAILY PO 03/03/25 10:00 03/03/25 09:17 20 MG Sildenafil Citrate 20 mg TID PO 03/02/25 22:00 03/03/25 05:13 20 MG Pantoprazole Sodium 40 mg DAILY IV 03/03/25 10:00 03/03/25 09:20 40 MG Furosemide 40 mg BIDD IV 03/02/25 18:00 03/03/25 05:13 40 MG Vancomycin HCl 0 ml @ 0 mls/hr PER PHARMACY IV 03/02/25 15:15 Piperacillin Sod/ Tazobactam Sod 100 ml @ 25 mls/hr Q8H IV 03/02/25 17:00 03/03/25 09:34 25 MLS/HR Nitroglycerin 0.4 mg Q5MINP PRN SL 03/02/25 15:15 Hold Albuterol 2.5 mg Q4HR NEB 03/02/25 18:00 03/03/25 10:12 2.5 MG Ipratropium [place] 0.5 mg Q4HR NEB 03/02/25 18:00 03/03/25 10:13 0.5 MG Methylprednisolone Sodium Succinate 40 mg Q8HR IV 03/02/25 22:00 03/03/25 05:13 40 MG Dextrose 50 ml UD PRN IV 03/02/25 18:45 Diagnostic Test (Pha) 1 strip IQ4HR 03/02/25 20:00 03/03/25 12:04 1 STRIP Insulin Human Regular IQ4HR MD 03/02/25 20:00 03/03/25 09:31 6 UNITS Insulin Glargine BID@1000,2200 MD 03/03/25 00:45 03/03/25 09:26 15 UNITS Insulin Glargine 15 units BID@1000,2200 MD 03/03/25 00:45 UNV Insulin Glargine 15 units BID@1000,2200 MD 03/03/25 00:45 03/03/25 10:26 15 UNITS Laboratory Results Laboratory Tests 03/03/25 07:34 Chemistry Test 03/02/25 14:28 03/03/25 07:34 Magnesium Level 1.4 mg/dL (1.6-2.6) L Albumin 3.0 g/dL (3.2-4.8) L Calcium Level 9.2 mg/dL (8.7-10.4) Total Protein 6.3 g/dL (5.7-8.2) LFT Test 03/03/25 07:34 Alanine Aminotransferase (ALT) 35 U/L (7-40) Alkaline Phosphatase 257 U/L (46-116) H Aspartate Amino Transferase (AST) 62 U/L (13-40) H Total Bilirubin 1.0 mg/dL (0.2-1.0) Urinalysis Test 03/02/25 11:31 Urine Color Light-yellow (Yellow) Urine Clarity Clear (Clear) Urine pH 5.5 (5.0-9.0) Urine Specific [place] 1.012 (1.001-1.035) Urine Protein 1+ (Negative) H Urine Ketones Negative (Negative) Urine Blood Trace /uL (Negative) H Urine Nitrite Negative (Negative) Urine Bilirubin Negative (Negative) Urine Urobilinogen Normal mg/dL (Negative) Urine Leukocyte Esterase Negative /uL (Negative) Urine RBC 1 /hpf (0 - 3) Urine Microscopic WBC < 1 /HPF (0-3) Urine Squamous Epithelial Cells Few /hpf (<5) Urine Bacteria Few /hpf (None Seen) H Urine Hyaline Casts Few /lpf (0 - 2) Urine Yeast (Budding) Occasional /hpf (None Urine Glucose 4+ mg/dL (Normal) H Labs and/or images reviewed: Labs reviewed by me, Image(s) reviewed by me Assessment/Plan Assessment/Plan Acute hypoxic respiratory failure. Oxygen by nasal cannula Acute on chronic heart failure exacerbation.: Consult by Leobardo Alejandra COPD exacerbation. Albuterol Atrovent Solu-Medrol Possible Community-acquired pneumonia Gram-positive versus Gram-negative: Zosyn vancomycin Acute severe hyperglycemia without DKA. Severe pulmonary hypertension: Rivatio Hypertension: Lisinopril metoprolol amiodarone Chronic AFib: Xarelto Hypomagnesemia. Lactic acidosis. Transaminitis. Obstructive sleep apnea. Heart failure. COPD on home oxygen. Type 2 diabetes mellitus. Obstructive sleep apnea. Time spent 68 minutes Advanced care planning time 20 minutes Patient is full code Plan discussed with: Patient Date of Service: Mar 03, 2025 Billing Provider: DEANDRE DUFFY MD Common Visit Codes: [id number] CARE 30-74 MIN DEANDRE DUFFY MD Mar 03, 2025 12:36
--- NOTE | 2025-03-03 19:30 | DVHPN2 ---
Progress Note - Dictate Date Seen: Mar 03, 2025 Medical Necessity Reason Pt with a Central, PICC or Fol: No Subjective Patient was seen and evaluated in follow up. Patient is complaining of generalized pain. CO2 38, GLUC 333, AST 62. Telemetry reviewed. vital signs Vital Sign Date Time Temp Pulse Resp B/P (MAP) Pulse Ox O2 Delivery O2 Flow Rate FiO2 03/03/25 10:19 58 16 96 03/03/25 10:13 Nasal Cannula* 4 36 03/03/25 09:20 110/46 03/03/25 08:59 98.4 98.4 Total Intake and Output 03/02/25 03/02/25 03/03/25 15:00 23:00 07:00 Intake Total 925 ml Balance 925 ml medications Current Medications Medications Dose Ordered Sig/Deondre Route Start Time Stop Time Status Last Admin Dose Admin Amiodarone HCl 200 mg Q12HR PO 03/02/25 22:00 03/03/25 09:20 200 MG Guaifenesin/ Dextromethorphan 10 ml Q4HP PRN PO 03/02/25 15:15 03/03/25 12:04 10 ML Lisinopril 5 mg DAILY PO 03/03/25 10:00 03/03/25 09:18 5 MG Metoprolol Tartrate 50 mg DAILY PO 03/03/25 10:00 03/03/25 09:20 50 MG Rivaroxaban 20 mg DAILY PO 03/03/25 10:00 03/03/25 09:17 20 MG Sildenafil Citrate 20 mg TID PO 03/02/25 22:00 03/03/25 13:57 20 MG Pantoprazole Sodium 40 mg DAILY IV 03/03/25 10:00 03/03/25 09:20 40 MG Furosemide 40 mg BIDD IV 03/02/25 18:00 03/03/25 05:13 40 MG Vancomycin HCl 0 ml @ 0 mls/hr PER PHARMACY IV 03/02/25 15:15 Piperacillin Sod/ Tazobactam Sod 100 ml @ 25 mls/hr Q8H IV 03/02/25 17:00 03/03/25 09:34 25 MLS/HR Nitroglycerin 0.4 mg Q5MINP PRN SL 03/02/25 15:15 Hold Albuterol 2.5 mg Q4HR NEB 03/02/25 18:00 03/03/25 10:12 2.5 MG Ipratropium [place] 0.5 mg Q4HR NEB 03/02/25 18:00 03/03/25 10:13 0.5 MG Methylprednisolone Sodium Succinate 40 mg Q8HR IV 03/02/25 22:00 03/03/25 13:57 40 MG Dextrose 50 ml UD PRN IV 03/02/25 18:45 Diagnostic Test (Pha) 1 strip IQ4HR 03/02/25 20:00 03/03/25 12:04 1 STRIP Insulin Human Regular IQ4HR [place] 03/02/25 20:00 03/03/25 12:47 12 UNITS Insulin Glargine BID@1000,2200 HI 03/03/25 00:45 03/03/25 09:26 15 UNITS Insulin Glargine 15 units BID@1000,2200 HI 03/03/25 00:45 UNV Insulin Glargine 15 units BID@1000,2200 HI 03/03/25 00:45 03/03/25 10:26 15 UNITS objective GENERAL: Alert and oriented x 3. No acute distress. EYES: PERRL, EOMI. Anicteric. HENT: Moist mucous membranes. LUNGS: Clear to auscultation bilaterally. CARDIOVASCULAR: Regular rate and rhythm. ABDOMEN: Soft, nontender and nondistended. EXTREMITIES: No edema. NEUROLOGIC: No focal neurological deficits. SKIN: Warm, dry. laboratory and microbiology Laboratory Tests 03/03/25 07:34 Test 03/03/25 07:34 Range/Units Serum Glucose 226 #H 74-106 mg/dL Problem List Acute hypoxic respiratory failure. Acute on chronic heart failure exacerbation. COPD exacerbation. Acute severe hyperglycemia without DKA. Hypomagnesemia. Lactic acidosis. Transaminitis. Obstructive sleep apnea. Heart failure. COPD on home oxygen. Type 2 diabetes mellitus. Obstructive sleep apnea. Chronic anticoagulation (Eliquis). Assessment/Plan Continued all current supportive medical care. Echocardiogram. Amiodarone. Diuretics with Lasix. Lisinopril. Metoprolol. GI prophylactics. IV antibiotics as ordered. Xarelto. Additional plan as per the hospital course. Plan discussed with: Patient JEREMIAH MCCARTHY MD Mar 03, 2025 14:44
[2025-03-03] MEDS: InsuLIN REG 1unit/0.01ml Soln (100units/ml) SC SCH (22:36)
[2025-03-04] VITALS (21 sets, daily range): BP systolic 108–129; BP diastolic 52–69; PULSE 55–72; RESP 16–20; TEMP 97.5–98.6; O2SAT 91–100
[2025-03-04] MEDS: ACCU-CHEK COMFORT CURVE STRIP VI SCH
[2025-03-04 06:29] LABS: Hematocrit 37.5 % (41.0-53.0); Hemoglobin 12.6 g/dL (13.5-17.5); Mean Corpuscular Hemoglobin 33.2 pg (28.0-32.0); Mean Corpuscular Volume 98.5 fL (80.0-100.0); Nucleated Red Blood Cells % 0.0 %
[2025-03-04 07:01] LABS: Alanine Aminotransferase 33 U/L (7-40); Anion Gap 8 (5-15); BUN/Creatinine Ratio 18.9 (10.0-20.0); Potassium 3.9 mmol/L (3.5-5.1); Sodium 142 mmol/L (136-145); Total Protein 6.1 g/dL (5.7-8.2)
[2025-03-04 07:02] LABS: Bilirubin, Total 0.7 mg/dL (0.2-1.0)
[2025-03-04 07:21] LABS: Albumin 2.9 g/dL (3.2-4.8); Alkaline Phosphatase 228 U/L (46-116); Blood Urea Nitrogen 31 mg/dL (9-23); Calcium 8.6 mg/dL (8.7-10.4); Carbon Dioxide 38 mmol/L (20-31); Chloride 96 mmol/L (98-107); Glucose 152 mg/dL (74-106)
[2025-03-04] MEDS: PANTOPRAZOLE 40 MG/10 ML VIAL INJ IV ONE (07:35)
--- NOTE | 2025-03-04 13:24 | DVHPN2 ---
Reviewed: Care Plan, H&P, Labs, Medications, Previous Orders, Radiology Changes from previous H/P or p: No Changes Eyes: No Pain, No Vision change, No Conjunctivae inflammation, No Eyelid inflammation, No Other, No Redness ENT: No Ear pain, No Ear discharge, No Nose pain, No Nose discharge, No Nose congestion, No Mouth pain, No Mouth swelling, No Throat pain, No Throat swelling, No Other Cardiovascular: Chest Pain; No Palpitations, No Orthopnea, No Paroxysmal Noc. Dyspnea, No Edema, No Lt Headedness, No Other Respiratory: Cough; No Dry; Shortness of breath, SOB with excertion; No Wheezing, No Hemoptysis, No Pleuritic Pain, No Sputum, No Other Gastrointestinal: No Nausea, No Vomiting, No Abdominal Pain, No Diarrhea, No Constipation, No Melena, No Hematochezia, No Other Genitourinary: No Dysuria, No Frequency, No Incontinence, No Hematuria, No Retention, No Other Musculoskeletal: No other, No neck pain, No shoulder pain, No arm pain, No back pain, No hand pain, No leg pain, No foot pain Skin: No Rash, No Lesions, No Jaundice, No Bruising, No Other Objective Vitals Vital Signs Date Time Temp Pulse Resp B/P (MAP) Pulse Ox O2 Delivery O2 Flow Rate FiO2 03/04/25 12:47 97.6 55 16 122/66 (84) 95 97.6 03/04/25 06:51 Nasal Cannula* 4 36 Intake/Output Intake and Output 03/04/25 07:00 Intake Total 2400 ml Output Total 1500 ml Balance 900 ml Intake Oral 2300 ml IV Total 100 ml Output Urine Total 1500 ml # Bowel Movements 9 Medications Current Medications Medications Dose Ordered Sig/Deondre Route Start Time Stop Time Status Last Admin Dose Admin Amiodarone HCl 200 mg Q12HR PO 03/02/25 22:00 03/04/25 08:57 200 MG Guaifenesin/ Dextromethorphan 10 ml Q4HP PRN PO 03/02/25 15:15 03/04/25 12:58 10 ML Lisinopril 5 mg DAILY PO 03/03/25 10:00 03/04/25 08:58 5 MG Metoprolol Tartrate 50 mg DAILY PO 03/03/25 10:00 03/04/25 08:58 50 MG Rivaroxaban 20 mg DAILY PO 03/03/25 10:00 03/04/25 08:58 20 MG Sildenafil Citrate 20 mg TID PO 03/02/25 22:00 03/04/25 05:07 20 MG Pantoprazole Sodium 40 mg DAILY IV 03/03/25 10:00 03/04/25 08:57 40 MG Furosemide 40 mg BIDD IV 03/02/25 18:00 03/04/25 05:09 40 MG Vancomycin HCl 0 ml @ 0 mls/hr PER PHARMACY IV 03/02/25 15:15 Piperacillin Sod/ Tazobactam Sod 100 ml @ 25 mls/hr Q8H IV 03/02/25 17:00 03/04/25 09:00 25 MLS/HR Nitroglycerin 0.4 mg Q5MINP PRN SL 03/02/25 15:15 Hold Albuterol 2.5 mg Q4HR NEB 03/02/25 18:00 03/04/25 10:21 2.5 MG Ipratropium [place] 0.5 mg Q4HR NEB 03/02/25 18:00 03/04/25 10:21 0.5 MG Methylprednisolone Sodium Succinate 40 mg Q8HR IV 03/02/25 22:00 03/04/25 05:08 40 MG Dextrose 50 ml UD PRN IV 03/02/25 18:45 Diagnostic Test (Pha) 1 strip IQ4HR 03/02/25 20:00 03/04/25 12:00 1 STRIP Insulin Glargine BID@1000,2200 [place] 03/03/25 00:45 03/03/25 09:26 15 UNITS Insulin Glargine 15 units BID@1000,2200 [place] 03/03/25 00:45 UNV Insulin Glargine 15 units BID@1000,2200 [place] 03/03/25 00:45 03/04/25 10:00 15 UNITS Diagnostic Test (Pha) 1 strip IQ4HR 03/04/25 00:00 03/04/25 12:00 1 STRIP Insulin Human Regular IQ4HR [place] 03/03/25 22:15 03/04/25 12:00 12 UNITS Laboratory Results Laboratory Tests 03/04/25 05:41 Chemistry Test 03/04/25 05:41 Albumin 2.9 g/dL (3.2-4.8) L Calcium Level 8.6 mg/dL (8.7-10.4) L Total Protein 6.1 g/dL (5.7-8.2) LFT Test 03/04/25 05:41 Alanine Aminotransferase (ALT) 33 U/L (7-40) Alkaline Phosphatase 228 U/L (46-116) H Aspartate Amino Transferase (AST) 63 U/L (13-40) H Total Bilirubin 0.7 mg/dL (0.2-1.0) Urinalysis Test 03/02/25 11:31 Urine Color Light-yellow (Yellow) Urine Clarity Clear (Clear) Urine pH 5.5 (5.0-9.0) Urine Specific [place] 1.012 (1.001-1.035) Urine Protein 1+ (Negative) H Urine Ketones Negative (Negative) Urine Blood Trace /uL (Negative) H Urine Nitrite Negative (Negative) Urine Bilirubin Negative (Negative) Urine Urobilinogen Normal mg/dL (Negative) Urine Leukocyte Esterase Negative /uL (Negative) Urine RBC 1 /hpf (0 - 3) Urine Microscopic WBC < 1 /HPF (0-3) Urine Squamous Epithelial Cells Few /hpf (<5) Urine Bacteria Few /hpf (None Seen) H Urine Hyaline Casts Few /lpf (0 - 2) Urine Yeast (Budding) Occasional /hpf (None Urine Glucose 4+ mg/dL (Normal) H Labs and/or images reviewed: Labs reviewed by me, Image(s) reviewed by me Assessment/Plan Assessment/Plan Acute hypoxic respiratory failure. Oxygen by nasal cannula Acute on chronic heart failure exacerbation.: Consult by Leobardo Alejandra COPD exacerbation. Albuterol Atrovent Solu-Medrol Possible Community-acquired pneumonia Gram-positive versus Gram-negative: Zosyn vancomycin Acute severe hyperglycemia without DKA. Severe pulmonary hypertension: Rivatio Hypertension: Lisinopril metoprolol amiodarone Chronic AFib: Xarelto Hypomagnesemia. Lactic acidosis. Transaminitis. Moderate Ascites: Paracentesis ordered Obstructive sleep apnea. COPD on home oxygen. Type 2 diabetes mellitus. Obstructive sleep apnea. Patient moved from [place] one year ago, and lives with his sister in [place] Time spent 68 minutes Advanced care planning time 20 minutes Patient is full code Plan discussed with: Patient Date of Service: Mar 04, 2025 Billing Provider: DEANDRE DUFFY MD Common Visit Codes: [id number] INP/OBS CARE(HIGH) DEANDRE DUFFY MD Mar 04, 2025 13:24
[2025-03-04 18:44] LABS: COVID19 ANTIGEN SOFIA FIA NEGATIVE (NEGATIVE)
[2025-03-05] VITALS (19 sets, daily range): BP systolic 118–132; BP diastolic 60–75; PULSE 57–82; RESP 16–20; TEMP 97.6–98.1; O2SAT 93–100
--- NOTE | 2025-03-05 00:41 | DVHPN2 ---
Progress Note - Dictate Date Seen: Mar 04, 2025 Medical Necessity Reason Pt with a Central, PICC or Fol: No Subjective Patient was seen and evaluated in follow up. Patient is on 4 LPM NC. Patient is c/o SOB. BS are elevated in the 340s to 400s this afternoon. Viral swabs are negative. Echocardiogram shows LV EF of 60%. Telemetry reviewed. vital signs Vital Sign Date Time Temp Pulse Resp B/P (MAP) Pulse Ox O2 Delivery O2 Flow Rate FiO2 03/04/25 22:28 63 96 Facial BiPAP Mask 40 03/04/25 21:00 97.5 16 118/69 (85) 97.5 03/04/25 19:13 4 Total Intake and Output 03/04/25 03/04/25 03/05/25 15:00 23:00 07:00 Intake Total 979 ml Output Total 700 ml Balance 279 ml medications Current Medications Medications Dose Ordered Sig/Deondre Route Start Time Stop Time Status Last Admin Dose Admin Amiodarone HCl 200 mg Q12HR PO 03/02/25 22:00 03/04/25 20:59 200 MG Guaifenesin/ Dextromethorphan 10 ml Q4HP PRN PO 03/02/25 15:15 03/04/25 20:59 10 ML Lisinopril 5 mg DAILY PO 03/03/25 10:00 03/04/25 08:58 5 MG Metoprolol Tartrate 50 mg DAILY PO 03/03/25 10:00 03/04/25 08:58 50 MG Rivaroxaban 20 mg DAILY PO 03/03/25 10:00 03/04/25 08:58 20 MG Sildenafil Citrate 20 mg TID PO 03/02/25 22:00 03/04/25 20:59 20 MG Pantoprazole Sodium 40 mg DAILY IV 03/03/25 10:00 03/04/25 08:57 40 MG Furosemide 40 mg BIDD IV 03/02/25 18:00 03/04/25 17:38 40 MG Vancomycin HCl 0 ml @ 0 mls/hr PER PHARMACY IV 03/02/25 15:15 Piperacillin Sod/ Tazobactam Sod 100 ml @ 25 mls/hr Q8H IV 03/02/25 17:00 03/05/25 00:04 25 MLS/HR Nitroglycerin 0.4 mg Q5MINP PRN SL 03/02/25 15:15 Hold Albuterol 2.5 mg Q4HR NEB 03/02/25 18:00 03/04/25 22:32 2.5 MG Ipratropium [facility] 0.5 mg Q4HR NEB 03/02/25 18:00 03/04/25 22:32 0.5 MG Methylprednisolone Sodium Succinate 40 mg Q8HR IV 03/02/25 22:00 03/04/25 21:00 40 MG Dextrose 50 ml UD PRN IV 03/02/25 18:45 Diagnostic Test (Pha) 1 strip IQ4HR 03/02/25 20:00 03/04/25 20:00 1 STRIP Insulin Glargine BID@1000,2200 [place] 03/03/25 00:45 03/03/25 09:26 15 UNITS Insulin Glargine 15 units BID@1000,2200 [place] 03/03/25 00:45 UNV Insulin Glargine 15 units BID@1000,2200 [place] 03/03/25 00:45 03/04/25 21:08 15 UNITS Diagnostic Test (Pha) 1 strip IQ4HR 03/04/25 00:00 03/04/25 20:00 1 STRIP Insulin Human Regular IQ4HR [place] 03/03/25 22:15 03/05/25 00:01 16 UNITS objective GENERAL: Alert and oriented x 3. No acute distress. EYES: PERRL, EOMI. Anicteric. HENT: Moist mucous membranes. LUNGS: Clear to auscultation bilaterally. CARDIOVASCULAR: Regular rate and rhythm. ABDOMEN: Soft, nontender and nondistended. EXTREMITIES: No edema. NEUROLOGIC: No focal neurological deficits. SKIN: Warm, dry. laboratory and microbiology Laboratory Tests 03/04/25 05:41 Test 03/04/25 05:41 Range/Units Serum Glucose 152 H 74-106 mg/dL Problem List Acute hypoxic respiratory failure. Acute on chronic heart failure exacerbation. COPD exacerbation. Acute severe hyperglycemia without DKA. Hypomagnesemia. Lactic acidosis. Transaminitis. Obstructive sleep apnea. Heart failure. COPD on home oxygen. Type 2 diabetes mellitus. Obstructive sleep apnea. Chronic anticoagulation (Eliquis). Pulmonary HTN. Assessment/Plan Continued all current supportive medical care. Amiodarone. Diuretics with Lasix. Lisinopril. Metoprolol. GI prophylactics. IV antibiotics as ordered. Xarelto. Additional plan as per the hospital course. Plan discussed with: Patient JEREMIAH MCCARTHY MD Mar 05, 2025 00:41
[2025-03-05 05:15] LABS: Hematocrit 38.3 % (41.0-53.0); Hemoglobin 13.0 g/dL (13.5-17.5); Mean Corpuscular Hemoglobin 33.7 pg (28.0-32.0); Mean Corpuscular Volume 99.3 fL (80.0-100.0); Nucleated Red Blood Cells % 0.0 %
[2025-03-05 05:55] LABS: Alanine Aminotransferase 36 U/L (7-40); Anion Gap 6 (5-15); Potassium 4.1 mmol/L (3.5-5.1); Sodium 140 mmol/L (136-145); Total Protein 6.2 g/dL (5.7-8.2)
[2025-03-05 05:56] LABS: Bilirubin, Total 0.6 mg/dL (0.2-1.0)
[2025-03-05 05:58] LABS: Albumin 2.9 g/dL (3.2-4.8); Alkaline Phosphatase 210 U/L (46-116); Calcium 8.5 mg/dL (8.7-10.4); Carbon Dioxide 39 mmol/L (20-31); Chloride 95 mmol/L (98-107); Glucose 268 mg/dL (74-106)
[2025-03-05 06:09] LABS: BUN/Creatinine Ratio 19.8 (10.0-20.0)
[2025-03-05 06:10] LABS: Blood Urea Nitrogen 34 mg/dL (9-23)
--- NOTE | 2025-03-05 12:25 | DVHPN2 ---
Reviewed: Care Plan, H&P, Labs, Medications, Previous Orders, Radiology Changes from previous H/P or p: No Changes Eyes: No Pain, No Vision change, No Conjunctivae inflammation, No Eyelid inflammation, No Other, No Redness ENT: No Ear pain, No Ear discharge, No Nose pain, No Nose discharge, No Nose congestion, No Mouth pain, No Mouth swelling, No Throat pain, No Throat swelling, No Other Cardiovascular: Chest Pain; No Palpitations, No Orthopnea, No Paroxysmal Noc. Dyspnea, No Edema, No Lt Headedness, No Other Respiratory: Cough; No Dry; Shortness of breath, SOB with excertion; No Wheezing, No Hemoptysis, No Pleuritic Pain, No Sputum, No Other Gastrointestinal: No Nausea, No Vomiting, No Abdominal Pain, No Diarrhea, No Constipation, No Melena, No Hematochezia, No Other Genitourinary: No Dysuria, No Frequency, No Incontinence, No Hematuria, No Retention, No Other Musculoskeletal: No other, No neck pain, No shoulder pain, No arm pain, No back pain, No hand pain, No leg pain, No foot pain Skin: No Rash, No Lesions, No Jaundice, No Bruising, No Other Objective Vitals Vital Signs Date Time Temp Pulse Resp B/P (MAP) Pulse Ox O2 Delivery O2 Flow Rate FiO2 03/05/25 10:32 65 20 118/61 94 4.0 36 03/05/25 09:31 Nasal Cannula 03/05/25 08:38 97.7 97.7 Intake/Output Intake and Output 03/05/25 07:00 Intake Total 1289 ml Output Total 900 ml Balance 389 ml Intake Oral 1189 ml IV Total 100 ml Output Urine Total 900 ml # Voids 1 # Bowel Movements 2 Medications Current Medications Medications Dose Ordered Sig/Deondre Route Start Time Stop Time Status Last Admin Dose Admin Amiodarone HCl 200 mg Q12HR PO 03/02/25 22:00 03/05/25 09:18 200 MG Guaifenesin/ Dextromethorphan 10 ml Q4HP PRN PO 03/02/25 15:15 03/05/25 09:21 10 ML Lisinopril 5 mg DAILY PO 03/03/25 10:00 03/05/25 09:19 5 MG Metoprolol Tartrate 50 mg DAILY PO 03/03/25 10:00 03/05/25 09:18 50 MG Rivaroxaban 20 mg DAILY PO 03/03/25 10:00 03/05/25 09:19 20 MG Sildenafil Citrate 20 mg TID PO 03/02/25 22:00 03/05/25 06:00 20 MG Pantoprazole Sodium 40 mg DAILY IV 03/03/25 10:00 03/05/25 09:18 40 MG Furosemide 40 mg BIDD IV 03/02/25 18:00 03/05/25 07:29 40 MG Vancomycin HCl 0 ml @ 0 mls/hr PER PHARMACY IV 03/02/25 15:15 Piperacillin Sod/ Tazobactam Sod 100 ml @ 25 mls/hr Q8H IV 03/02/25 17:00 03/05/25 09:18 25 MLS/HR Nitroglycerin 0.4 mg Q5MINP PRN SL 03/02/25 15:15 Hold Albuterol 2.5 mg Q4HR NEB 03/02/25 18:00 03/05/25 09:31 2.5 MG Ipratropium [place] 0.5 mg Q4HR NEB 03/02/25 18:00 03/05/25 09:31 0.5 MG Methylprednisolone Sodium Succinate 40 mg Q8HR IV 03/02/25 22:00 03/05/25 07:30 40 MG Dextrose 50 ml UD PRN IV 03/02/25 18:45 Diagnostic Test (Pha) 1 strip IQ4HR 03/02/25 20:00 03/05/25 08:00 1 STRIP Insulin Glargine BID@1000,2200 [place] 03/03/25 00:45 03/03/25 09:26 15 UNITS Insulin Glargine 15 units BID@1000,2200 [place] 03/03/25 00:45 UNV Insulin Glargine 15 units BID@1000,2200 [place] 03/03/25 00:45 03/05/25 10:00 15 UNITS Diagnostic Test (Pha) 1 strip IQ4HR 03/04/25 00:00 03/05/25 08:00 1 STRIP Insulin Human Regular IQ4HR [place] 03/03/25 22:15 03/05/25 08:00 12 UNITS Laboratory Results Laboratory Tests 03/05/25 04:44 Chemistry Test 03/05/25 04:44 Albumin 2.9 g/dL (3.2-4.8) L Calcium Level 8.5 mg/dL (8.7-10.4) L Total Protein 6.2 g/dL (5.7-8.2) LFT Test 03/05/25 04:44 Alanine Aminotransferase (ALT) 36 U/L (7-40) Alkaline Phosphatase 210 U/L (46-116) H Aspartate Amino Transferase (AST) 60 U/L (13-40) H Total Bilirubin 0.6 mg/dL (0.2-1.0) Urinalysis Test 03/02/25 11:31 Urine Color Light-yellow (Yellow) Urine Clarity Clear (Clear) Urine pH 5.5 (5.0-9.0) Urine Specific [place] 1.012 (1.001-1.035) Urine Protein 1+ (Negative) H Urine Ketones Negative (Negative) Urine Blood Trace /uL (Negative) H Urine Nitrite Negative (Negative) Urine Bilirubin Negative (Negative) Urine Urobilinogen Normal mg/dL (Negative) Urine Leukocyte Esterase Negative /uL (Negative) Urine RBC 1 /hpf (0 - 3) Urine Microscopic WBC < 1 /HPF (0-3) Urine Squamous Epithelial Cells Few /hpf (<5) Urine Bacteria Few /hpf (None Seen) H Urine Hyaline Casts Few /lpf (0 - 2) Urine Yeast (Budding) Occasional /hpf (None Urine Glucose 4+ mg/dL (Normal) H Labs and/or images reviewed: Labs reviewed by me, Image(s) reviewed by me Assessment/Plan Assessment/Plan Acute hypoxic respiratory failure. Oxygen by nasal cannula Acute on chronic systolic CHF exacerbation.: Consult by Leobardo Alejandra Acute COPD exacerbation. Albuterol Atrovent Solu-Medrol Possible Community-acquired pneumonia Gram-positive versus Gram-negative: Zosyn vancomycin Acute severe hyperglycemia without DKA. Severe pulmonary hypertension: Rivatio Hypertension: Lisinopril metoprolol amiodarone Chronic AFib: Xarelto Hypomagnesemia. Lactic acidosis. Transaminitis. No ascites by ultrasound of the abdomen Obstructive sleep apnea. COPD on home oxygen. Type 2 diabetes mellitus. Obstructive sleep apnea. Patient moved from [place] one year ago, and lives with his sister in [place] Time spent 68 minutes Advanced care planning time 20 minutes Patient is full code Midline ordered Plan discussed with: Patient My Orders Orders - DEANDRE DUFFY MD Procedure Category Date Status Time * Radiologist Consult CONS 03/04/25 Transmitted 13:24 Date of Service: Mar 05, 2025 Billing Provider: DEANDRE DUFFY MD Common Visit Codes: [id number] INP/OBS CARE(HIGH) DEANDRE DUFFY MD Mar 05, 2025 12:25
--- NOTE | 2025-03-05 12:55 | MEDREC ---
[facility] ASP Intervention Section I [facility] ASP Intervention: Deescalate AB based on CS (PLEASE CONSIDER DE-ESCALATION AND D/C VANCOMYCIN (AFEBRILE - WBC IN NORMAL RANGE NO SIGN OF SYSTEMIC INFECTION) - PATIENT JASBIR - ASSOCIATION VANCOMYCIN AND ZOSYN COULD BE ASSOCIATED WITH A HIGHER RISK OF ACUTE KIDNEY DISEASE) LORY HERNANDEZ PHARMACIST Mar 05, 2025 12:55
--- NOTE | 2025-03-05 14:01 | DVH ---
Limited Abdominal Ultrasound - Ascites Evaluation CLINICAL HISTORY: FLUID CHECK FOR POSSIBLE PARACENTESIS COMPARISON: US ABDOMEN LIMITED on DOS: 03/02/25 Technique/Findings/Impression: Limited sonographic evaluation of the abdomen was performed to assess for ascites. There is no appreciable ascites detected.
--- NOTE | 2025-03-05 23:20 | DVHPN2 ---
Progress Note - Dictate Date Seen: Mar 05, 2025 Medical Necessity Reason Pt with a Central, PICC or Fol: No Subjective Patient was seen and evaluated in follow up. Patient is on 4 LPM NC. Per IR there is not enough fluid for thoracentesis at this time. CL 95, CO2 39, BUN 34, INSPECTOR TOYS 1.72, GLUC 306, CA 8.5, ALT 60. Telemetry reviewed. vital signs Vital Sign Date Time Temp Pulse Resp B/P (MAP) Pulse Ox O2 Delivery O2 Flow Rate FiO2 03/05/25 13:28 57 16 98 03/05/25 13:22 Nasal Cannula* 4 36 03/05/25 12:45 97.8 121/75 (90) 97.8 Total Intake and Output 03/04/25 03/04/25 03/05/25 15:00 23:00 07:00 Intake Total 979 ml 310 ml Output Total 700 ml 200 ml Balance 279 ml 110 ml medications Current Medications Medications Dose Ordered Sig/Deondre Route Start Time Stop Time Status Last Admin Dose Admin Amiodarone HCl 200 mg Q12HR PO 03/02/25 22:00 03/05/25 09:18 200 MG Guaifenesin/ Dextromethorphan 10 ml Q4HP PRN PO 03/02/25 15:15 03/05/25 09:21 10 ML Lisinopril 5 mg DAILY PO 03/03/25 10:00 03/05/25 09:19 5 MG Metoprolol Tartrate 50 mg DAILY PO 03/03/25 10:00 03/05/25 09:18 50 MG Rivaroxaban 20 mg DAILY PO 03/03/25 10:00 03/05/25 09:19 20 MG Sildenafil Citrate 20 mg TID PO 03/02/25 22:00 03/05/25 06:00 20 MG Pantoprazole Sodium 40 mg DAILY IV 03/03/25 10:00 03/05/25 09:18 40 MG Furosemide 40 mg BIDD IV 03/02/25 18:00 03/05/25 07:29 40 MG Vancomycin HCl 0 ml @ 0 mls/hr PER PHARMACY IV 03/02/25 15:15 Piperacillin Sod/ Tazobactam Sod 100 ml @ 25 mls/hr Q8H IV 03/02/25 17:00 03/05/25 09:18 25 MLS/HR Nitroglycerin 0.4 mg Q5MINP PRN SL 03/02/25 15:15 Hold Albuterol 2.5 mg Q4HR NEB 03/02/25 18:00 03/05/25 13:22 2.5 MG Ipratropium [place] 0.5 mg Q4HR NEB 03/02/25 18:00 03/05/25 13:22 0.5 MG Methylprednisolone Sodium Succinate 40 mg Q8HR IV 03/02/25 22:00 03/05/25 07:30 40 MG Dextrose 50 ml UD PRN IV 03/02/25 18:45 Diagnostic Test (Pha) 1 strip IQ4HR 03/02/25 20:00 03/05/25 12:00 1 STRIP Insulin Glargine BID@1000,2200 [place] 03/03/25 00:45 03/03/25 09:26 15 UNITS Insulin Glargine 15 units BID@1000,2200 [place] 03/03/25 00:45 UNV Insulin Glargine 15 units BID@1000,2200 [place] 03/03/25 00:45 03/05/25 10:00 15 UNITS Diagnostic Test (Pha) 1 strip IQ4HR 03/04/25 00:00 03/05/25 12:00 1 STRIP Insulin Human Regular IQ4HR [place] 03/03/25 22:15 03/05/25 12:00 16 UNITS objective GENERAL: Alert and oriented x 3. No acute distress. EYES: PERRL, EOMI. Anicteric. HENT: Moist mucous membranes. LUNGS: Clear to auscultation bilaterally. CARDIOVASCULAR: Regular rate and rhythm. ABDOMEN: Soft, nontender and nondistended. EXTREMITIES: No edema. NEUROLOGIC: No focal neurological deficits. SKIN: Warm, dry. laboratory and microbiology Laboratory Tests 03/05/25 04:44 Test 03/05/25 04:44 Range/Units Serum Glucose 268 #H 74-106 mg/dL Problem List Acute hypoxic respiratory failure. Acute on chronic heart failure exacerbation. COPD exacerbation. Acute severe hyperglycemia without DKA. Hypomagnesemia. Lactic acidosis. Transaminitis. Obstructive sleep apnea. Heart failure. COPD on home oxygen. Type 2 diabetes mellitus. Obstructive sleep apnea. Chronic anticoagulation (Eliquis). Pulmonary HTN. Assessment/Plan Continued all current supportive medical care. Amiodarone. Diuretics with Lasix. Lisinopril. Metoprolol. GI prophylactics. IV antibiotics as ordered. Xarelto. Additional plan as per the hospital course. Plan discussed with: Patient JEREMIAH MCCARTHY MD Mar 05, 2025 14:07
[2025-03-06] VITALS (20 sets, daily range): BP systolic 120–145; BP diastolic 61–76; PULSE 60–83; RESP 16–20; TEMP 97.6–98.2; O2SAT 9–99
[2025-03-06 06:51] LABS: Hematocrit 37.6 % (41.0-53.0); Hemoglobin 12.7 g/dL (13.5-17.5); Mean Corpuscular Hemoglobin 33.3 pg (28.0-32.0); Mean Corpuscular Volume 98.5 fL (80.0-100.0); Nucleated Red Blood Cells % 0.0 %
[2025-03-06 07:13] LABS: Alanine Aminotransferase 39 U/L (7-40); Anion Gap 10 (5-15); BUN/Creatinine Ratio 22.8 (10.0-20.0); Potassium 3.6 mmol/L (3.5-5.1); Sodium 142 mmol/L (136-145); Total Protein 6.0 g/dL (5.7-8.2)
[2025-03-06 07:14] LABS: Bilirubin, Total 0.6 mg/dL (0.2-1.0)
[2025-03-06 07:16] LABS: Albumin 3.0 g/dL (3.2-4.8); Alkaline Phosphatase 205 U/L (46-116); Blood Urea Nitrogen 36 mg/dL (9-23); Calcium 8.6 mg/dL (8.7-10.4); Carbon Dioxide 37 mmol/L (20-31); Chloride 95 mmol/L (98-107); Glucose 236 mg/dL (74-106)
--- NOTE | 2025-03-06 11:45 | DVHPN2 ---
Reviewed: Care Plan, H&P, Labs, Medications, Previous Orders, Radiology Changes from previous H/P or p: No Changes Eyes: No Pain, No Vision change, No Conjunctivae inflammation, No Eyelid inflammation, No Other, No Redness ENT: No Ear pain, No Ear discharge, No Nose pain, No Nose discharge, No Nose congestion, No Mouth pain, No Mouth swelling, No Throat pain, No Throat swelling, No Other Cardiovascular: Chest Pain; No Palpitations, No Orthopnea, No Paroxysmal Noc. Dyspnea, No Edema, No Lt Headedness, No Other Respiratory: Cough; No Dry; Shortness of breath, SOB with excertion; No Wheezing, No Hemoptysis, No Pleuritic Pain, No Sputum, No Other Gastrointestinal: No Nausea, No Vomiting, No Abdominal Pain, No Diarrhea, No Constipation, No Melena, No Hematochezia, No Other Genitourinary: No Dysuria, No Frequency, No Incontinence, No Hematuria, No Retention, No Other Musculoskeletal: No other, No neck pain, No shoulder pain, No arm pain, No back pain, No hand pain, No leg pain, No foot pain Skin: No Rash, No Lesions, No Jaundice, No Bruising, No Other Objective Vitals Vital Signs Date Time Temp Pulse Resp B/P (MAP) Pulse Ox O2 Delivery O2 Flow Rate FiO2 03/06/25 09:54 67 16 98 03/06/25 09:48 Nasal Cannula 4.0 03/06/25 09:48 36 03/06/25 09:12 124/61 03/06/25 08:49 98.2 98.2 Intake/Output Intake and Output 03/06/25 07:00 Intake Total 1400 ml Output Total 300 ml Balance 1100 ml Intake Oral 1400 ml Output Urine Total 300 ml # Voids 8 Medications Current Medications Medications Dose Ordered Sig/Deondre Route Start Time Stop Time Status Last Admin Dose Admin Amiodarone HCl 200 mg Q12HR PO 03/02/25 22:00 03/06/25 09:11 200 MG Guaifenesin/ Dextromethorphan 10 ml Q4HP PRN PO 03/02/25 15:15 03/06/25 06:22 10 ML Lisinopril 5 mg DAILY PO 03/03/25 10:00 03/06/25 09:12 5 MG Metoprolol Tartrate 50 mg DAILY PO 03/03/25 10:00 03/06/25 09:12 50 MG Rivaroxaban 20 mg DAILY PO 03/03/25 10:00 03/06/25 09:12 20 MG Sildenafil Citrate 20 mg TID PO 03/02/25 22:00 03/06/25 06:13 20 MG Pantoprazole Sodium 40 mg DAILY IV 03/03/25 10:00 03/06/25 09:12 40 MG Furosemide 40 mg BIDD IV 03/02/25 18:00 03/06/25 06:14 40 MG Piperacillin Sod/ Tazobactam Sod 100 ml @ 25 mls/hr Q8H IV 03/02/25 17:00 03/06/25 09:12 25 MLS/HR Nitroglycerin 0.4 mg Q5MINP PRN SL 03/02/25 15:15 Hold Albuterol 2.5 mg Q4HR [facility] 03/02/25 18:00 03/06/25 09:47 2.5 MG Ipratropium [place] 0.5 mg Q4HR NEB 03/02/25 18:00 03/06/25 09:48 0.5 MG Methylprednisolone Sodium Succinate 40 mg Q8HR IV 03/02/25 22:00 03/06/25 06:14 40 MG Dextrose 50 ml UD PRN IV 03/02/25 18:45 Diagnostic Test (Pha) 1 strip IQ4HR 03/02/25 20:00 03/06/25 08:08 1 STRIP Insulin Glargine BID@1000,2200 [place] 03/03/25 00:45 03/06/25 09:59 15 UNITS Insulin Glargine 15 units BID@1000,2200 [place] 03/03/25 00:45 UNV Insulin Glargine 15 units BID@1000,2200 [place] 03/03/25 00:45 03/05/25 10:00 15 UNITS Diagnostic Test (Pha) 1 strip IQ4HR 03/04/25 00:00 03/06/25 08:08 1 STRIP Insulin Human Regular IQ4HR [place] 03/03/25 22:15 03/06/25 08:08 8 UNITS Laboratory Results Laboratory Tests 03/06/25 05:26 Chemistry Test 03/06/25 05:26 Albumin 3.0 g/dL (3.2-4.8) L Calcium Level 8.6 mg/dL (8.7-10.4) L Total Protein 6.0 g/dL (5.7-8.2) LFT Test 03/06/25 05:26 Alanine Aminotransferase (ALT) 39 U/L (7-40) Alkaline Phosphatase 205 U/L (46-116) H Aspartate Amino Transferase (AST) 67 U/L (13-40) H Total Bilirubin 0.6 mg/dL (0.2-1.0) Urinalysis Test 03/02/25 11:31 Urine Color Light-yellow (Yellow) Urine Clarity Clear (Clear) Urine pH 5.5 (5.0-9.0) Urine Specific [place] 1.012 (1.001-1.035) Urine Protein 1+ (Negative) H Urine Ketones Negative (Negative) Urine Blood Trace /uL (Negative) H Urine Nitrite Negative (Negative) Urine Bilirubin Negative (Negative) Urine Urobilinogen Normal mg/dL (Negative) Urine Leukocyte Esterase Negative /uL (Negative) Urine RBC 1 /hpf (0 - 3) Urine Microscopic WBC < 1 /HPF (0-3) Urine Squamous Epithelial Cells Few /hpf (<5) Urine Bacteria Few /hpf (None Seen) H Urine Hyaline Casts Few /lpf (0 - 2) Urine Yeast (Budding) Occasional /hpf (None Urine Glucose 4+ mg/dL (Normal) H Labs and/or images reviewed: Labs reviewed by me, Image(s) reviewed by me Assessment/Plan Assessment/Plan Acute hypoxic respiratory failure. Oxygen by nasal cannula Acute on chronic systolic CHF exacerbation.: Consult by Leobardo Alejandra Acute COPD exacerbation. Albuterol Atrovent Solu-Medrol Possible Community-acquired pneumonia Gram-positive versus Gram-negative: Continue Zosyn, DC vancomycin Acute severe hyperglycemia without DKA. Severe pulmonary hypertension: Rivatio Hypertension: Lisinopril metoprolol amiodarone Chronic AFib: Xarelto Hypomagnesemia. Lactic acidosis. Transaminitis. No ascites by ultrasound of the abdomen Obstructive sleep apnea. COPD on home oxygen. Type 2 diabetes mellitus. Obstructive sleep apnea. Patient moved from [place] one year ago, and lives with his sister in [place] Time spent 65 minutes Advanced care planning time 20 minutes Patient is full code Midline ordered HERNAN Sal at bedside Plan discussed with: Patient My Orders Orders - EDANDRE DUFFY MD Procedure Category Date Status Time Insert Midline ORDERS 03/05/25 Transmitted 12:27 Abdomen Limited US 03/05/25 Resulted 13:03 Date of Service: Mar 06, 2025 Billing Provider: DEANDRE DUFFY MD Common Visit Codes: [id number] INP/OBS CARE(HIGH) DEANDRE DUFFY MD Mar 06, 2025 11:45
[2025-03-06] MEDS ORDERED: DEXTROSE (50%) 50ML SYRG IV PRN (21:00)
[2025-03-07] VITALS (18 sets, daily range): BP systolic 119–138; BP diastolic 66–79; PULSE 62–84; RESP 14–21; TEMP 97.8–98.6; O2SAT 91–100
[2025-03-07] MEDS: ACCU-CHEK COMFORT CURVE STRIP VI SCH
[2025-03-07] MEDS: InsuLIN REG 1unit/0.01ml Soln (100units/ml) SC SCH (00:28)
--- NOTE | 2025-03-07 04:31 | DVHPN2 ---
Progress Note - Dictate Date Seen: Mar 06, 2025 Medical Necessity Reason Pt with a Central, PICC or Fol: No Subjective Patient was seen and evaluated in follow up. Patient is on 4 LPM NC. 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 Telemetry reviewed. vital signs Vital Sign Date Time Temp Pulse Resp B/P (MAP) Pulse Ox O2 Delivery O2 Flow Rate FiO2 03/06/25 12:49 98.0 67 16 125/63 (83) 9 98.0 03/06/25 09:48 Nasal Cannula 4.0 03/06/25 09:48 36 Total Intake and Output 03/05/25 03/05/25 03/06/25 15:00 23:00 07:00 Intake Total 400 ml 800 ml 200 ml Output Total 300 ml Balance 400 ml 500 ml 200 ml medications Current Medications Medications Dose Ordered Sig/Deondre Route Start Time Stop Time Status Last Admin Dose Admin Amiodarone HCl 200 mg Q12HR PO 03/02/25 22:00 03/06/25 09:11 200 MG Guaifenesin/ Dextromethorphan 10 ml Q4HP PRN PO 03/02/25 15:15 03/06/25 12:17 10 ML Lisinopril 5 mg DAILY PO 03/03/25 10:00 03/06/25 09:12 5 MG Metoprolol Tartrate 50 mg DAILY PO 03/03/25 10:00 03/06/25 09:12 50 MG Rivaroxaban 20 mg DAILY PO 03/03/25 10:00 03/06/25 09:12 20 MG Sildenafil Citrate 20 mg TID PO 03/02/25 22:00 03/06/25 06:13 20 MG Pantoprazole Sodium 40 mg DAILY IV 03/03/25 10:00 03/06/25 09:12 40 MG Furosemide 40 mg BIDD IV 03/02/25 18:00 03/06/25 06:14 40 MG Piperacillin Sod/ Tazobactam Sod 100 ml @ 25 mls/hr Q8H IV 03/02/25 17:00 03/06/25 09:12 25 MLS/HR Nitroglycerin 0.4 mg Q5MINP PRN SL 03/02/25 15:15 Hold Albuterol 2.5 mg Q4HR NEB 03/02/25 18:00 03/06/25 09:47 2.5 MG Ipratropium [place] 0.5 mg Q4HR NEB 03/02/25 18:00 03/06/25 09:48 0.5 MG Methylprednisolone Sodium Succinate 40 mg Q8HR IV 03/02/25 22:00 03/06/25 06:14 40 MG Dextrose 50 ml UD PRN IV 03/02/25 18:45 Diagnostic Test (Pha) 1 strip IQ4HR 03/02/25 20:00 03/06/25 12:15 1 STRIP Insulin Glargine BID@1000,2200 [place] 03/03/25 00:45 03/06/25 09:59 15 UNITS Insulin Glargine 15 units BID@1000,2200 ND 03/03/25 00:45 UNV Insulin Glargine 15 units BID@1000,2200 [place] 03/03/25 00:45 03/05/25 10:00 15 UNITS Diagnostic Test (Pha) 1 strip IQ4HR 03/04/25 00:00 03/06/25 12:15 1 STRIP Insulin Human Regular IQ4HR [place] 03/03/25 22:15 03/06/25 12:15 16 UNITS objective GENERAL: Alert and oriented x 3. No acute distress. EYES: PERRL, EOMI. Anicteric. HENT: Moist mucous membranes. LUNGS: Clear to auscultation bilaterally. CARDIOVASCULAR: Regular rate and rhythm. ABDOMEN: Soft, nontender and nondistended. EXTREMITIES: No edema. NEUROLOGIC: No focal neurological deficits. SKIN: Warm, dry. laboratory and microbiology Laboratory Tests 03/06/25 05:26 Test 03/06/25 05:26 Range/Units Serum Glucose 236 H 74-106 mg/dL Problem List Acute hypoxic respiratory failure. Acute on chronic heart failure exacerbation. COPD exacerbation. Acute severe hyperglycemia without DKA. Hypomagnesemia. Lactic acidosis. Transaminitis. Obstructive sleep apnea. Heart failure. COPD on home oxygen. Type 2 diabetes mellitus. Obstructive sleep apnea. Chronic anticoagulation (Eliquis). Pulmonary HTN. Assessment/Plan Continued all current supportive medical care. Amiodarone. Diuretics with Lasix. Lisinopril. Metoprolol. GI prophylactics. IV antibiotics as ordered. Xarelto. Additional plan as per the hospital course. Plan discussed with: Patient JEREMIAH MCCARTHY MD Mar 06, 2025 13:26
--- NOTE | 2025-03-07 10:51 | DVHPN2 ---
Reviewed: Care Plan, H&P, Labs, Medications, Previous Orders, Radiology Changes from previous H/P or p: No Changes Eyes: No Pain, No Vision change, No Conjunctivae inflammation, No Eyelid inflammation, No Other, No Redness ENT: No Ear pain, No Ear discharge, No Nose pain, No Nose discharge, No Nose congestion, No Mouth pain, No Mouth swelling, No Throat pain, No Throat swelling, No Other Cardiovascular: Chest Pain; No Palpitations, No Orthopnea, No Paroxysmal Noc. Dyspnea, No Edema, No Lt Headedness, No Other Respiratory: Cough; No Dry; Shortness of breath, SOB with excertion; No Wheezing, No Hemoptysis, No Pleuritic Pain, No Sputum, No Other Gastrointestinal: No Nausea, No Vomiting, No Abdominal Pain, No Diarrhea, No Constipation, No Melena, No Hematochezia, No Other Genitourinary: No Dysuria, No Frequency, No Incontinence, No Hematuria, No Retention, No Other Musculoskeletal: No other, No neck pain, No shoulder pain, No arm pain, No back pain, No hand pain, No leg pain, No foot pain Skin: No Rash, No Lesions, No Jaundice, No Bruising, No Other Objective Vitals Vital Signs Date Time Temp Pulse Resp B/P (MAP) Pulse Ox O2 Delivery O2 Flow Rate FiO2 03/07/25 10:37 72 20 99 03/07/25 10:26 130/79 03/07/25 09:00 98.6 98.6 03/07/25 08:00 Nasal Cannula* 4 36 Intake/Output Intake and Output 03/07/25 07:00 Intake Total 1776 ml Balance 1776 ml Intake Oral 1576 ml IV Total 200 ml # Voids 11 # Bowel Movements 1 Medications Current Medications Medications Dose Ordered Sig/Deondre Route Start Time Stop Time Status Last Admin Dose Admin Amiodarone HCl 200 mg Q12HR PO 03/02/25 22:00 03/07/25 10:25 200 MG Guaifenesin/ Dextromethorphan 10 ml Q4HP PRN PO 03/02/25 15:15 03/06/25 20:26 10 ML Lisinopril 5 mg DAILY PO 03/03/25 10:00 03/07/25 10:26 5 MG Metoprolol Tartrate 50 mg DAILY PO 03/03/25 10:00 03/07/25 10:26 50 MG Rivaroxaban 20 mg DAILY PO 03/03/25 10:00 03/07/25 10:25 20 MG Sildenafil Citrate 20 mg TID PO 03/02/25 22:00 03/07/25 06:16 20 MG Pantoprazole Sodium 40 mg DAILY IV 03/03/25 10:00 03/07/25 10:26 40 MG Furosemide 40 mg BIDD IV 03/02/25 18:00 03/07/25 06:08 40 MG Piperacillin Sod/ Tazobactam Sod 100 ml @ 25 mls/hr Q8H IV 03/02/25 17:00 03/07/25 10:26 25 MLS/HR Nitroglycerin 0.4 mg Q5MINP PRN SL 03/02/25 15:15 Hold Albuterol 2.5 mg Q4HR NEB 03/02/25 18:00 03/07/25 10:36 2.5 MG Ipratropium [place] 0.5 mg Q4HR NEB 03/02/25 18:00 03/07/25 10:36 0.5 MG Methylprednisolone Sodium Succinate 40 mg Q8HR IV 03/02/25 22:00 03/07/25 06:08 40 MG Dextrose 50 ml UD PRN IV 03/02/25 18:45 Cancel Insulin Glargine 15 units BID@1000,2200 [place] 03/03/25 00:45 UNV Insulin Glargine 15 units BID@1000,2200 [place] 03/03/25 00:45 03/07/25 10:23 15 UNITS Diagnostic Test (Pha) 1 strip IQ4HR 03/07/25 00:00 03/07/25 08:00 1 STRIP Insulin Human Regular IQ4HR [place] 03/07/25 00:00 03/07/25 10:24 8 UNITS Dextrose 50 ml UD PRN IV 03/06/25 21:00 Laboratory Results Laboratory Tests 03/06/25 05:26 Urinalysis Test 03/02/25 11:31 Urine Color Light-yellow (Yellow) Urine Clarity Clear (Clear) Urine pH 5.5 (5.0-9.0) Urine Specific [place] 1.012 (1.001-1.035) Urine Protein 1+ (Negative) H Urine Ketones Negative (Negative) Urine Blood Trace /uL (Negative) H Urine Nitrite Negative (Negative) Urine Bilirubin Negative (Negative) Urine Urobilinogen Normal mg/dL (Negative) Urine Leukocyte Esterase Negative /uL (Negative) Urine RBC 1 /hpf (0 - 3) Urine Microscopic WBC < 1 /HPF (0-3) Urine Squamous Epithelial Cells Few /hpf (<5) Urine Bacteria Few /hpf (None Seen) H Urine Hyaline Casts Few /lpf (0 - 2) Urine Yeast (Budding) Occasional /hpf (None Urine Glucose 4+ mg/dL (Normal) H Labs and/or images reviewed: Labs reviewed by me, Image(s) reviewed by me Assessment/Plan Assessment/Plan Acute hypoxic respiratory failure. Oxygen by nasal cannula Acute on chronic systolic CHF exacerbation.: Consult by Leobardo Alejandra Acute COPD exacerbation. Albuterol Atrovent Solu-Medrol Possible Community-acquired pneumonia Gram-positive versus Gram-negative: Continue Zosyn, Acute severe hyperglycemia without DKA. Severe pulmonary hypertension: Rivatio Hypertension: Lisinopril metoprolol amiodarone Chronic AFib: Xarelto Hypomagnesemia. Lactic acidosis. Transaminitis. No ascites by ultrasound of the abdomen Obstructive sleep apnea. COPD on home oxygen. Uncontrolled Type 2 diabetes mellitus. Aggressive insulin sliding scale Obstructive sleep apnea. Patient moved from [place] one year ago, and lives with his sister in [place] Time spent 65 minutes Advanced care planning time 20 minutes Patient is full code Midline ordered RN at bedside Discussed with the patient and is willing to go to [facility] facility for two weeks of IV antibiotics pneumoniae Plan discussed with: Patient Date of Service: Mar 07, 2025 Billing Provider: DEANDRE DUFFY MD Common Visit Codes: [id number] INP/OBS CARE(HIGH) DEANDRE DUFFY MD Mar 07, 2025 10:51
--- NOTE | 2025-03-07 11:03 | DVHDS2 ---
Discharge Summary Date of Admission Mar 02, 2025 at 15:15 Date of Discharge: Mar 07, 2025 Admitting Diagnosis Shortness of breath Wounds: None Labs/Diagnostic Data: Laboratory Results Test 03/07/25 08:27 03/06/25 05:26 03/05/25 04:44 03/04/25 18:00 POC Glucose 230 mg/dl (70-106) White Blood Count 5.8 10^3/uL (4.4-10.8) Red Blood Count 3.82 10^6/uL (4.5-5.90) Hemoglobin 12.7 g/dL (13.5-17.5) Hematocrit 37.6 % (41.0-53.0) Mean Corpuscular Volume 98.5 fL (80.0-100.0) Mean Corpuscular Hemoglobin 33.3 pg (28.0-32.0) Mean Corpuscular Hemoglobin Concent 33.8 g/dL (32.0-36.0) Red Cell Distribution Width 14.7 % (11.8-14.3) Platelet Count 127 10^3/uL (140-450) Mean Platelet Volume 9.1 fL (6.9-10.8) Neutrophils (%) (Auto) 88.4 % (37.0-80.0) Lymphocytes (%) (Auto) 1.9 % (10.0-50.0) Monocytes (%) (Auto) 9.7 % (0.0-12.0) Eosinophils (%) (Auto) 0.0 % (0.0-7.0) Basophils (%) (Auto) 0.0 % (0.0-2.0) Neutrophils # (Auto) 5.1 10 ^3/uL (1.6-8.6) Lymphocytes # (Auto) 0.1 10 ^3/uL (0.4-5.4) Monocytes # (Auto) 0.6 10 ^3/uL (0-1.3) Eosinophils # (Auto) 0 10 ^3/uL (0-0.8) Basophils # (Auto) 0 10 ^3/uL (0-0.2) Nucleated Red Blood Cells 0.0 % Sodium Level 142 mmol/L (136-145) Potassium Level 3.6 mmol/L (3.5-5.1) Chloride Level 95 mmol/L (98-107) Carbon Dioxide Level 37 mmol/L (20-31) Anion Gap 10 (5-15) Blood Urea Nitrogen 36 mg/dL (9-23) Creatinine 1.58 mg/dL (0.700-1.30) Glomerular Filtration Rate Calc 50 mL/min (>90) BUN/Creatinine Ratio 22.8 (10.0-20.0) Serum Glucose 236 mg/dL (74-106) Calcium Level 8.6 mg/dL (8.7-10.4) Total Bilirubin 0.6 mg/dL (0.2-1.0) Aspartate Amino Transferase (AST) 67 U/L (13-40) Alanine Aminotransferase (ALT) 39 U/L (7-40) Alkaline Phosphatase 205 U/L (46-116) Total Protein 6.0 g/dL (5.7-8.2) Albumin 3.0 g/dL (3.2-4.8) Random Vancomycin Level 7.8 ug/mL (5-10) Influenza Type A Antigen Negative (Negative) Influenza Type B Antigen Negative (Negative) SARS-CoV-2 Antigen (Rapid) Negative (NEGATIVE) Test 03/02/25 21:50 03/02/25 15:40 03/02/25 14:28 03/02/25 11:45 Troponin I High Sensitivity 18 ng/L (</=54) Lactic Acid Level 2.3 mmol/L (0.4-2.0) Beta-Hydroxybutyric Acid 0.079 mmol/L (< 0.4) Magnesium Level 1.4 mg/dL (1.6-2.6) B-Type Natriuretic Peptide 309.92 pg/mL (0-100) Test 03/02/25 11:31 Urine Color Light-yellow (Yellow) Urine Clarity Clear (Clear) Urine pH 5.5 (5.0-9.0) Urine Specific [place] 1.012 (1.001-1.035) Urine Protein 1+ (Negative) Urine Ketones Negative (Negative) Urine Blood Trace /uL (Negative) Urine Nitrite Negative (Negative) Urine Bilirubin Negative (Negative) Urine Urobilinogen Normal mg/dL (Negative) Urine Leukocyte Esterase Negative /uL (Negative) Urine RBC 1 /hpf (0 - 3) Urine Microscopic WBC < 1 /HPF (0-3) Urine Squamous Epithelial Cells Few /hpf (<5) Urine Bacteria Few /hpf (None Seen) Urine Hyaline Casts Few /lpf (0 - 2) Urine Yeast (Budding) Occasional /hpf (None Urine Glucose 4+ mg/dL (Normal) Other Laboratory Tests 03/06/25 05:26 Brief Hx & Hospital Course: 60-year-old male moderately obese with a history of hypotension AFib on Xarelto uncontrolled diabetes CVA pulmonary hypertension on Revatio acute on chronic COPD chronic systolic congestive heart failure came in complaining of shortness of breaths. Patient was found to be in acute exacerbation of systolic congestive heart failure seen by Cardiology Dr. Edmonds placed on Lasix also had community-acquired pneumonia treated with the Zosyn 3.375 g IV q.8 hours which he will continue for two more weeks in the long term patient has had uncontrolled diabetes blood sugars 550 at the time of admission. A1c pending treated with the insulin sliding scale mild lactic acidosis and transaminitis patient has had distended abdomen ultrasound showed no fluid possible cirrhosis of liver patient also has a obstructive sleep apnea. The patient being discharged to [facility] for two weeks of IV Zosyn for pneumonia. The plan is acceptable to the patient. Physical therapy ordered. General condition stable but poor at the time of discharge Consults/Reason for consult Cardiology Operations or Procedures None Condition at Discharge: Fair Final Diagnosis/Problems List Acute hypoxic respiratory failure. Oxygen by nasal cannula Acute on chronic systolic CHF exacerbation.: Consult by Dr. Edmonds appreciated, Lasix Acute COPD exacerbation. Albuterol Atrovent Solu-Medrol Possible Community-acquired pneumonia Gram-positive versus Gram-negative: Continue Zosyn, Acute severe hyperglycemia without DKA. Severe pulmonary hypertension: Rivatio Hypertension: Lisinopril metoprolol amiodarone Chronic AFib: Xarelto Hypomagnesemia. Lactic acidosis. Transaminitis. No ascites by ultrasound of the abdomen Obstructive sleep apnea. COPD on home oxygen. Uncontrolled Type 2 diabetes mellitus. Aggressive insulin sliding scale Obstructive sleep apnea. Discharge Disposition: Nursing Home Facility Discharge Instruct/Medications Diet: Cardiac 2g Na,low cholest Activity: Light activity Follow Up/Referral: Follow up with the long term Medications: Zosyn 3.375 g IV q.8 hours for two weeks for pneumonia See list for other meds Scheduled Amiodarone HCl (Amiodarone HCl), 200 MG PO Q12HR Azithromycin (Azithromycin), 250 MG PO DAILY Azithromycin (Zithromax), 250 MG PO DAILY Benzonatate (Benzonatate), 1 CAP PO TID Cefpodoxime Proxetil (Cefpodoxime Proxetil), 1 TAB PO BID Ertugliflozin l-Pyroglutamic A (Steglatro), 1 TAB PO DAILY, (Reported) Famotidine (Famotidine), 1 TAB PO BID, (Reported) Furosemide (Furosemide), 1 TAB PO DAILY Lisinopril (Lisinopril), 1 TAB PO DAILY, (Reported) Metoprolol Tartrate (Metoprolol Tartrate), 1 TAB PO DAILY, (Reported) Potassium Chloride (Potassium Chloride ER), 1 TAB PO BID, (Reported) Potassium Chloride (Potassium Chloride Cr), 1 TAB PO DAILY Rivaroxaban (Xarelto Tablet), 1 TAB PO DAILY, (Reported) Sildenafil Citrate (Revatio), 20 MG PO TID Torsemide Injection (Torsemide), 1 TAB PO DAILY, (Reported) Scheduled PRN Dextromethorphan-Guaifenesin (Robitussin-Dm), 10 ML PO Q4HP PRN 39 (Time Taken for discharge summary 39 minutes) Discharge Statement: "Patient was advised to return to the ER or call 911 if any headaches, dizziness, shortness of breath, chest pain, abdominal pain, bleeding, fevers, or worsening of medical condition. Patient was counseled about treatment plan, medications, possible side effects, patientverbalized understanding. All questions were answered to the best of my ability. This discharge took greater then 30 minutes in planning, reviewing documentation, counseling the patient, and discussing with other team members." ASSESSMENT ASSESSMENT Hospital Course Improved Assessment Acute hypoxic respiratory failure. Oxygen by nasal cannula Acute on chronic systolic CHF exacerbation.: Consult by Leobardo Alejandra Acute COPD exacerbation. Albuterol Atrovent Solu-Medrol Possible Community-acquired pneumonia Gram-positive versus Gram-negative: Continue Zosyn, Acute severe hyperglycemia without DKA. Severe pulmonary hypertension: Rivatio Hypertension: Lisinopril metoprolol amiodarone Chronic AFib: Xarelto Hypomagnesemia. Lactic acidosis. Transaminitis. No ascites by ultrasound of the abdomen Obstructive sleep apnea. COPD on home oxygen. Uncontrolled Type 2 diabetes mellitus. Aggressive insulin sliding scale Obstructive sleep apnea. Date of Service: Mar 07, 2025 Billing Provider: DEANDRE DUFYF MD Common Visit Codes: [id number] DISCH DAY >30min DEANDRE DUFFY MD Mar 07, 2025 11:03
--- NOTE | 2025-03-07 23:06 | DVHPN2 ---
Progress Note - Dictate Date Seen: Mar 07, 2025 Medical Necessity Reason Pt with a Central, PICC or Fol: No Subjective Patient was seen and evaluated in follow up. Patient has no new complaints at this time. The patient was accepted to [facility]. Patient is cardiac stable for discharge. Telemetry reviewed. vital signs Vital Sign Date Time Temp Pulse Resp B/P (MAP) Pulse Ox O2 Delivery O2 Flow Rate FiO2 03/07/25 10:42 76 20 100 03/07/25 10:26 130/79 03/07/25 10:00 Nasal Cannula* 4 36 03/07/25 09:00 98.6 98.6 Total Intake and Output 03/06/25 03/06/25 03/07/25 15:00 23:00 07:00 Intake Total 336 ml 1040 ml 400 ml Balance 336 ml 1040 ml 400 ml medications Current Medications Medications Dose Ordered Sig/Deondre Route Start Time Stop Time Status Last Admin Dose Admin Amiodarone HCl 200 mg Q12HR PO 03/02/25 22:00 03/07/25 10:25 200 MG Guaifenesin/ Dextromethorphan 10 ml Q4HP PRN PO 03/02/25 15:15 03/06/25 20:26 10 ML Lisinopril 5 mg DAILY PO 03/03/25 10:00 03/07/25 10:26 5 MG Metoprolol Tartrate 50 mg DAILY PO 03/03/25 10:00 03/07/25 10:26 50 MG Rivaroxaban 20 mg DAILY PO 03/03/25 10:00 03/07/25 10:25 20 MG Sildenafil Citrate 20 mg TID PO 03/02/25 22:00 03/07/25 06:16 20 MG Pantoprazole Sodium 40 mg DAILY IV 03/03/25 10:00 03/07/25 10:26 40 MG Furosemide 40 mg BIDD IV 03/02/25 18:00 03/07/25 06:08 40 MG Piperacillin Sod/ Tazobactam Sod 100 ml @ 25 mls/hr Q8H IV 03/02/25 17:00 03/07/25 10:26 25 MLS/HR Nitroglycerin 0.4 mg Q5MINP PRN SL 03/02/25 15:15 Hold Albuterol 2.5 mg Q4HR NEB 03/02/25 18:00 03/07/25 10:36 2.5 MG Ipratropium [place] 0.5 mg Q4HR NEB 03/02/25 18:00 03/07/25 10:36 0.5 MG Methylprednisolone Sodium Succinate 40 mg Q8HR IV 03/02/25 22:00 03/07/25 06:08 40 MG Dextrose 50 ml UD PRN IV 03/02/25 18:45 Cancel Insulin Glargine 15 units BID@1000,2200 [place] 03/03/25 00:45 UNV Insulin Glargine 15 units BID@1000,2200 [place] 03/03/25 00:45 03/07/25 10:23 15 UNITS Diagnostic Test (Pha) 1 strip IQ4HR 03/07/25 00:00 03/07/25 12:46 1 STRIP Insulin Human Regular IQ4HR [place] 03/07/25 00:00 03/07/25 12:46 8 UNITS Dextrose 50 ml UD PRN IV 03/06/25 21:00 objective GENERAL: Alert and oriented x 3. No acute distress. EYES: PERRL, EOMI. Anicteric. HENT: Moist mucous membranes. LUNGS: Clear to auscultation bilaterally. CARDIOVASCULAR: Regular rate and rhythm. ABDOMEN: Soft, nontender and nondistended. EXTREMITIES: No edema. NEUROLOGIC: No focal neurological deficits. SKIN: Warm, dry. laboratory and microbiology Laboratory Tests 03/06/25 05:26 Test 03/06/25 05:26 Range/Units Serum Glucose 236 H 74-106 mg/dL Problem List Acute hypoxic respiratory failure. Acute on chronic heart failure exacerbation. COPD exacerbation. Acute severe hyperglycemia without DKA. Hypomagnesemia. Lactic acidosis. Transaminitis. Obstructive sleep apnea. Heart failure. COPD on home oxygen. Type 2 diabetes mellitus. Obstructive sleep apnea. Chronic anticoagulation (Eliquis). Pulmonary HTN. Assessment/Plan Continued all current supportive medical care. Amiodarone. Diuretics with Lasix. Lisinopril. Metoprolol. GI prophylactics. IV antibiotics as ordered. Xarelto. Additional plan as per the hospital course. Plan discussed with: Patient JEREMIAH MCCARTHY MD Mar 07, 2025 13:35
== END 2025-03-07 17:14 | DRG 177 ==
LOC: ER 11:26 → EDBD 11:26 → OVERFLOW 15:15 → TELE-WESTW 17:10
PROVIDERS: ADMIT Family Medicine; ATTEND Family Medicine
PROC: 5A09357 Assistance with Respiratory Ventilation, Less than 24 Consecutive Hours, Continuous Positive Airway Pressure (ICD-10-PCS; principal; 2025-03-04)
PROC: 05HD33Z Insertion of Infusion Device into Right Cephalic Vein, Percutaneous Approach (ICD-10-PCS; 2025-03-05)
PROC: B54MZZA Ultrasonography of Right Upper Extremity Veins, Guidance (ICD-10-PCS; 2025-03-05)
PROC: 5A09357 Assistance with Respiratory Ventilation, Less than 24 Consecutive Hours, Continuous Positive Airway Pressure (ICD-10-PCS; 2025-03-06)
DX: J15.69 Pneumonia due to other Gram-negative bacteria (principal); I50.23 Acute on chronic systolic (congestive) heart failure; J96.01 Acute respiratory failure with hypoxia; E87.21 Acute metabolic acidosis; D69.6 Thrombocytopenia, unspecified; I27.20 Pulmonary hypertension, unspecified; I11.0 Hypertensive heart disease with heart failure; J44.0 Chronic obstructive pulmonary disease with (acute) lower respiratory infection; Z79.01 Long term (current) use of anticoagulants; J15.9 Unspecified bacterial pneumonia; E11.65 Type 2 diabetes mellitus with hyperglycemia; J44.1 Chronic obstructive pulmonary disease with (acute) exacerbation; I48.20 Chronic atrial fibrillation, unspecified; Z20.822 Contact with and (suspected) exposure to COVID-19; E83.42 Hypomagnesemia; G47.33 Obstructive sleep apnea (adult) (pediatric); R74.01 Elevation of levels of liver transaminase levels; Z99.81 Dependence on supplemental oxygen; Z82.49 Family history of ischemic heart disease and other diseases of the circulatory system; Z86.73 Personal history of transient ischemic attack (TIA), and cerebral infarction without residual deficits
CPT/HCPCS: 36415; 71045; 76705; 80053; 80202; 81001; 82010; 82962; 83036; 83605; 83735; 83880; 84484; 85025; 87426; 87804; 93005; 93306; 94640; 94660; 96365; 96372; 96375; 97163; G0378; J1815; J2470; J2543